=== PATIENT | female | born 1935 | race Caucasian/White ===

== ENCOUNTER 2021-12-19 18:27 | Inpatient (IN) ==
[2021-12-19 19:32] LABS: Hematocrit (blood only) 43.3 % (34.1-44.9); Hemoglobin 14.1 g/dl (12.0-16.0); Mean Corpuscular Hemoglobin 32.5 pg (25.0-34.0); Mean Corpuscular Hgb Conc 32.6 g/dL (32.0-36.0); Mean Corpuscular Volume 99.8 fL (80.0-100.0); Mean Platelet Volume 9.9 fL (9.4-12.3); Platelet Count 205 K/uL (130-400); RDW Standard Deviation 51.7 fL (36.4-46.3); Red Blood Count 4.34 M/uL (3.93-5.22); White Blood Count 16.08 K/ul (4.8-10.8)
[2021-12-19 19:44] LABS: Albumin Globulin Ratio 1.4 (0.9-2); Albumin Level 3.4 gm/dl (3.4-5.0); BUN Creatinine Ratio 47.1 (10-20); Bilirubin,Total 1.5 mg/dl (0.2-1.0); Calcium 9.9 mg/dl (8.5-10.1); Creatinine Clr Calc Pharmacy 64.1 ml/min; Est GFR (African American) 91.6 ml/min; Globulin 2.5 gm/dl (2.5-4.0); Potassium 4.2 mmol/L (3.5-5.1); Total Protein 5.9 gm/dl (6.0-8.3)
[2021-12-19 19:50] LABS: Troponin I High Sensitivity 8.7 pg/ml (0-14)
[2021-12-19 19:59] LABS: Basophils # (auto) 0.03 K/uL (0-0.2); Basophils % (auto) 0.2 %; Immature Granulocytes # (auto) 0.09 K/uL (0.00-0.02); Immature Granulocytes % (auto) 0.6 %; Monocytes # (auto) 0.35 K/uL (0.24-0.82); Monocytes % (auto) 2.2 %; Neutrophils # (auto) 14.81 K/uL (1.4-6.5); Polychromasia 1+
--- NOTE | 2021-12-19 20:05 | XRay Report ---
XR chest 1V portable CLINICAL HISTORY: SOB TECHNIQUE: Single frontal radiograph of the chest was obtained. Comparison: Comparison is made to chest radiograph 10/15/2021 FINDINGS: Bilateral reverse shoulder arthroplasties are seen. Calcified aortic knob is seen. The lungs are kendall r. No evidence of pleural effusion or pneumothorax. IMPRESSION: No acute abnormalities and in particular no evidence of pneumonia. ACT 112: Negative or not required by law. Electronically signed by: Sammy Davis M.D. 12/19/2021 8:03 PM
[2021-12-19] MEDS ORDERED: OPTIRAY 320 100ml IV ONE (20:20)
--- NOTE | 2021-12-19 20:36 | Emergency Department Note ---
Impression & Plan Diverticulitis, Leukocytosis, Atrial fibrillation, permanent ED Provider Note CHIEF COMPLAINT: Abdominal pain HISTORY OF PRESENT ILLNESS: This 86-year-old female patient presents to the emergency department with complaints of diffuse abdominal pain. The patient states it began in the right lower abdomen at approximately 4 AM. If she lies perfectly still the pain is somewhat tolerable. Any movement seems to cause worsening of the pain. She is not able to localize the pain at this time. She denies pain through to the back or into the chest. The patient denies any diarrhea, difficulty urinating or fevers. She denies any nausea or vomiting. Patient denies any significant abdominal history or surgeries. Patient states she lives in independent care at [facility]. REVIEW OF SYSTEMS: A review of systems was performed with positives and pertinent negatives listed in the history of present illness. 10 systems were reviewed and are otherwise negative. ALLERGIES: see below MEDICATIONS: see below PMH: see below SOCIAL HISTORY: see below DDx:Appendicitis, ovarian cyst, ovarian torsion, ectopic , TOA, PID, infections, diverticulitis, UTI, obstruction, mesenteric ischemia, aortic pathology, inflammatory bowel disease, renal colic, PUD, pancreatitis, biliary p athology, hernia, volvulus, constipation, as well as other pathologies. PHYSICAL EXAM: Vital signs reviewed. General: Chronically ill-appearing 86-year-old female, in no significant distress. HEENT: No scleral icterus, PERRLA, neck supple. Atraumatic. Cardiovascular: Irregular and rate controlled, no extra sounds Pulmonary: Clear to auscultation bilaterally, normal work of breathing. Abdomen: Soft, obese, diffusely tender with positive rebound and minimal tympany to percussion. Nondistended although exam is limited by obesity positive bowel sounds. Musculoskeletal: Atraumatic, no peripheral edema. Neurologic: Patient awake alert and oriented x 3, speech is clear Skin: Warm, dry, no rash EMERGENCY DEPARTMENT COURSE/MDM: This patient was evaluated and appeared to be in no significant distress. IV access was obtained and laboratory work was drawn. The patient was placed on groundwater monitoring technician noted to be in a rate controlled atrial fibrillation. Patient was hydrated with normal saline solution and given 1 g of IV acetaminophen. CT imaging of the abdomen pelvis was performed and reveals evidence of diverticulitis without abscess or perforation. The patient was given 4.5 g of IV Zosyn. She is noted to have an elevated WBC of 16. She does not have a fever or elevated lactate. Case was discussed with the hospitalist service who will evaluate the patient for admission and further management. MONITORING: An order for cardiac monitoring was placed and the patient is noted to be in a rate controlled atrial fibrillation at 83 beats per minute. RADIOLOGY: see below DISPOSITION: Admit Past Med/Surg History Medical History Aortic regurgitation Asthma inhaler prn Atrial fibrillation, permanent on eliquis and follows with Dr. Colón Chronic diastolic CHF (congestive heart failure) Coronary artery disease Dyslipidemia Esophageal stricture H/O fall 08/2020 Hearing deficit History of COVID-19 diagnosed 05/18/22 @ [place]--asymptomatic, tested prior to procedure--no issues now Hypothyroid Macular degeneration On anticoagulant therapy eliquis daily Osteoarthritis Pulmonary hypertension Spinal stenosis Surgical History History of bilateral cataract extraction History of cardiac cath ?2015 @ [facility]--no stents History of colonoscopy with polypectomy History of dilatation and curettage History of esophagogastroduodenoscopy (EGD) History of left hip replacement History of left shoulder replacement History of parathyroidectomy ELEVATED CALCIUM LEVELS? (2 REMOVED) History of right hip replacement History of right shoulder replacement History of tonsillectomy and adenoidectomy History of tooth extraction History of total left knee replacement (TKR) x2 History of total right knee replacement (TKR) x2 History of wisdom tooth extraction S/P cholecystectomy S/P dilatation of esophageal stricture Family History Mother Cancer uterine Thyroid disease Father Cancer esophageal Family history of esophageal cancer Sister Family history of diabetes mellitus Sister Family history of diabetes mellitus Brother Family history of diabetes mellitus Family hx of colon cancer Other No family history of adverse response to anesthesia Social History Smoking Status: Former smoker Tobacco Type: Cigarettes Smoking End Date: ; Second Hand Exposure: No; Hx Alcohol Use: Yes Alcohol type: wine Hx Substance Use: No Preferred Language: Mongolian Communication Ability: Effective Visual Impairment: Limited Hearing Ability: Normal Computer Support Analyst Required: No Beliefs That Will Affect Care: None Current Living Situation: Personal Care Facility Current Living Situation Comment: [facility] How many Children do You have: 4 Other Information That Helps Us Care for You: No Feels Safe at Home: Yes Safety Concerns: Feels Safe At This Time caffeine: No during the past year weight has: remained stable Assistive Devices: Denture - Upper, Glasses and Walker Allergies Allergies Allergy/AdvReac Type Severity Reaction Status Date / Time latex Allergy Intermediate Rash, Verified 12/16/21 10:06 itching povidone-iodine Allergy Intermediate Itching Verified 12/16/21 10:06 [From Betadine] soap [From Betadine] Allergy Intermediate Itching Verified 12/16/21 10:06 aspirin AdvReac Mild Dizziness Verified 12/16/21 10:06 Home Meds Home Medications Medication Instructions Recorded Confirmed trazodone 100 mg tablet 100 mg PO HS tab 01/24/20 12/19/21 fexofenadine 180 mg tablet 180 mg PO QAM tab 02/19/20 12/19/21 vit C 250 mg-vit E 90 mg-zinc 40 2 tab PO QAM 05/01/20 12/19/21 mg-copper 1 [id number] capsule (PreserVision AREDS-2) cholecalciferol (vitamin D3) 50 50 mcg PO QAM 08/25/20 12/19/21 mcg (2,000 unit) capsule (Vitamin D3) nitroglycerin 0.4 mg sublingual 0.4 mg SUBLINGUAL DIRECTED PRN 08/25/20 12/19/21 tablet budesonide-formoterol HFA 160 2 puff INHALATION BID PRN 09/15/20 12/19/21 mcg-4.5 mcg/actuation aerosol inhaler (Symbicort) pantoprazole 40 mg tablet,delayed 40 mg PO QAM 05/14/21 12/19/21 release (Protonix) montelukast 10 mg tablet 10 mg PO QPM 08/20/21 12/19/21 metoprolol succinate 50 mg 50 mg PO QAM 10/15/21 12/19/21 tablet,extended release 24 hr Previous Rx's Medication Instructions Recorded apixaban 5 mg tablet (Eliquis) 5 mg PO BID #180 tab 01/28/21 metoprolol succinate 100 mg 150 mg PO QAM #45 tab 09/16/21 tablet,extended release 24 hr tramadol 50 mg tablet (Ultram) 50 mg PO Q6H PRN #30 tab 10/15/21 levothyroxine 112 mcg tablet 112 mcg PO QPM #30 tab 11/04/21 bumetanide 1 mg tablet 1 mg PO QAM #100 tab 11/24/21 ezetimibe 10 mg tablet (Zetia) 10 mg PO QAM #90 tab 11/24/21 doxycycline hyclate 100 mg tablet 100 mg PO BID 14 Days #28 tab 12/06/21 Results & Data (ED) Vital Signs Vital Signs - 24 hr 12/19/21 18:39 12/19/21 19:33 12/19/21 20:00 Temperature 37.0 C Temperature Source Oral Pulse Rate 93 H Pulse Rate [Apical] 83 Respiratory Rate 20 20 Respiratory Effort / Characteristics Non-Labored Spontaneous Respiratory Depth Normal Blood Pressure 109/63 Blood Pressure [Left Arm] 114/74 Blood Pressure Mean 78 Blood Pressure Mean [Left Arm] 87 Blood Pressure Position Lying Pulse Oximetry 97 95 93 Oxygen Delivery Method Room Air Room Air Room Air Sepsis Recent Fever Within 48 Hours No Sepsis New/Unexplained Change in Mental Status No Sepsis Action Taken by Nursing No Action Required 12/19/21 21:00 Temperature Temperature Source Pulse Rate Pulse Rate [Apical] 90 Respiratory Rate 20 Respiratory Effort / Characteristics Respiratory Depth Blood Pressure Blood Pressure [Left Arm] 113/75 Blood Pressure Mean Blood Pressure Mean [Left Arm] 87 Blood Pressure Position Pulse Oximetry 93 Oxygen Delivery Method Room Air Sepsis Recent Fever Within 48 Hours Sepsis New/Unexplained Change in Mental Status Sepsis Action Taken by Alf Medications Current Medication List: was personally reviewed by me Laboratory Data Attestation: I reviewed the patient's lab results. Result diagrams: 12/19/21 18:45 12/19/21 18:45 Lab Results 12/19/21 12/19/21 12/19/21 Range/Units 18:45 18:45 18:45 WBC 16.08 H (4.8-10.8) K/ul RBC 4.34 (3.93-5.22) M/uL Hgb 14.1 (12.0-16.0) g/dl Hct 43.3 (34.1-44.9) % MCV 99.8 (80.0-100.0) fL MCH 32.5 (25.0-34.0) pg MCHC 32.6 (32.0-36.0) g/dL RDW Std Deviation 51.7 H (36.4-46.3) fL RDW Coeff of Marielle 14.0 (11.5-14.5) % Plt Count 205 (130-400) K/uL MPV 9.9 (9.4-12.3) fL Immature Gran % (Auto) 0.6 % Neut % (Auto) 92.0 % Lymph % (Auto) 5.0 % Ray % (Auto) 2.2 % Eos % (Auto) 0.0 % Baso % (Auto) 0.2 % Neut # (Auto) 14.81 H (1.4-6.5) K/uL Lymph # (Auto) 0.80 L (1.2-3.4) K/uL Ray # (Auto) 0.35 (0.24-0.82) K/uL Eos # (Auto) 0.00 (0-0.50) K/uL Baso # (Auto) 0.03 (0-0.2) K/uL Immature Gran # (Auto) 0.09 H (0.00-0.02) K/uL Polychromasia 1+ Sodium 137 (136-145) mmol/L Potassium 4.2 (3.5-5.1) mmol/L Chloride 101 (98-107) mmol/L Carbon Dioxide 29 (21-32) mmol/L Anion Gap 7 (3-11) BUN 33 H (6-23) mg/dl Creatinine 0.70 (0.6-1.2) mg/dl Est Cr Clr Drug Dosing 64.1 ml/min Est GFR ( Amer) 91.6 ml/min Est GFR (Non-Af Amer) 79.0 ml/min BUN/Creatinine Ratio 47.1 H (10-20) Glucose 140 H (70-99(Fasting)) mg/dl Calcium 9.9 (8.5-10.1) mg/dl Magnesium 1.9 (1.7-2.4) mg/dl Total Bilirubin 1.5 H (0.2-1.0) mg/dl AST 18 (13-39) U/L ALT 40 (7-52) U/L Alkaline Phosphatase 97 (34-104) U/L Troponin I High Sens 8.7 (0-14) pg/ml Total Protein 5.9 L (6.0-8.3) gm/dl Albumin 3.4 (3.4-5.0) gm/dl Globulin 2.5 (2.5-4.0) gm/dl Albumin/Globulin Ratio 1.4 (0.9-2) Lipase 13 (11-82) U/L Urine Color Urine Appearance (Clear) Urine pH (4.5-7.5) Ur Specific [place] (1.000-1.030) Urine Protein (Negative) Urine Glucose (UA) (Negative) Urine Ketones (Negative) Urine Blood (Negative) Urine Nitrite (Negative) Urine Bilirubin (Negative) Urine Urobilinogen (Negative) Ur Leukocyte Esterase (Negative) Urine WBC (Auto) (0-5) /hpf Urine RBC (Auto) (0-4) /hpf U Hyaline Cast (Auto) (0-5) /lpf U Epithel Cells (Auto) (0-5) /lpf Urine Bacteria (Auto) (Negative) SARS-CoV-2, RNA, NAAT (NEGATIVE) 12/19/21 12/19/21 Range/Units 19:30 21:10 WBC (4.8-10.8) K/ul RBC (3.93-5.22) M/uL Hgb (12.0-16.0) g/dl Hct (34.1-44.9) % MCV (80.0-100.0) fL MCH (25.0-34.0) pg MCHC (32.0-36.0) g/dL RDW Std Deviation (36.4-46.3) fL RDW Coeff of Marielle (11.5-14.5) % Plt Count (130-400) K/uL MPV (9.4-12.3) fL Immature Gran % (Auto) % Neut % (Auto) % Lymph % (Auto) % Ray % (Auto) % Eos % (Auto) % Baso % (Auto) % Neut # (Auto) (1.4-6.5) K/uL Lymph # (Auto) (1.2-3.4) K/uL Ray # (Auto) (0.24-0.82) K/uL Eos # (Auto) (0-0.50) K/uL Baso # (Auto) (0-0.2) K/uL Immature Gran # (Auto) (0.00-0.02) K/uL Polychromasia Sodium (136-145) mmol/L Potassium (3.5-5.1) mmol/L Chloride (98-107) mmol/L Carbon Dioxide (21-32) mmol/L Anion Gap (3-11) BUN (6-23) mg/dl Creatinine (0.6-1.2) mg/dl Est Cr Clr Drug Dosing ml/min Est GFR ( Amer) ml/min Est GFR (Non-Af Amer) ml/min BUN/Creatinine Ratio (10-20) Glucose (70-99(Fasting)) mg/dl Calcium (8.5-10.1) mg/dl Magnesium (1.7-2.4) mg/dl Total Bilirubin (0.2-1.0) mg/dl AST (13-39) U/L ALT (7-52) U/L Alkaline Phosphatase (34-104) U/L Troponin I High Sens (0-14) pg/ml Total Protein (6.0-8.3) gm/dl Albumin (3.4-5.0) gm/dl Globulin (2.5-4.0) gm/dl Albumin/Globulin Ratio (0.9-2) Lipase (11-82) U/L Urine Color Yellow Urine Appearance Clear (Clear) Urine pH 7.0 (4.5-7.5) Ur Specific [place] > 1.045 H (1.000-1.030) Urine Protein Negative (Negative) Urine Glucose (UA) Negative (Negative) Urine Ketones Negative (Negative) Urine Blood Negative (Negative) Urine Nitrite Negative (Negative) Urine Bilirubin Negative (Negative) Urine Urobilinogen Negative (Negative) Ur Leukocyte Esterase Trace H (Negative) Urine WBC (Auto) 1-5 (0-5) /hpf Urine RBC (Auto) 0-4 (0-4) /hpf U Hyaline Cast (Auto) 0 (0-5) /lpf U Epithel Cells (Auto) 20-30 H (0-5) /lpf Urine Bacteria (Auto) Negative (Negative) SARS-CoV-2, RNA, NAAT NEGATIVE (NEGATIVE) Administered Medications Sodium Chloride (Nss 1000ml) 1,000 mls @ 200 mls/hr IV .Q5H ONE Stop: 12/20/21 03:35 Last Admin: 12/19/21 23:07 Dose: 200 mls/hr Documented by: [id number] Discontinued Medications Acetaminophen (Ofirmev) 1,000 mg in 100 mls @ 400 mls/hr IV NOW STA Stop: 12/19/21 21:10 Last Infusion: 12/19/21 21:23 Dose: 0 mls/hr Documented by: [id number] Admin: 12/19/21 21:02 Dose: 400 mls/hr Documented by: [id number] Piperacillin Sod/Tazobactam Sod (Zosyn) 4.5 gm in 120 mls @ 240 mls/hr IV NOW ONE Stop: 12/19/21 21:25 Last Infusion: 12/19/21 21:32 Dose: 0 mls/hr Documented by: [id number] Admin: 12/19/21 21:02 Dose: 240 mls/hr Documented by: [id number] Ioversol (Optiray 320 100ml) 94 ml IV ONCE ONE Stop: 12/19/21 20:21 Last Admin: 12/19/21 20:21 Dose: 94 ml Documented by: [id number] Imaging Data Radiologist's Impression: Chest X-Ray 12/19/21 19:19 XR chest 1V portable CLINICAL HISTORY: SOB TECHNIQUE: Single frontal radiograph of the chest was obtained. Comparison: Comparison is made to chest radiograph 10/15/2021 FINDINGS: Bilateral reverse shoulder arthroplasties are seen. Calcified aortic knob is seen. The lungs are clear. No evidence of pleural effusion or pneumothorax. IMPRESSION: No acute abnormalities and in particular no evidence of pneumonia. ACT 112: Negative or not required by law. Electronically signed by: Sammy Davis M.D. 12/19/2021 8:03 PM Abdomen/Pelvis CT 12/19/21 19:20 CT abd pelvis IV con only CLINICAL HISTORY: abd pain, diffuse TECHNIQUE: Helical axial images of the abdomen and pelvis were obtained and displayed. Automated dose lowering techniques and/or adjustment according to patient size were utilized for this exam. This exam was performed with intravenous contrast. CT DOSE: 582.18 mGy.cm COMPARISON: None available at the time of this dictation. FINDINGS: Lower chest: Cardiomegaly is partially visualized. Liver: Unremarkable. No focal lesions are seen. Gallbladder and biliary tree: Patient is status post cholecystectomy. No intra- or extrahepatic biliary ductal dilation. Pancreas: Fatty replacement of the pancreas is seen. Spleen: Unremarkable. Adrenals: Calcifications in the right adrenal gland are noted. Kidneys and ureters: Mild cortical thinning of the bilateral kidneys noted with cyst formation. Bladder: Unremarkable. Reproductive organs: Unremarkable. Bowel: Numerous diverticuli are seen. There is fat stranding about the sigmoid colon with mild associated wall thickening. Lymph nodes Retroperitoneal: Unremarkable. Mesenteric: Unremarkable. Pelvic: Unremarkable. Peritoneum: Fat stranding is noted in the vicinity of the sigmoid colon. No evid ence of pneumoperitoneum is seen. Vessels: Atherosclerotic calcifications are seen. Abdominal wall: A fat-containing umbilical hernia is seen. Bones: Bilateral total hip arthroplasties are seen. Degenerative changes are se en in the spine. IMPRESSION: 1. Findings are compatible with acute diverticulitis without evidence of perforation or abscess. 2. Additional findings as above. ACT 112: Negative or not required by law. Electronically signed by: Sammy Davis M.D. 12/19/2021 8:39 PM Blood Pressure Blood Pressure Findings: Normal blood pressure Blood Pressure Disposition: did not require urgent referral Discharge Plan Visit Data Chief Complaint: Abdominal Pain Stated Complaint: abdominal pain ED Provider: Cristin Palafox Discharge Problem: Diverticulitis, Leukocytosis, Atrial fibrillation, permanent Patient Disposition: Admitted As Inpatient Discharge Instructions Interventions: ED Discharge Assessment Last Done: 12/19/21 23:35 Discharge Problem: Leukocytosis Qualifiers: Leukocytosis type: unspecified Qualified Code(s): D72.829 - Elevated white blood cell count, unspecified
--- NOTE | 2021-12-19 20:41 | CT Scan Report ---
CT abd pelvis IV con only CLINICAL HISTORY: abd pain, diffuse TECHNIQUE: Helical axial images of the abdomen and pelvis were obtained and displayed. Automated dose lowering techniques and/or adjustment according to patient size were utilized for this exam. This e xam was performed with intravenous contrast. CT DOSE: 582.18 mGy.cm COMPARISON: None available at the time of this dictation. FINDINGS: Lower chest: Cardiomegaly is partially visualized. Liver: Unremarkable. No focal lesions are seen. Gallbladder and biliary tree: Patient is status post cholecystectomy. No intra- or extrahepatic bilia ry ductal dilation. Pancreas: Fatty replacement of the pancreas is seen. Spleen: Unremarkable. Adrenals: Calcifications in the right adrenal gland are noted. Kidneys and ureters: Mild cortical thinning of the bilateral kidneys noted with cyst formation. Bladder: Unremarkable. Reproductive organs: Unremarkable. Bowel: Numerous diverticuli are seen. There is fat stranding about the sigmoid colon with mild associ ated wall thickening. Lymph nodes Retroperitoneal: Unremarkable. Mesenteric: Unremarkable. Pelvic: Unremarkable. Peritoneum: Fat stranding is noted in the vicinity of the sigmoid colon. No evidence of pneumoperiton eum is seen. Vessels: Atherosclerotic calcifications are seen. Abdominal wall: A fat-containing umbilical hernia is seen. Bones: Bilateral total hip arthroplasties are seen. Degenerative changes are seen in the spine. IMPRESSION: 1. Findings are compatible with acute diverticulitis without evidence of perforation or abscess. 2. Additional findings as above. ACT 112: Negative or not required by law. Electronically signed by: Sammy Davis M.D. 12/19/2021 8:39 PM
[2021-12-19] MEDS ORDERED: ACETAMINOPHEN 1,000 MG/100 ML VIAL IV STA (20:56)
[2021-12-19] MEDS ORDERED: PIPERACILLIN/TAZOBACTAM 4.5 GM/120 ML BAG IV ONE (20:56)
[2021-12-19 21:32] LABS: Appearance Urine Clear (Clear); Bacteria Urine Automated Negative (Negative); Bilirubin Urine Negative (Negative); Blood Urine Negative (Negative); Cast Urine Automated 0 /lpf (0-5); Color Urine Yellow; Epithelial Cell Urine Auto 20-30 /lpf (0-5); Glucose Urine UA Negative (Negative); Ketones Urine Negative (Negative); Leukocyte Esterase Urine Trace (Negative); Nitrite Urine Negative (Negative); Protein Urine Negative (Negative); RBC Urine Automated 0-4 /hpf (0-4); Specific Gravity Urine > 1.045 (1.000-1.030); Urobilinogen Urine Negative (Negative)
[2021-12-19] MEDS ORDERED: SODIUM CHLORIDE 0.9% 1000ML 1,000 ML IV ONE (22:36)
--- NOTE | 2021-12-19 22:37 | History & Physical Report ---
Date of Service December 19, 2021 Assessment & Plan (1) Hypotension: Plan: Possibly from hypovolemia secondary to decreased p.o. intake secondary to recurrent diverticulitis No overt sepsis for now chronic diastolic heart failure (EF 55 to 60%, TTE 2019), patient on the dry side Afib on Eliquis valvular heart disease/ nonobstructive CAD Chronic LE wounds, history of PVD hyperlipidemia on statin Rx asthma, symptoms at baseline, suspect underlying COPD given home inhalers and chronic SOB symptoms hypothyroidism, euthyroid as of recent outpatient TSH Hyperglycemia rule out DM Ambulatory dysfunction past tobacco abuse. Medical telemetry given low blood pressure IVF, hold home diuretics for now until patient euvolemic Clear liquid diet for diverticulitis, Zosyn GI consult Re: Recurrent diverticulitis (Patient known to [facility].) Check hemoglobin A1c PT OT eval DVT prophylaxis. Eliquis DNR Text document was generated using [employer] voice recognition software. It may contain grammatical or spelling errors. Kindly contact undersigned for clarification of any documentation item in question. History of Present Illness Chief Complaint: Abdominal pain Primary Care Provider: Dr. Shakir Terry (Patient has not met him.) History obtained from patient and records. Medical history significant for chronic diastolic heart failure (EF 55 to 60%, TTE 2019), A. fib on Eliquis, valvular heart disease (AR, TR as per records), nonobstructive CAD, PVD, hyperlipidemia, asthma, chronic leg wounds, primary hyperparathyroidism status post surgery, hypothyroidism, history diverticulitis, sacroiliitis, past tobacco abuse. 2 days ago, patient evaluated at the ER for a mechanical fall. Subsequently sent home. Yesterday, patient appetite not good. Patient woke up with achy lower abdominal pain nausea. No emesis. Unusual constipation as per patient. Fever, no chills, no chest pain, usual shortness of breath. Episode somewhat reminiscent of diverticulitis attack from about 15 years ago after she consumed chicken noodle soup. Zosyn administered at the ER. 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 Allergies Allergy/AdvReac Type Severity Reaction Status Date / Time latex Allergy Intermediate Rash, Verified 12/16/21 10:06 itching povidone-iodine Allergy Intermediate Itching Verified 12/16/21 10:06 [From Betadine] soap [From Betadine] Allergy Intermediate Itching Verified 12/16/21 10:06 aspirin AdvReac Mild Dizziness Verified 12/16/21 10:06 Home Medications Medication Instructions Recorded Confirmed Type trazodone 100 mg tablet 100 mg PO HS tab 01/24/20 12/19/21 History fexofenadine 180 mg tablet 180 mg PO QAM tab 02/19/20 12/19/21 History vit C 250 mg-vit E 90 mg-zinc 40 2 tab PO QAM 05/01/20 12/19/21 History mg-copper 1 [id number] capsule (PreserVision AREDS-2) cholecalciferol (vitamin D3) 50 50 mcg PO QAM 08/25/20 12/19/21 History mcg (2,000 unit) capsule (Vitamin D3) nitroglycerin 0.4 mg sublingual 0.4 mg SUBLINGUAL DIRECTED PRN 08/25/20 12/19/21 History tablet budesonide-formoterol HFA 160 2 puff INHALATION BID PRN 09/15/20 12/19/21 History mcg-4.5 mcg/actuation aerosol inhaler (Symbicort) apixaban 5 mg tablet (Eliquis) 5 mg PO BID #180 tab 01/28/21 12/19/21 Rx pantoprazole 40 mg tablet,delayed 40 mg PO QAM 05/14/21 12/19/21 History release (Protonix) montelukast 10 mg tablet 10 mg PO QPM 08/20/21 12/19/21 History metoprolol succinate 100 mg 150 mg PO QAM #45 tab 09/16/21 12/19/21 Rx tablet,extended release 24 hr metoprolol succinate 50 mg 50 mg PO QAM 10/15/21 12/19/21 History tablet,extended release 24 hr tramadol 50 mg tablet (Ultram) 50 mg PO Q6H PRN #30 tab 10/15/21 12/19/21 Rx levothyroxine 112 mcg tablet 112 mcg PO QPM #30 tab 11/04/21 12/19/21 Rx bumetanide 1 mg tablet 1 mg PO QAM #100 tab 11/24/21 12/19/21 Rx ezetimibe 10 mg tablet (Zetia) 10 mg PO QAM #90 tab 11/24/21 12/19/21 Rx doxycycline hyclate 100 mg tablet 100 mg PO BID 14 Days #28 tab 12/06/21 12/19/21 Rx Past Med/Surg History Medical History Aortic regurgitation Asthma inhaler prn Atrial fibrillation, permanent on eliquis and follows with Dr. Colón Chronic diastolic CHF (congestive heart failure) Coronary artery disease Dyslipidemia Esophageal stricture H/O fall 08/2020 Hearing deficit History of COVID-19 diagnosed 05/18/22 @ [place]--asymptomatic, tested prior to procedure--no issues now Hypothyroid Macular degeneration On anticoagulant therapy eliquis daily Osteoarthritis Pulmonary hypertension Spinal stenosis Surgical History History of bilateral cataract extraction History of cardiac cath ?2015 @ [facility]--no stents History of colonoscopy with polypectomy History of dilatation and curettage History of esophagogastroduodenoscopy (EGD) History of left hip replacement History of left shoulder replacement History of parathyroidectomy ELEVATED CALCIUM LEVELS? (2 REMOVED) History of right hip replacement History of right shoulder replacement History of tonsillectomy and adenoidectomy History of tooth extraction History of total left knee replacement (TKR) x2 History of total right knee replacement (TKR) x2 History of wisdom tooth extraction S/P cholecystectomy S/P dilatation of esophageal stricture Family History Mother Cancer uterine Thyroid disease Father Cancer esophageal Family history of esophageal cancer Sister Family history of diabetes mellitus Sister Family history of diabetes mellitus Brother Family history of diabetes mellitus Family hx of colon cancer Other No family history of adverse response to anesthesia Social History Smoking Status: Former smoker Tobacco Type: Cigarettes Smoking End Date: ; Second Hand Exposure: No; Hx Alcohol Use: Yes Alcohol type: wine Hx Substance Use: No Preferred Language: Beninese Communication Ability: Effective Visual Impairment: Limited Hearing Ability: Normal Business Unit Controller Required: No Beliefs That Will Affect Care: None Current Living Situation: Personal Care Facility Current Living Situation Comment: [facility] How many Children do You have: 4 Other Information That Helps Us Care for You: No Feels Safe at Home: Yes Safety Concerns: Feels Safe At This Time caffeine: No during the past year weight has: remained stable Assistive Devices: Denture - Upper, Glasses and Walker Review of Systems Review of Systems: As per HPI, all other systems reviewed and negative Physical Exam Physical Exam: GENERAL: Comfortable, pleasant, has to catch her breath during speech at times SKIN: Normal color, warm HEENT: [place] palpebral conjunctivae, no ptosis, lip asymmetry, dry buccal mucosa NECK : Supple, no tenderness CHEST : Decreased breath sounds, no tenderness HEART : irregular, no obvious murmurs ABDOMEN: Some distention, hypogastric tenderness EXTREMITIES : Dressings over LE, minimal LE tenderness NEUROLOGIC : Coherent, chronic lip asymmetry, mild hearing impairment, gait and stance not assessed Results & Data Results & Data ([facility]) Vital Signs (Past 12 Hours) Vital Signs Temp Pulse Pulse Resp BP BP Pulse Ox 12/19/21 21:00 90 20 113/75 93 12/19/21 20:00 83 20 114/74 93 12/19/21 19:33 95 12/19/21 18:39 37.0 C 93 H 20 109/63 97 Laboratory Results Laboratory Results WBC 16.08 K/ul (4.8-10.8) H 12/19/21 18:45 RBC 4.34 M/uL (3.93-5.22) 12/19/21 18:45 Hgb 14.1 g/dl (12.0-16.0) 12/19/21 18:45 Hct 43.3 % (34.1-44.9) 12/19/21 18:45 MCV 99.8 fL (80.0-100.0) 12/19/21 18:45 MCH 32.5 pg (25.0-34.0) 12/19/21 18:45 MCHC 32.6 g/dL (32.0-36.0) 12/19/21 18:45 RDW Std Deviation 51.7 fL (36.4-46.3) H 12/19/21 18:45 RDW Coeff of Marielle 14.0 % (11.5-14.5) 12/19/21 18:45 Plt Count 205 K/uL (130-400) 12/19/21 18:45 MPV 9.9 fL (9.4-12.3) 12/19/21 18:45 Immature Gran % (Auto) 0.6 % 12/19/21 18:45 Neut % (Auto) 92.0 % 12/19/21 18:45 Lymph % (Auto) 5.0 % 12/19/21 18:45 [place] % (Auto) 2.2 % 12/19/21 18:45 Eos % (Auto) 0.0 % 12/19/21 18:45 Baso % (Auto) 0.2 % 12/19/21 18:45 Neut # (Auto) 14.81 K/uL (1.4-6.5) H 12/19/21 18:45 Lymph # (Auto) 0.80 K/uL (1.2-3.4) L 12/19/21 18:45 [place] # (Auto) 0.35 K/uL (0.24-0.82) 12/19/21 18:45 Eos # (Auto) 0.00 K/uL (0-0.50) 12/19/21 18:45 Baso # (Auto) 0.03 K/uL (0-0.2) 12/19/21 18:45 Immature Gran # (Auto) 0.09 K/uL (0.00-0.02) H 12/19/21 18:45 Polychromasia 1+ 12/19/21 18:45 Sodium 137 mmol/L (136-145) 12/19/21 18:45 Potassium 4.2 mmol/L (3.5-5.1) 12/19/21 18:45 Chloride 101 mmol/L (98-107) 12/19/21 18:45 Carbon Dioxide 29 mmol/L (21-32) 12/19/21 18:45 Anion Gap 7 (3-11) 12/19/21 18:45 BUN 33 mg/dl (6-23) H 12/19/21 18:45 Creatinine 0.70 mg/dl (0.6-1.2) 12/19/21 18:45 Est Cr Clr Drug Dosing 64.1 ml/min 12/19/21 18:45 Est GFR ( Amer) 91.6 ml/min 12/19/21 18:45 Est GFR (Non-Af Amer) 79.0 ml/min 12/19/21 18:45 BUN/Creatinine Ratio 47.1 (10-20) H 12/19/21 18:45 Glucose 140 mg/dl (70-99(Fasting)) H 12/19/21 18:45 Calcium 9.9 mg/dl (8.5-10.1) 12/19/21 18:45 Magnesium 1.9 mg/dl (1.7-2.4) 12/19/21 18:45 Total Bilirubin 1.5 mg/dl (0.2-1.0) H 12/19/21 18:45 AST 18 U/L (13-39) 12/19/21 18:45 ALT 40 U/L (7-52) 12/19/21 18:45 Alkaline Phosphatase 97 U/L (34-104) 12/19/21 18:45 Troponin I High Sens 8.7 pg/ml (0-14) 12/19/21 18:45 Total Protein 5.9 gm/dl (6.0-8.3) L 12/19/21 18:45 Albumin 3.4 gm/dl (3.4-5.0) 12/19/21 18:45 Globulin 2.5 gm/dl (2.5-4.0) 12/19/21 18:45 Albumin/Globulin Ratio 1.4 (0.9-2) 12/19/21 18:45 Lipase 13 U/L (11-82) 12/19/21 18:45 Urine Color Yellow 12/19/21 21:10 Urine Appearance Clear (Clear) 12/19/21 21:10 Urine pH 7.0 (4.5-7.5) 12/19/21 21:10 Ur Specific [place] > 1.045 (1.000-1.030) H 12/19/21 21:10 Urine Protein Negative (Negative) 12/19/21 21:10 Urine Glucose (UA) Negative (Negative) 12/19/21 21:10 Urine Ketones Negative (Negative) 12/19/21 21:10 Urine Blood Negative (Negative) 12/19/21 21:10 Urine Nitrite Negative (Negative) 12/19/21 21:10 Urine Bilirubin Negative (Negative) 12/19/21 21:10 Urine Urobilinogen Negative (Negative) 12/19/21 21:10 Ur Leukocyte Esterase Trace (Negative) H 12/19/21 21:10 Urine WBC (Auto) 1-5 /hpf (0-5) 12/19/21 21:10 Urine RBC (Auto) 0-4 /hpf (0-4) 12/19/21 21:10 U Hyaline Cast (Auto) 0 /lpf (0-5) 12/19/21 21:10 U Epithel Cells (Auto) 20-30 /lpf (0-5) H 12/19/21 21:10 Urine Bacteria (Auto) Negative (Negative) 12/19/21 21:10 SARS-CoV-2, RNA, NAAT NEGATIVE (NEGATIVE) 12/19/21 19:30 Impressions Chest X-Ray 12/19/21 19:19 XR chest 1V portable CLINICAL HISTORY: SOB TECHNIQUE: Single frontal radiograph of the chest was obtained. Comparison: Comparison is made to chest radiograph 10/15/2021 FINDINGS: Bilateral reverse shoulder arthroplasties are seen. Calcified aortic knob is seen. The lungs are clear. No evidence of pleural effusion or pneumothorax. IMPRESSION: No acute abnormalities and in particular no evidence of pneumonia. ACT 112: Negative or not required by law. Electronically signed by: Sammy Davis M.D. 12/19/2021 8:03 PM Abdomen/Pelvis CT 12/19/21 19:20 CT abd pelvis IV con only CLINICAL HISTORY: abd pain, diffuse TECHNIQUE: Helical axial images of the abdomen and pelvis were obtained and displayed. Automated dose lowering techniques and/or adjustment according to patient size were utilized for this exam. This exam was performed with intravenous contrast. CT DOSE: 582.18 mGy.cm COMPARISON: None available at the time of this dictation. FINDINGS: Lower chest: Cardiomegaly is partially visualized. Liver: Unremarkable. No focal lesions are seen. Gallbladder and biliary tree: Patient is status post cholecystectomy. No intra- or extrahepatic biliary ductal dilation. Pancreas: Fatty replacement of the pancreas is seen. Spleen: Unremarkable. Adrenals: Calcifications in the right adrenal gland are noted. Kidneys and ureters: Mild cortical thinning of the bilateral kidneys noted with cyst formation. Bladder: Unremarkable. Reproductive organs: Unremarkable. Bowel: Numerous diverticuli are seen. There is fat stranding about the sigmoid colon with mild associated wall thickening. Lymph nodes Retroperitoneal: Unremarkable. Mesenteric: Unremarkable. Pelvic: Unremarkable. Peritoneum: Fat stranding is noted in the vicinity of the sigmoid colon. No evidence of pneumoperitoneum is seen. Vessels: Atherosclerotic calcifications are seen. Abdominal wall: A fat-containing umbilical hernia is seen. Bones: Bilateral total hip arthroplasties are seen. Degenerative changes are seen in the spine. IMPRESSION: 1. Findings are compatible with acute diverticulitis without evidence of perforation or abscess. 2. Additional findings as above. ACT 112: Negative or not required by law. Electronically signed by: Sammy Davis M.D. 12/19/2021 8:39 PM
[2021-12-20] MEDS ORDERED: XOPENEX/ATROVENT 1.25mg/0.5MG NEB COMBO NEB PRN (00:42)
[2021-12-20] MEDS ORDERED: PROMETHAZINE HCL 12.5 MG in SODIUM CHLORIDE 0.9% 50 ML IV PRN (00:42)
[2021-12-20] MEDS ORDERED: POLYETHYLENE (MIRALAX) 17 GM PACK PO PRN (00:42)
[2021-12-20] MEDS ORDERED: traMADol HCL 50 MG TABLET PO PRN (00:42)
[2021-12-20] MEDS ORDERED: MoRPHine SULFATE 2 MG/ML CARP IV PRN (00:42)
[2021-12-20] MEDS ORDERED: LEVALBUTEROL 1.25MG/0.5ML NEB INH PRN (00:42)
[2021-12-20] MEDS: DOCUSATE SODIUM/SENNA 50/8.6MG TAB PO SCH ×2 (02:03→09:02)
[2021-12-20] MEDS: PIPERACILLIN/TAZOBACTAM 3.375 GM in DEXTROSE 5% 100 ML IV SCH ×3 (02:04→17:21)
[2021-12-20] MEDS: APIXABAN 5 MG TABLET PO SCH ×3 (02:04→21:57)
[2021-12-20] MEDS ORDERED: KETOROLAC TROMETHAMINE 15 MG/ML VIAL IV ONE (05:05)
[2021-12-20] MEDS ORDERED: SODIUM CHLORIDE 0.9% 1000ML 1,000 ML IV ONE (05:06)
[2021-12-20] MEDS: oxyCODONE HCL IR 5 MG TAB (IMMEDIATE RELEASE) PO PRN ×2 (06:06→16:31)
[2021-12-20 08:22] LABS: Hematocrit (blood only) 36.8 % (34.1-44.9); Hemoglobin 12.1 g/dl (12.0-16.0); Mean Corpuscular Hgb Conc 32.9 g/dL (32.0-36.0); Mean Corpuscular Volume 100.3 fL (80.0-100.0); Mean Platelet Volume 9.7 fL (9.4-12.3); Platelet Count 177 K/uL (130-400); RDW Coefficient of Variation 14.2 % (11.5-14.5); RDW Standard Deviation 52.3 fL (36.4-46.3); Red Blood Count 3.67 M/uL (3.93-5.22); White Blood Count 15.46 K/ul (4.8-10.8)
[2021-12-20 08:32] LABS: Estimated Average Glucose 137 mg/dl; Hemoglobin A1C 6.4 % (4.5-5.6)
[2021-12-20 08:47] LABS: BUN Creatinine Ratio 33.8 (10-20); Calcium 9.1 mg/dl (8.5-10.1); Creatinine Clr Calc Pharmacy 55.1 ml/min; Est GFR (African American) 77.9 ml/min; Est GFR (Non-African American) 67.2 ml/min; Potassium 4.3 mmol/L (3.5-5.1)
[2021-12-20] MEDS: CHOLECALCIFEROL 1,000 UNITS 25 MCG TAB PO SCH (09:02)
[2021-12-20] MEDS: EZETIMIBE 10 MG TABLET PO SCH (09:02)
[2021-12-20] MEDS: PANTOprazole 40 MG TAB PO SCH (09:02)
[2021-12-20] MEDS: FEXOFENADINE HCL 180 MG TAB PO SCH (09:02)
[2021-12-20] MEDS: CEROVITE ADV FORMULA TAB PO SCH (09:03)
--- NOTE | 2021-12-20 09:41 | Gastrointestinal Consultation ---
Date of Consultation December 20, 2021 Assessment & Plan (1) Diverticulitis: -Continue IV Zosyn, eventually will transition to po antibiotics for a total of 10 days of therapy -Liquid diet for now; when advancing, plan for low residue -Can consider outpatient colonoscopy in 6-8 weeks if patient feels compelled -Supportive care Supervising Physician Co-Signing Physician Notes I personally evaluated the patient and agree with the findings as documented by Naomi Christensen, PAC Exam: Constitutional: WD/WN, vitals as above General: EOM intact bilaterally Neck: normal visual inspection Respiratory: normal respiratory effort, lungs clear to auscultation Cardiovascular: RRR, no murmur, no edema Gastrointestinal: abdomennormal to inspection, nondistended, soft, nontender, no hepatosplenomegaly Musculoskeletal: no cyanosis, head normal to inspection Skin: no rashes, warm and dry Neurologic: moves all extremities Psychiatric: A and O x3, euthymic affect History of Present Illness Reason for Consultation: Diverticulitis Attending Physician: Ben Rodas MD History of Present Illness Patient is an 86 yo female with PMH of bullous dermatitis, stage 3 pressure ulcer, hypothyroidism, GERD, hyperparathyroidism, Atrial fibrillation, HLD, pulmonary hyapertension, CAD, Diastolic CHF. GI has been consulted for diverticulitis. Patient acknowledges that she had diverticulitis once many years ago. She is unsure of the date of the last colonoscopy she had. She had a CT on admission that indicated mild, sigmoid diverticulitis. She reports improvement of her abdominal pain. She is currently on IV Zosyn. She had a liquid diet for breakfast & tolerated it well. WCB count 15,460. Afebrile. She reports passing gas but denies moving her bowels since admission. No pertinent family history. Allergies Allergy/AdvReac Type Severity Reaction Status Date / Time latex Allergy Intermediate Rash, Verified 12/16/21 10:06 itching povidone-iodine Allergy Intermediate Itching Verified 12/16/21 10:06 [From Betadine] soap [From Betadine] Allergy Intermediate Itching Verified 12/16/21 10:06 aspirin AdvReac Mild Dizziness Verified 12/16/21 10:06 Home Medications Medication Instructions Recorded Confirmed Type trazodone 100 mg tablet 100 mg PO HS tab 01/24/20 12/19/21 History fexofenadine 180 mg tablet 180 mg PO QAM tab 02/19/20 12/19/21 History vit C 250 mg-vit E 90 mg-zinc 40 2 tab PO QAM 05/01/20 12/19/21 History mg-copper 1 [id number]-gbmqcy-glligg capsule (PreserVision AREDS-2) cholecalciferol (vitamin D3) 50 50 mcg PO QAM 08/25/20 12/19/21 History mcg (2,000 unit) capsule (Vitamin D3) nitroglycerin 0.4 mg sublingual 0.4 mg SUBLINGUAL DIRECTED PRN 08/25/20 12/19/21 History tablet budesonide-formoterol HFA 160 2 puff INHALATION BID PRN 09/15/20 12/19/21 History mcg-4.5 mcg/actuation aerosol inhaler (Symbicort) apixaban 5 mg tablet (Eliquis) 5 mg PO BID #180 tab 01/28/21 12/19/21 Rx pantoprazole 40 mg tablet,delayed 40 mg PO QAM 05/14/21 12/19/21 History release (Protonix) montelukast 10 mg tablet 10 mg PO QPM 08/20/21 12/19/21 History metoprolol succinate 100 mg 150 mg PO QAM #45 tab 09/16/21 12/19/21 Rx tablet,extended release 24 hr metoprolol succinate 50 mg 50 mg PO QAM 10/15/21 12/19/21 History tablet,extended release 24 hr tramadol 50 mg tablet (Ultram) 50 mg PO Q6H PRN #30 tab 10/15/21 12/19/21 Rx levothyroxine 112 mcg tablet 112 mcg PO QPM #30 tab 11/04/21 12/19/21 Rx bumetanide 1 mg tablet 1 mg PO QAM #100 tab 11/24/21 12/19/21 Rx ezetimibe 10 mg tablet (Zetia) 10 mg PO QAM #90 tab 11/24/21 12/19/21 Rx doxycycline hyclate 100 mg tablet 100 mg PO BID 14 Days #28 tab 12/06/21 12/19/21 Rx Patient History Medical History Aortic regurgitation Asthma inhaler prn Atrial fibrillation, permanent on eliquis and follows with Dr. Colón Chronic diastolic CHF (congestive heart failure) Coronary artery disease Dyslipidemia Esophageal stricture H/O fall 08/2020 Hearing deficit History of COVID-19 diagnosed 05/18/22 @ [place]--asymptomatic, tested prior to procedure--no issues now Hypothyroid Macular degeneration On anticoagulant therapy eliquis daily Osteoarthritis Pulmonary hypertension Spinal stenosis Surgical History History of bilateral cataract extraction History of cardiac cath ?2015 @ [facility]--no stents History of colonoscopy with polypectomy History of dilatation and curettage History of esophagogastroduodenoscopy (EGD) History of left hip replacement History of left shoulder replacement History of parathyroidectomy ELEVATED CALCIUM LEVELS? (2 REMOVED) History of right hip replacement History of right shoulder replacement History of tonsillectomy and adenoidectomy History of tooth extraction History of total left knee replacement (TKR) x2 History of total right knee replacement (TKR) x2 History of wisdom tooth extraction S/P cholecystectomy S/P dilatation of esophageal stricture Family History Mother Cancer uterine Thyroid disease Father Cancer esophageal Family history of esophageal cancer Sister Family history of diabetes mellitus Sister Family history of diabetes mellitus Brother Family history of diabetes mellitus Family hx of colon cancer Other No family history of adverse response to anesthesia Social History Smoking Status: Former smoker Tobacco Type: Cigarettes Smoking End Date: ; Second Hand Exposure: No; Hx Alcohol Use: Yes Alcohol type: wine Hx Substance Use: No Preferred Language: Yi Communication Ability: Effective Visual Impairment: Limited Hearing Ability: Normal Playground Aide Required: No Beliefs That Will Affect Care: None Current Living Situation: Personal Care Facility Current Living Situation Comment: [facility] How many Children do You have: 4 Other Information That Helps Us Care for You: No Feels Safe at Home: Yes Safety Concerns: Feels Safe At This Time caffeine: No during the past year weight has: remained stable Assistive Devices: Denture - Upper, Glasses and Walker Review of Systems Constitutional: no fever and no chills Respiratory: no cough and no dyspnea Cardiovascular: no chest pain Gastrointestinal: + change in bowel habits; no abdominal pain and no blood in stools Musculoskeletal: no problem reported Integumentary: no problem reported Psychiatric: no problem reported Hematologic / Lymphatic: no unexplained weight loss Physical Exam Constitutional: WD/WN, vitals as above Respiratory: normal respiratory effort Cardiovascular: Rate/Rhythm: regular rate and regular rhythm Gastrointestinal (Abdomen): normal bowel sounds, soft, nontender, no hepatosplenomegaly Musculoskeletal: Head/Neck/Chest: normocephalic Psychiatric: Orientation: alert and oriented x 3 Results & Data ([facility]) Vital Signs (Past 12 Hours) Vital Signs Temp Pulse Pulse Pulse Resp BP BP 12/20/21 08:24 36.3 C L 88 20 87/54 L 93/62 L 12/20/21 06:15 88 12/20/21 05:02 90/62 L 12/20/21 02:57 36.6 C 92 H 20 106/73 12/20/21 00:05 90 12/20/21 00:04 36.7 C 91 H 18 115/71 12/19/21 23:18 86 18 102/55 L 12/19/21 23:00 88 18 92/47 L Pulse Ox 12/20/21 08:24 93 12/20/21 06:15 12/20/21 05:02 12/20/21 02:57 94 12/20/21 00:05 12/20/21 00:04 94 12/19/21 23:18 93 12/19/21 23:00 94 PG Care Time/CCT Total # of Minutes Spent Total Time Spent with Patient: Total time spent is greater than 50% in coordination of care (as documented) at patient's floor/unit and/or counseling patient: Coding Level of Care Code 98060 Initial Inpt Care Lvl 3 Diagnoses Diverticulitis K57.92
[2021-12-20 09:46] LABS: ALC (manual) 0.62 K/uL (1.2-3.4); ANC (manual) 14.07 K/uL (1.4-6.5); Basophils # (manual) 0.15 K/uL (0-0.2); Basophils % (manual) 1 %; Lymphocytes # (manual) 0.62 K/uL (1.2-3.4); Lymphocytes % (manual) 4 %; Metamyelocytes # (manual) 0.31 K/uL (0-0); Metamyelocytes % (manual) 2 %; Monocytes # (manual) 0.31 K/uL (0.24-0.82); Monocytes % (manual) 2 %; Neutrophils # (manual) 14.07 K/uL (1.4-6.5); Neutrophils % (manual) 91 %
--- NOTE | 2021-12-20 15:14 | Hospitalist Progress Note ---
Date of Service December 20, 2021 Assessment & Plan (1) Acute diverticulitis: Plan: Presented with lower abdominal pain with nausea No overt sepsis for now CT scan of the abdomen pelvis did show acute diverticulitis Started on intravenous Zosyn Appreciate GI input and recommendation White count slightly improved at 15 K and the patient is getting lipid better PT OT eval (2) Hypotension: Plan: Possibly from hypovolemia secondary to decreased p.o. intake secondary to recurrent diverticulitis We will get intravenous fluid Blood pressure is improving (3) Atrial fibrillation, permanent: Plan: Afib on Eliquis valvular heart disease/ nonobstructive CAD (4) Chronic diastolic CHF (congestive heart failure): Plan: ECHO (EF 55 to 60%, TTE 2019), patient on the dry side Cautious amount of IV fluid will be given We will monitor volume status (5) Asthma: Plan: Asthma, symptoms at baseline, suspect underlying COPD given home inhalers and chronic SOB symptoms No acute symptoms (6) Primary hypothyroidism: Plan: hypothyroidism, euthyroid as of recent outpatient TSH Hyperglycemia rule out DM Ambulatory dysfunction past tobacco abuse. Plan: Chronic LE wounds, history of PVD Hyperlipidemia on statin Rx DVT prophylaxis. Eliquis DNR Admission and Anticipated Discharge Date Admission Date: December 19, 2021 Subjective 12/20/2021 The patient was seen and examined in medical telemetry unit She has been feeling a little better but he still has lower quadrants pain No nausea and or vomiting No fever and no chills Review of Systems Review of Systems: All systems reviewed and are unremarkable except as noted below Gastrointestinal: Lower abdominal pain without any nausea and or vomiting Physical Exam Physical Exam: Lying in bed comfortably with minimal distress Constitutional: well developed, well nourished, + ill appearing and + obese Eyes: PERRL, conjunctivae normal, anicteric sclerae ENMT: external ear and nose normal, oropharynx normal Neck: trachea midline, no thyromegaly Respiratory: no respiratory distress Auscultation: lungs clear to auscultation bilaterally Cardiovascular: Rate/Rhythm: regular rate and regular rhythm; not tachycardic Heart Sounds: normal S1 and normal S2; no murmur Extremities: + edema (Trace edema bilaterally) Gastrointestinal (Abdomen): Inspection/Auscultation: normal bowel sounds; abdomen not distended Percussion/Palpation: + abdomen tender (Lower quadrants mostly on the right than the left) and abdomen soft Musculoskeletal: No acute arthritis in any joint Neurologic: normal touch/pain/proprioception and moves all extremities Psychiatric: A+Ox3, euthymic affect Lymphatic: no cervical or axillary lymphadenopathy Results & Data Results & Data ([facility]) Vital Signs (Past 12 Hours) Vital Signs Temp Pulse Pulse Resp BP BP Pulse Ox 12/20/21 11:46 36.7 C 66 18 105/72 94 12/20/21 08:24 36.3 C L 88 20 87/54 L 93/62 L 93 12/20/21 06:15 88 12/20/21 05:02 90/62 L Laboratory Results Short CBC 12/19/21 12/20/21 Range/Units 18:45 07:51 WBC 16.08 H 15.46 H (4.8-10.8) K/ul Hgb 14.1 12.1 (12.0-16.0) g/dl Hct 43.3 36.8 (34.1-44.9) % Plt Count 205 177 (130-400) K/uL BMP 12/19/21 12/20/21 18:45 07:51 Sodium 137 136 Potassium 4.2 4.3 Chloride 101 105 Carbon Dioxide 29 26 BUN 33 H 27 H Creatinine 0.70 0.80 Glucose 140 H 145 H Calcium 9.9 9.1 Liver Function 12/19/21 Range/Units 18:45 Total Bilirubin 1.5 H (0.2-1.0) mg/dl AST 18 (13-39) U/L ALT 40 (7-52) U/L Alkaline Phosphatase 97 (34-104) U/L Albumin 3.4 (3.4-5.0) gm/dl Urine 12/19/21 Range/Units 21:10 Urine Color Yellow Urine Appearance Clear (Clear) Urine pH 7.0 (4.5-7.5) Ur Specific [place] > 1.045 H (1.000-1.030) Urine Protein Negative (Negative) Urine Glucose (UA) Negative (Negative) Medications Administered Current Inpatient Medications Acetaminophen (Acetaminophen 325 Mg Tab) 650 mg PO Q4H PRN PRN Reason: Pain or Fever Stop: 01/19/22 00:41 Apixaban (Apixaban 5 Mg Tablet) 5 mg PO BID [facility] Stop: 01/19/22 00:41 Last Admin: 12/20/21 09:02 Dose: 5 mg Documented by: Ezetimibe (Ezetimibe 10 Mg Tablet) 10 mg PO QAM [facility] Stop: 01/19/22 08:59 Last Admin: 12/20/21 09:02 Dose: 10 mg Documented by: Fexofenadine HCl (Fexofenadine Hcl 180 Mg Tab) 180 mg PO QAM [facility] Stop: 01/19/22 08:59 Last Admin: 12/20/21 09:02 Dose: 180 mg Documented by: Promethazine HCl 12.5 mg/ (Sodium Chloride) 50.5 mls @ 202 mls/hr IV Q6H PRN PRN Reason: Nausea And Vomiting Stop: 01/19/22 00:41 Piperacillin Sod/Tazobactam (Sod 3.375 gm/ Dextrose) 115 mls @ 28.75 mls/hr IV Q8H [facility]; Protocol Stop: 12/30/21 01:59 Last Infusion: 12/20/21 14:13 Dose: Infused Documented by: Sodium Chloride (Nss 1000ml) 1,000 mls @ 60 mls/hr IV .[id number] ONE Stop: 12/20/21 21:45 Last Infusion: 12/20/21 05:58 Dose: 60 mls/hr Documented by: Ipratropium [place] (Ipratropium [place] Neb Soln 0.02% 2.5 Ml Vial) 0.5 mg INH Q4H PRN PRN Reason: Shortness Of Breath Or Wheezing Stop: 01/19/22 00:41 Levalbuterol HCl (Levalbuterol 1.25mg/0.5ml Neb) 1.25 mg INH Q4H PRN PRN Reason: Shortness Of Breath Or Wheezing Stop: 01/19/22 00:41 Levothyroxine Sodium (Levothyroxine Sodium 112 Mcg Tablet) 112 mcg PO QPM [facility] Stop: 01/19/22 20:59 Montelukast Sodium (Montelukast Sodium 10 Mg Tablet) 10 mg PO QPM [facility] Stop: 01/19/22 20:59 Morphine Sulfate (Morphine Sulfate 2 Mg/Ml Carp) 2 mg IV Q3H PRN PRN Reason: Pain Stop: 01/03/22 00:41 Multivitamins/Minerals (Cerovite Adv Formula Tab) [facility] [place] Stop: 01/19/22 08:59 Last Admin: 12/20/21 09:03 Dose: 1 tab Documented by: Oxycodone HCl (Oxycodone Hcl Ir 5 Mg Tab (Immediate Release)) 5 - 10 mg PO QID PRN PRN Reason: Pain Stop: 01/03/22 05:03 Last Admin: 12/20/21 06:06 Dose: 10 mg Documented by: Pantoprazole Sodium (Pantoprazole 40 Mg Tab) [facility] [place] Stop: 01/19/22 08:59 Last Admin: 12/20/21 09:02 Dose: 40 mg Documented by: Polyethylene Glycol (Polyethylene (Miralax) 17 Gm Pack) 17 gm PO DAILY PRN PRN Reason: Constipation Stop: 01/19/22 00:41 Senna/Docusate Sodium (Docusate Sodium/Senna 50/8.6mg Tab) [facility] [place] Stop: 01/19/22 00:41 Last Admin: 12/20/21 09:02 Dose: 1 tab Documented by: Trazodone HCl (Trazodone Hcl 100 Mg Tab) 100 mg PO [facility] Stop: 01/19/22 20:59 Vitamin D (Cholecalciferol 1,000 Units 25 Mcg Tab) 2,000 [facility] [place] Stop: 01/19/22 08:59 Last Admin: 12/20/21 09:02 Dose: 2,000 units Documented by:
[2021-12-20] MEDS: traZODone HCL 100 MG TAB PO SCH (21:57)
[2021-12-20] MEDS: MONTELUKAST SODIUM 10 MG TABLET PO SCH (21:57)
[2021-12-20] MEDS: LEVOTHYROXINE SODIUM 112 MCG TABLET PO SCH (21:57)
[2021-12-21] MEDS: oxyCODONE HCL IR 5 MG TAB (IMMEDIATE RELEASE) PO PRN ×2 (02:47→17:29)
[2021-12-21] MEDS: PIPERACILLIN/TAZOBACTAM 3.375 GM in DEXTROSE 5% 100 ML IV SCH ×3 (03:40→17:30)
[2021-12-21] MEDS: IPRATROPIUM BROMIDE NEB SOLN 0.02% 2.5 ML VIAL INH PRN ×2 (03:57→11:11)
[2021-12-21 06:42] LABS: Hematocrit (blood only) 39.6 % (34.1-44.9); Hemoglobin 12.8 g/dl (12.0-16.0); Mean Corpuscular Hemoglobin 33.2 pg (25.0-34.0); Mean Corpuscular Hgb Conc 32.3 g/dL (32.0-36.0); Mean Corpuscular Volume 102.9 fL (80.0-100.0); Platelet Count 170 K/uL (130-400); RDW Coefficient of Variation 14.3 % (11.5-14.5); RDW Standard Deviation 54.4 fL (36.4-46.3); Red Blood Count 3.85 M/uL (3.93-5.22); White Blood Count 12.26 K/ul (4.8-10.8)
[2021-12-21 07:13] LABS: BUN Creatinine Ratio 23.5 (10-20); Basophils # (auto) 0.01 K/uL (0-0.2); Basophils % (auto) 0.1 %; Calcium 9.5 mg/dl (8.5-10.1); Creatinine Clr Calc Pharmacy 51.9 ml/min; Echinocytes 1+; Eosinophils # (auto) 0.02 K/uL (0-0.50); Eosinophils % (auto) 0.2 %; Est GFR (African American) 72.4 ml/min; Est GFR (Non-African American) 62.5 ml/min; Immature Granulocytes # (auto) 0.12 K/uL (0.00-0.02); Lymphocytes # (auto) 0.45 K/uL (1.2-3.4); Lymphocytes % (auto) 3.7 %; Monocytes # (auto) 0.26 K/uL (0.24-0.82); Monocytes % (auto) 2.1 %; Neutrophils % (auto) 92.9 %; Polychromasia 1+; Potassium 4.6 mmol/L (3.5-5.1)
--- NOTE | 2021-12-21 09:06 | Gastroenterology Progress Note ---
Date of Service December 21, 2021 Assessment & Plan (1) Acute diverticulitis: Plan: -Continue IV Zosyn. Can transition to po antibiotic therapy for discharge to complete total of 10 days of therapy. -Okay to advance diet as tolerated to low residue. -Would avoid constipation. Add Miralax 17 gm daily. -Follow CBC. -Can consider outpatient colonoscopy in 6-8 weeks if patient feels compelled, however given age and comorbidities this is something she will need to think about. Admission and Anticipated Discharge Date Admission Date: December 19, 2021 Subjective Patient is an 86 yo female with sigmoid diverticulitis. She reports improvement of her lower abdominal pain today. She continues on IV Zosyn therapy. Her WBC count is improving, now at 12,260. She is afebrile. She is tolerating a liquid diet without issue. No new GI complaints. She is passing gas, but not yet moving her bowels. Review of Systems Gastrointestinal: no abdominal pain Physical Exam Constitutional: well developed Respiratory: normal respiratory effort Gastrointestinal (Abdomen): normal bowel sounds, soft, nontender, no hepatosplenomegaly Results & Data Results & Data ([facility]) Vital Signs (Past 12 Hours) Vital Signs Temp Pulse Pulse Resp BP BP Pulse Ox 12/21/21 08:30 36.6 C 111 H 20 105/66 91 12/21/21 03:57 62 16 96 12/21/21 03:30 36.9 C 124 H 20 118/82 92 12/21/21 00:36 115 H 12/20/21 23:08 36.3 C L 64 18 106/62 94 PG Care Time/CCT Total # of Minutes Spent Total Time Spent with Patient: Total time spent is greater than 50% in coordination of care (as documented) at patient's floor/unit and/or counseling patient: Coding Level of Care Code 27929 Subseq Hosp Care Lvl 3 Diagnoses Acute diverticulitis K57.92
[2021-12-21] MEDS: PANTOprazole 40 MG TAB PO SCH (09:11)
[2021-12-21] MEDS: APIXABAN 5 MG TABLET PO SCH ×2 (09:11→21:38)
[2021-12-21] MEDS: CHOLECALCIFEROL 1,000 UNITS 25 MCG TAB PO SCH (09:11)
[2021-12-21] MEDS: CEROVITE ADV FORMULA TAB PO SCH (09:12)
[2021-12-21] MEDS: DOCUSATE SODIUM/SENNA 50/8.6MG TAB PO SCH (09:12)
[2021-12-21] MEDS: EZETIMIBE 10 MG TABLET PO SCH (09:12)
[2021-12-21] MEDS: FEXOFENADINE HCL 180 MG TAB PO SCH (09:12)
[2021-12-21] MEDS ORDERED: LEVALBUTEROL HCL 1.25 MG/3 ML NEB ONE (11:07)
--- NOTE | 2021-12-21 13:52 | Hospitalist Progress Note ---
Date of Service December 21, 2021 Assessment & Plan (1) Acute diverticulitis: Plan: Presented with lower abdominal pain with nausea No overt sepsis for now CT scan of the abdomen pelvis did show acute diverticulitis Started on intravenous Zosyn Appreciate GI input and recommendation White count slightly improved at 15 K and the patient is getting lipid better Clinically better and denies any diarrhea White count has improved to 12.26 Appreciate PT and OT evaluation with recommendation to rehab placement (2) Hypotension: Plan: Possibly from hypovolemia secondary to decreased p.o. intake secondary to recurrent diverticulitis We will get intravenous fluid Blood pressure is improving Blood pressure remains on the lower side Will advised to drink more fluid (3) Atrial fibrillation, permanent: Plan: Afib on Eliquis valvular heart disease/ nonobstructive CAD Heart rate remains minimally elevated at 105 (4) Chronic diastolic CHF (congestive heart failure): Plan: ECHO (EF 55 to 60%, TTE 2019), patient on the dry side Cautious amount of IV fluid will be given We will monitor volume status Negative fluid balance of 1145 (5) Asthma: Plan: Asthma, symptoms at baseline, suspect underlying COPD given home inhalers and chronic SOB symptoms No acute symptoms Has been getting nebulized treatment as needed (6) Primary hypothyroidism: Plan: hypothyroidism, euthyroid as of recent outpatient TSH Hyperglycemia rule out DM Ambulatory dysfunction past tobacco abuse. Plan: Chronic LE wounds, history of PVD Hyperlipidemia on statin Rx DVT prophylaxis. Beto DNR Awaiting placement Admission and Anticipated Discharge Date Admission Date: December 19, 2021 Subjective 12/20/2021 The patient was seen and examined in medical telemetry unit She has been feeling a little better but he still has lower quadrants pain No nausea and or vomiting No fever and no chills Review of Systems Review of Systems: All systems reviewed and are unremarkable except as noted below Gastrointestinal: Lower abdominal pain without any nausea and or vomiting Physical Exam Physical Exam: Sitting on a chair without any acute distress Constitutional: well developed, well nourished, + ill appearing and + obese Eyes: PERRL, conjunctivae normal, anicteric sclerae ENMT: external ear and nose normal, oropharynx normal Neck: trachea midline, no thyromegaly Respiratory: no respiratory distress Auscultation: lungs clear to auscultation bilaterally Cardiovascular: Rate/Rhythm: regular rate and regular rhythm; not tachycardic Heart Sounds: normal S1 and normal S2; no murmur Extremities: + edema (Trace edema bilaterally) Gastrointestinal (Abdomen): Inspection/Auscultation: normal bowel sounds; abdomen not distended Percussion/Palpation: + abdomen tender (Lower quadrants mostly on the right than the left) and abdomen soft Musculoskeletal: No acute arthritis in any joint Neurologic: normal touch/pain/proprioception and moves all extremities Psychiatric: A+Ox3, euthymic affect Lymphatic: no cervical or axillary lymphadenopathy Results & Data Results & Data ([facility]) Vital Signs (Past 12 Hours) Vital Signs Temp Pulse Pulse Resp BP BP Pulse Ox 12/21/21 11:40 36.8 C 105 H 16 94/63 L 97 12/21/21 11:17 73 14 96 12/21/21 08:30 36.6 C 111 H 20 105/66 91 12/21/21 06:14 114 H 12/21/21 03:57 62 16 96 12/21/21 03:30 36.9 C 124 H 20 118/82 92 Laboratory Results Short CBC 12/21/21 Range/Units 06:12 WBC 12.26 H (4.8-10.8) K/ul Hgb 12.8 (12.0-16.0) g/dl Hct 39.6 (34.1-44.9) % Plt Count 170 (130-400) K/uL BMP 12/21/21 06:12 Sodium 134 L Potassium 4.6 Chloride 101 Carbon Dioxide 27 BUN 20 Creatinine 0.85 Glucose 160 H Calcium 9.5 Medications Administered Current Inpatient Medications Acetaminophen (Acetaminophen 325 Mg Tab) 650 mg PO Q4H PRN PRN Reason: Pain or Fever Stop: 01/19/22 00:41 Apixaban (Apixaban 5 Mg Tablet) 5 mg PO BID [facility] Stop: 01/19/22 00:41 Last Admin: 12/21/21 09:11 Dose: 5 mg Documented by: Ezetimibe (Ezetimibe 10 Mg Tablet) 10 mg PO QAM [facility] Stop: 01/19/22 08:59 Last Admin: 12/21/21 09:12 Dose: 10 mg Documented by: Fexofenadine HCl (Fexofenadine Hcl 180 Mg Tab) 180 mg PO QAM [facility] Stop: 01/19/22 08:59 Last Admin: 12/21/21 09:12 Dose: 180 mg Documented by: Promethazine HCl 12.5 mg/ (Sodium Chloride) 50.5 mls @ 202 mls/hr IV Q6H PRN PRN Reason: Nausea And Vomiting Stop: 01/19/22 00:41 Piperacillin Sod/Tazobactam (Sod 3.375 gm/ Dextrose) 115 mls @ 28.75 mls/hr IV Q8H [facility]; Protocol Stop: 12/30/21 01:59 Last Admin: 12/21/21 09:28 Dose: 28.8 mls/hr Documented by: Ipratropium [place] (Ipratropium [place] Neb Soln 0.02% 2.5 Ml Vial) 0.5 mg INH Q4H PRN PRN Reason: Shortness Of Breath Or Wheezing Stop: 01/19/22 00:41 Last Admin: 12/21/21 11:11 Dose: 0.5 mg Documented by: Levalbuterol HCl (Levalbuterol 1.25mg/0.5ml Neb) 1.25 mg INH Q4H PRN PRN Reason: Shortness Of Breath Or Wheezing Stop: 01/19/22 00:41 Last Admin: 12/21/21 03:57 Dose: 1.25 mg Documented by: Levothyroxine Sodium (Levothyroxine Sodium 112 Mcg Tablet) 112 mcg PO QPM [facility] Stop: 01/19/22 20:59 Last Admin: 12/20/21 21:57 Dose: 112 mcg Documented by: Montelukast Sodium (Montelukast Sodium 10 Mg Tablet) 10 mg PO QPM [facility] Stop: 01/19/22 20:59 Last Admin: 12/20/21 21:57 Dose: 10 mg Documented by: Morphine Sulfate (Morphine Sulfate 2 Mg/Ml Carp) 2 mg IV Q3H PRN PRN Reason: Pain Stop: 01/03/22 00:41 Multivitamins/Minerals (Cerovite Adv Formula Tab) 1 tab PO QAM [facility] Stop: 01/19/22 08:59 Last Admin: 12/21/21 09:12 Dose: 1 tab Documented by: Oxycodone HCl (Oxycodone Hcl Ir 5 Mg Tab (Immediate Release)) 5 - 10 mg PO QID PRN PRN Reason: Pain Stop: 01/03/22 05:03 Last Admin: 12/21/21 02:47 Dose: 10 mg Documented by: Pantoprazole Sodium (Pantoprazole 40 Mg Tab) 40 mg PO [facility] Stop: 01/19/22 08:59 Last Admin: 12/21/21 09:11 Dose: 40 mg Documented by: Polyethylene Glycol (Polyethylene (Miralax) 17 Gm Pack) 17 gm PO DAILY PRN PRN Reason: Constipation Stop: 01/19/22 00:41 Senna/Docusate Sodium (Docusate Sodium/Senna 50/8.6mg Tab) 1 tab PO [facility] Stop: 01/19/22 00:41 Last Admin: 12/21/21 09:12 Dose: 1 tab Documented by: Trazodone HCl (Trazodone Hcl 100 Mg Tab) 100 mg PO [facility] Stop: 01/19/22 20:59 Last Admin: 12/20/21 21:57 Dose: 100 mg Documented by: Vitamin D (Cholecalciferol 1,000 Units 25 Mcg Tab) 2,000 units PO [facility] Stop: 01/19/22 08:59 Last Admin: 12/21/21 09:11 Dose: 2,000 units Documented by:
[2021-12-21] MEDS: LEVOTHYROXINE SODIUM 112 MCG TABLET PO SCH (21:39)
[2021-12-21] MEDS: traZODone HCL 100 MG TAB PO SCH (21:39)
[2021-12-21] MEDS: MONTELUKAST SODIUM 10 MG TABLET PO SCH (21:39)
[2021-12-21] MEDS: ACETAMINOPHEN 325 MG TAB PO PRN (21:43)
[2021-12-22] MEDS: PIPERACILLIN/TAZOBACTAM 3.375 GM in DEXTROSE 5% 100 ML IV SCH ×2 (01:26→09:49)
[2021-12-22 06:36] LABS: Hematocrit (blood only) 34.4 % (34.1-44.9); Hemoglobin 11.4 g/dl (12.0-16.0); Mean Corpuscular Hemoglobin 32.9 pg (25.0-34.0); Mean Corpuscular Hgb Conc 33.1 g/dL (32.0-36.0); Mean Corpuscular Volume 99.4 fL (80.0-100.0); Mean Platelet Volume 9.9 fL (9.4-12.3); Platelet Count 172 K/uL (130-400); RDW Standard Deviation 51.3 fL (36.4-46.3); Red Blood Count 3.46 M/uL (3.93-5.22); White Blood Count 11.93 K/ul (4.8-10.8)
[2021-12-22 07:05] LABS: BUN Creatinine Ratio 27.4 (10-20); Calcium 9.6 mg/dl (8.5-10.1); Creatinine Clr Calc Pharmacy 60.8 ml/min; Est GFR (Non-African American) 75.1 ml/min; Potassium 4.1 mmol/L (3.5-5.1)
[2021-12-22 07:31] LABS: Basophils # (auto) 0.01 K/uL (0-0.2); Basophils % (auto) 0.1 %; Eosinophils # (auto) 0.04 K/uL (0-0.50); Eosinophils % (auto) 0.3 %; Immature Granulocytes # (auto) 0.16 K/uL (0.00-0.02); Immature Granulocytes % (auto) 1.3 %; Lymphocytes # (auto) 0.31 K/uL (1.2-3.4); Lymphocytes % (auto) 2.6 %; Monocytes # (auto) 0.31 K/uL (0.24-0.82); Monocytes % (auto) 2.6 %; Neutrophils % (auto) 93.1 %
[2021-12-22] MEDS: APIXABAN 5 MG TABLET PO SCH ×2 (09:41→21:49)
[2021-12-22] MEDS: CHOLECALCIFEROL 1,000 UNITS 25 MCG TAB PO SCH (09:41)
[2021-12-22] MEDS: DOCUSATE SODIUM/SENNA 50/8.6MG TAB PO SCH (09:41)
[2021-12-22] MEDS: FEXOFENADINE HCL 180 MG TAB PO SCH (09:42)
[2021-12-22] MEDS: CEROVITE ADV FORMULA TAB PO SCH (09:42)
[2021-12-22] MEDS: EZETIMIBE 10 MG TABLET PO SCH (09:42)
[2021-12-22] MEDS: PANTOprazole 40 MG TAB PO SCH (09:42)
[2021-12-22] MEDS: ACETAMINOPHEN 325 MG TAB PO PRN ×2 (09:43→21:49)
[2021-12-22 16:44] LABS: Polychromasia 1+
[2021-12-22] MEDS: AMOXICILLIN/CLAVULANATE 875 MG TAB PO SCH (17:43)
--- NOTE | 2021-12-22 18:50 | Hospitalist Progress Note ---
Date of Service December 22, 2021 Assessment & Plan (1) Acute diverticulitis: Plan: CT scan of the abdomen pelvis did show acute diverticulitis On Zosyn--> will switch to Augmentin Appreciate GI input and recommendation Tolerated clear liquid diet--> diet advanced to full liquid and will continue to advance as tolerated to low fiber (2) Hypotension: Plan: BP has remained stable (3) Atrial fibrillation, permanent: Plan: Afib on Eliquis valvular heart disease/ nonobstructive CAD Heart rate remains minimally elevated at 105 (4) Chronic diastolic CHF (congestive heart failure): Plan: ECHO (EF 55 to 60%, TTE 2019) Euvolemic currently (5) Asthma: Plan: stable continue nebulizers PRN (6) Primary hypothyroidism: Plan: hypothyroidism, euthyroid as of recent outpatient TSH Plan Chronic LE wounds, history of PVD Hyperlipidemia on statin Rx DVT prophylaxis. Eliquis DNR Disposition--Plan to discharge to [facility] tomorrow if she tolerates her diet Admission and Anticipated Discharge Date Admission Date: December 19, 2021 Subjective Feels well. Denies pain, tolerating clear liquid diet Physical Exam Physical Exam: No acute distress, pleasant and comfortable Respiratory: Breathing comfortably on room air, no wheezing/rhonchi/rales Cardiovascular: Regular rate and rhythm, no murmurs/rubs/gallops Gastrointestinal (Abdomen): soft, non tender Musculoskeletal: no edema Neurologic: awake, alert, spontaneously moving extremities Results & Data Results & Data ([facility]) Vital Signs (Past 12 Hours) Vital Signs Temp Pulse Pulse Resp BP BP Pulse Ox 12/22/21 15:41 36.6 C 95 H 17 129/84 94 12/22/21 14:16 92 H 12/22/21 11:18 36.8 C 84 16 122/78 98 12/22/21 09:00 12/22/21 07:52 36.5 C 107 H 18 122/82 94 O2 Del Method 12/22/21 15:41 Room Air 12/22/21 14:16 12/22/21 11:18 Room Air 12/22/21 09:00 Room Air 12/22/21 07:52 Room Air Laboratory Results Short CBC 12/22/21 Range/Units 05:25 WBC 11.93 H (4.8-10.8) K/ul Hgb 11.4 L (12.0-16.0) g/dl Hct 34.4 (34.1-44.9) % Plt Count 172 (130-400) K/uL BMP 12/22/21 05:25 Sodium 132 L Potassium 4.1 Chloride 101 Carbon Dioxide 26 BUN 20 Creatinine 0.73 Glucose 181 H Calcium 9.6 Medications Administered Current Inpatient Medications Acetaminophen (Acetaminophen 325 Mg Tab) 650 mg PO Q4H PRN PRN Reason: Pain or Fever Stop: 01/19/22 00:41 Last Admin: 12/22/21 09:43 Dose: 650 mg Amoxicillin/Clavulanate Potassium (Amoxicillin/Clavulanate 875 Mg Tab) 1 tab PO BID[facility]; Protocol Stop: 12/29/21 23:59 Last Admin: 12/22/21 17:43 Dose: 1 tab Apixaban (Apixaban 5 Mg Tablet) 5 mg PO BID [facility] Stop: 01/19/22 00:41 Last Admin: 12/22/21 09:41 Dose: 5 mg Ezetimibe (Ezetimibe 10 Mg Tablet) 10 mg PO [facility] Stop: 01/19/22 08:59 Last Admin: 12/22/21 09:42 Dose: 10 mg Fexofenadine HCl (Fexofenadine Hcl 180 Mg Tab) 180 mg PO [facility] Stop: 01/19/22 08:59 Last Admin: 12/22/21 09:42 Dose: 180 mg Promethazine HCl 12.5 mg/ (Sodium Chloride) 50.5 mls @ 202 mls/hr IV Q6H PRN PRN Reason: Nausea And Vomiting Stop: 01/19/22 00:41 Ipratropium [place] (Ipratropium [place] Neb Soln 0.02% 2.5 Ml Vial) 0.5 mg INH Q4H PRN PRN Reason: Shortness Of Breath Or Wheezing Stop: 01/19/22 00:41 Last Admin: 12/21/21 11:11 Dose: 0.5 mg Levalbuterol HCl (Levalbuterol 1.25mg/0.5ml Neb) 1.25 mg INH Q4H PRN PRN Reason: Shortness Of Breath Or Wheezing Stop: 01/19/22 00:41 Last Admin: 12/21/21 03:57 Dose: 1.25 mg Levothyroxine Sodium (Levothyroxine Sodium 112 Mcg Tablet) 112 mcg PO QPM [facility] Stop: 01/19/22 20:59 Last Admin: 12/21/21 21:39 Dose: 112 mcg Montelukast Sodium (Montelukast Sodium 10 Mg Tablet) 10 mg PO QPM [facility] Stop: 01/19/22 20:59 Last Admin: 12/21/21 21:39 Dose: 10 mg Morphine Sulfate (Morphine Sulfate 2 Mg/Ml Carp) 2 mg IV Q3H PRN PRN Reason: Pain Stop: 01/03/22 00:41 Multivitamins/Minerals (Cerovite Adv Formula Tab) 1 tab PO QAM [facility] Stop: 01/19/22 08:59 Last Admin: 12/22/21 09:42 Dose: 1 tab Oxycodone HCl (Oxycodone Hcl Ir 5 Mg Tab (Immediate Release)) 5 - 10 mg PO QID PRN PRN Reason: Pain Stop: 01/03/22 05:03 Last Admin: 12/21/21 17:29 Dose: 5 mg Pantoprazole Sodium (Pantoprazole 40 Mg Tab) 40 mg PO QAM [facility] Stop: 01/19/22 08:59 Last Admin: 12/22/21 09:42 Dose: 40 mg Polyethylene Glycol (Polyethylene (Miralax) 17 Gm Pack) 17 gm PO DAILY [facility] Stop: 01/22/22 08:59 Senna/Docusate Sodium (Docusate Sodium/Senna 50/8.6mg Tab) 1 tab PO QAM [facility] Stop: 01/19/22 00:41 Last Admin: 12/22/21 09:41 Dose: 1 tab Trazodone HCl (Trazodone Hcl 100 Mg Tab) 100 mg PO HS [facility] Stop: 01/19/22 20:59 Last Admin: 12/21/21 21:39 Dose: 100 mg Vitamin D (Cholecalciferol 1,000 Units 25 Mcg Tab) 2,000 units PO QAM [facility] Stop: 01/19/22 08:59 Last Admin: 12/22/21 09:41 Dose: 2,000 units
[2021-12-22] MEDS: MONTELUKAST SODIUM 10 MG TABLET PO SCH (21:49)
[2021-12-22] MEDS: LEVOTHYROXINE SODIUM 112 MCG TABLET PO SCH (21:50)
[2021-12-22] MEDS: traZODone HCL 100 MG TAB PO SCH (21:50)
[2021-12-23] MEDS ORDERED: METOPROLOL TARTRATE 1 MG/ML VIAL IV STA (08:00)
[2021-12-23 08:19] LABS: Hematocrit (blood only) 37.1 % (34.1-44.9); Hemoglobin 12.3 g/dl (12.0-16.0); Mean Corpuscular Hemoglobin 33.2 pg (25.0-34.0); Mean Corpuscular Hgb Conc 33.2 g/dL (32.0-36.0); Mean Platelet Volume 9.6 fL (9.4-12.3); Nucleated RBC # (auto) 0.03 K/uL (0-0); Nucleated RBC % (auto) 0.3 %; Platelet Count 201 K/uL (130-400); RDW Standard Deviation 51.6 fL (36.4-46.3); Red Blood Count 3.71 M/uL (3.93-5.22); White Blood Count 9.93 K/ul (4.8-10.8)
[2021-12-23] MEDS: CEROVITE ADV FORMULA TAB PO SCH (08:20)
[2021-12-23] MEDS: CHOLECALCIFEROL 1,000 UNITS 25 MCG TAB PO SCH (08:21)
[2021-12-23] MEDS: FEXOFENADINE HCL 180 MG TAB PO SCH (08:21)
[2021-12-23] MEDS: EZETIMIBE 10 MG TABLET PO SCH (08:21)
[2021-12-23] MEDS: PANTOprazole 40 MG TAB PO SCH (08:21)
[2021-12-23] MEDS: DOCUSATE SODIUM/SENNA 50/8.6MG TAB PO SCH (08:21)
[2021-12-23] MEDS: AMOXICILLIN/CLAVULANATE 875 MG TAB PO SCH (08:22)
[2021-12-23] MEDS: APIXABAN 5 MG TABLET PO SCH (08:23)
[2021-12-23 08:41] LABS: BUN Creatinine Ratio 30.2 (10-20); Creatinine Clr Calc Pharmacy 84.6 ml/min; Est GFR (African American) 100.3 ml/min; Est GFR (Non-African American) 86.6 ml/min; Potassium 4.5 mmol/L (3.5-5.1)
[2021-12-23] MEDS ORDERED: BUMETANIDE 1 MG TAB PO SCH (09:00)
[2021-12-23] MEDS ORDERED: POLYETHYLENE (MIRALAX) 17 GM PACK PO SCH (09:00)
[2021-12-23] MEDS ORDERED: METOPROLOL SUCC 50MG EXT REL TAB PO SCH (09:00)
[2021-12-23] MEDS: ACETAMINOPHEN 325 MG TAB PO PRN (09:24)
--- NOTE | 2021-12-25 09:07 | Discharge Summary ---
Date of Service December 25, 2021 Admission HPI Per Admitting Provider History obtained from patient and records. Medical history significant for chronic diastolic heart failure (EF 55 to 60%, TTE 2019), A. fib on Eliquis, valvular heart disease (AR, TR as per records), nonobstructive CAD, PVD, hyperlipidemia, asthma, chronic leg wounds, primary hyperparathyroidism status post surgery, hypothyroidism, history diverticulitis, sacroiliitis, past tobacco abuse. 2 days ago, patient evaluated at the ER for a mechanical fall. Subsequently sent home. Yesterday, patient appetite not good. Patient woke up with achy lower abdominal pain nausea. No emesis. Unusual constipation as per patient. Fever, no chills, no chest pain, usual shortness of breath. Episode somewhat reminiscent of diverticulitis attack from about 15 years ago after she consumed chicken noodle soup. Zosyn administered at the ER. 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 Denies abdominal pain. Feels well On exam, appears pleasant, no acute distress, answering questions appropriately. CV- irregular and tachycardic initially (improved after her morning Toprol). Pulm- breathing comfortably on room air, no wheezing/rhonchi. Lower extremity with no edema. Abdomen is soft and non tender Discharge Data Allergies Allergy/AdvReac Type Severity Reaction Status Date / Time latex Allergy Intermediate Rash, Verified 12/16/21 10:06 itching povidone-iodine Allergy Intermediate Itching Verified 12/16/21 10:06 [From Betadine] soap [From Betadine] Allergy Intermediate Itching Verified 12/16/21 10:06 aspirin AdvReac Mild Dizziness Verified 12/16/21 10:06 Consultations 12/19/21 22:25 ED Decision to Admit Stat 12/20/21 00:42 Consult Gastroenterology Routine Ordered Studies 12/19/21 19:20 CT abd pelvis IV con only Stat Hospital Course (1) Acute diverticulitis: (2) Hypotension: (3) Atrial fibrillation, permanent: (4) Chronic diastolic CHF (congestive heart failure): (5) Asthma: (6) Primary hypothyroidism: Plan Ms Catherine Blanchard is a 86 year old female with history of permanent A fib on Toprol and Eliquis, chronic diastolic CHF on bumex, and remaining PMHx as above in HPI was admitted 12/19 with lower abdominal pain found to have acute uncomplicated diverticulitis. She was treated with bowel rest and parenteral antibiotics with improvement of her symptoms. She was on zosyn then transitioned to Augmentin prior to discharge. Her diet was advanced slowly to low fiber diet which she tolerated well. Of note, her home Toprol was held (for unclear reasons) and her HR steadily increased up to 120s but with no symptoms. Her heart rate improved with resumption of her Toprol. She was discharged to [facility] in stable condition. She can follow up with GI outpatient to pursue an outpatient colonoscopy in 6-8 weeks. Total Time Total Time Spent Total Time Spent (In Minutes): 40 Discharge Plan Discharge Items Patient Disposition: Transfer [facility] Fac Reason For Visit: HYPOTENSION, DIVERTICULITIS Discharge Diagnosis: Acute diverticulitis Activity: Resume your previous activity Non-emergency contact: Primary Care Provider and Hardboard Press Operator Call non-emergency contact if: you have any medication questions and your symptoms worsen Follow-up/Referrals: Fernanda Guevara PA-C [Primary Care Provider] - Diet: Low Fiber Fluids: 1800ml (7 cups) Addtl Attending Provider Instructions: You should remain on a low fiber diet for the next 6-8 weeks then you should be on a heart healthy, high fiber diet Please follow up with GI for colonoscopy in 6-8 weeks Pending Studies at Discharge: No Stand-Alone Forms: My [facility] Skilled Items Patient informed of condition?: Yes DNR: Yes Discharge Level of Care: Skilled Communicable Disease: No Discharge Prognosis: Stable Lines: None Urinary Catheter: No Medications and DC Order Prescriptions: New polyethylene glycol 3350 [Miralax] 17 gram Powder In Packet 17 g PO DAILY 14 Days Qty: 14 0RF sennosides-docusate sodium [Senokot-S] 8.6-50 mg Tablet 1 tab PO QAM 14 Days Qty: 14 0RF amoxicillin-pot clavulanate 875-125 mg Tablet 1 tab PO BIDM 5 Days Qty: 10 0RF Continued Eliquis 5 mg tablet 5 mg PO BID Qty: 180 3RF levothyroxine 112 mcg tablet 112 mcg PO QPM Qty: 30 0RF bumetanide 1 mg tablet 1 mg PO QAM Qty: 100 3RF Rx Instructions: May take an additional 1 mg daily PRN swelling, SOB, weight gain. ezetimibe [Zetia] 10 mg tablet 10 mg PO QAM Qty: 90 3RF trazodone 100 mg tablet 100 mg PO HS fexofenadine 180 mg tablet 180 mg PO QAM PreserVision AREDS-2 [id number] he-bssy-[id number]-mg Capsule 2 tab PO QAM cholecalciferol (vitamin D3) [Vitamin D3] 50 mcg (2,000 unit) Capsule 50 mcg PO QAM nitroglycerin 0.4 mg tablet, sublingual 0.4 mg sublingual DIRECTED PRN (Reason: Chest Pain) Rx Instructions: Place one tablet under the tongue every 5 minutes for up tp 3 doses over 15 minutes if needed for chest pain. Do not exceed 3 doses per episode. pantoprazole [Protonix] 40 mg tablet,delayed release (DR/EC) 40 mg PO QAM metoprolol succinate 50 mg tablet extended release 24 hr 50 mg PO QAM Rx Instructions: TOTAL DOSE 150 MG--TAKES WITH 100 MG TAB. tramadol [Ultram] 50 mg tablet 50 mg PO Q6H PRN (Reason: pain) Qty: 30 0RF budesonide-formoterol [Symbicort] 160-4.5 mcg/actuation HFA aerosol inhaler 2 puff INHALATION BID PRN (Reason: Shortness Of Breath Or Wheezing) montelukast 10 mg tablet 10 mg PO QPM Changed metoprolol succinate 100 mg tablet extended release 24 hr 100 mg PO QAM Qty: 45 3RF Rx Instructions: TOTAL DOSE 150 MG--TAKES WITH 50 MG TAB. Discontinued doxycycline hyclate 100 mg tablet 100 mg PO BID 14 Days Qty: 28 0RF Rx Instructions: Take 2hrs apart from PreserVision supplementation. Discharge Orders: Discharge Order (Routine); Ordered 12/23/21 Ordered By: Marilee Crowder/Other Patient Handouts: A1C, Diverticulitis Dc Admission Data Admit Date/Time: 07/10/22 22:40 Attending Provider: Marilee Bonilla Admit Provider: Daniele Gonzales Primary Care Provider: Fernanda Guevara Other Providers: Daniele Gonzales ; Velasquez Pathak ; Jodie Tinsley ; Naomi Christensen ; Garrick Boudreaux ; Jan Kearns ; Candida Gonzales at [place] ; Ben Rodas Other Interventions: Discharge Summary Assessment (RN) Last Done: 12/23/21 13:09
== END 2021-12-23 14:10 | DRG 392 ==
LOC: ED 18:27 → SUATTDRO 22:40 → 2N 22:40

== ENCOUNTER 2021-12-29 13:11 | Inpatient (IN) ==
[2021-12-29] MEDS ORDERED: fentaNYL citrate 100 MCG/2 ML VIAL IV STA (14:09)
[2021-12-29] MEDS ORDERED: SODIUM CHLORIDE 0.9% 1000ML 500 ML IV ONE ×2 (14:09→15:52)
--- NOTE | 2021-12-29 14:19 | Emergency Department Note ---
Impression & Plan Critical limb ischemia of right lower extremity, Atrial fibrillation with rapid ventricular response ED Provider Note Name: ALYCIA BUSBY Age: 86 Sex: F Arrives Via: Ambulance Informant: Patient, Daughter in law ED Provider: Reinaldo Erazo MD Chief Complaint: Right leg discoloration Impression: As per impressions above Medical Decision Making: Frail/elderly 86-year-old female with a history of CAD, pulmonary hypertension, hypothyroid, dyslipidemia, A. fib, hyperparathyroidism, GERD who was recently hospitalized for infections of her left leg wounds as well as acute diverticulitis. Patient has a chronic history of some venous perfusion issues in her feet. Today she was complaining of increasing right leg pain which evaluation by staff and [id number] noted significant discoloration of the right lower leg. She was brought to the ER for evaluation. On my arrival to the ER nursing requested I come evaluate the patient and I was immediately at bedside. On my evaluation patient has a blue cold pulseless right foot she is not moving the toes and she has no sensation in the foot. Right leg was immediately wrapped with warm blankets and slightly elevated. A large bore IV was obtained by IV team given difficulty with access. Labs were collected, and vascular surgery was consulted. A CTA of the right leg was ordered. Vascular surgery is at bedside shortly thereafter. After extensive evaluation and discussion is felt there is enough blood flow getting to the foot that emergent surgical intervention would not be indicated. We did go ahead with a CTA which did reveal occlusions of the anterior right tibial artery and no flow through the dorsalis pedis per radiology read. Vascular surgery is on board with the findings of the CT but feel intervention is not at this point indicated. Patient is already anticoagulated. She had some mildly low blood pressures and was given some fluids. She does not have evidence of sepsis by examination. She does have some evidence of renal insufficiency likely due to fluid restriction due to her fluid overload issues. She was given 2 small fluid challenges which did seem to help her heart rate come down slightly and her blood pressure come up a bit however I am concerned about her fluid overload risk given her chest x-ray findings. She was recently treated for acute diverticulitis that is not have any peritonitis on examination. Patient is uncomfortable from her left leg and received several doses of IV narcotics as well. I had not many long conversations with the patient and primarily the patient's [id number]. We did discuss the severe risk of losing toes or even part of the extremity. Patient would not want to go through surgery to have an amputation per the daughter at this time. In fact it is pretty clear that the patient's primary goal is pain control that at this point is not to the point of purely comfort care. She is DNR and would not want mechanical ventilation or CPR. She is agreeable to fluids, and antibiotics as needed, pain medications. Hospitalist was consulted for further management and monitoring and see what direction the patient turns. I will note that her foot does look significantly improved with some fluid boluses and the warming of the extremity. Furthermore she is actually able to move the toes slightly and does not seem nearly as much distress. I will note that at this time I do not feel there is clearly an infectious etiology going on. Prior Medical Record and Triage/Nursing Notes reviewed by Me Additional history obtained from chart and [id number] Differentials:Arterial occlusion, Large DVT, PVD, PAD, Infection, Compartment syndrome, injury amongst other etiologies Vital Signs: reviewed and remarkable for tach a mild low blood pressures Interventions: Fentanyl IV, Dilaudid IV, normal saline bolus 500 mL IV x2 Labs:Reviewed and remarkable for mildly elevated WBC similar to previous Imaging:CT angiography of the right leg reveals acute occlusion of the right anterior tibial artery and no flow through the dorsalis pedis at time of bolus as per radiologist. Chest x-ray mild congestive findings as per radiology and reviewed by me Cardiac/Tele Monitoring: Per My Interpretation: Indication cardiac monitoring with IV narcotics: Atrial fibrillation with rapid ventricular rate at 109 bp. Consults:Dr. Linn vascular surgery consulted and rapidly at bedside. hospitalist consulted Plan: Disposition:Hospitalization Condition: Poor History of Present Illness:6-year-old female arrives for evaluation of right leg pain. Patient with a history of A. fib and for referral artery disease. She notes that periodically her feet will turn slightly purple but did not seem to bother. This morning complaining of right leg pain. snf noticed that foot was purple and is the morning when on purple started going up towards the knee. Patient with increasing pain. She is unable to feel her feet. Daughter in law notes left foot is now cold. He states that is never happened like this before. Patient does have a history of A. fib. She is reportedly on Eliquis which she has been apparently taking for the last few days in addition to the years that she has been on it. She has not missed any doses per [id number]. Patient states that she is very uncomfortable. She denies any other symptoms at this time. She has had no recent fevers, chills, vomiting, syncope, chest pain, shortness of breath, abdominal pain, back pain or other ac [place] concerning findings. She was recently hospitalized for a left leg wound infection and has been at [facility] for care after that. Patient is no longer currently on any antibiotics. She did have a fall several weeks ago resulting in the wounds which got infected. She has had no falls since. She denies any headache. ROS: See above HPI for pertinent positives & negatives. A total of 10 systems reviewed and were otherwise negative. Past Medical History:See Below Past Surgical History:See Below Family History:See Below Social History:See Below Home Medications:See Below Allergies:See Below Vitals:Blood Pressure: 106/75, Pulse 109, RR 23, T 36.4C, O2 94% on RA Physical Exam: GENERAL: Patient is uncomfortable/elderly/frail appearing and in moderate distress. EYES: No scleral icterus, unremarkable pupils. ENT: Mucous membranes moist, no nasal congestion. NECK: No masses appreciated, nomeningismus, trachea is midline. RESPIRATORY: No dyspnea. Clear to auscultation and equal bilaterally. No wheeze, no rhonchi. CARDIOVASCULAR: Tachy irregular.No murmurs, rubs, gallops appreciated. GASTROINTESTINAL: Abdomen soft, non-tender, no peritonitis.Bowel sounds positive.No masses appreciated. BACK: No midline tenderness, no CVA tenderness EXTREMITIES: Left lower extremity wrapped and moderate edema but good cap refill in toes which are somewhat erythematous. Right leg is cool, blue, pulseless from just above calf to toes. She has no sensation in toes nor able to move them. She does have tenderness palpation of the posterior popliteal area. She has significant pain with any movement of the leg. There is mild edema. There are some wounds that are dressed on the right valdez as well. NEUROLOGIC: Alert and oriented, no acute motor or sensory deficits, no focal weakness, cranial nerves grossly intact. SKIN: No rash, no jaundice, no diaphoresis. PSYCH: Appropriate GCS: 15 ED Course: Times/Reassessments: Multiple repeat evaluations with extensive conversations with patient and daughter in law. Patient is a bit somnolent this primary conversations were with [id number]. Pain medications used as needed to keep patient comfortable. Patient does have A. fib with mild RVR however given soft blood pressures and heart rate not severely elevated we will hold off on any Lopressor at this time. Critical Care: I have personally spent 45 minutes of critical care time in the direct management of this patient. Acute limb ischemia secondary to arterial occlusion. This was a life/limb threatening event. This 45 minutes is in excess of all separately billable procedures. Reinaldo Erazo MD Past Med/Surg History Medical History Aortic regurgitation Asthma inhaler prn Atrial fibrillation, permanent on eliquis and follows with Dr. Colón Chronic diastolic CHF (congestive heart failure) Coronary artery disease Dyslipidemia Esophageal stricture H/O fall 08/2020 Hearing deficit History of COVID-19 diagnosed 05/18/22 @ [place]--asymptomatic, tested prior to procedure--no issues now Hypothyroid Macular degeneration On anticoagulant therapy eliquis daily Osteoarthritis Pulmonary hypertension Spinal stenosis Surgical History History of bilateral cataract extraction History of cardiac cath ?2015 @ [facility]--no stents History of colonoscopy with polypectomy History of dilatation and curettage History of esophagogastroduodenoscopy (EGD) History of left hip replacement History of left shoulder replacement History of parathyroidectomy ELEVATED CALCIUM LEVELS? (2 REMOVED) History of right hip replacement History of right shoulder replacement History of tonsillectomy and adenoidectomy History of tooth extraction History of total left knee replacement (TKR) x2 History of total right knee replacement (TKR) x2 History of wisdom tooth extraction S/P cholecystectomy S/P dilatation of esophageal stricture Family History Mother Cancer uterine Thyroid disease Father Cancer esophageal Family history of esophageal cancer Sister Family history of diabetes mellitus Sister Family history of diabetes mellitus Brother Family history of diabetes mellitus Family hx of colon cancer Other No family history of adverse response to anesthesia Social History Smoking Status: Never smoker Tobacco Type: Cigarettes Second Hand Exposure: No; Hx Alcohol Use: No Hx Substance Use: No Preferred Language: Moroccan Communication Ability: Effective Visual Impairment: Limited Hearing Ability: Normal [place] Required: No Beliefs That Will Affect Care: None Current Living Situation: Personal Care Facility Current Living Situation Comment: [facility] How many Children do You have: 4 Feels Safe at Home: Yes Safety Concerns: Feels Safe At This Time caffeine: No during the past year weight has: remained stable Assistive Devices: Walker and Wheelchair Allergies Allergies Allergy/AdvReac Type Severity Reaction Status Date / Time latex Allergy Intermediate Rash, Verified 12/29/21 17:29 itching povidone-iodine Allergy Intermediate Itching Verified 12/29/21 17:29 [From Betadine] soap [From Betadine] Allergy Intermediate Itching Verified 12/29/21 17:29 aspirin AdvReac Mild Dizziness Verified 12/29/21 17:29 Home Meds Home Medications Medication Instructions Recorded Confirmed vit C 250 mg-vit E 90 mg-zinc 40 2 tab PO QAM 05/01/20 12/29/21 mg-copper 1 [id number] capsule (PreserVision AREDS-2) cholecalciferol (vitamin D3) 50 50 mcg PO QAM 08/25/20 12/29/21 mcg (2,000 unit) capsule (Vitamin D3) nitroglycerin 0.4 mg sublingual 0.4 mg sublingual DIRECTED PRN 08/25/20 12/29/21 tablet Chest Pain budesonide-formoterol HFA 160 2 puff inhalation BID PRN 09/15/20 12/29/21 mcg-4.5 mcg/actuation aerosol Shortness Of Breath Or Wheezing inhaler (Symbicort) pantoprazole 40 mg tablet,delayed 40 mg PO QAM GERD 05/14/21 12/29/21 release (Protonix) montelukast 10 mg tablet 10 mg PO QPM 08/20/21 12/29/21 metoprolol succinate 50 mg 50 mg PO QAM 10/15/21 12/29/21 tablet,extended release 24 hr acetaminophen 325 mg tablet 650 mg PO Q4H PRN PAIN/FEVER 12/29/21 12/29/21 (Tylenol) acetaminophen 500 mg tablet 500 mg PO TID 12/29/21 12/29/21 (Tylenol Extra Strength) amino ac-protein hydro-whey 1 ea PO BID 12/29/21 12/29/21 protein 10 gram-100 kcal/30 mL oral liquid (ProSource) bumetanide 1 mg tablet 2 mg PO QAM 12/29/21 12/29/21 dimethicone 1 % topical cream 1 applic topical TID 12/29/21 12/29/21 nystatin 100,000 unit/gram topical 1 applic topical BID 12/29/21 12/29/21 powder olanzapine 2.5 mg tablet 2.5 mg PO HS 12/29/21 12/29/21 ondansetron HCl 4 mg tablet 4 mg PO Q6H PRN NAUSEA/VOMITING 12/29/21 12/29/21 Previous Rx's Medication Instructions Recorded apixaban 5 mg tablet (Eliquis) 5 mg PO BID #180 tabs 01/28/21 levothyroxine 112 mcg tablet 112 mcg PO QPM #30 tabs 11/04/21 ezetimibe 10 mg tablet (Zetia) 10 mg PO QAM #90 tabs 11/24/21 metoprolol succinate 100 mg 100 mg PO QAM #45 tabs 12/23/21 tablet,extended release 24 hr polyethylene glycol 3350 17 gram 17 g PO DAILY 14 days #14 ea 12/23/21 oral powder packet (Miralax) sennosides 8.6 mg-docusate sodium 1 tab PO QAM 14 days #14 tabs 12/23/21 50 mg tablet (Senokot-S) Results & Data (ED) Vital Signs Vital Signs - 24 hr 12/29/21 13:20 12/29/21 15:00 12/29/21 13:30 Pulse Rate 109 H 113 H Pulse Rate [Right Apical] 118 H Pulse Rate from SpO2 Sensor 111 H 131 H Respiratory Rate 23 18 19 Respiratory Depth Normal Blood Pressure Blood Pressure [Right Arm] 107/75 Blood Pressure Mean Blood Pressure Mean [Right Arm] 85 Blood Pressure Position [Right Arm] Lying Pulse Oximetry 94 98 Oxygen Delivery Method Room Air 12/29/21 13:40 12/29/21 13:50 12/29/21 14:00 Pulse Rate 108 H 112 H 107 H Pulse Rate [Right Apical] Pulse Rate from SpO2 Sensor Respiratory Rate 27 H 19 23 Respiratory Depth Blood Pressure Blood Pressure [Right Arm] Blood Pressure Mean Blood Pressure Mean [Right Arm] Blood Pressure Position [Right Arm] Pulse Oximetry Oxygen Delivery Method 12/29/21 14:10 12/29/21 14:20 12/29/21 14:22 Pulse Rate 105 H 112 H 114 H Pulse Rate [Right Apical] Pulse Rate from SpO2 Sensor Respiratory Rate 22 26 H 25 H Respiratory Depth Blood Pressure Blood Pressure [Right Arm] Blood Pressure Mean Blood Pressure Mean [Right Arm] Blood Pressure Position [Right Arm] Pulse Oximetry Oxygen Delivery Method 12/29/21 14:22 12/29/21 14:30 12/29/21 14:40 Pulse Rate 114 H 125 H Pulse Rate [Right Apical] Pulse Rate from SpO2 Sensor Respiratory Rate 25 H 23 Respiratory Depth Blood Pressure 107/69 Blood Pressure [Right Arm] Blood Pressure Mean 81 Blood Pressure Mean [Right Arm] Blood Pressure Position [Right Arm] Pulse Oximetry Oxygen Delivery Method 12/29/21 14:50 12/29/21 14:59 12/29/21 14:59 Pulse Rate 121 H 151 H Pulse Rate [Right Apical] Pulse Rate from SpO2 Sensor Respiratory Rate 17 20 Respiratory Depth Blood Pressure 107/75 Blood Pressure [Right Arm] Blood Pressure Mean 85 Blood Pressure Mean [Right Arm] Blood Pressure Position [Right Arm] Pulse Oximetry Oxygen Delivery Method 12/29/21 15:00 12/29/21 15:10 12/29/21 15:40 Pulse Rate 118 H 102 H 108 H Pulse Rate [Right Apical] Pulse Rate from SpO2 Sensor 118 H 119 H 111 H Respiratory Rate 20 17 22 Respiratory Depth Blood Pressure Blood Pressure [Right Arm] Blood Pressure Mean Blood Pressure Mean [Right Arm] Blood Pressure Position [Right Arm] Pulse Oximetry 96 98 93 Oxygen Delivery Method 12/29/21 15:50 12/29/21 16:00 12/29/21 16:10 Pulse Rate 109 H 111 H 108 H Pulse Rate [Right Apical] Pulse Rate from SpO2 Sensor 127 H 111 H 111 H Respiratory Rate 21 24 22 Respiratory Depth Blood Pressure Blood Pressure [Right Arm] Blood Pressure Mean Blood Pressure Mean [Right Arm] Blood Pressure Position [Right Arm] Pulse Oximetry 95 97 98 Oxygen Delivery Method 12/29/21 16:20 12/29/21 16:30 12/29/21 16:40 Pulse Rate 108 H 119 H 107 H Pulse Rate [Right Apical] Pulse Rate from SpO2 Sensor 110 H 109 H 111 H Respiratory Rate 24 21 22 Respiratory Depth Blood Pressure Blood Pressure [Right Arm] Blood Pressure Mean Blood Pressure Mean [Right Arm] Blood Pressure Position [Right Arm] Pulse Oximetry 97 96 95 Oxygen Delivery Method 12/29/21 16:50 Pulse Rate 106 H Pulse Rate [Right Apical] Pulse Rate from SpO2 Sensor 107 H Respiratory Rate 20 Respiratory Depth Blood Pressure Blood Pressure [Right Arm] Blood Pressure Mean Blood Pressure Mean [Right Arm] Blood Pressure Position [Right Arm] Pulse Oximetry 99 Oxygen Delivery Method Laboratory Data Result diagrams: 12/30/21 06:27 12/30/21 06:27 Lab Results 12/29/21 12/29/21 12/29/21 Range/Units 13:41 13:41 13:41 WBC 14.71 H (4.8-10.8) K/ul RBC 4.10 (3.93-5.22) M/uL Hgb 13.1 (12.0-16.0) g/dl Hct 40.5 (34.1-44.9) % MCV 98.8 (80.0-100.0) fL MCH 32.0 (25.0-34.0) pg MCHC 32.3 (32.0-36.0) g/dL RDW Std Deviation 52.9 H (36.4-46.3) fL RDW Coeff of Marielle 14.6 H (11.5-14.5) % Plt Count 450 H (130-400) K/uL MPV 9.8 (9.4-12.3) fL Immature Gran % (Auto) 1.2 % Neut % (Auto) 92.2 % Lymph % (Auto) 4.0 % [place] % (Auto) 2.2 % Eos % (Auto) 0.1 % Baso % (Auto) 0.3 % Neut # (Auto) 13.56 H (1.4-6.5) K/uL Lymph # (Auto) 0.59 L (1.2-3.4) K/uL [place] # (Auto) 0.33 (0.24-0.82) K/uL Eos # (Auto) 0.02 (0-0.50) K/uL Baso # (Auto) 0.04 (0-0.2) K/uL Immature Gran # (Auto) 0.17 H (0.00-0.02) K/uL Polychromasia 1+ PT 14.7 H (9.0-12.0) Seconds INR 1.4 H (0.9-1.1) APTT 42.8 H (21.0-31.0) Seconds PTT Ratio 1.6 Sodium 133 L (136-145) mmol/L Potassium 4.4 (3.5-5.1) mmol/L Chloride 97 L (98-107) mmol/L Carbon Dioxide 28 (21-32) mmol/L Anion Gap 8 (3-11) BUN 47 H (6-23) mg/dl Creatinine 1.16 (0.6-1.2) mg/dl Est Cr Clr Drug Dosing Not Reportable Est GFR ( Amer) 49.7 ml/min Est GFR (Non-Af Amer) 42.9 ml/min BUN/Creatinine Ratio 40.5 H (10-20) Glucose 148 H (70-99(Fasting)) mg/dl Lactate (0.4-2.0) mmol/L Calcium 9.4 (8.5-10.1) mg/dl Magnesium 1.9 (1.7-2.4) mg/dl Total Bilirubin 0.8 (0.2-1.0) mg/dl Direct Bilirubin TNP AST 38 (13-39) U/L ALT 41 (7-52) U/L Alkaline Phosphatase 114 H (34-104) U/L Total Creatine Kinase 17 L (26-192) U/L Troponin I High Sens 25.6 H D (0-14) pg/ml Total Protein 6.2 (6.0-8.3) gm/dl Albumin 2.8 L (3.4-5.0) gm/dl SARS-CoV-2, RNA, NAAT (NEGATIVE) 12/29/21 12/29/21 Range/Units 14:41 14:49 WBC (4.8-10.8) K/ul RBC (3.93-5.22) M/uL Hgb (12.0-16.0) g/dl Hct (34.1-44.9) % MCV (80.0-100.0) fL MCH (25.0-34.0) pg MCHC (32.0-36.0) g/dL RDW Std Deviation (36.4-46.3) fL RDW Coeff of Marielle (11.5-14.5) % Plt Count (130-400) K/uL MPV (9.4-12.3) fL Immature Gran % (Auto) % Neut % (Auto) % Lymph % (Auto) % [place] % (Auto) % Eos % (Auto) % Baso % (Auto) % Neut # (Auto) (1.4-6.5) K/uL Lymph # (Auto) (1.2-3.4) K/uL [place] # (Auto) (0.24-0.82) K/uL Eos # (Auto) (0-0.50) K/uL Baso # (Auto) (0-0.2) K/uL Immature Gran # (Auto) (0.00-0.02) K/uL Polychromasia PT (9.0-12.0) Seconds INR (0.9-1.1) APTT (21.0-31.0) Seconds PTT Ratio Sodium (136-145) mmol/L Potassium (3.5-5.1) mmol/L Chloride (98-107) mmol/L Carbon Dioxide (21-32) mmol/L Anion Gap (3-11) BUN (6-23) mg/dl Creatinine (0.6-1.2) mg/dl Est Cr Clr Drug Dosing Est GFR ( Amer) ml/min Est GFR (Non-Af Amer) ml/min BUN/Creatinine Ratio (10-20) Glucose (70-99(Fasting)) mg/dl Lactate 1.9 (0.4-2.0) mmol/L Calcium (8.5-10.1) mg/dl Magnesium (1.7-2.4) mg/dl Total Bilirubin (0.2-1.0) mg/dl Direct Bilirubin AST (13-39) U/L ALT (7-52) U/L Alkaline Phosphatase (34-104) U/L Total Creatine Kinase (26-192) U/L Troponin I High Sens (0-14) pg/ml Total Protein (6.0-8.3) gm/dl Albumin (3.4-5.0) gm/dl SARS-CoV-2, RNA, NAAT NEGATIVE (NEGATIVE) Administered Medications Acetaminophen (Acetaminophen 325 Mg Tab) 650 mg PO Q4H PRN PRN Reason: Pain or Fever Stop: 01/28/22 21:15 Last Admin: 12/30/21 08:07 Dose: 650 mg Documented By: BAKARI Apixaban (Apixaban 5 Mg Tablet) 5 mg PO BID [facility] Stop: 01/28/22 21:15 Last Admin: 12/30/21 08:10 Dose: 5 mg Documented By: Admin: 12/29/21 22:14 Dose: 5 mg Documented By: JIM Bumetanide (Bumetanide 1 Mg Tab) 2 mg PO [facility] Stop: 01/29/22 08:59 Last Admin: 12/30/21 08:22 Dose: 2 mg Documented By: BAKARI Ezetimibe (Ezetimibe 10 Mg Tablet) 10 mg PO [facility] Stop: 01/29/22 08:59 Last Admin: 12/30/21 08:09 Dose: 10 mg Documented By: BAKARI Lactated Ringer's (Lr) 1,000 mls @ 125 mls/hr IV .Q8H [facility] Stop: 12/30/21 16:14 Last Admin: 12/30/21 08:36 Dose: 125 mls/hr Documented By: BAKARI Levothyroxine Sodium (Levothyroxine Sodium 112 Mcg Tablet) 112 mcg PO QPM [facility] Stop: 01/28/22 21:15 Last Admin: 12/29/21 22:15 Dose: 112 mcg Documented By: JIM Metoprolol Succinate (Metoprolol Succ 50mg Ext Rel Tab) 50 mg PO [facility] Stop: 01/29/22 08:59 Last Admin: 12/30/21 08:22 Dose: Not Given Documented By: BAKARI Metoprolol Succinate (Metoprolol Succ 50mg Ext Rel Tab) 100 mg PO [facility] Stop: 01/29/22 08:59 Last Admin: 12/30/21 08:22 Dose: Not Given Documented By: BAKARI Montelukast Sodium (Montelukast Sodium 10 Mg Tablet) 10 mg PO QPM [facility] Stop: 01/28/22 21:15 Last Admin: 12/29/21 22:15 Dose: 10 mg Documented By: JIM Multi-Ingredient Cream (Eucerin Cr 120 Gm Jar) 1 appln TOP TID [facility] Stop: 01/28/22 21:15 Last Admin: 12/30/21 13:03 Dose: Not Given Documented By: Admin: 12/30/21 08:22 Dose: 1 appln Documented By: Admin: 12/29/21 22:13 Dose: 1 appln Documented By: JIM Multivitamins/Minerals (Cerovite Adv Formula Tab) 2 tab PO QAM [facility] Stop: 01/29/22 08:59 Last Admin: 12/30/21 08:08 Dose: 2 tab Documented By: BAKARI Nutritional Formula (Prosource No Carb 30 Ml/Pkt) 30 ml PO BID [facility] Stop: 01/28/22 21:15 Last Admin: 12/30/21 08:10 Dose: 30 ml Documented By: Admin: 12/29/21 22:14 Dose: 30 ml Documented By: JIM Olanzapine (Olanzapine 2.5 Mg Tab) 2.5 mg PO HS [facility] Stop: 01/28/22 21:15 Last Admin: 12/29/21 22:15 Dose: 2.5 mg Documented By: JIM Pantoprazole Sodium (Pantoprazole 40 Mg Tab) [facility] Stop: 01/29/22 08:59 Last Admin: 12/30/21 08:08 Dose: 40 mg Documented By: ABKARI Polyethylene Glycol (Polyethylene (Miralax) 17 Gm Pack) 17 gm PO DAILY [facility] Stop: 01/29/22 08:59 Last Admin: 12/30/21 08:09 Dose: Not Given Documented By: BAKARI Senna/Docusate Sodium (Docusate Sodium/Senna 50/8.6mg Tab) 1 tab PO QAM [facility] Stop: 01/29/22 08:59 Last Admin: 12/30/21 08:10 Dose: Not Given Documented By: BAKARI Vitamin D (Cholecalciferol 1,000 Units 25 Mcg Tab) 2,000 units PO QAM [facility] Stop: 01/29/22 08:59 Last Admin: 12/30/21 08:09 Dose: 2,000 units Documented By: BAKARI Discontinued Medications Fentanyl Citrate (Fentanyl Citrate 100 Mcg/2 Ml Vial) 25 mcg IV NOW STA Stop: 12/29/21 14:10 Last Admin: 12/29/21 14:51 Dose: 25 mcg Documented By: SLB Hydromorphone HCl (Hydromorphone Inj 0.5 Mg/0.5 Ml Syr) 0.25 mg IV NOW STA Stop: 12/29/21 17:44 Last Admin: 12/29/21 17:58 Dose: 0.25 mg Documented By: AB Sodium Chloride (Nss 1000ml) 500 mls @ 999 mls/hr IV .Q31M ONE Stop: 12/29/21 14:39 Last Infusion: 12/29/21 21:22 Dose: 999 mls/hr Documented By: Admin: 12/29/21 14:59 Dose: 999 mls/hr Documented By: SLB Sodium Chloride (Nss 1000ml) 500 mls @ 999 mls/hr IV .Q31M ONE Stop: 12/29/21 16:22 Last Infusion: 12/29/21 21:20 Dose: 999 mls/hr Documented By: Admin: 12/29/21 19:16 Dose: 999 mls/hr Documented By: HS Vancomycin HCl 2,000 mg/ (Sodium Chloride) 540 mls @ 200 mls/hr IV TODAY@1845 ONE Stop: 12/29/21 21:26 Last Infusion: 12/29/21 22:50 Dose: 0 mls/hr Documented By: Admin: 12/29/21 19:09 Dose: 200 mls/hr Documented By: KERVIN Vancomycin HCl 1,250 mg/ (Sodium Chloride) 275 mls @ 200 mls/hr IV Q24H [facility] Stop: 12/30/21 12:00 Last Infusion: 12/30/21 09:59 Dose: 0 mls/hr Documented By: Admin: 12/30/21 08:36 Dose: 200 mls/hr Documented By: BAKARI Ioversol (Optiray 320 125ml) 120 ml IV ONCE ONE Stop: 12/29/21 15:40 Last Admin: 12/29/21 15:39 Dose: 120 ml Documented By: JAR Discharge Plan Visit Data Chief Complaint: Foot Injury/Pain Stated Complaint: R FOOT & ANKLE INJURY ED Provider: Reinaldo Erazo Discharge Problem: Critical limb ischemia of right lower extremity, Atrial fibrillation with rapid ventricular response Patient Disposition: Admitted As Inpatient Discharge Instructions Interventions: ED Discharge Assessment Last Done: 12/29/21 19:39
[2021-12-29 14:30] LABS: Hematocrit (blood only) 40.5 % (34.1-44.9); Hemoglobin 13.1 g/dl (12.0-16.0); Mean Corpuscular Hgb Conc 32.3 g/dL (32.0-36.0); Mean Corpuscular Volume 98.8 fL (80.0-100.0); Mean Platelet Volume 9.8 fL (9.4-12.3); Platelet Count 450 K/uL (130-400); RDW Coefficient of Variation 14.6 % (11.5-14.5); RDW Standard Deviation 52.9 fL (36.4-46.3); White Blood Count 14.71 K/ul (4.8-10.8)
[2021-12-29 14:43] LABS: INR 1.4 (0.9-1.1); Partial Thromboplastin Ratio 1.6; Partial Thromboplastin Time 42.8 Seconds (21.0-31.0); Prothrombin Time 14.7 Seconds (9.0-12.0)
[2021-12-29 14:52] LABS: Alanine Aminotransferase 41 U/L (7-52); Albumin Level 2.8 gm/dl (3.4-5.0); Alkaline Phosphatase 114 U/L (34-104); Anion Gap 8 (3-11); Aspartate Aminotransferase 38 U/L (13-39); BUN Creatinine Ratio 40.5 (10-20); Bilirubin,Total 0.8 mg/dl (0.2-1.0); Blood Urea Nitrogen 47 mg/dl (6-23); Calcium 9.4 mg/dl (8.5-10.1); Carbon Dioxide 28 mmol/L (21-32); Chloride 97 mmol/L (98-107); Creatine Kinase 17 U/L (26-192); Est GFR (African American) 49.7 ml/min; Est GFR (Non-African American) 42.9 ml/min; Glucose 148 mg/dl (70-99(Fasting)); Magnesium 1.9 mg/dl (1.7-2.4); Potassium 4.4 mmol/L (3.5-5.1); Sodium 133 mmol/L (136-145); Total Protein 6.2 gm/dl (6.0-8.3); Troponin I High Sensitivity 25.6 pg/ml (0-14)
[2021-12-29 15:02] LABS: Basophils # (auto) 0.04 K/uL (0-0.2); Basophils % (auto) 0.3 %; Eosinophils # (auto) 0.02 K/uL (0-0.50); Eosinophils % (auto) 0.1 %; Immature Granulocytes # (auto) 0.17 K/uL (0.00-0.02); Immature Granulocytes % (auto) 1.2 %; Lymphocytes # (auto) 0.59 K/uL (1.2-3.4); Monocytes # (auto) 0.33 K/uL (0.24-0.82); Monocytes % (auto) 2.2 %; Neutrophils # (auto) 13.56 K/uL (1.4-6.5); Neutrophils % (auto) 92.2 %; Polychromasia 1+
--- NOTE | 2021-12-29 15:06 | Consultation ---
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 This is worse on the right than the left. Her right foot is cooler than the left. She also has decreased capillary refill whitish appearing toes of the right foot from the second to the fifth toe. However she does have decent Doppler signals heard in the dorsalis pedis and posterior tibial arteries of the right foot. There is capillary refill present in the great toe on the right side. At this point the flow to the foot is adequate. It appears being that she does have a decreased toe index done earlier this year that her problem is mostly small vessel disease involving digital arteries to the toes of the foot. No intervention at this time is planned even if the CTA does show occlusion of the right lower extremity. I believe she has adequate enough flow to the right foot from her Doppler signals that were obtained at the bedside. I will treat her foot conservatively at this time. If the toes continue to worsen I would let them demarcate and then make a final decision on whether an amputation will be needed or for you we will go on to auto amputate. Be happy to see her in the office or follow-up with the family desires. Thank you very much for letting us participate in the care of this patient. History of Present Illness Reason for Consultation: Discoloration and pain right foot History of Present Illness This is an 86-year-old female who has been followed for wounds of her lower extremities. She has had purplish discoloration of her right foot at times but this has progressed today to involving the lower leg. She also complains of pain in her toes. She has had ankle indices in the recent past which showed triphasic waveforms at the ankle normal indices. Toe indexes 0.34 suggesting significant small vessel disease. Also has a history of rheumatoid arthritis of the ankles. Allergies Allergy/AdvReac Type Severity Reaction Status Date / Time latex Allergy Intermediate Rash, Verified 12/16/21 10:06 itching povidone-iodine Allergy Intermediate Itching Verified 12/16/21 10:06 [From Betadine] soap [From Betadine] Allergy Intermediate Itching Verified 12/16/21 10:06 aspirin AdvReac Mild Dizziness Verified 12/16/21 10:06 Home Medications Medication Instructions Recorded Confirmed Type trazodone 100 mg tablet 100 mg PO HS 01/24/20 12/19/21 History fexofenadine 180 mg tablet 180 mg PO QAM 02/19/20 12/19/21 History vit C 250 mg-vit E 90 mg-zinc 40 2 tab PO QAM 05/01/20 12/19/21 History mg-copper 1 dx-hpwsdg-mhaivh capsule (PreserVision AREDS-2) cholecalciferol (vitamin D3) 50 50 mcg PO QAM 08/25/20 12/19/21 History mcg (2,000 unit) capsule (Vitamin D3) nitroglycerin 0.4 mg sublingual 0.4 mg sublingual DIRECTED PRN 08/25/20 12/19/21 History tablet Chest Pain budesonide-formoterol HFA 160 2 puff inhalation BID PRN 09/15/20 12/19/21 History mcg-4.5 mcg/actuation aerosol Shortness Of Breath Or Wheezing inhaler (Symbicort) apixaban 5 mg tablet (Eliquis) 5 mg PO BID #180 tabs 01/28/21 12/19/21 Rx pantoprazole 40 mg tablet,delayed 40 mg PO QAM GERD 05/14/21 12/19/21 History release (Protonix) montelukast 10 mg tablet 10 mg PO QPM 08/20/21 12/19/21 History metoprolol succinate 50 mg 50 mg PO QAM 10/15/21 12/19/21 History tablet,extended release 24 hr tramadol 50 mg tablet (Ultram) 50 mg PO Q6H PRN pain #30 tabs 10/15/21 12/19/21 Rx levothyroxine 112 mcg tablet 112 mcg PO QPM #30 tabs 11/04/21 12/19/21 Rx bumetanide 1 mg tablet 1 mg PO QAM #100 tabs 11/24/21 12/19/21 Rx ezetimibe 10 mg tablet (Zetia) 10 mg PO QAM #90 tabs 11/24/21 12/19/21 Rx metoprolol succinate 100 mg 100 mg PO QAM #45 tabs 12/23/21 12/19/21 Rx tablet,extended release 24 hr polyethylene glycol 3350 17 gram 17 g PO DAILY 14 days #14 ea 12/23/21 Rx oral powder packet (Miralax) sennosides 8.6 mg-docusate sodium 1 tab PO QAM 14 days #14 tabs 12/23/21 Rx 50 mg tablet (Senokot-S) Patient History Medical History Aortic regurgitation Asthma inhaler prn Atrial fibrillation, permanent on eliquis and follows with Dr. Colón Chronic diastolic CHF (congestive heart failure) Coronary artery disease Dyslipidemia Esophageal stricture H/O fall 08/2020 Hearing deficit History of COVID-19 diagnosed 05/18/22 @ [place]--asymptomatic, tested prior to procedure--no issues now Hypothyroid Macular degeneration On anticoagulant therapy eliquis daily Osteoarthritis Pulmonary hypertension Spinal stenosis Surgical History History of bilateral cataract extraction History of cardiac cath ?2015 @ [facility]--no stents History of colonoscopy with polypectomy History of dilatation and curettage History of esophagogastroduodenoscopy (EGD) History of left hip replacement History of left shoulder replacement History of parathyroidectomy ELEVATED CALCIUM LEVELS? (2 REMOVED) History of right hip replacement History of right shoulder replacement History of tonsillectomy and adenoidectomy History of tooth extraction History of total left knee replacement (TKR) x2 History of total right knee replacement (TKR) x2 History of wisdom tooth extraction S/P cholecystectomy S/P dilatation of esophageal stricture Family History Mother Cancer uterine Thyroid disease Father Cancer esophageal Family history of esophageal cancer Sister Family history of diabetes mellitus Sister Family history of diabetes mellitus Brother Family history of diabetes mellitus Family hx of colon cancer Other No family history of adverse response to anesthesia Social History Smoking Status: Never smoker Tobacco Type: Cigarettes Second Hand Exposure: No; Hx Alcohol Use: Yes Alcohol type: wine Hx Substance Use: No Preferred Language: Uzbek Communication Ability: Impaired Visual Impairment: Limited Hearing Ability: Normal Pantry Attendant Required: No Beliefs That Will Affect Care: None Current Living Situation: Personal Care Facility Current Living Situation Comment: [facility] How many Children do You have: 4 Feels Safe at Home: Yes caffeine: No during the past year weight has: remained stable Assistive Devices: Glasses, Walker and Wheelchair Review of Systems Review of Systems: Unobtainable due to cognitive status Physical Exam Constitutional: + ill appearing Respiratory: normal respiratory effort; no respiratory distress Cardiovascular: Rate/Rhythm: regular rate and regular rhythm Vessels: femoral pulses present Capillary refill is acceptable in the left foot. The right great toe does have capillary refill present however decreased. The right second third fourth and fifth toes are pale white in appearance with no capillary refill. There are ulcerations present on the top of the joints of all the second through fifth toes. There are from decent Doppler signals in the dorsalis pedis and posterior tibial arteries of both feet. Skin: The feet on both sides are purplish in appearance worse on the right than the left. There is also some ecchymotic areas present of the dorsum of the right foot as well as the ankle. Neurologic: CN's II-XI intact bilaterally and moves all extremities; no focal motor deficits She is able to wiggle her toes on both feet. She also was able to feel both feet to touch. Psychiatric: Orientation: alert Results & Data ([facility]) Vital Signs (Past 12 Hours) Vital Signs Temp Pulse Resp BP Pulse Ox O2 Del Method 12/29/21 14:50 121 H 17 12/29/21 14:40 125 H 23 12/29/21 14:30 114 H 25 H 12/29/21 14:22 107/69 12/29/21 14:22 114 H 25 H 12/29/21 14:20 112 H 26 H 12/29/21 14:10 105 H 22 12/29/21 14:00 107 H 23 12/29/21 13:50 112 H 19 12/29/21 13:40 108 H 27 H 12/29/21 13:30 113 H 19 12/29/21 13:20 109 H 23 94 12/29/21 13:00 36.4 C L 107 H 20 106/75 98 Room Air
[2021-12-29] MEDS ORDERED: OPTIRAY 320 125ml IV ONE (15:39)
--- NOTE | 2021-12-29 15:54 | CT Scan Report ---
CT angio right lower extremity with intravenous contrast HISTORY: Right leg pain. Right leg arterial occlusion TECHNIQUE: Multiaxial CT images of the right lower extremity were performed following the intravenous administration of 120 cc of Optiray 320 to evaluate the major arterial structures. Maximal intensity projection images were also obtained. COMPARISON STUDY: None. FINDINGS: The right external iliac artery, common femoral, and superficial femoral arteries are widel y patent. There is moderate calcified plaque within the right superficial femoral artery. The majorit y the right mid popliteal artery is obscured by the metallic artifact from the right total knee arthr oplasty. The proximal and distal popliteal artery appears patent. Extensive calcified plaque within t he calf arteries. No definite occlusion of the peroneal or posterior tibial arteries. There is focal occlusion at the mid right anterior tibial artery without distal reconstitution. Therefore, the dorsa lis pedis artery is also likely occluded. There is a right total arthroplasty and a long stemmed righ t total knee arthroplasty. No acute fractures identified within the right lower extremity. Subcutaneo us edema within the right lower extremity and right foot. Partially visualized colonic diverticulosis . Trace pelvic free fluid is noted. No loculated fluid collections to suggest an abscess. IMPRESSION: 1. There is focal occlusion at the mid right anterior tibial artery without distal reconstitution. Th erefore, the dorsalis pedis artery is also likely occluded. 2. Diffuse subcutaneous edema within the right lower extremity. No loculated fluid collections to sug gest an abscess. ACT 112: Negative or not required by law. Electronically signed by: Esdras Salazar M.D. 12/29/2021 3:53 PM
--- NOTE | 2021-12-29 17:41 | XRay Report ---
SINGLE VIEW CHEST CLINICAL HISTORY: Cough. Tachycardia FINDINGS: An AP, portable, upright chest radiograph is compared to study dated 12/19/2021. The heart i s enlarged noting atherosclerotic calcification of the thoracic aorta. The pulmonary vasculature is n oncongested. Chronic interstitial thickening is similar to previous. Scarring/atelectasis is noted at both lung bases. No airspace consolidation or large pleural effusion is identified. No pneumothorax is seen. The skeletal structures are osteopenic. The bony thorax is grossly intact. Bilateral shoulde r arthroplasties are in place. IMPRESSION: Cardiomegaly with no acute cardiopulmonary abnormality identified. ACT 112: Negative or not required by law. Electronically signed by: Cesar Santos M.D. 12/29/2021 5:39 PM
[2021-12-29] MEDS ORDERED: HYDROmorphone INJ 0.5 MG/0.5 ML SYR IV STA (17:43)
[2021-12-29] MEDS ORDERED: POLYETHYLENE (MIRALAX) 17 GM PACK PO SCH (18:15)
[2021-12-29] MEDS ORDERED: VANCOMYCIN CONSULT ACTIVE SCH (18:15)
[2021-12-29] MEDS ORDERED: VANCOMYCIN HCL 2,000 MG in SODIUM CHLORIDE 0.9% 500 ML IV ONE (18:45)
--- NOTE | 2021-12-29 18:53 | History & Physical Report ---
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 No current evidence for cardioembolic. Vascular recommending to continue Eliquis. And follow-up with them as an outpatient. We will monitor the patient for now any worsening symptoms in the right lower extremity. (2) Cellulitis of left lower extremity: Plan: Recent completed a course of doxycycline. Initiate vancomycin pharmacy protocol. Discussed with pharmacy. Obtain blood cultures. Proximally the leg is looking better as per patient's [id number] however dorsal aspect of left foot is markedly swollen erythematous and tender. Which is new (3) Skin tear of left lower leg without complication: Plan: Wounds appear better as per patient's [id number]. We will have her have a wound care consult. (4) Coronary artery disease: Plan: No chest pains or active complaints. Not on antiplatelet current currently. 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 Does have an allergy to aspirin. (5) Hypothyroid: Plan: Stable otherwise euthyroid. (6) Dyslipidemia: Plan: Patient can follow-up as an outpatient. She is on ezetimibe (7) Atrial fibrillation, permanent: Plan: Currently appears to be rate controlled. Continue medication. Continue with Eliquis 5 mg twice a day (8) Chronic diastolic CHF (congestive heart failure): Plan: No overt exacerbation. Monitor for now is not on any diuretic therapy Admission and Anticipated Discharge Date Admission Date: 12/30/2019 History of Present Illness Chief Complaint: Right lower extremity pain Primary Care Provider: Fernanda Guevara PA-C Patient is a 86-year-old female here in the company of her daughter in law with a past medical history of peripheral arterial disease, atrial fibrillation on Eliquis, diverticulitis, left lower extremity skin tears and wounds traumatic, decubitus ulcers right and left buttocks. Left eye blindness, CAD, history of hypothyroidism, GERD, esophageal stricture, dyslipidemia, aortic regurgitation, chronic diastolic CHF, asthma presenting with purple right foot noticed by the senior living extending up to her knee on the right side with worsening pain in the lower extremity on the right. Patient also on Eliquis has not missed a dose as per patient's [id number] and patient also in a senior living. Advised patient also complaining of left foot pain and swelling. As per the daughter at bedside it appears to be new in the swelling and the erythema is most pronounced than previous. Advised patient denies any fever chills nausea vomiting complains of constipation. As per the daughter patient was recently placed on doxycycline which has been completed for left lower extremity wounds however the left foot is more erythematous than usual. This is on the dorsal aspect. Patient suffered the left lower extremity wounds due to falls and patient has been bedbound in recent weeks. Otherwise patient seen by vascular surgery for possible occlusion of the right lower extremity however patient was noted to have adequate pulses and no signif icant intervention is planned. Also discussed with vascular surgery Dr. Ortega Linn about any additional medication apart from Eliquis and they suggest to continue with Eliquis. Allergies Allergy/AdvReac Type Severity Reaction Status Date / Time latex Allergy Intermediate Rash, Verified 12/29/21 17:29 itching povidone-iodine Allergy Intermediate Itching Verified 12/29/21 17:29 [From Betadine] soap [From Betadine] Allergy Intermediate Itching Verified 12/29/21 17:29 aspirin AdvReac Mild Dizziness Verified 12/29/21 17:29 Home Medications Medication Instructions Recorded Confirmed Type vit C 250 mg-vit E 90 mg-zinc 40 2 tab PO QAM 05/01/20 12/29/21 History mg-copper 1 [id number] capsule (PreserVision AREDS-2) cholecalciferol (vitamin D3) 50 50 mcg PO QAM 08/25/20 12/29/21 History mcg (2,000 unit) capsule (Vitamin D3) nitroglycerin 0.4 mg sublingual 0.4 mg sublingual DIRECTED PRN 08/25/20 12/29/21 History tablet Chest Pain budesonide-formoterol HFA 160 2 puff inhalation BID PRN 09/15/20 12/29/21 History mcg-4.5 mcg/actuation aerosol Shortness Of Breath Or Wheezing inhaler (Symbicort) apixaban 5 mg tablet (Eliquis) 5 mg PO BID #180 tabs 01/28/21 12/29/21 Rx pantoprazole 40 mg tablet,delayed 40 mg PO QAM GERD 05/14/21 12/29/21 History release (Protonix) montelukast 10 mg tablet 10 mg PO QPM 08/20/21 12/29/21 History metoprolol succinate 50 mg 50 mg PO QAM 10/15/21 12/29/21 History tablet,extended release 24 hr levothyroxine 112 mcg tablet 112 mcg PO QPM #30 tabs 11/04/21 12/29/21 Rx ezetimibe 10 mg tablet (Zetia) 10 mg PO QAM #90 tabs 11/24/21 12/29/21 Rx metoprolol succinate 100 mg 100 mg PO QAM #45 tabs 12/23/21 12/29/21 Rx tablet,extended release 24 hr polyethylene glycol 3350 17 gram 17 g PO DAILY 14 days #14 ea 12/23/21 12/29/21 Rx oral powder packet (Miralax) sennosides 8.6 mg-docusate sodium 1 tab PO QAM 14 days #14 tabs 12/23/21 12/29/21 Rx 50 mg tablet (Senokot-S) acetaminophen 325 mg tablet 650 mg PO Q4H PRN PAIN/FEVER 12/29/21 12/29/21 History (Tylenol) acetaminophen 500 mg tablet 500 mg PO TID 12/29/21 12/29/21 History (Tylenol Extra Strength) amino ac-protein hydro-whey 1 ea PO BID 12/29/21 12/29/21 History protein 10 gram-100 kcal/30 mL oral liquid (ProSource) bumetanide 1 mg tablet 2 mg PO QAM 12/29/21 12/29/21 History dimethicone 1 % topical cream 1 applic topical TID 12/29/21 12/29/21 History nystatin 100,000 unit/gram topical 1 applic topical BID 12/29/21 12/29/21 History powder olanzapine 2.5 mg tablet 2.5 mg PO HS 12/29/21 12/29/21 History ondansetron HCl 4 mg tablet 4 mg PO Q6H PRN NAUSEA/VOMITING 12/29/21 12/29/21 History Past Med/Surg History Medical History Aortic regurgitation Asthma inhaler prn Atrial fibrillation, permanent on eliquis and follows with Dr. Colón Chronic diastolic CHF (congestive heart failure) Coronary artery disease Dyslipidemia Esophageal stricture H/O fall 08/2020 Hearing deficit History of COVID-19 diagnosed 05/18/22 @ [place]--asymptomatic, tested prior to procedure--no issues now Hypothyroid Macular degeneration On anticoagulant therapy eliquis daily Osteoarthritis Pulmonary hypertension Spinal stenosis Surgical History History of bilateral cataract extraction History of cardiac cath ?2015 @ [facility] [place]--no stents History of colonoscopy with polypectomy History of dilatation and curettage History of esophagogastroduodenoscopy (EGD) History of left hip replacement History of left shoulder replacement History of parathyroidectomy ELEVATED CALCIUM LEVELS? (2 REMOVED) History of right hip replacement History of right shoulder replacement History of tonsillectomy and adenoidectomy History of tooth extraction History of total left knee replacement (TKR) x2 History of total right knee replacement (TKR) x2 History of wisdom tooth extraction S/P cholecystectomy S/P dilatation of esophageal stricture Family History Mother Cancer uterine Thyroid disease Father Cancer esophageal Family history of esophageal cancer Sister Family history of diabetes mellitus Sister Family history of diabetes mellitus Brother Family history of diabetes mellitus Family hx of colon cancer Other No family history of adverse response to anesthesia Social History Smoking Status: Never smoker Tobacco Type: Cigarettes Second Hand Exposure: No; Hx Alcohol Use: Yes Alcohol type: wine Hx Substance Use: No Preferred Language: Kyrgyz Communication Ability: Impaired Visual Impairment: Limited Hearing Ability: Normal Lead Application Architect Required: No Beliefs That Will Affect Care: None Current Living Situation: Personal Care Facility Current Living Situation Comment: [facility] How many Children do You have: 4 Feels Safe at Home: Yes caffeine: No during the past year weight has: remained stable Assistive Devices: Glasses, Walker and Wheelchair Review of Systems Review of Systems: 13 point review of systems was conducted on the patient with the pertinent positives and negatives as above otherwise negative Physical Exam Constitutional: WD/WN, vitals as above Eyes: PERRL, conjunctivae normal, anicteric sclerae ENMT: external ear and nose normal, oropharynx normal Neck: trachea midline, no thyromegaly Respiratory: normal respiratory effort, lungs clear to auscultation Auscultation: no rhonchi and no wheezes Cardiovascular: Irregularly irregular. No significant murmur appreciated currently. Gastrointestinal (Abdomen): normal bowel sounds, soft, nontender, no hepatosplenomegaly Musculoskeletal: no cyanosis or clubbing, extremities motor strength 5/5 Skin: no rashes, warm and dry (Right lower extremity with a purplish hue. Stage II wound appreciated post) Left lower extremity erythema swelling and tenderness palpation dorsal aspect of the left foot. No discharge noted. Proximally patient leg was bandaged opened up the bandage from the ankle to the knee and thigh above Steri-Strips noted proximally approximating the knee and lower anterior lateral thigh. No segment discharge. As per daughter this is much improved. Discoloration of the lower extremity otherwise however as per daughter is much reducing the redness. Neurologic: patellar DTR's 2+ bilat, sensation intact and PERRL, EOMI, accommodation nl, no face palsy, no dysarthria Psychiatric: A+Ox3, euthymic affect (Alert oriented x3 however says she is confused.) Genitourinary: Not assessed Lymphatic: no cervical or axillary lymphadenopathy Results & Data Results & Data ([facility]) Vital Signs (Past 12 Hours) Vital Signs Temp Pulse Pulse Resp BP BP Pulse Ox 12/29/21 16:50 106 H 20 99 12/29/21 16:40 107 H 22 95 12/29/21 16:30 119 H 21 96 12/29/21 16:20 108 H 24 97 12/29/21 16:10 108 H 22 98 12/29/21 16:00 111 H 24 97 12/29/21 15:50 109 H 21 95 12/29/21 15:40 108 H 22 93 12/29/21 15:10 102 H 17 98 12/29/21 15:00 118 H 20 96 12/29/21 14:59 107/75 12/29/21 14:59 151 H 20 12/29/21 14:50 121 H 17 12/29/21 14:40 125 H 23 12/29/21 14:30 114 H 25 H 12/29/21 14:22 107/69 12/29/21 14:22 114 H 25 H 12/29/21 14:20 112 H 26 H 12/29/21 14:10 105 H 22 12/29/21 14:00 107 H 23 12/29/21 13:50 112 H 19 12/29/21 13:40 108 H 27 H 12/29/21 13:30 113 H 19 12/29/21 15:00 118 H 18 107/75 98 12/29/21 13:20 109 H 23 94 12/29/21 13:00 36.4 C L 107 H 20 106/75 98 O2 Del Method 12/29/21 16:50 12/29/21 16:40 12/29/21 16:30 12/29/21 16:20 12/29/21 16:10 12/29/21 16:00 12/29/21 15:50 12/29/21 15:40 12/29/21 15:10 12/29/21 15:00 12/29/21 14:59 12/29/21 14:59 12/29/21 14:50 12/29/21 14:40 12/29/21 14:30 12/29/21 14:22 12/29/21 14:22 12/29/21 14:20 12/29/21 14:10 12/29/21 14:00 12/29/21 13:50 12/29/21 13:40 12/29/21 13:30 12/29/21 15:00 Room Air 12/29/21 13:20 12/29/21 13:00 Room Air Laboratory Results Short CBC 12/29/21 Range/Units 13:41 WBC 14.71 H (4.8-10.8) K/ul Hgb 13.1 (12.0-16.0) g/dl Hct 40.5 (34.1-44.9) % Plt Count 450 H (130-400) K/uL BMP 12/29/21 13:41 Sodium 133 L Potassium 4.4 Chloride 97 L Carbon Dioxide 28 BUN 47 H Creatinine 1.16 Glucose 148 H Calcium 9.4 Cardiac Enzymes 12/29/21 Range/Units 13:41 Total Creatine Kinase 17 L (26-192) U/L Liver Function 12/29/21 Range/Units 13:41 Total Bilirubin 0.8 (0.2-1.0) mg/dl Direct Bilirubin TNP AST 38 (13-39) U/L ALT 41 (7-52) U/L Alkaline Phosphatase 114 H (34-104) U/L Albumin 2.8 L (3.4-5.0) gm/dl Diagnostic Findings Laboratory Results WBC 14.71 K/ul (4.8-10.8) H 12/29/21 13:41 RBC 4.10 M/uL (3.93-5.22) 12/29/21 13:41 Hgb 13.1 g/dl (12.0-16.0) 12/29/21 13:41 Hct 40.5 % (34.1-44.9) 12/29/21 13:41 MCV 98.8 fL (80.0-100.0) 12/29/21 13:41 MCH 32.0 pg (25.0-34.0) 12/29/21 13:41 MCHC 32.3 g/dL (32.0-36.0) 12/29/21 13:41 RDW Std Deviation 52.9 fL (36.4-46.3) H 12/29/21 13:41 RDW Coeff of Marielle 14.6 % (11.5-14.5) H 12/29/21 13:41 Plt Count 450 K/uL (130-400) H 12/29/21 13:41 MPV 9.8 fL (9.4-12.3) 12/29/21 13:41 Immature Gran % (Auto) 1.2 % 12/29/21 13:41 Neut % (Auto) 92.2 % 12/29/21 13:41 Lymph % (Auto) 4.0 % 12/29/21 13:41 [place] % (Auto) 2.2 % 12/29/21 13:41 Eos % (Auto) 0.1 % 12/29/21 13:41 Baso % (Auto) 0.3 % 12/29/21 13:41 Neut # (Auto) 13.56 K/uL (1.4-6.5) H 12/29/21 13:41 Lymph # (Auto) 0.59 K/uL (1.2-3.4) L 12/29/21 13:41 [place] # (Auto) 0.33 K/uL (0.24-0.82) 12/29/21 13:41 Eos # (Auto) 0.02 K/uL (0-0.50) 12/29/21 13:41 Baso # (Auto) 0.04 K/uL (0-0.2) 12/29/21 13:41 Immature Gran # (Auto) 0.17 K/uL (0.00-0.02) H 12/29/21 13:41 Polychromasia 1+ 12/29/21 13:41 PT 14.7 Seconds (9.0-12.0) H 12/29/21 13:41 INR 1.4 (0.9-1.1) H 12/29/21 13:41 APTT 42.8 Seconds (21.0-31.0) H 12/29/21 13:41 PTT Ratio 1.6 12/29/21 13:41 Sodium 133 mmol/L (136-145) L 12/29/21 13:41 Potassium 4.4 mmol/L (3.5-5.1) 12/29/21 13:41 Chloride 97 mmol/L (98-107) L 12/29/21 13:41 Carbon Dioxide 28 mmol/L (21-32) 12/29/21 13:41 Anion Gap 8 (3-11) 12/29/21 13:41 BUN 47 mg/dl (6-23) H 12/29/21 13:41 Creatinine 1.16 mg/dl (0.6-1.2) 12/29/21 13:41 Est Cr Clr Drug Dosing Not Reportable 12/29/21 13:41 Est GFR ( Amer) 49.7 ml/min 12/29/21 13:41 Est GFR (Non-Af Amer) 42.9 ml/min 12/29/21 13:41 BUN/Creatinine Ratio 40.5 (10-20) H 12/29/21 13:41 Glucose 148 mg/dl (70-99(Fasting)) H 12/29/21 13:41 Lactate 1.9 mmol/L (0.4-2.0) 12/29/21 14:41 Calcium 9.4 mg/dl (8.5-10.1) 12/29/21 13:41 Magnesium 1.9 mg/dl (1.7-2.4) 12/29/21 13:41 Total Bilirubin 0.8 mg/dl (0.2-1.0) 12/29/21 13:41 Direct Bilirubin TNP 12/29/21 13:41 AST 38 U/L (13-39) 12/29/21 13:41 ALT 41 U/L (7-52) 12/29/21 13:41 Alkaline Phosphatase 114 U/L (34-104) H 12/29/21 13:41 Total Creatine Kinase 17 U/L (26-192) L 12/29/21 13:41 Troponin I High Sens 25.6 pg/ml (0-14) H D 12/29/21 13:41 Total Protein 6.2 gm/dl (6.0-8.3) 12/29/21 13:41 Albumin 2.8 gm/dl (3.4-5.0) L 12/29/21 13:41 SARS-CoV-2, RNA, NAAT NEGATIVE (NEGATIVE) 12/29/21 14:49 Impressions Lower Extremity CTA 12/29/21 14:09 CT angio right lower extremity with intravenous contrast HISTORY: Right leg pain. Right leg arterial occlusion TECHNIQUE: Multiaxial CT images of the right lower extremity were performed following the intravenous administration of 120 cc of Optiray 320 to evaluate the major arterial structures. Maximal intensity projection images were also o btained. COMPARISON STUDY: None. FINDINGS: The right external iliac artery, common femoral, and superficial femoral arteries are widely patent. There is moderate calcified plaque within the right superficial femoral artery. The majority the right mid popliteal artery is obscured by the metallic artifact from the right total knee arthroplasty. The proximal and distal popliteal artery appears patent. Extensive calcified plaque within the calf arteries. No definite occlusion of the peroneal or posterior tibial arteries. There is focal occlusion at the mid right anterior tibial artery without distal reconstitution. Therefore, the dorsalis pedis artery is also likely occluded. There is a right total arthroplasty and a long stemmed right total knee arthroplasty. No acute fractures identified within the right lower extremity. Subcutaneous edema within the right lower extremity and right foot. Partially visualized colonic diverticulosis. Trace pelvic free fluid is noted. No loculated fluid collections to suggest an abscess. IMPRESSION: 1. There is focal occlusion at the mid right anterior tibial artery without distal reconstitution. Therefore, the dorsalis pedis artery is also likely occluded. 2. Diffuse subcutaneous edema within the right lower extremity. No loculated fluid collections to suggest an abscess. ACT 112: Negative or not required by law. Electronically signed by: Esdras Salazar M.D. 12/29/2021 3:53 PM Chest X-Ray 12/29/21 15:52 SINGLE VIEW CHEST CLINICAL HISTORY: Cough. Tachycardia FINDINGS: An AP, portable, upright chest radiograph is compared to study dated 12/19/2021. The heart is enlarged noting atherosclerotic calcification of the thoracic aorta. The pulmonary vasculature is noncongested. Chronic interstitial thickening is similar to previous. Scarring/atelectasis is noted at both lung bases. No airspace consolidation or large pleural effusion is identified. No pneumothorax is seen. The skeletal structures are osteopenic. The bony thorax is grossly intact. Bilateral shoulder arthroplasties are in place. IMPRESSION: Cardiomegaly with no acute cardiopulmonary abnormality identified. ACT 112: Negative or not required by law. Electronically signed by: Cesar Santos M.D. 12/29/2021 5:39 PM Code Status & VTE Plan Code Status DNR DNI VTE Prophylaxis Plan VTE Prophylaxis will be ordered: Yes
[2021-12-29 19:44] LABS: Hematocrit (blood only) 39.7 % (34.1-44.9); Hemoglobin 12.9 g/dl (12.0-16.0); Mean Corpuscular Hemoglobin 32.3 pg (25.0-34.0); Mean Corpuscular Hgb Conc 32.5 g/dL (32.0-36.0); Mean Corpuscular Volume 99.5 fL (80.0-100.0); Mean Platelet Volume 9.9 fL (9.4-12.3); Nucleated RBC # (auto) 0.02 K/uL (0-0); Nucleated RBC % (auto) 0.1 %; Platelet Count 448 K/uL (130-400); RDW Coefficient of Variation 14.7 % (11.5-14.5); RDW Standard Deviation 54.4 fL (36.4-46.3); Red Blood Count 3.99 M/uL (3.93-5.22); White Blood Count 16.03 K/ul (4.8-10.8)
[2021-12-29 20:09] LABS: Basophils # (auto) 0.04 K/uL (0-0.2); Basophils % (auto) 0.2 %; Eosinophils # (auto) 0.05 K/uL (0-0.50); Eosinophils % (auto) 0.3 %; Immature Granulocytes # (auto) 0.21 K/uL (0.00-0.02); Immature Granulocytes % (auto) 1.3 %; Lymphocytes % (auto) 3.1 %; Monocytes # (auto) 0.39 K/uL (0.24-0.82); Monocytes % (auto) 2.4 %; Neutrophils # (auto) 14.84 K/uL (1.4-6.5); Neutrophils % (auto) 92.7 %
[2021-12-29 20:19] LABS: Anion Gap 12 (3-11); BUN Creatinine Ratio 44.4 (10-20); Blood Urea Nitrogen 44 mg/dl (6-23); Calcium 9.1 mg/dl (8.5-10.1); Carbon Dioxide 25 mmol/L (21-32); Chloride 97 mmol/L (98-107); Est GFR (African American) 60.2 ml/min; Glucose 140 mg/dl (70-99(Fasting)); Potassium 3.8 mmol/L (3.5-5.1); Sodium 134 mmol/L (136-145)
--- NOTE | 2021-12-29 20:28 | Pharmacy Report ---
Pharmacy PK ABX Note - Date of Service December 29, 2021 - Assessment and Plan Assessment 86 year old F receiving IV Vancomycin for treatment of LE Cellulitis. Recently completed a course of doxycycline. BC pending, WBC elevated Plan Vancomycin * Loading dose: 2000 mg IV x 1 * Maintenance dose: 1250 mg IV every 24 hours * Regimen is predicted to achieve target AUC/RAFAL of 400-600 mg/L.hr Pharmacy will continue to follow and will adjust dose/frequency as necessary. Thank you. Pharmacy has transitioned to AUC monitoring for vancomycin. AUC/RAFAL is the preferred PK/PD target and is associated with decreased risk of nephrotoxicity compared to traditional trough targets.
[2021-12-29] MEDS ORDERED: ONDANSETRON 4 MG OD TAB PO PRN (21:16)
[2021-12-29] MEDS ORDERED: NITROGLYCERIN SL 0.4 MG/TAB TAB SL PRN (21:16)
[2021-12-29] MEDS ORDERED: FLUTICASONE/VILANTEROL 200/25MCG 14 PUFFS/INHALER INH PRN (21:19)
[2021-12-29] MEDS: EUCERIN CR 120 GM JAR TOP SCH (22:13)
[2021-12-29] MEDS: PROSOURCE NO CARB 30 ML/PKT PO SCH (22:14)
[2021-12-29] MEDS: APIXABAN 5 MG TABLET PO SCH (22:14)
[2021-12-29] MEDS: LEVOTHYROXINE SODIUM 112 MCG TABLET PO SCH (22:15)
[2021-12-29] MEDS: MONTELUKAST SODIUM 10 MG TABLET PO SCH (22:15)
[2021-12-29] MEDS: OLANZAPINE 2.5 MG TAB PO SCH (22:15)
[2021-12-30 06:46] LABS: Hematocrit (blood only) 36.9 % (34.1-44.9); Hemoglobin 11.8 g/dl (12.0-16.0); Mean Corpuscular Hemoglobin 32.1 pg (25.0-34.0); Mean Corpuscular Volume 100.3 fL (80.0-100.0); Mean Platelet Volume 9.7 fL (9.4-12.3); Nucleated RBC # (auto) 0.02 K/uL (0-0); Nucleated RBC % (auto) 0.1 %; Platelet Count 406 K/uL (130-400); RDW Coefficient of Variation 14.6 % (11.5-14.5); RDW Standard Deviation 54.5 fL (36.4-46.3); Red Blood Count 3.68 M/uL (3.93-5.22); White Blood Count 15.83 K/ul (4.8-10.8)
[2021-12-30 07:12] LABS: BUN Creatinine Ratio 43.6 (10-20); Calcium 8.9 mg/dl (8.5-10.1); Creatinine Clr Calc Pharmacy 72.5 ml/min; Est GFR (African American) 64.1 ml/min; Est GFR (Non-African American) 55.3 ml/min; Potassium 3.8 mmol/L (3.5-5.1)
[2021-12-30 07:14] LABS: Basophils # (auto) 0.07 K/uL (0-0.2); Basophils % (auto) 0.4 %; Eosinophils # (auto) 0.01 K/uL (0-0.50); Eosinophils % (auto) 0.1 %; Immature Granulocytes # (auto) 0.17 K/uL (0.00-0.02); Immature Granulocytes % (auto) 1.1 %; Lymphocytes # (auto) 0.59 K/uL (1.2-3.4); Lymphocytes % (auto) 3.7 %; Macrocytosis Present; Monocytes # (auto) 0.54 K/uL (0.24-0.82); Monocytes % (auto) 3.4 %; Neutrophils # (auto) 14.45 K/uL (1.4-6.5); Neutrophils % (auto) 91.3 %; Polychromasia 1+
[2021-12-30] MEDS: ACETAMINOPHEN 325 MG TAB PO PRN (08:07)
[2021-12-30] MEDS: PANTOprazole 40 MG TAB PO SCH (08:08)
[2021-12-30] MEDS: CEROVITE ADV FORMULA TAB PO SCH (08:08)
[2021-12-30] MEDS: EZETIMIBE 10 MG TABLET PO SCH (08:09)
[2021-12-30] MEDS: POLYETHYLENE (MIRALAX) 17 GM PACK PO SCH (08:09)
[2021-12-30] MEDS: CHOLECALCIFEROL 1,000 UNITS 25 MCG TAB PO SCH (08:09)
[2021-12-30] MEDS: PROSOURCE NO CARB 30 ML/PKT PO SCH ×2 (08:10→21:22)
[2021-12-30] MEDS: APIXABAN 5 MG TABLET PO SCH ×2 (08:10→21:21)
[2021-12-30] MEDS: DOCUSATE SODIUM/SENNA 50/8.6MG TAB PO SCH (08:10)
[2021-12-30] MEDS ORDERED: LACTATED RINGER'S 1,000 ML IV SCH (08:15)
[2021-12-30] MEDS: EUCERIN CR 120 GM JAR TOP SCH ×3 (08:22→21:26)
[2021-12-30] MEDS: BUMETANIDE 1 MG TAB PO SCH (08:22)
[2021-12-30] MEDS: METOPROLOL SUCC 50MG EXT REL TAB PO SCH ×2 (08:22)
[2021-12-30] MEDS ORDERED: VANCOMYCIN HCL 1,250 MG in SODIUM CHLORIDE 0.9% 250 ML IV SCH (09:00)
--- NOTE | 2021-12-30 13:49 | Hospitalist Progress Note ---
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 No current evidence for cardioembolic. Vascular recommending to continue Eliquis. And follow-up with them as an outpatient. We will monitor the patient for now any worsening symptoms in the right lower extremity. (2) Cellulitis of left lower extremity: Plan: Recent completed a course of doxycycline. Initiate vancomycin pharmacy protocol. Discussed with pharmacy. Obtain blood cultures. Proximally the leg is looking better as per patient's [id number] however dorsal aspect of left foot is markedly swollen erythematous and tender. Which is new - will continue vancomycin for now and add cefepime - monitor for improvement and trasition to po when appropriate (3) Skin tear of left lower leg without complication: Plan: Wounds appear better as per patient's [id number]. We will have her have a wound care consult. (4) Coronary artery disease: Plan: No chest pains or active complaints. Not on antiplatelet current currently. Patient will follow up with primary bus operator. Does have an allergy to aspirin. (5) Hypothyroid: Plan: Stable otherwise euthyroid. (6) Dyslipidemia: Plan: Patient can follow-up as an outpatient. She is on ezetimibe (7) Atrial fibrillation, permanent: Plan: Currently appears to be rate controlled. Continue medication. Continue with Eliquis 5 mg twice a day (8) Chronic diastolic CHF (congestive heart failure): Plan: No overt exacerbation. Monitor for now is not on any diuretic therapy Plan Juan Churchill MD Hospital Medicine Admission and Anticipated Discharge Date Admission Date: December 29, 2021 Subjective Patient is a 86-year-old female here in the company of her daughter in law with a past medical history of peripheral arterial disease, atrial fibrillation on Eliquis, diverticulitis, left lower extremity skin tears and wounds traumatic, decubitus ulcers right and left buttocks, left eye blindness, CAD, history of hypothyroidism, GERD, esophageal stricture, dyslipidemia, aortic regurgitation, chronic diastolic CHF, asthma presenting with purple right foot noticed by the [facility] extending up to her knee on the right side with worsening pain in the lower extremity on the right. She was found to have an acute occlusion of RLE artery on CTA. Seen by vascular who found doppler flow to DP pulse and PT pulses were adequate and recommended no surgical intervention at that time. Started on eliquis and continued on statin. She was started on antibiotics for LLE cellulitis. She reports pain in her RLE but denies cheset pain, shortness of breath, abdominal pain, n/v/d, cough, dysuria. Review of Systems Review of Systems: All systems reviewed & are unremarkable except as noted in Subjective 13 point review of systems was conducted on the patient with the pertinent positives and negatives as above otherwise negative Physical Exam Constitutional: WD/WN, vitals as above Eyes: PERRL, conjunctivae normal, anicteric sclerae ENMT: external ear and nose normal, oropharynx normal Neck: trachea midline, no thyromegaly Respiratory: normal respiratory effort, lungs clear to auscultation Auscultation: no rhonchi and no wheezes Cardiovascular: Irregularly irregular. No significant murmur appreciated currently. Gastrointestinal (Abdomen): normal bowel sounds, soft, nontender, no hepatosplenomegaly Musculoskeletal: no cyanosis or clubbing, extremities motor strength 5/5 Skin: no rashes, warm and dry (Right lower extremity with a purplish hue. Stage II wound appreciated post) Left lower extremity erythema swelling and tenderness palpation dorsal aspect of the left foot. No discharge noted. Proximally patient leg was bandaged opened up the bandage from the ankle to the knee and thigh above Steri-Strips noted proximally approximating the knee and lower anterior lateral thigh. No segment discharge. As per daughter this is much improved. Discoloration of the lower extremity otherwise however as per daughter is much reducing the redness. Neurologic: patellar DTR's 2+ bilat, sensation intact and PERRL, EOMI, accommodation nl, no face palsy, no dysarthria Psychiatric: A+Ox3, euthymic affect (Alert oriented x3 however says she is confused.) Genitourinary: Not assessed Lymphatic: no cervical or axillary lymphadenopathy Results & Data Results & [facility] ([facility]) Vital Signs (Past 12 Hours) Vital Signs Temp Pulse Resp BP Pulse Ox O2 Del Method 12/30/21 08:20 36.7 C 72 18 93/68 L 97 Room Air 12/30/21 07:47 Room Air Laboratory Results Short CBC 12/29/21 12/29/21 12/30/21 Range/Units 13:41 19:10 06:27 WBC 14.71 H 16.03 H 15.83 H (4.8-10.8) K/ul Hgb 13.1 12.9 11.8 L (12.0-16.0) g/dl Hct 40.5 39.7 36.9 (34.1-44.9) % Plt Count 450 H 448 H 406 H (130-400) K/uL BMP 12/29/21 12/29/21 12/30/21 13:41 19:10 06:27 Sodium 133 L 134 L 136 Potassium 4.4 3.8 3.8 Chloride 97 L 97 L 100 Carbon Dioxide 28 25 24 BUN 47 H 44 H 41 H Creatinine 1.16 0.99 0.94 Glucose 148 H 140 H 90 Calcium 9.4 9.1 8.9 Cardiac Enzymes 12/29/21 Range/Units 13:41 Total Creatine Kinase 17 L (26-192) U/L Liver Function 12/29/21 Range/Units 13:41 Total Bilirubin 0.8 (0.2-1.0) mg/dl Direct Bilirubin TNP AST 38 (13-39) U/L ALT 41 (7-52) U/L Alkaline Phosphatase 114 H (34-104) U/L Albumin 2.8 L (3.4-5.0) gm/dl Diagnostic Findings Impressions Lower Extremity CTA 12/29/21 14:09 CT angio right lower extremity with intravenous contrast HISTORY: Right leg pain. Right leg arterial occlusion TECHNIQUE: Multiaxial CT images of the right lower extremity were performed following the intravenous administration of 120 cc of Optiray 320 to evaluate the major arterial structures. Maximal intensity projection images were also obtained. COMPARISON STUDY: None. FINDINGS: The right external iliac artery, common femoral, and superficial femoral arteries are widely patent. There is moderate calcified plaque within the right superficial femoral artery. The majority the right mid popliteal artery is obscured by the metallic artifact from the right total knee arthroplasty. The proximal and distal popliteal artery appears patent. Extensive calcified plaque within the calf arteries. No definite occlusion of the peroneal or posterior tibial arteries. There is focal occlusion at the mid right anterior tibial artery without distal reconstitution. Therefore, the dorsalis pedis artery is also likely occluded. There is a right total arthroplasty and a long stemmed right total knee arthroplasty. No acute fractures identified within the right lower extremity. Subcutaneous edema within the right lower extremity and right foot. Partially visualized colonic diverticulosis. Trace pelvic free fluid is noted. No loculated fluid collections to suggest an abscess. IMPRESSION: 1. There is focal occlusion at the mid right anterior tibial artery without distal reconstitution. Therefore, the dorsalis pedis artery is also likely occluded. 2. Diffuse subcutaneous edema within the right lower extremity. No loculated fluid collections to suggest an abscess. ACT 112: Negative or not required by law. Electronically signed by: Esdras Salazar M.D. 12/29/2021 3:53 PM Chest X-Ray 12/29/21 15:52 SINGLE VIEW CHEST CLINICAL HISTORY: Cough. Tachycardia FINDINGS: An AP, portable, upright chest radiograph is compared to study dated 12/19/2021. The heart is enlarged noting atherosclerotic calcification of the thoracic aorta. The pulmonary vasculature is noncongested. Chronic interstitial thickening is similar to previous. Scarring/atelectasis is noted at both lung bases. No airspace consolidation or large pleural effusion is identified. No pneumothorax is seen. The skeletal structures are osteopenic. The bony thorax is grossly intact. Bilateral shoulder arthroplasties are in place. IMPRESSION: Cardiomegaly with no acute cardiopulmonary abnormality identified. ACT 112: Negative or not required by law. Electronically signed by: Cesar Santos M.D. 12/29/2021 5:39 PM Medications Administered Current Inpatient Medications Acetaminophen (Acetaminophen 325 Mg Tab) 650 mg PO Q4H PRN PRN Reason: Pain or Fever Stop: 01/28/22 21:15 Last Admin: 12/30/21 08:07 Dose: 650 mg Apixaban (Apixaban 5 Mg Tablet) 5 mg PO BID [facility] Stop: 01/28/22 21:15 Last Admin: 12/30/21 08:10 Dose: 5 mg Bumetanide (Bumetanide 1 Mg Tab) 2 mg PO QAM [facility] Stop: 01/29/22 08:59 Last Admin: 12/30/21 08:22 Dose: 2 mg Ezetimibe (Ezetimibe 10 Mg Tablet) 10 mg PO QAM [facility] Stop: 01/29/22 08:59 Last Admin: 12/30/21 08:09 Dose: 10 mg Fluticasone/Vilanterol (Fluticasone/Vilanterol 200/25mcg 14 Puffs/Inhaler) 1 puffs INH DAILY PRN PRN Reason: Shortness Of Breath Or Wheezin Stop: 01/28/22 21:18 Lactated Ringer's (Lr) 1,000 mls @ 125 mls/hr IV .Q8H [facility] Stop: 12/30/21 16:14 Last Admin: 12/30/21 08:36 Dose: 125 mls/hr Vancomycin HCl 1,500 mg/ (Sodium Chloride) 530 mls @ 200 mls/hr IV Q24H [facility] Stop: 01/06/22 07:59 Ketorolac Tromethamine (Ketorolac Tromethamine 15 Mg/Ml Vial) 15 mg IV Q6H PRN PRN Reason: Pain Stop: 01/04/22 11:49 Levothyroxine Sodium (Levothyroxine Sodium 112 Mcg Tablet) 112 mcg PO QPM [facility] Stop: 01/28/22 21:15 Last Admin: 12/29/21 22:15 Dose: 112 mcg Metoprolol Succinate (Metoprolol Succ 50mg Ext Rel Tab) 50 mg PO QAM [facility] Stop: 01/29/22 08:59 Last Admin: 12/30/21 08:22 Dose: Not Given Metoprolol Succinate (Metoprolol Succ 50mg Ext Rel Tab) 100 mg PO QAM [facility] Stop: 01/29/22 08:59 Last Admin: 12/30/21 08:22 Dose: Not Given Miscellaneous Information (Vancomycin Consult Active) 1 each N/A UD [facility] Stop: 01/28/22 18:14 Montelukast Sodium (Montelukast Sodium 10 Mg Tablet) 10 mg PO QPM [facility] Stop: 01/28/22 21:15 Last Admin: 12/29/21 22:15 Dose: 10 mg Multi-Ingredient Cream (Eucerin Cr 120 Gm Jar) 1 appln TOP TID [facility] Stop: 01/28/22 21:15 Last Admin: 12/30/21 13:03 Dose: Not Given Multivitamins/Minerals (Cerovite Adv Formula Tab) 2 tab PO QAM [facility] Stop: 01/29/22 08:59 Last Admin: 12/30/21 08:08 Dose: 2 tab Nitroglycerin (Nitroglycerin Sl 0.4 Mg/Tab Tab) 0.4 mg SL PRN PRN PRN Reason: Chest Pain Stop: 01/28/22 21:15 Nutritional Formula (Prosource No Carb 30 Ml/Pkt) 30 ml PO BID [facility] Stop: 01/28/22 21:15 Last Admin: 12/30/21 08:10 Dose: 30 ml Olanzapine (Olanzapine 2.5 Mg Tab) 2.5 mg PO HS [facility] Stop: 01/28/22 21:15 Last Admin: 12/29/21 22:15 Dose: 2.5 mg Ondansetron HCl (Ondansetron 4 Mg Od Tab) 4 mg PO Q6H PRN PRN Reason: NAUSEA/VOMITING Stop: 01/28/22 21:15 Pantoprazole Sodium (Pantoprazole 40 Mg Tab) 40 mg PO QAM [facility] Stop: 01/29/22 08:59 Last Admin: 12/30/21 08:08 Dose: 40 mg Polyethylene Glycol (Polyethylene (Miralax) 17 Gm Pack) 17 gm PO DAILY [facility] Stop: 01/29/22 08:59 Last Admin: 12/30/21 08:09 Dose: Not Given Senna/Docusate Sodium (Docusate Sodium/Senna 50/8.6mg Tab) 1 tab PO QAM [facility] Stop: 01/29/22 08:59 Last Admin: 12/30/21 08:10 Dose: Not Given Vitamin D (Cholecalciferol 1,000 Units 25 Mcg Tab) 2,000 units PO QAM [facility] Stop: 01/29/22 08:59 Last Admin: 12/30/21 08:09 Dose: 2,000 units
[2021-12-30] MEDS: CEFEPIME 2,000 MG in SYRINGE 0 ML IV SCH ×2 (14:55→21:45)
[2021-12-30] MEDS: KETOROLAC TROMETHAMINE 15 MG/ML VIAL IV PRN (19:53)
[2021-12-30] MEDS: OLANZAPINE 2.5 MG TAB PO SCH (21:21)
[2021-12-30] MEDS: MONTELUKAST SODIUM 10 MG TABLET PO SCH (21:21)
[2021-12-30] MEDS: LEVOTHYROXINE SODIUM 112 MCG TABLET PO SCH (21:21)
[2021-12-31] MEDS: CEFEPIME 2,000 MG in SYRINGE 0 ML IV SCH ×2 (06:20→17:28)
[2021-12-31] MEDS ORDERED: VANCOMYCIN HCL 1,500 MG in SODIUM CHLORIDE 0.9% 500 ML IV SCH (08:00)
[2021-12-31 09:04] LABS: Basophils # (auto) 0.04 K/uL (0-0.2); Basophils % (auto) 0.3 %; Eosinophils # (auto) 0.01 K/uL (0-0.50); Eosinophils % (auto) 0.1 %; Hematocrit (blood only) 34.1 % (34.1-44.9); Hemoglobin 11.1 g/dl (12.0-16.0); Immature Granulocytes # (auto) 0.22 K/uL (0.00-0.02); Immature Granulocytes % (auto) 1.7 %; Lymphocytes # (auto) 0.59 K/uL (1.2-3.4); Lymphocytes % (auto) 4.7 %; Mean Corpuscular Hemoglobin 32.6 pg (25.0-34.0); Mean Corpuscular Hgb Conc 32.6 g/dL (32.0-36.0); Mean Platelet Volume 10.1 fL (9.4-12.3); Monocytes # (auto) 0.51 K/uL (0.24-0.82); Neutrophils # (auto) 11.26 K/uL (1.4-6.5); Neutrophils % (auto) 89.2 %; Platelet Count 428 K/uL (130-400); RDW Coefficient of Variation 14.7 % (11.5-14.5); RDW Standard Deviation 54.2 fL (36.4-46.3); Red Blood Count 3.41 M/uL (3.93-5.22); White Blood Count 12.63 K/ul (4.8-10.8)
[2021-12-31] MEDS: EZETIMIBE 10 MG TABLET PO SCH (09:28)
[2021-12-31] MEDS: PANTOprazole 40 MG TAB PO SCH (09:28)
[2021-12-31] MEDS: CHOLECALCIFEROL 1,000 UNITS 25 MCG TAB PO SCH (09:28)
[2021-12-31] MEDS: ASCORBIC ACID 500 MG TAB PO SCH (09:28)
[2021-12-31] MEDS: APIXABAN 5 MG TABLET PO SCH ×2 (09:28→20:20)
[2021-12-31] MEDS: CEROVITE ADV FORMULA TAB PO SCH (09:28)
[2021-12-31] MEDS: POLYETHYLENE (MIRALAX) 17 GM PACK PO SCH (09:29)
[2021-12-31] MEDS: DOCUSATE SODIUM/SENNA 50/8.6MG TAB PO SCH (09:29)
[2021-12-31] MEDS: EUCERIN CR 120 GM JAR TOP SCH ×3 (09:29→20:21)
[2021-12-31] MEDS: PROSOURCE NO CARB 30 ML/PKT PO SCH ×2 (09:31→20:21)
[2021-12-31] MEDS: VANCOMYCIN HCL 750 MG in SODIUM CHLORIDE 0.9% 250 ML IV SCH ×2 (09:46→22:02)
[2021-12-31] MEDS: BUMETANIDE 1 MG TAB PO SCH (09:48)
[2021-12-31] MEDS: METOPROLOL SUCC 50MG EXT REL TAB PO SCH ×2 (09:52→09:56)
[2021-12-31 09:54] LABS: Anion Gap 7 (3-11); BUN Creatinine Ratio 43.9 (10-20); Blood Urea Nitrogen 43 mg/dl (6-23); Calcium 9.6 mg/dl (8.5-10.1); Carbon Dioxide 26 mmol/L (21-32); Chloride 102 mmol/L (98-107); Creatinine Clr Calc Pharmacy 43.9 ml/min; Est GFR (Non-African American) 52.6 ml/min; Glucose 154 mg/dl (70-99(Fasting)); Phosphorus 3.3 mg/dl (2.5-4.9); Sodium 135 mmol/L (136-145)
--- NOTE | 2021-12-31 13:06 | Hospitalist Progress Note ---
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 - Vascular recommending to continue Eliquis and follow-up with them as an outpatient. - We will monitor the patient for now any worsening symptoms in the right lower extremity. (2) Cellulitis of left lower extremity: Plan: - Recent completed a course of doxycycline. Initiate vancomycin pharmacy protocol. Discussed with pharmacy. Obtain blood cultures. Proximally the leg is looking better as per patient's [id number] however dorsal aspect of left foot is markedly swollen erythematous and tender, Which is new - will continue vancomycin for now and add cefepime - monitor for improvement and trasition to po when appropriate (3) Skin tear of left lower leg without complication: Plan: Wounds appear better as per patient's [id number]. W - wound care nurse following (4) Coronary artery disease: Plan: No chest pains or active complaints. Not on antiplatelet current currently. Patient will follow up with primary hazardous material technician. Does have an allergy to aspirin. - continue BB (5) Hypothyroid: Plan: Stable otherwise euthyroid. (6) Dyslipidemia: Plan: Patient can follow-up as an outpatient. She is on ezetimibe (7) Atrial fibrillation, permanent: Plan: Currently appears to be rate controlled. Continue BB. Continue with Eliquis 5 mg twice a day (8) Chronic diastolic CHF (congestive heart failure): Plan: No overt exacerbation. Monitor for now is not on any diuretic therapy Plan Juan Churchill MD Hospital Medicine Admission and Anticipated Discharge Date Admission Date: December 29, 2021 Subjective Patient is a 86-year-old female here in the company of her daughter in law with a past medical history of peripheral arterial disease, atrial fibrillation on Eliquis, diverticulitis, left lower extremity skin tears and wounds traumatic, decubitus ulcers right and left buttocks, left eye blindness, CAD, history of hypothyroidism, GERD, esophageal stricture, dyslipidemia, aortic regurgitation, chronic diastolic CHF, asthma presenting with purple right foot noticed by the [facility] extending up to her knee on the right side with worsening pain in the lower extremity on the right. She was found to have an acute occlusion of R[place] artery on CTA. Seen by vascular who found doppler flow to DP pulse and PT pulses were adequate and recommended no surgical intervention at that time. Started on eliquis and continued on statin. She was started on antibiotics for LLE cellulitis. She reports pain in her RLE but with improvement but denies cheset pain, shortness of breath, abdominal pain, n/v/d, cough, dysuria. Review of Systems Review of Systems: All systems reviewed & are unremarkable except as noted in Subjective 13 point review of systems was conducted on the patient with the pertinent positives and negatives as above otherwise negative Physical Exam Constitutional: WD/WN, vitals as above Eyes: PERRL, conjunctivae normal, anicteric sclerae ENMT: external ear and nose normal, oropharynx normal Neck: trachea midline, no thyromegaly Respiratory: normal respiratory effort, lungs clear to auscultation Auscultation: no rhonchi and no wheezes Gastrointestinal (Abdomen): normal bowel sounds, soft, nontender, no hepatosplenomegaly Musculoskeletal: no cyanosis or clubbing, extremities motor strength 5/5 Skin: + turgor decreased, + lesion (multiple wounds on LEs and LUE that do no appear infected), + skin atrophy, + erythema (dorsum of Left foot - improving somewhat) and + mottling (RLE toes) Neurologic: patellar DTR's 2+ bilat, sensation intact and PERRL, EOMI, accommodation nl, no face palsy, no dysarthria Psychiatric: A+Ox3, euthymic affect (Alert oriented x3 however says she is confused.) Lymphatic: no cervical or axillary lymphadenopathy Results & Data Results & Data ([facility]) Vital Signs (Past 12 Hours) Vital Signs Temp Pulse Resp BP Pulse Ox O2 Del Method 12/31/21 09:00 Room Air 12/31/21 09:34 118 H 114/76 12/31/21 07:27 36.9 C 112 H 18 96/69 L 92 Room Air 12/31/21 01:09 37.5 C 126 H 102/70 90 Room Air Laboratory Results Short CBC 12/31/21 Range/Units 08:48 WBC 12.63 H (4.8-10.8) K/ul Hgb 11.1 L (12.0-16.0) g/dl Hct 34.1 (34.1-44.9) % Plt Count 428 H (130-400) K/uL BMP 12/31/21 12/31/21 08:48 10:16 Sodium 135 L Potassium TNP 4.0 Chloride 102 Carbon Dioxide 26 BUN 43 H Creatinine 0.98 Glucose 154 H Calcium 9.6 Medications Administered Current Inpatient Medications Acetaminophen (Acetaminophen 325 Mg Tab) 650 mg PO Q4H PRN PRN Reason: Pain or Fever Stop: 01/28/22 21:15 Last Admin: 12/30/21 08:07 Dose: 650 mg Apixaban (Apixaban 5 Mg Tablet) 5 mg PO BID [facility] Stop: 01/28/22 21:15 Last Admin: 12/31/21 09:28 Dose: 5 mg Ascorbic Acid (Ascorbic Acid 500 Mg Tab) 500 mg PO QAM [facility] Stop: 01/30/22 08:59 Last Admin: 12/31/21 09:28 Dose: 500 mg Bumetanide (Bumetanide 1 Mg Tab) 2 mg PO QAM [facility] Stop: 01/29/22 08:59 Last Admin: 12/31/21 09:48 Dose: 2 mg Ezetimibe (Ezetimibe 10 Mg Tablet) 10 mg PO QAM [facility] Stop: 01/29/22 08:59 Last Admin: 12/31/21 09:28 Dose: 10 mg Fluticasone/Vilanterol (Fluticasone/Vilanterol 200/25mcg 14 Puffs/Inhaler) 1 puffs INH DAILY PRN PRN Reason: Shortness Of Breath Or Wheezin Stop: 01/28/22 21:18 Vancomycin HCl 750 mg/ Sodium (Chloride) 265 mls @ 200 mls/hr IV Q12 [facility] Stop: 01/07/22 08:59 Last Infusion: 12/31/21 11:25 Dose: Infused Cefepime HCl 2,000 mg/ Syringe 20 mls @ 5 mls/min IV Q12H [facility]; Protocol Stop: 01/01/22 13:59 Ketorolac Tromethamine (Ketorolac Tromethamine 15 Mg/Ml Vial) 15 mg IV Q6H PRN PRN Reason: Pain Stop: 01/04/22 11:49 Last Admin: 12/30/21 19:53 Dose: 15 mg Levothyroxine Sodium (Levothyroxine Sodium 112 Mcg Tablet) 112 mcg PO QPM [facility] Stop: 01/28/22 21:15 Last Admin: 12/30/21 21:21 Dose: 112 mcg Metoprolol Succinate (Metoprolol Succ 50mg Ext Rel Tab) 50 mg PO QAM [facility] Stop: 01/29/22 08:59 Last Admin: 12/31/21 09:56 Dose: Not Given Metoprolol Succinate (Metoprolol Succ 50mg Ext Rel Tab) 100 mg PO QAM [facility] Stop: 01/29/22 08:59 Last Admin: 12/31/21 09:52 Dose: 100 mg Miscellaneous Information (Vancomycin Consult Active) 1 each N/A UD [facility] Stop: 01/28/22 18:14 Montelukast Sodium (Montelukast Sodium 10 Mg Tablet) 10 mg PO QPM [facility] Stop: 01/28/22 21:15 Last Admin: 12/30/21 21:21 Dose: 10 mg Multi-Ingredient Cream (Eucerin Cr 120 Gm Jar) 1 appln TOP TID [facility] Stop: 01/28/22 21:15 Last Admin: 12/31/21 09:29 Dose: 1 appln Multivitamins/Minerals (Cerovite Adv Formula Tab) 2 tab PO QAM [facility] Stop: 01/29/22 08:59 Last Admin: 12/31/21 09:28 Dose: 2 tab Nitroglycerin (Nitroglycerin Sl 0.4 Mg/Tab Tab) 0.4 mg SL PRN PRN PRN Reason: Chest Pain Stop: 01/28/22 21:15 Nutritional Formula (Prosource No Carb 30 Ml/Pkt) 30 ml PO BID [facility] Stop: 01/28/22 21:15 Last Admin: 12/31/21 09:31 Dose: 30 ml Olanzapine (Olanzapine 2.5 Mg Tab) 2.5 mg PO HS [facility] Stop: 01/28/22 21:15 Last Admin: 12/30/21 21:21 Dose: 2.5 mg Ondansetron HCl (Ondansetron 4 Mg Od Tab) 4 mg PO Q6H PRN PRN Reason: NAUSEA/VOMITING Stop: 01/28/22 21:15 Last Admin: 12/30/21 22:08 Dose: 4 mg Pantoprazole Sodium (Pantoprazole 40 Mg Tab) 40 mg PO QAM [facility] Stop: 01/29/22 08:59 Last Admin: 12/31/21 09:28 Dose: 40 mg Polyethylene Glycol (Polyethylene (Miralax) 17 Gm Pack) 17 gm PO DAILY [facility] Stop: 01/29/22 08:59 Last Admin: 12/31/21 09:29 Dose: Not Given Senna/Docusate Sodium (Docusate Sodium/Senna 50/8.6mg Tab) 1 tab PO QAM [facility] Stop: 01/29/22 08:59 Last Admin: 12/31/21 09:29 Dose: Not Given Vitamin D (Cholecalciferol 1,000 Units 25 Mcg Tab) 2,000 units PO QAM [facility] Stop: 01/29/22 08:59 Last Admin: 12/31/21 09:28 Dose: 2,000 units
--- NOTE | 2021-12-31 13:46 | Electrocardiogram Report ---
Test Reason : Blood Pressure : / mmHG Vent. Rate : 120 BPM Atrial Rate : 125 BPM P-R Int : 000 ms QRS Dur : 084 ms QT Int : 284 ms P-R-T Axes : 000 -11 143 degrees QTc Int : 401 ms Atrial fibrillation with rapid ventricular response T wave abnormality, consider lateral ischemia Abnormal ECG When compared with ECG of 15-OCT-2021 15:50, T wave inversion now evident in Lateral leads Confirmed by Du Cordon [id number]) on 12/31/2021 1:45:57 PM Referred By: REFERRED SELF Confirmed By:Du Cordon
[2021-12-31] MEDS: LACTATED RINGER'S 1,000 ML IV SCH (17:27)
[2021-12-31] MEDS: LEVOTHYROXINE SODIUM 112 MCG TABLET PO SCH (20:20)
[2021-12-31] MEDS: MONTELUKAST SODIUM 10 MG TABLET PO SCH (20:20)
[2021-12-31] MEDS: OLANZAPINE 2.5 MG TAB PO SCH (22:02)
[2021-12-31] MEDS: KETOROLAC TROMETHAMINE 15 MG/ML VIAL IV PRN (22:40)
[2022-01-01] MEDS: ACETAMINOPHEN 325 MG TAB PO PRN ×3 (00:14→20:09)
[2022-01-01] MEDS ORDERED: SODIUM CHLORIDE 0.9% 500 ML IV SCH (01:45)
[2022-01-01] MEDS: CEFEPIME 2,000 MG in SYRINGE 0 ML IV SCH (06:24)
[2022-01-01 06:27] LABS: Basophils # (auto) 0.03 K/uL (0-0.2); Basophils % (auto) 0.3 %; Eosinophils # (auto) 0.11 K/uL (0-0.50); Eosinophils % (auto) 1.2 %; Hematocrit (blood only) 30.5 % (34.1-44.9); Hemoglobin 9.8 g/dl (12.0-16.0); Immature Granulocytes % (auto) 4.3 %; Lymphocytes # (auto) 0.57 K/uL (1.2-3.4); Lymphocytes % (auto) 6.1 %; Mean Corpuscular Hemoglobin 32.5 pg (25.0-34.0); Mean Corpuscular Hgb Conc 32.1 g/dL (32.0-36.0); Monocytes # (auto) 0.46 K/uL (0.24-0.82); Monocytes % (auto) 4.9 %; Neutrophils # (auto) 7.73 K/uL (1.4-6.5); Neutrophils % (auto) 83.2 %; Nucleated RBC # (auto) 0.02 K/uL (0-0); Nucleated RBC % (auto) 0.2 %; Platelet Count 379 K/uL (130-400); RDW Coefficient of Variation 14.6 % (11.5-14.5); Red Blood Count 3.02 M/uL (3.93-5.22)
[2022-01-01 06:52] LABS: BUN Creatinine Ratio 48.8 (10-20); Calcium 8.7 mg/dl (8.5-10.1); Creatinine Clr Calc Pharmacy 51.3 ml/min; Est GFR (African American) 73.5 ml/min; Est GFR (Non-African American) 63.4 ml/min; Magnesium 1.7 mg/dl (1.7-2.4); Phosphorus 2.4 mg/dl (2.5-4.9); Potassium 3.8 mmol/L (3.5-5.1)
[2022-01-01] MEDS ORDERED: VANCOMYCIN LEVEL ONE (07:00)
[2022-01-01] MEDS ORDERED: POTASSIUM PHOS 3 MMOL/1 ML INFUSION IV STA (07:01)
[2022-01-01] MEDS ORDERED: POTASSIUM PHOSPHATE 15 MMOL in SODIUM CHLORIDE 0.9% 250 ML IV ONE (07:30)
--- NOTE | 2022-01-01 08:22 | Hospitalist Progress Note ---
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 - Vascular recommending to continue Eliquis and follow-up with them as an outpatient. - We will monitor the patient for now any worsening symptoms in the right lower extremity - showing improvement in perfusion with increased warmth in right foot (2) Cellulitis of left lower extremity: Plan: - Recent completed a course of doxycycline. Initiate vancomycin pharmacy protocol. Discussed with pharmacy. Obtain blood cultures. Proximally the leg is looking better as per patient's isryqytg-af-onp however dorsal aspect of left foot is markedly swollen erythematous and tender, Which is new - will continue vancomycin for now - cefepime discontinued - monitor for change in progression off cefepime for now - monitor for improvement and transition to po when appropriate (3) Skin tear of left lower leg without complication: Plan: Wounds appear better as per patient's [id number]. W - wound care nurse following (4) Coronary artery disease: Plan: No chest pains or active complaints. Not on antiplatelet current currently. Patient will follow up with primary dry food products mixer. Does have an allergy to aspirin. - continue BB (5) Hypothyroid: Plan: Stable otherwise euthyroid. (6) Dyslipidemia: Plan: Patient can follow-up as an outpatient. She is on ezetimibe (7) Atrial fibrillation, permanent: Plan: Currently appears to be rate controlled. Continue BB. Continue with Eliquis 5 mg twice a day (8) Chronic diastolic CHF (congestive heart failure): Plan: No overt exacerbation. Monitor for now is not on any diuretic therapy Plan DVT ppx: apixaban DNR/DNI Juan Churchill MD [facility] Medicine Admission and Anticipated Discharge Date Admission Date: December 29, 2021 Subjective Patient is a 86-year-old female here in the company of her daughter in law with a past medical history of peripheral arterial disease, atrial fibrillation on Eliquis, diverticulitis, left lower extremity skin tears and wounds traumatic, decubitus ulcers right and left buttocks, left eye blindness, CAD, history of hypothyroidism, GERD, esophageal stricture, dyslipidemia, aortic regurgitation, chronic diastolic CHF, asthma presenting with purple right foot noticed by the shelter extending up to her knee on the right side with worsening pain in the lower extremity on the right. She was found to have an acute occlusion of RLE artery on CTA. Seen by vascular who found doppler flow to DP pulse and PT pulses were adequate and recommended no surgical intervention at that time. Started on eliquis and continued on statin. She was started on antibiotics for LLE cellulitis. She denies pain in her RLE, chest pain, shortness of breath, abdominal pain, n/v/d, cough, dysuria. Review of Systems Review of Systems: All systems reviewed & are unremarkable except as noted in Subjective 13 point review of systems was conducted on the patient with the pertinent positives and negatives as above otherwise negative Physical Exam Constitutional: WD/WN, vitals as above Eyes: PERRL, conjunctivae normal, anicteric sclerae ENMT: external ear and nose normal, oropharynx normal Neck: trachea midline, no thyromegaly Respiratory: normal respiratory effort, lungs clear to auscultation Auscultation: no rhonchi and no wheezes Gastrointestinal (Abdomen): normal bowel sounds, soft, nontender, no hepatosplenomegaly Musculoskeletal: no cyanosis or clubbing, extremities motor strength 5/5 Skin: no rashes, warm and dry (Right lower extremity with a purplish hue. Stage II wound appreciated post) + turgor decreased, + lesion (multiple wounds on LEs and LUE that do no appear infected), + skin atrophy, + erythema (dorsum of Left foot - improving somewhat) and + mottling (RLE toes, no longer cool to touch) Neurologic: PERRL, EOMI, accommodation nl, no face palsy, no dysarthria Psychiatric: A+Ox3, euthymic affect (Alert oriented x3 however says she is confused.) Lymphatic: no cervical or axillary lymphadenopathy Results & Data Results & Data ([facility]) Vital Signs (Past 12 Hours) Vital Signs Temp Pulse Resp BP Pulse Ox O2 Del Method 01/01/22 07:07 36.3 C L 89 18 92/63 L 92 Room Air 01/01/22 03:55 85/55 L 01/01/22 01:23 84/57 L 12/31/21 22:49 36.6 C 94 H 17 89/63 L 94 Room Air Laboratory Results Short CBC 12/31/21 01/01/22 Range/Units 08:48 06:05 WBC 12.63 H 9.30 (4.8-10.8) K/ul Hgb 11.1 L 9.8 L (12.0-16.0) g/dl Hct 34.1 30.5 L (34.1-44.9) % Plt Count 428 H 379 (130-400) K/uL BMP 12/31/21 12/31/21 01/01/22 08:48 10:16 06:05 Sodium 135 L 136 Potassium TNP 4.0 3.8 Chloride 102 105 Carbon Dioxide 26 26 BUN 43 H 41 H Creatinine 0.98 0.84 Glucose 154 H 111 H Calcium 9.6 8.7 Medications Administered Current Inpatient Medications Acetaminophen (Acetaminophen 325 Mg Tab) 650 mg PO Q4H PRN PRN Reason: Pain or Fever Stop: 01/28/22 21:15 Last Admin: 01/01/22 00:14 Dose: 650 mg Apixaban (Apixaban 5 Mg Tablet) 5 mg PO BID [facility] Stop: 01/28/22 21:15 Last Admin: 12/31/21 20:20 Dose: 5 mg Ascorbic Acid (Ascorbic Acid 500 Mg Tab) 500 mg PO [facility] Stop: 01/30/22 08:59 Last Admin: 12/31/21 09:28 Dose: 500 mg Bumetanide ([facility] 1 Mg Tab) [facility] Stop: 01/29/22 08:59 Last Admin: 12/31/21 09:48 Dose: 2 mg Ezetimibe (Ezetimibe 10 Mg Tablet) 10 mg PO [facility] Stop: 01/29/22 08:59 Last Admin: 12/31/21 09:28 Dose: 10 mg Fluticasone/Vilanterol (Fluticasone/Vilanterol 200/25mcg 14 Puffs/Inhaler) 1 puffs INH DAILY PRN PRN Reason: Shortness Of Breath Or Wheezin Stop: 01/28/22 21:18 Cefepime HCl 2,000 mg/ Syringe 20 mls @ 5 mls/min IV Q12H [facility]; Protocol Stop: 01/01/22 13:59 Last Admin: 01/01/22 06:24 Dose: 5 mls/min Lactated Ringer's (Lr) 1,000 mls @ 80 mls/hr IV .[id number] [facility] Stop: 01/01/22 08:29 Last Infusion: 01/01/22 02:09 Dose: 80 mls/hr Magnesium Sulfate/Dextrose (Magnesium Sulfate / D5w) 1 gm in 100 mls @ 50 mls/hr IV Q2H [facility] Stop: 01/01/22 11:29 Potassium Phosphate 15 mmol/ (Sodium Chloride) 255 mls @ 100 mls/hr IV 0730 ONE Stop: 01/01/22 10:02 Ketorolac Tromethamine (Ketorolac Tromethamine 15 Mg/Ml Vial) 15 mg IV Q6H PRN PRN Reason: Pain Stop: 01/04/22 11:49 Last Admin: 12/31/21 22:40 Dose: 15 mg Levothyroxine Sodium (Levothyroxine Sodium 112 Mcg Tablet) 112 mcg PO QPM [facility] Stop: 01/28/22 21:15 Last Admin: 12/31/21 20:20 Dose: 112 mcg Metoprolol Succinate (Metoprolol Succ 50mg Ext Rel Tab) 50 mg PO QAM [facility] Stop: 01/29/22 08:59 Last Admin: 12/31/21 09:56 Dose: Not Given Metoprolol Succinate (Metoprolol Succ 50mg Ext Rel Tab) 100 mg PO QAM [facility] Stop: 01/29/22 08:59 Last Admin: 12/31/21 09:52 Dose: 100 mg Miscellaneous Information (Vancomycin Consult Active) 1 each N/A UD [facility] Stop: 01/28/22 18:14 Montelukast Sodium (Montelukast Sodium 10 Mg Tablet) 10 mg PO QPM [facility] Stop: 01/28/22 21:15 Last Admin: 12/31/21 20:20 Dose: 10 mg Multi-Ingredient Cream (Eucerin Cr 120 Gm Jar) 1 appln TOP TID [facility] Stop: 01/28/22 21:15 Last Admin: 12/31/21 20:21 Dose: 1 appln Multivitamins/Minerals (Cerovite Adv Formula Tab) 2 tab PO QAM [facility] Stop: 01/29/22 08:59 Last Admin: 12/31/21 09:28 Dose: 2 tab Nitroglycerin (Nitroglycerin Sl 0.4 Mg/Tab Tab) 0.4 mg SL PRN PRN PRN Reason: Chest Pain Stop: 01/28/22 21:15 Nutritional Formula (Prosource No Carb 30 Ml/Pkt) 30 ml PO BID [facility] Stop: 01/28/22 21:15 Last Admin: 12/31/21 20:21 Dose: 30 ml Olanzapine (Olanzapine 2.5 Mg Tab) 2.5 mg PO HS [facility] Stop: 01/28/22 21:15 Last Admin: 12/31/21 22:02 Dose: 2.5 mg Ondansetron HCl (Ondansetron 4 Mg Od Tab) 4 mg PO Q6H PRN PRN Reason: NAUSEA/VOMITING Stop: 01/28/22 21:15 Last Admin: 12/30/21 22:08 Dose: 4 mg Pantoprazole Sodium (Pantoprazole 40 Mg Tab) 40 mg PO QAM [facility] Stop: 01/29/22 08:59 Last Admin: 12/31/21 09:28 Dose: 40 mg Polyethylene Glycol (Polyethylene (Miralax) 17 Gm Pack) 17 gm PO DAILY [facility] Stop: 01/29/22 08:59 Last Admin: 12/31/21 09:29 Dose: Not Given Senna/Docusate Sodium (Docusate Sodium/Senna 50/8.6mg Tab) 1 tab PO QAM [facility] Stop: 01/29/22 08:59 Last Admin: 12/31/21 09:29 Dose: Not Given Vitamin D (Cholecalciferol 1,000 Units 25 Mcg Tab) 2,000 units PO QAM [facility] Stop: 01/29/22 08:59 Last Admin: 12/31/21 09:28 Dose: 2,000 units
[2022-01-01] MEDS: METOPROLOL SUCC 50MG EXT REL TAB PO SCH ×2 (08:35)
[2022-01-01] MEDS: CEROVITE ADV FORMULA TAB PO SCH (08:37)
[2022-01-01] MEDS: CHOLECALCIFEROL 1,000 UNITS 25 MCG TAB PO SCH (08:37)
[2022-01-01] MEDS: PANTOprazole 40 MG TAB PO SCH (08:37)
[2022-01-01] MEDS: BUMETANIDE 1 MG TAB PO SCH (08:37)
[2022-01-01] MEDS: DOCUSATE SODIUM/SENNA 50/8.6MG TAB PO SCH (08:37)
[2022-01-01] MEDS: PROSOURCE NO CARB 30 ML/PKT PO SCH ×2 (08:37→20:11)
[2022-01-01] MEDS: ASCORBIC ACID 500 MG TAB PO SCH (08:37)
[2022-01-01] MEDS: APIXABAN 5 MG TABLET PO SCH ×2 (08:37→20:10)
[2022-01-01] MEDS: POLYETHYLENE (MIRALAX) 17 GM PACK PO SCH (08:37)
[2022-01-01] MEDS: EZETIMIBE 10 MG TABLET PO SCH (08:37)
[2022-01-01] MEDS: EUCERIN CR 120 GM JAR TOP SCH ×3 (08:38→20:11)
[2022-01-01] MEDS: MAGNESIUM SULFATE / D5W 1 GM/100 ML BAG IV SCH ×2 (09:22→11:30)
--- NOTE | 2022-01-01 09:36 | Pharmacy Report ---
Pharmacy PK ABX Note - Date of Service January 01, 2022 - Assessment and Plan Assessment * 86 year old F receiving IV cefepime and vancomycin for treatment of LE Cellulitis. * Recently completed a course of doxycycline. * WBC trended down, afebrile. Vancomycin * Random level of 23 mcg/mL this AM associated with an AUC of 607 mg/L.hr, which is above the goal of 400-600 mg/L.hr * Will decrease dose * Repeat random level in 48 hours * New regimen is predicted to achieve target AUC/RAFAL of 400-600 mg/L.hr Plan * Vancomycin 1000 mg IV daily@16 * Random level with AM labs 01/03 Pharmacy will continue to follow and will adjust dose/frequency as necessary. Thank you. Pharmacy has transitioned to AUC monitoring for vancomycin. AUC/RAFAL is the preferred PK/PD target and is associated with decreased risk of nephrotoxicity compared to traditional trough targets.
[2022-01-01] MEDS ORDERED: VANCOMYCIN HCL 1,000 MG in SODIUM CHLORIDE 0.9% 250 ML IV SCH (16:00)
[2022-01-01] MEDS: LACTATED RINGER'S 1,000 ML IV SCH (19:13)
[2022-01-01] MEDS: MONTELUKAST SODIUM 10 MG TABLET PO SCH (20:09)
[2022-01-01] MEDS: OLANZAPINE 2.5 MG TAB PO SCH (20:10)
[2022-01-01] MEDS: LEVOTHYROXINE SODIUM 112 MCG TABLET PO SCH (20:10)
[2022-01-01] MEDS: KETOROLAC TROMETHAMINE 15 MG/ML VIAL IV PRN (23:19)
[2022-01-02] MEDS: ACETAMINOPHEN 325 MG TAB PO PRN (01:32)
[2022-01-02] MEDS: METOPROLOL SUCC 50MG EXT REL TAB PO SCH ×2 (07:49)
[2022-01-02] MEDS: EZETIMIBE 10 MG TABLET PO SCH (08:28)
[2022-01-02] MEDS: BUMETANIDE 1 MG TAB PO SCH (08:28)
[2022-01-02] MEDS: CHOLECALCIFEROL 1,000 UNITS 25 MCG TAB PO SCH (08:28)
[2022-01-02] MEDS: PANTOprazole 40 MG TAB PO SCH (08:28)
[2022-01-02] MEDS: CEROVITE ADV FORMULA TAB PO SCH (08:28)
[2022-01-02] MEDS: APIXABAN 5 MG TABLET PO SCH (08:28)
[2022-01-02] MEDS: DOCUSATE SODIUM/SENNA 50/8.6MG TAB PO SCH (08:28)
[2022-01-02] MEDS: POLYETHYLENE (MIRALAX) 17 GM PACK PO SCH (08:28)
[2022-01-02] MEDS: ASCORBIC ACID 500 MG TAB PO SCH (08:28)
[2022-01-02] MEDS: EUCERIN CR 120 GM JAR TOP SCH (08:29)
[2022-01-02] MEDS: PROSOURCE NO CARB 30 ML/PKT PO SCH (08:29)
[2022-01-02] MEDS ORDERED: MAGNESIUM SULFATE / D5W 1 GM/100 ML BAG IV ONE (08:40)
[2022-01-02] MEDS ORDERED: SULFAMETHOXAZOLE/TRIMETHOPRIM DS 800/160MG TAB PO SCH (09:00)
[2022-01-02] MEDS ORDERED: CLOTRIMAZOLE 10 MG TROCHE BUCCAL SCH (11:00)
--- NOTE | 2022-01-02 13:33 | Discharge Summary ---
Date of Service January 02, 2022 Admission HPI Per Admitting Provider Patient is a 86-year-old female here in the company of her daughter in law with a past medical history of peripheral arterial disease, atrial fibrillation on Eliquis, diverticulitis, left lower extremity skin tears and wounds traumatic, decubitus ulcers right and left buttocks. Left eye blindness, CAD, history of hypothyroidism, GERD, esophageal stricture, dyslipidemia, aortic regurgitation, chronic diastolic CHF, asthma presenting with purple right foot noticed by the shelter extending up to her knee on the right side with worsening pain in the lower extremity on the right. Patient also on Eliquis has not missed a dose as per patient's celbiqcd-po-opa and patient also in a shelter. Advised patient also complaining of left foot pain and swelling. As per the daughter at bedside it appears to be new in the swelling and the erythema is most pronounced than previous. Advised patient denies any fever chills nausea vomiting complains of constipation. As per the daughter patient was recently placed on doxycycline which has been completed for left lower extremity wounds however the left foot is more erythematous than usual. This is on the dorsal aspect. Patient suffered the left lower extremity wounds due to falls and patient has been bedbound in recent weeks. Otherwise patient seen by vascular surgery for possible occlusion of the right lower extremity however patient was noted to have adequate pulses and no significant intervention is planned. Also discussed with vascular surgery Dr. Ortega Linn about any additional medication apart from Eliquis and they suggest to continue with Eliquis. Admission Exam Per Admitting Provider Constitutional: WD/WN, vitals as above Eyes: PERRL, conjunctivae normal, anicteric sclerae ENMT: external ear and nose normal, oropharynx normal Neck: trachea midline, no thyromegaly Respiratory: normal respiratory effort, lungs clear to auscultation Auscultation: no rhonchi and no wheezes Cardiovascular: Irregularly irregular. No significant murmur appreciated currently. Gastrointestinal (Abdomen): normal bowel sounds, soft, nontender, no hepatosplenomegaly Musculoskeletal: no cyanosis or clubbing, extremities motor strength 5/5 Skin: no rashes, warm and dry (Right lower extremity with a purplish hue. Stage II wound appreciated post) Left lower extremity erythema swelling and tenderness palpation dorsal aspect of the left foot. No discharge noted. Proximally patient leg was bandaged opened up the bandage from the ankle to the knee and thigh above Steri-Strips noted proximally approximating the knee and lower anterior lateral thigh. No segment discharge. As per daughter this is much improved. Discoloration of the lower extremity otherwise however as per daughter is much reducing the redness. Neurologic: patellar DTR's 2+ bilat, sensation intact and PERRL, EOMI, accommodation nl, no face palsy, no dysarthria Psychiatric: A+Ox3, euthymic affect (Alert oriented x3 however says she is co nfused.) Genitourinary: Not assessed Lymphatic: no cervical or axillary lymphadenopathy Principal Diagnosis RLE arterial occlusion, left foot cellulitis Discharge Exam Constitutional WD/WN, vitals as above Eyes PERRL, conjunctivae normal, anicteric sclerae ENMT external ear and nose normal, oropharynx normal Neck trachea midline, no thyromegaly Respiratory normal respiratory effort, lungs clear to auscultation Auscultation: no rhonchi and no wheezes Gastrointestinal (Abdomen) normal bowel sounds, soft, nontender, no hepatosplenomegaly Musculoskeletal no cyanosis or clubbing, extremities motor strength 5/5 Skin no rashes, warm and dry (Right lower extremity with a purplish hue. Stage II wound appreciated post) + turgor decreased, + lesion (multiple wounds on LEs and LUE that do no appear infected), + skin atrophy, + erythema (dorsum of Left foot - improving somewhat) and + mottling (RLE toes, no longer cool to touch) Neurologic patellar DTR's 2+ bilat, sensation intact and PERRL, EOMI, accommodation nl, no face palsy, no dysarthria Psychiatric A+Ox3, euthymic affect (Alert oriented x3 however says she is confused.) Lymphatic no cervical or axillary lymphadenopathy Discharge Data Allergies Allergy/AdvReac Type Severity Reaction Status Date / Time latex Allergy Intermediate Rash, Verified 12/29/21 17:29 itching povidone-iodine Allergy Intermediate Itching Verified 12/29/21 17:29 [From Betadine] soap [From Betadine] Allergy Intermediate Itching Verified 12/29/21 17:29 aspirin AdvReac Mild Dizziness Verified 12/29/21 17:29 Consultations 12/29/21 16:55 ED Decision to Admit Stat Ordered Studies 12/29/21 14:09 CT angio LE RT w inc wo if don Stat Hospital Course (1) 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 - Vascular recommending to continue Eliquis and follow-up with them as an outpatient. - We will monitor the patient for now any worsening symptoms in the right lower extremity - showing improvement in perfusion with increased warmth in right foot (2) Cellulitis of left lower extremity: - Recent completed a course of doxycycline. Initiate vancomycin pharmacy protocol. Discussed with pharmacy. Obtain blood cultures. Proximally the leg is looking better as per patient's iientqiv-sw-tlv however dorsal aspect of left foot is markedly swollen erythematous and tender, Which is new - transitioned to BACTRIM PO for 7 additional days of 10 days tolal abx - cefepime discontinued - monitor for change in progression off cefepime for now - monitor for improvement and transition to po when appropriate (3) Skin tear of left lower leg without complication: Wounds appear better as per patient's [id number]. W - wound care nurse following (4) Coronary artery disease: No chest pains or active complaints. Not on antiplatelet current currently. Patient will follow up with primary fighting vehicle infantryman. Does have an allergy to aspir in. - continue BB (5) Hypothyroid: Stable otherwise euthyroid. (6) Dyslipidemia: Patient can follow-up as an outpatient. She is on ezetimibe (7) Atrial fibrillation, permanent: Currently appears to be rate controlled. Continue BB. Continue with Eliquis 5 mg twice a day (8) Chronic diastolic CHF (congestive heart failure): No overt exacerbation. Monitor for now is not on any diuretic therapy Plan Patient is a 86-year-old female here in the company of her daughter in law with a past medical history of peripheral arterial disease, atrial fibrillation on Eliquis, diverticulitis, left lower extremity skin tears and wounds traumatic, decubitus ulcers right and left buttocks, left eye blindness, CAD, history of hypothyroidism, GERD, esophageal stricture, dyslipidemia, aortic regurgitation, chronic diastolic CHF, asthma presenting with purple right foot noticed by the shelter extending up to her knee on the right side with worsening pain in the lower extremity on the right. She was found to have an acute occlusion of RLE artery on CTA. Seen by vascular who found doppler flow to DP pulse and PT pulses were adequate and recommended no surgical intervention at that time. Started on eliquis and continued on statin. She was started on antibiotics for LLE cellulitis with improvement in symptoms of both RLE and LLE. DVT ppx: apixaban DNR/DNI Juan Churchill MD [facility] Medicine Total Time Total Time Spent Total Time Spent (In Minutes): 30 minutes Total Time Includes: Examination of the Patient, Discharge Planning and Medication Reconciliation Discharge Plan Discharge Items Patient Disposition: Transfer Shelter Fac Reason For Visit: PAD, CELLULITIS Discharge Diagnosis: cellulitis, arterial occlusion Condition on Discharge: Fair Activity: As commented below Activity Comment: needs help with all ADLs and is on a blood thinner, precautions as needed Non-emergency contact: Primary Care Provider, Specialist and [employer] Call non-emergency contact if: you have any medication questions Follow-up/Referrals: Fernanda Guevara PA-C [Primary Care Provider] - Diet: Heart Healthy Addtl Attending Provider Instructions: You were admitted for right foot pain and found to have a blockage of one of you arteries. You were seen by vascular surgery who recommended you take a blood thinner called Eliquis and follow up with them in the office. You also had a cellulitis of your left foot that required IV antibiotics. These all improved with treatment. You also had oral infection with uli called "Thrush" which is being treated with an oral medcation that you hold in your mouth 5x/day. You should follow up with vascular surgery and your primary care doctor within 1-2 weeks of discharge. You will also be finishing an course of antibiotics with "Bactrim" 2x/day for 7 more days. Pending Studies at Discharge: No Stand-Alone Forms: My [facility] Skilled Items Patient informed of condition?: Yes DNR: Yes Discharge Level of Care: Skilled Communicable Disease: No Discharge Prognosis: Stable Lines: None Urinary Catheter: No Medications and DC Order Prescriptions: New clotrimazole 10 mg [place] 10 mg buccal [id number] Qty: 50 0RF sulfamethoxazole-trimethoprim [Bactrim DS] 800-160 mg Tablet 1 tab PO Q12H Qty: 14 0RF ascorbic acid (vitamin C) [Vitamin C] 500 mg Tablet 500 mg PO QAM Qty: 20 0RF Continued Eliquis 5 mg tablet 5 mg PO BID Qty: 180 3RF levothyroxine 112 mcg tablet 112 mcg PO QPM Qty: 30 0RF ezetimibe [Zetia] 10 mg tablet 10 mg PO QAM Qty: 90 3RF PreserVision AREDS-2 [id number] Capsule 2 tab PO QAM cholecalciferol (vitamin D3) [Vitamin D3] 50 mcg (2,000 unit) Capsule 50 mcg PO QAM nitroglycerin 0.4 mg tablet, sublingual 0.4 mg sublingual DIRECTED PRN (Reason: Chest Pain) Rx Instructions: Place one tablet under the tongue every 5 minutes for up tp 3 doses over 15 minutes if needed for chest pain. Do not exceed 3 doses per episode. pantoprazole [Protonix] 40 mg tablet,delayed release (DR/EC) 40 mg PO QAM metoprolol succinate 50 mg tablet extended release 24 hr 50 mg PO QAM Rx Instructions: TOTAL DOSE 150 MG--TAKES WITH 100 MG TAB. polyethylene glycol 3350 [Miralax] 17 gram Powder In Packet 17 g PO DAILY 14 Days Qty: 14 0RF sennosides-docusate sodium [Senokot-S] 8.6-50 mg Tablet 1 tab PO QAM 14 Days Qty: 14 0RF metoprolol succinate 100 mg tablet extended release 24 hr 100 mg PO QAM Qty: 45 3RF Rx Instructions: TOTAL DOSE 150 MG--TAKES WITH 50 MG TAB. budesonide-formoterol [Symbicort] 160-4.5 mcg/actuation HFA aerosol inhaler 2 puff INHALATION BID PRN (Reason: Shortness Of Breath Or Wheezing) montelukast 10 mg tablet 10 mg PO QPM acetaminophen [Tylenol] 325 mg Tablet 650 mg PO Q4H PRN (Reason: PAIN/FEVER) dimethicone 1 % Cream 1 applic TOPICAL TID Rx Instructions: APPLY TO BUTTOCKS/SACRUM AREA TID, PRN INCONTINENCE. ondansetron HCl 4 mg Tablet 4 mg PO Q6H PRN (Reason: NAUSEA/VOMITING) olanzapine 2.5 mg Tablet 2.5 mg PO HS acetaminophen [Tylenol Extra Strength] 500 mg Tablet 500 mg PO TID nystatin 100,000 unit/gram Powder 1 applic TOPICAL BID Rx Instructions: STARTED 12/24 FOR 10 DAYS, ENDS 01/03/22. ProSource 10-100 gram-kcal/30 mL Liquid 1 ea PO BID Rx Instructions: TAKES 30 ML BIDM bumetanide 1 mg tablet 2 mg PO QAM Discharge Orders: Discharge Order (Routine); Ordered 01/02/22 Ordered By: Juan Churchill Admission Data Admit Date/Time: 12/29/21 18:06 Attending Provider: Juan Churchill Admit Provider: Bg Shah Primary Care Provider: Fernanda Guevara Other Providers: Bg Shah Other Interventions: Discharge Summary Assessment (RN) Last Done: 01/02/22 10:21
== END 2022-01-02 10:50 | DRG 300 ==
LOC: ED 13:11 → SUATTDRO 18:06 → 3N 18:06

== ENCOUNTER 2022-03-18 09:54 | Inpatient (IN) ==
--- NOTE | 2022-03-18 10:38 | Emergency Department Note ---
Impression & Plan Cellulitis of right lower extremity, Peripheral arterial occlusive disease, Chronic diastolic CHF (congestive heart failure), Lower extremity edema, Traumatic open wound of right lower leg with delayed healing ED Provider Note Provider: Mg Kumar MD DATE OF SERVICE: 03/18/2022 CHIEF COMPLAINT: Worsening leg wounds HISTORY OF PRESENT ILLNESS: Patient is a 86-year-old female past medical history including atrial fibrillation on Eliquis, multiple sores and pressure ulcers of the sacrum and lower extremities, peripheral artery disease, and CHF presenting here from [facility] where she lives with his son. Patient states that she has not followed with the wound clinic. Has had issues with her legs for some times and wounds here that are being bandaged. A lot of clear drainage has been coming from these. Concerned as overnight into today developed good area of redness and warmth to the right upper lower leg to the right medial distal thigh. Some pain to palpation and felt warm. Denies fever or chills. Some chronic cough. Patient states that she also noted a new large blistering reddish area on the left thigh. Denies new trauma or falls. Patient states she was recently on antibiotics. Has known history of bad blood flow to the legs. Given the significant change of the worsening redness with concern for infection came here for evaluation. REVIEW OF SYSTEMS: A total of 10 review of systems was obtained and negative except as stated above in the HPI. PAST MEDICAL HISTORY: As noted above MEDICATIONS: Reviewed home medications SOCIAL HISTORY: resides at [facility] PHYSICAL EXAM: GENERAL: alert and oriented in no acute distress on stretcher Head: normocephalic and atraumatic EYES: No injection, discharge or icterus. NECK: Trachea midline. ENT: Mucous membranes pink and moist. LUNGS: Airway patent. No retractions. Breath sounds with diminished lung bases. HEART: Irregular rate and rhythm. No chest wall tenderness ABDOMEN: Soft and non-tender, without guarding or rebound. SKIN: Acyanotic, warm, dry, without rashes EXTREMITIES: Significant swelling to 3+ of the lower extremities. There are several wounds 1 on the right dorsal foot, 1 on the posterior right calf appear to be granulating. Some serous drainage noted. Significant erythema extending from the right proximal tibia medially to the proximal thigh at least 16 x 20 cm in size without crepitus. There is a large approximately 12 x 6 cm bullae with some bloody serous fluid noted on the anterior lateral left thigh. The feet bilaterally are pale ashen color without palpable pulse. NEUROLOGICAL: No focal deficits. No aphasia. No facial droop or slurred speech. Has gross sensation to touch in the bilateral feet. EK bpm atrial fibrillation. No acute ST segment elevation with a QTC of 427. Compared to previous December of this year no longer lateral T wave inver sions. CONTINUOUS CARDIAC MONITORING: was ordered and showed a heart rate of 80s-90s bpm in atrial fibrillation Patient's laboratory studies and imaging reviewed. Differential includes Cellulitis, abscess, MRSA infection, DVT, necrotizing fasciitis, dermatitis, drug eruption, allergic reaction, heart failure, pneumonia as well as other pathologies. IMPRESSION/MEDICAL DECISION MAKING: Reviewed patient's medical record and recent notes including recent evaluation here last week with very bad peripheral artery disease. On Eliquis at this point. History of CHF with chronic swelling of the lower extremities. Has been following the wound clinic. Appears to have significant erythema and redness of the right leg now with some blistering of the left side appears like a bulla with some reddish contents. Does not appear germaine blood but some serous bloody that appears to be closed at this point. Basic labs will be obtained. Will obtain a chest x-ray. Some chronic swelling here with a PAD I believe this is likely worsening infection. I have been discussions previously with the patient that with worsening infection or gangrenous ischemia or other concerns may need to have amputation of the lower extremities at some point. Blood cultures were obtained. Given this discussed with the patient Blood work here without anemia white blood cell count 10.6 increasing but not abnormal at this point. Chest x-ray reports some cardiomegaly but no other acute findings such as pneumonia or pneumothorax. They do not report any significant pleural effusions. Son reports she has a bit of a chronic cough. Discussed with pharmacy microbiology/culture hx and given dose of Zosyn for anti microbial coverage. Again with concerns with her poor healing capacity and worsening cellulitis and wounds of the legs will bring in for IV antibiotic therapy. Updated [id number] at bedside and patient. DIAGNOSIS: Lower extremity cellulitis, cough, leg swelling DISPOSITION: Hospitalist will evaluate Patient was agreeable with this plan. Past Med/Surg History Medical History (Updated 03/18/22 @ 15:52 by Mg Kumar M.D.) Acute diverticulitis Anxiety and depression Aortic regurgitation Asthma inhaler prn Atrial fibrillation with rapid ventricular response Atrial fibrillation, permanent on eliquis and follows with Dr. Colón Chronic diastolic CHF (congestive heart failure) Coronary artery disease Diverticulitis Dyslipidemia Esophageal stricture H/O fall 08/2020 Hearing deficit History of COVID-19 diagnosed 05/18/22 @ [place]--asymptomatic, tested prior to procedure--no issues now Hypotension Hypothyroid Leukocytosis Macular degeneration On anticoagulant therapy eliquis daily Osteoarthritis Pulmonary hypertension Spinal stenosis Surgical History History of bilateral cataract extraction History of cardiac cath ?2015 @ [facility]--no stents History of colonoscopy with polypectomy History of dilatation and curettage History of esophagogastroduodenoscopy (EGD) History of left hip replacement History of left shoulder replacement History of parathyroidectomy ELEVATED CALCIUM LEVELS? (2 REMOVED) History of right hip replacement History of right shoulder replacement History of tonsillectomy and adenoidectomy History of tooth extraction History of total left knee replacement (TKR) x2 History of total right knee replacement (TKR) x2 History of wisdom tooth extraction S/P cholecystectomy S/P dilatation of esophageal stricture Family History Mother Cancer uterine Thyroid disease Father Cancer esophageal Family history of esophageal cancer Sister Family history of diabetes mellitus Sister Family history of diabetes mellitus Brother Family history of diabetes mellitus Family hx of colon cancer Other No family history of adverse response to anesthesia Social History Smoking Status: Former smoker Tobacco Type: Cigarettes Second Hand Exposure: No; Hx Alcohol Use: No Hx Substance Use: No Preferred Language: Kazakh Communication Ability: Effective Visual Impairment: Limited Hearing Ability: Normal [employer] Strategy Intern Required: No Beliefs That Will Affect Care: None Current Living Situation: Personal Care Facility Current Living Situation Comment: [facility] How many Children do You have: 4 Feels Safe at Home: Yes caffeine: No during the past year weight has: remained stable Assistive Devices: Walker and Wheelchair Allergies Allergies Allergy/AdvReac Type Severity Reaction Status Date / Time latex Allergy Intermediate Rash, Verified 03/03/22 13:13 itching povidone-iodine Allergy Intermediate Itching Verified 03/03/22 13:13 [From Betadine] soap [From Betadine] Allergy Intermediate Itching Verified 03/03/22 13:13 aspirin AdvReac Mild Dizziness Verified 03/03/22 13:13 Home Meds Home Medications Medication Instructions Recorded Confirmed vit C 250 mg-vit E 90 mg-zinc 40 2 tab PO QAM 05/01/20 03/18/22 mg-copper 1 [id number] capsule (PreserVision AREDS-2) budesonide-formoterol HFA 160 2 puff inhalation BID PRN 09/15/20 03/18/22 mcg-4.5 mcg/actuation aerosol Shortness Of Breath Or Wheezing inhaler (Symbicort) pantoprazole 40 mg tablet,delayed 40 mg PO QAM GERD 05/14/21 03/18/22 release (Protonix) montelukast 10 mg tablet 10 mg PO QPM 08/20/21 03/18/22 metoprolol succinate 50 mg 50 mg PO QAM 10/15/21 03/18/22 tablet,extended release 24 hr acetaminophen 325 mg tablet 650 mg PO Q4H PRN PAIN/FEVER 12/29/21 03/18/22 (Tylenol) amino ac-protein hydro-whey 1 ea PO BID 12/29/21 03/18/22 protein 10 gram-100 kcal/30 mL oral liquid (ProSource) bumetanide 1 mg tablet 2 mg PO QAM 12/29/21 03/18/22 buspirone 7.5 mg tablet 7.5 mg PO TID 01/24/22 03/18/22 Previous Rx's Medication Instructions Recorded apixaban 5 mg tablet (Eliquis) 5 mg PO BID #180 tabs 01/28/21 levothyroxine 112 mcg tablet 112 mcg PO QPM #30 tabs 11/04/21 ezetimibe 10 mg tablet (Zetia) 10 mg PO QAM #90 tabs 11/24/21 metoprolol succinate 100 mg 100 mg PO QAM #45 tabs 12/23/21 tablet,extended release 24 hr ascorbic acid (vitamin C) 500 mg 500 mg PO QAM #20 tabs 01/02/22 tablet (Vitamin C) Results & Data (ED) Vital Signs Vital Signs - 24 hr 10/07/22 10:00 03/18/22 10:15 Temperature 36.8 C Temperature Source Oral Pulse Rate 85 Pulse Rate [Apical] 95 H Respiratory Rate 18 20 Respiratory Effort / Characteristics Non-Labored Spontaneous Respiratory Depth Normal Respiratory Pattern Regular Blood Pressure [Right Arm] 92/68 L Blood Pressure Mean [Right Arm] 76 Pulse Oximetry 97 95 Oxygen Delivery Method Room Air Sepsis Recent Fever Within 48 Hours No Sepsis New/Unexplained Change in Mental Status N/A Sepsis Action Taken by Nursing No Action Required Laboratory Data Result diagrams: 03/18/22 10:44 03/18/22 10:44 Lab Results 03/18/22 03/18/22 03/18/22 Range/Units 10:44 10:44 10:44 WBC 10.66 (4.8-10.8) K/ul RBC 3.96 (3.93-5.22) M/uL Hgb 12.8 (12.0-16.0) g/dl Hct 40.7 (34.1-44.9) % MCV 102.8 H (80.0-100.0) fL MCH 32.3 (25.0-34.0) pg MCHC 31.4 L (32.0-36.0) g/dL RDW Std Deviation 54.5 H (36.4-46.3) fL RDW Coeff of Marielle 14.5 (11.5-14.5) % Plt Count 340 (130-400) K/uL MPV 9.0 L (9.4-12.3) fL Immature Gran % (Auto) 0.5 % Neut % (Auto) 89.0 % Lymph % (Auto) 5.5 % [place] % (Auto) 3.8 % Eos % (Auto) 0.8 % Baso % (Auto) 0.4 % Neut # (Auto) 9.49 H (1.4-6.5) K/uL Lymph # (Auto) 0.59 L (1.2-3.4) K/uL [place] # (Auto) 0.41 (0.24-0.82) K/uL Eos # (Auto) 0.08 (0-0.50) K/uL Baso # (Auto) 0.04 (0-0.2) K/uL Immature Gran # (Auto) 0.05 H (0.00-0.02) K/uL ESR (0-30) mm/hr Sodium 139 (136-145) mmol/L Potassium 3.8 (3.5-5.1) mmol/L Chloride 101 (98-107) mmol/L Carbon Dioxide 32 (21-32) mmol/L Anion Gap 6 (3-11) BUN 19 (6-23) mg/dl Creatinine 0.83 (0.6-1.2) mg/dl Est Cr Clr Drug Dosing 53.6 ml/min Est GFR ( Amer) 74.5 ml/min Est GFR (Non-Af Amer) 64.3 ml/min BUN/Creatinine Ratio 22.9 H (10-20) Glucose 146 H (70-99(Fasting)) mg/dl Calcium 9.7 (8.5-10.1) mg/dl Magnesium 2.0 (1.7-2.4) mg/dl Troponin I High Sens 6.7 (0-14) pg/ml C-Reactive Protein 10.25 H (0-0.5) mg/dl B-Natriuretic Peptide 402 H (0-100) pg/ml SARS-CoV-2, RNA, NAAT (NEGATIVE) 03/18/22 03/18/22 Range/Units 10:44 10:53 WBC (4.8-10.8) K/ul RBC (3.93-5.22) M/uL Hgb (12.0-16.0) g/dl Hct (34.1-44.9) % MCV (80.0-100.0) fL MCH (25.0-34.0) pg MCHC (32.0-36.0) g/dL RDW Std Deviation (36.4-46.3) fL RDW Coeff of Marielle (11.5-14.5) % Plt Count (130-400) K/uL MPV (9.4-12.3) fL Immature Gran % (Auto) % Neut % (Auto) % Lymph % (Auto) % [place] % (Auto) % Eos % (Auto) % Baso % (Auto) % Neut # (Auto) (1.4-6.5) K/uL Lymph # (Auto) (1.2-3.4) K/uL [place] # (Auto) (0.24-0.82) K/uL Eos # (Auto) (0-0.50) K/uL Baso # (Auto) (0-0.2) K/uL Immature Gran # (Auto) (0.00-0.02) K/uL ESR 68 H (0-30) mm/hr Sodium (136-145) mmol/L Potassium (3.5-5.1) mmol/L Chloride (98-107) mmol/L Carbon Dioxide (21-32) mmol/L Anion Gap (3-11) BUN (6-23) mg/dl Creatinine (0.6-1.2) mg/dl Est Cr Clr Drug Dosing ml/min Est GFR ( Amer) ml/min Est GFR (Non-Af Amer) ml/min BUN/Creatinine Ratio (10-20) Glucose (70-99(Fasting)) mg/dl Calcium (8.5-10.1) mg/dl Magnesium (1.7-2.4) mg/dl Troponin I High Sens (0-14) pg/ml C-Reactive Protein (0-0.5) mg/dl B-Natriuretic Peptide (0-100) pg/ml SARS-CoV-2, RNA, NAAT NEGATIVE (NEGATIVE) Administered Medications Discontinued Medications Piperacillin Sod/Tazobactam Sod (Zosyn) 4.5 gm in 120 mls @ 240 mls/hr IV NOW ONE Stop: 03/18/22 12:33 Last Infusion: 03/18/22 14:45 Dose: 0 mls/hr Documented By: Admin: 03/18/22 12:38 Dose: 240 mls/hr Documented By: JOSE Imaging Data Radiologist's Impression: Chest X-Ray 03/18/22 10:28 XR chest 1V portable CLINICAL HISTORY: cough, leg swelling COMPARISON STUDY: Chest radiograph December 29, 2021. FINDINGS: Bilateral shoulder arthroplasties are incidentally noted. Cardiomegaly is unchanged. There is no evidence for pulmonary edema. No consolidation to suggest pneumonia. No change in appearance of the chest. No pneumothorax or pleural effusion. IMPRESSION: No acute cardiopulmonary findings. Cardiomegaly. ACT 112: Negative or not required by law. Electronically signed by: Jj Walden M.D. 03/18/2022 11:18 AM Discharge Plan Visit Data Chief Complaint: Wound Stated Complaint: multiple wounds ED Provider: Mg Kumar Discharge Problem: Cellulitis of right lower extremity, Peripheral arterial occlusive disease, Chronic diastolic CHF (congestive heart failure), Lower extremity edema, Traumatic open wound of right lower leg with delayed healing Patient Disposition: Admitted As Inpatient Discharge Instructions Interventions: ED Discharge Assessment Last Done: 03/18/22 14:47
[2022-03-18 11:19] LABS: Basophils # (auto) 0.04 K/uL (0-0.2); Basophils % (auto) 0.4 %; Eosinophils # (auto) 0.08 K/uL (0-0.50); Eosinophils % (auto) 0.8 %; Hematocrit (blood only) 40.7 % (34.1-44.9); Hemoglobin 12.8 g/dl (12.0-16.0); Immature Granulocytes # (auto) 0.05 K/uL (0.00-0.02); Immature Granulocytes % (auto) 0.5 %; Lymphocytes # (auto) 0.59 K/uL (1.2-3.4); Lymphocytes % (auto) 5.5 %; Mean Corpuscular Hemoglobin 32.3 pg (25.0-34.0); Mean Corpuscular Hgb Conc 31.4 g/dL (32.0-36.0); Mean Corpuscular Volume 102.8 fL (80.0-100.0); Monocytes # (auto) 0.41 K/uL (0.24-0.82); Monocytes % (auto) 3.8 %; Neutrophils # (auto) 9.49 K/uL (1.4-6.5); Platelet Count 340 K/uL (130-400); RDW Coefficient of Variation 14.5 % (11.5-14.5); RDW Standard Deviation 54.5 fL (36.4-46.3); Red Blood Count 3.96 M/uL (3.93-5.22); White Blood Count 10.66 K/ul (4.8-10.8)
--- NOTE | 2022-03-18 11:19 | XRay Report ---
XR chest 1V portable CLINICAL HISTORY: cough, leg swelling COMPARISON STUDY: Chest radiograph December 29, 2021. FINDINGS: Bilateral shoulder arthroplasties are incidentally noted. Cardiomegaly is unchanged. There is no evidence for pulmonary edema. No consolidation to suggest pneumonia. No change in appearance of the chest. No pneumothorax or pleural effusion. IMPRESSION: No acute cardiopulmonary findings. Cardiomegaly. ACT 112: Negative or not required by law. Electronically signed by: Jj Walden M.D. 03/18/2022 11:18 AM
[2022-03-18 11:50] LABS: BUN Creatinine Ratio 22.9 (10-20); C Reactive Protein 10.25 mg/dl (0-0.5); Calcium 9.7 mg/dl (8.5-10.1); Creatinine Clr Calc Pharmacy 53.6 ml/min; Est GFR (African American) 74.5 ml/min; Est GFR (Non-African American) 64.3 ml/min; Potassium 3.8 mmol/L (3.5-5.1)
[2022-03-18 11:51] LABS: Troponin I High Sensitivity 6.7 pg/ml (0-14)
[2022-03-18] MEDS ORDERED: PIPERACILLIN/TAZOBACTAM 4.5 GM/120 ML BAG IV ONE (12:04)
--- NOTE | 2022-03-18 12:51 | History & Physical Report ---
Date of Service March 18, 2022 Assessment & Plan (1) Peripheral arterial occlusive disease: (2) Cellulitis of left lower extremity: (3) Stage III pressure ulcer of left buttock: (4) GERD (gastroesophageal reflux disease): (5) Dyslipidemia: (6) Pulmonary hypertension: (7) Coronary artery disease: (8) Chronic diastolic CHF (congestive heart failure): (9) Aortic regurgitation: (10) Atrial fibrillation, permanent: (11) Anxiety and depression: Plan 86 y/o with chronic wounds related to her PAD. Last CTA revealed numerous occlusions with affected blood flow. Vascular has seen in December. demarcation and conservative tx was recc outside of amputation. On Eloquis for Afib. Hold bumex d/t hypotension for now. Cards, ID, and vascular consults. Peripheral arterial occlusive disease Cellulitis of left lower extremity Stage III pressure ulcer of left butock Was admitted 12/29-01/02 --> discharged to [facility] for SNF; now back independent living Has completed numerous antibiotic and antifungal courses Vascular surgery consult in December and OPT follow up. Was deemed not to be a surgical candidate outside of amputation. Was recommended to treat and allow demarcation. left thigh large fluid filled blister Last CTA of the right leg as outlined below. 1. There is complete thrombosis of the anterior tibial artery. The dorsalis pedis artery is also likely occluded. 2. The proximal peroneal artery is occluded with distal reconstitution. This represents a change from 12/29/2021. 3. Posterior tibial artery is diminutive but patent with thready flow. Vascular consult placed - patient was to have an OPT appt on Wednesday 03/21; attending discussed with vascular surgery on the phone WOCN consult placed Zosyn started in ED; will add Vanco and get Pharmacy involved Infectious Disease consult placed CAD pHTN: Aortic regurgitation: Follows with Dr. Gamboa from [place] [facility] 89/66; takes Bumex; hold due to hypotension Consult [facility] dCHF: Atrial Fibrillation: Follows with Dr. Mandujano with ladi and Darlin Bullock in the CHF clinic last visit daily weights On Eloquis; continue Continue Metoprol XL Hold Bumex due to hypotension Cards Consultation with [facility]NP pending HLD: Stable; continue Zetia. obtain lipid panel in AM COPD: Severity to be determined; OPT f/u recommended Continue Singulair and Symbicort Prediabetes: 01/31: A1C 5.9 diet control; not on any oral medications Anxiety and depression: Continue buspirone Osteoarthritis: Chronic; takes Tylenol PO BID PRN Takes Oxy IR chronic PRN; continue GERD: continue Protonix Hypothyroidism: Stable; continue Synthroid 01/31: TSH 3.50 Dispo: PCP: Dr. Sanders Code: DNR/DNI VTE Prophylaxis: On Eloquis and too many wounds for teds/scds I personally was able to review all current laboratory work and diagnostic images obtained in the ED. Additionally, I was able to review the patients past medication reconciliation and history with direct visualization in the patients chart. Patient seen in collaboration with Dr. Sanders. History of Present Illness Chief Complaint: wound Primary Care Provider: Willi Sanders DO Ms. Blanchard is an 86 year old female who presented to the [facility] from [facility] [place] with multiple worsening sores and pressure ulcers of her sacrum and lower extremities related to her peripheral artery disease. She had a recent admission from December 29-January 02 for similar reasons. She has been following with the wound clinic intermittently. She reports that the erythema around her leg wounds has worsened. She has been following up with the wound clinic. She was evaluated by vascular surgery on December 29 Pt does have a chronic cough; CXR negative. She was recently discharged from [facility] back to independent living after her last admission. At baseline, she is able to ambulate only 25-40 feet and her level of participation and endurance varies. She is not able to ambulate independently with a walker and utilizes a wheelchair for most of her independent mobility and ADLs needs. She has a complex PMH that includes; CAD, AF ( On Eloquis), diastolic CHF (follows with CHF clinic), OA (On chronic pain meds), pHTN, Aortic Regurgitation, hypothyroidism, depression and anxiety, HLD, and hypothyroidism. A recent CTA adequate blood flow to right foot is noted. Vascular surgery consult in December and OPT follow up. Was deemed not to be a surgical candidate outside of amputation. Was recommended to treat and allow demarcation. Last CTA of the right leg as outlined below: There is complete thrombosis of the anterior tibial artery, the dorsalis pedis artery is also likely occluded, The proximal peroneal artery is occluded with distal reconstitution. This represents a change from 12/29/2021, Posterior tibial artery is diminutive but patent with thready flow. She was evaluated by vascular surgery during her last admission and was to have a follow up this coming Monday. Vascular surgery consult placed. Patient denies FONSECA, dizziness, SOB, CP, palpitations, N/V/D, recent trauma or falls. Patient will be admitted under the Hospitalist service for further evaluation and management. Please see A/P for further details. Allergies Allergy/AdvReac Type Severity Reaction Status Date / Time latex Allergy Intermediate Rash, Verified 03/03/22 13:13 itching povidone-iodine Allergy Intermediate Itching Verified 03/03/22 13:13 [From Betadine] soap [From Betadine] Allergy Intermediate Itching Verified 03/03/22 13:13 aspirin AdvReac Mild Dizziness Verified 03/03/22 13:13 Home Medications Medication Instructions Recorded Confirmed Type vit C 250 mg-vit E 90 mg-zinc 40 2 tab PO QAM 05/01/20 03/18/22 History mg-copper 1 [id number] capsule (PreserVision AREDS-2) budesonide-formoterol HFA 160 2 puff inhalation BID PRN 09/15/20 03/18/22 History mcg-4.5 mcg/actuation aerosol Shortness Of Breath Or Wheezing inhaler (Symbicort) apixaban 5 mg tablet (Eliquis) 5 mg PO BID #180 tabs 01/28/21 03/18/22 Rx pantoprazole 40 mg tablet,delayed 40 mg PO QAM GERD 05/14/21 03/18/22 History release (Protonix) montelukast 10 mg tablet 10 mg PO QPM 08/20/21 03/18/22 History metoprolol succinate 50 mg 50 mg PO QAM 10/15/21 03/18/22 History tablet,extended release 24 hr levothyroxine 112 mcg tablet 112 mcg PO QPM #30 tabs 11/04/21 03/18/22 Rx ezetimibe 10 mg tablet (Zetia) 10 mg PO QAM #90 tabs 11/24/21 03/18/22 Rx metoprolol succinate 100 mg 100 mg PO QAM #45 tabs 12/23/21 03/18/22 Rx tablet,extended release 24 hr acetaminophen 325 mg tablet 650 mg PO Q4H PRN PAIN/FEVER 12/29/21 03/18/22 History (Tylenol) amino ac-protein hydro-whey 1 ea PO BID 12/29/21 03/18/22 History protein 10 gram-100 kcal/30 mL oral liquid (ProSource) bumetanide 1 mg tablet 2 mg PO QAM 12/29/21 03/18/22 History ascorbic acid (vitamin C) 500 mg 500 mg PO QAM #20 tabs 01/02/22 03/18/22 Rx tablet (Vitamin C) buspirone 7.5 mg tablet 7.5 mg PO TID 01/24/22 03/18/22 History Past Med/Surg History Medical History (Updated 03/18/22 @ 17:48 by To Mcgrath MD) Acute diverticulitis Anxiety and depression Aortic regurgitation Asthma inhaler prn Atrial fibrillation with rapid ventricular response Atrial fibrillation, permanent on eliquis and follows with Dr. Colón Chronic diastolic CHF (congestive heart failure) Coronary artery disease Diverticulitis Dyslipidemia Esophageal stricture H/O fall 08/2020 Hearing deficit History of COVID-19 diagnosed 05/18/22 @ [place]--asymptomatic, tested prior to procedure--no issues now Hypotension Hypothyroid Leukocytosis Macular degeneration On anticoagulant therapy eliquis daily Osteoarthritis Pulmonary hypertension Spinal stenosis Surgical History History of bilateral cataract extraction History of cardiac cath ?2015 @ [facility]--no stents History of colonoscopy with polypectomy History of dilatation and curettage History of esophagogastroduodenoscopy (EGD) History of left hip replacement History of left shoulder replacement History of parathyroidectomy ELEVATED CALCIUM LEVELS? (2 REMOVED) History of right hip replacement History of right shoulder replacement History of tonsillectomy and adenoidectomy History of tooth extraction History of total left knee replacement (TKR) x2 History of total right knee replacement (TKR) x2 History of wisdom tooth extraction S/P cholecystectomy S/P dilatation of esophageal stricture Family History Mother Cancer uterine Thyroid disease Father Cancer esophageal Family history of esophageal cancer Sister Family history of diabetes mellitus Sister Family history of diabetes mellitus Brother Family history of diabetes mellitus Family hx of colon cancer Other No family history of adverse response to anesthesia Social History Smoking Status: Former smoker Tobacco Type: Cigarettes Cigarettes Per Day: 1 ppd; Smoking End Date: 1985; Second Hand Exposure: No; Do You Dip or Chew Tobacco: No; Tobacco Cessation Education Requested by Patient: No Hx Alcohol Use: No Hx Substance Use: No Preferred Language: Pashto Communication Ability: Effective Visual Impairment: Limited Hearing Ability: Normal T Rail Turner Required: No Beliefs That Will Affect Care: None Current Living Situation: Personal Care Facility Current Living Situation Comment: [facility] How many Children do You have: 4 Other Information That Helps Us Care for You: No Feels Safe at Home: Yes Safety Concerns: Feels Safe At This Time caffeine: No during the past year weight has: remained stable Assistive Devices: Denture - Upper, Glasses and Wheelchair Review of Systems Review of Systems: Neuro: (-) Falls, trauma, slurred speech HEENT: (-) FONSECA, dizziness, dysphagia, visual or auditory changes CV: (-) CP, palpitations, swelling Resp: (-) SOB GI: (-) appetite changes, N/V/D, bowel changes : (-) urinary changes Skin: (-) rashes Psych: (-) anxiety, depression Physical Exam Physical Exam: Neuro: AAOx4, PERRLA, no aphagia, memory changes, CNII-XII grossly intact HEENT: head normocephalic, moist mucus membranes CV: S1/S2, (-) M/G/R, (-) edema, cap refill < 3 seconds Resp: Lungs CTA in all jett. On RA GI: Abdomen S/NT/ND, Ax4 bowel sounds, (-) CVA tenderness Musculoskeletal: 5/5 B/L UE strength, 5/5 B/L LE strength. No gait disturbance Skin: (+) erythema and numerous chronic stage I and II lower extremity wounds. Chronic Stage II sacral pressure ulcer. Large fluid filled blister on anterior thigh Psych: euthymic mood Results & Data Results & Data ([facility]) Vital Signs (Past 12 Hours) Vital Signs Temp Pulse Pulse Resp BP Pulse Ox O2 Del Method 03/18/22 10:15 95 H 20 92/68 L 95 03/18/22 10:00 36.8 C 85 18 97 Room Air Laboratory Results Short CBC 03/18/22 Range/Units 10:44 WBC 10.66 (4.8-10.8) K/ul Hgb 12.8 (12.0-16.0) g/dl Hct 40.7 (34.1-44.9) % Plt Count 340 (130-400) K/uL BMP 03/18/22 10:44 Sodium 139 Potassium 3.8 Chloride 101 Carbon Dioxide 32 BUN 19 Creatinine 0.83 Glucose 146 H Calcium 9.7 Diagnostic Findings Chest X-Ray 03/18/22 10:28 XR chest 1V portable CLINICAL HISTORY: cough, leg swelling COMPARISON STUDY: Chest radiograph December 29, 2021. FINDINGS: Bilateral shoulder arthroplasties are incidentally noted. Cardiomegaly is unchanged. There is no evidence for pulmonary edema. No consolidation to suggest pneumonia. No change in appearance of the chest. No pneumothorax or pleural effusion. IMPRESSION: No acute cardiopulmonary findings. Cardiomegaly. ACT 112: Negative or not required by law. Electronically signed by: Jj Walden M.D. 03/18/2022 11:18 AM Code Status & VTE Plan Code Status DNR/DNI in the event of cardiac or respiratory arrest VTE Prophylaxis Plan VTE Prophylaxis will be ordered: Yes Supervising Physician Co-Signing Physician Notes Patient is an 86-year-old female with history of atrial fibrillation anticoagulation, hypertension, dyslipidemia, coronary artery disease, CHF, peripheral arterial disease who presented to the hospital with worsening of bilateral lower extremity wounds. She was admitted in December for cellulitis and pressure ulcer of left buttocks and was discharged to rehab. She was followed by wound care for bilateral lower extremity at home where she lives independently but her son. Few days ago due to decreased pulses and cold extremity, she was sent to the hospital for further evaluation. She had a CT angiogram of the right leg which showed complete thrombosis of anterior tibial artery, occlusion of the dorsalis pedis and decreased flow in right lower extremity. She was seen by vascular surgery in December and did not seem to be a good surgical candidate at site of amputation. She presented to the hospital today for worsening of lower extremity wound and the new area of erythema of right thigh. Lab results are consistent with leukocytosis. Patient is a started on Zosyn for cellulitis of extremity. Admit to general medical floor with telemetry Continue Zosyn and add vancomycin. Consult infectious disease service for further evaluation and antibiotic management For CHF, patient is on metoprolol XL and Bumex. We will hold these medications as blood pressure is on the lower side. Consult cardiology Consult vascular surgery, Dr. Linn for evaluation of right lower extremity peripheral vascular disease and chronic ischemia. I talked to him who will see the patient on Monday. Meanwhile continue anticoagulation with Eliquis Will consult wound care service for evaluation and treatment. Chronic medical conditions, continue current medications.
--- NOTE | 2022-03-18 13:55 | Electrocardiogram Report ---
Test Reason : Blood Pressure : / mmHG Vent. Rate : 095 BPM Atrial Rate : 312 BPM P-R Int : 000 ms QRS Dur : 082 ms QT Int : 340 ms P-R-T Axes : 000 -08 040 degrees QTc Int : 427 ms Atrial fibrillation Abnormal ECG When compared with ECG of 31-DEC-2021 09:17, T wave inversion no longer evident in Lateral leads Confirmed by To Mcgrath ([id number]) on 03/18/2022 1:55:05 PM Referred By: REFERRED SELF Confirmed By:Angelito Mcgrath
--- NOTE | 2022-03-18 15:19 | XCELERA ---
[id number]
[2022-03-18] MEDS ORDERED: ACETAMINOPHEN 325 MG TAB PO PRN (16:15)
[2022-03-18] MEDS ORDERED: POLYETHYLENE (MIRALAX) 17 GM PACK PO PRN (16:15)
[2022-03-18] MEDS ORDERED: ALUMINUM/MAGNESIUM SUSP 30 ML UDC PO PRN (16:15)
[2022-03-18] MEDS ORDERED: MAGNESIUM HYDROXIDE SUSP 30 ML UDC PO PRN (16:15)
[2022-03-18] MEDS ORDERED: VANCOMYCIN HCL 1,000 MG in SODIUM CHLORIDE 0.9% 250 ML IV STA (16:15)
[2022-03-18] MEDS ORDERED: VANCOMYCIN CONSULT ACTIVE PRN (16:15)
[2022-03-18] MEDS ORDERED: ONDANSETRON INJ 2 MG/ML 2 ML VIAL IV PRN (16:15)
[2022-03-18] MEDS ORDERED: VANCOMYCIN HCL 1,750 MG in SODIUM CHLORIDE 0.9% 500 ML IV ONE (17:00)
--- NOTE | 2022-03-18 17:23 | Pharmacy Report ---
Pharmacy PK ABX Note - Date of Service March 18, 2022 - Assessment and Plan Assessment 86 year old F receiving Vancomycin and Zosyn for treatment of recurrent lower left extremity cellulitis. Blood cultures pending. During 12/29/21 admission, patient's LLE cellulitis was treated with vancomycin. With similar renal function, 1500mg Q24H dosing resulted in a random AUC level of 607 mg/L.hr at steady state. Plan Vancomycin * Loading dose: 1750 mg IV x 1 * Maintenance dose: 1250 mg IV every 24 hours * Regimen is predicted to achieve target AUC/RAFAL of 400-600 mg/L.hr * Random level ordered for: 03/18/22 @1100 Pharmacy will continue to follow and will adjust dose/frequency as necessary. Thank you. Pharmacy has transitioned to AUC monitoring for vancomycin. AUC/RAFAL is the preferred PK/PD target and is associated with decreased risk of nephrotoxicity compared to traditional trough targets.
--- NOTE | 2022-03-18 17:53 | Cardiology Consultation ---
Date of Consultation March 18, 2022 Assessment & Plan (1) Atrial fibrillation, permanent: (2) Coronary artery disease: (3) Chronic diastolic CHF (congestive heart failure): (4) Valvular heart disease: Plan 1. Atrial fibrillation: Permanent. On systemic anticoagulation. No overt symptoms. Rate control appears to be adequate on her current dose of metoprolol which can be continued. 2. Diastolic heart failure: She seems well compensated. She does not have symptoms of heart failure or an exam consistent with pulmonary vascular congestion despite an elevated BNP. I think her diuretic can certainly be held for lower blood pressures P she develops an element of pulmonary congestion or significant weight gain this can be resumed. At the time of discharge I would resume her usual dose of bumetanide as she has actually done quite well over time. 3. Valvular heart disease: She has an element of mitral and tricuspid regurgitation. This is not severe. Overall LV systolic function is normal. 4. Coronary disease: She had a catheterization performed in 2017. This was noted to demonstrate nonobstructive disease. She is not currently having symptoms of coronary insufficiency or angina. LV systolic function wall motion appears normal. Can continue her apixaban, Zetia and metoprolol. 5. Pulmonary hypertension: She has an element of elevated pulmonary pressures based on her regurgitant tricuspid velocities. The right ventricle did not appear to function entirely normally. This could account for some lower extremity edema. Likely related to history of diastolic heart failure. For the time being conservative measures such as compression stockings, elevation low- sodium diet would be recommended. Resuming her Bumex once her infection and blood pressure improved would also be helpful. 6. Hypertension: Likely related to her infection. I would agree with holding diuretics currently. Hopefully with antibiotic therapy and time her blood pressure will improved. History of Present Illness Reason for Consultation: History of diastolic heart failure Requesting Physician: Tommy Attending Physician: Matilde Sanders MD History of Present Illness The patient is an 86-year-old woman with a cardiac history significant for nonobstructive coronary disease, permanent atrial fibrillation and diastolic heart failure. Also suffers from valvular heart disease. She is known to have severe lower extremity peripheral vascular disease and nonhealing ulcers. She has been followed by a occupancy specialist and today was noted to have worsening lower extremity erythema consistent with cellulitis. She was subsequently sent to the emergency room for evaluation. The patient is been nonambulatory for several weeks due to her lower extremity ulcers and peripheral vascular disease. This morning she felt poorly with an element of dizziness, nausea and brief emesis. However, this resolved after using the bathroom. She has not had symptoms since that time. She states she has been feeling cold but denied objective fevers or chills. She has a cough that she believes has worsened over the past week. She denies any breathing difficulty. She does not have orthopnea but does get somewhat dizzy when lying flat in bed. She denied breathing trouble at other times. Outside of this morning she generally does not have dizziness or lightheadedness. She is not aware of palpitations. Allergies Allergy/AdvReac Type Severity Reaction Status Date / Time latex Allergy Intermediate Rash, Verified 03/03/22 13:13 itching povidone-iodine Allergy Intermediate Itching Verified 03/03/22 13:13 [From Betadine] soap [From Betadine] Allergy Intermediate Itching Verified 03/03/22 13:13 aspirin AdvReac Mild Dizziness Verified 03/03/22 13:13 Home Medications Medication Instructions Recorded Confirmed Type vit C 250 mg-vit E 90 mg-zinc 40 2 tab PO QAM 05/01/20 03/18/22 History mg-copper 1 [id number] capsule (PreserVision AREDS-2) budesonide-formoterol HFA 160 2 puff inhalation BID PRN 09/15/20 03/18/22 History mcg-4.5 mcg/actuation aerosol Shortness Of Breath Or Wheezing inhaler (Symbicort) apixaban 5 mg tablet (Eliquis) 5 mg PO BID #180 tabs 01/28/21 03/18/22 Rx pantoprazole 40 mg tablet,delayed 40 mg PO QAM GERD 05/14/21 03/18/22 History release (Protonix) montelukast 10 mg tablet 10 mg PO QPM 08/20/21 03/18/22 History metoprolol succinate 50 mg 50 mg PO QAM 10/15/21 03/18/22 History tablet,extended release 24 hr levothyroxine 112 mcg tablet 112 mcg PO QPM #30 tabs 11/04/21 03/18/22 Rx ezetimibe 10 mg tablet (Zetia) 10 mg PO QAM #90 tabs 11/24/21 03/18/22 Rx metoprolol succinate 100 mg 100 mg PO QAM #45 tabs 12/23/21 03/18/22 Rx tablet,extended release 24 hr acetaminophen 325 mg tablet 650 mg PO Q4H PRN PAIN/FEVER 12/29/21 03/18/22 History (Tylenol) amino ac-protein hydro-whey 1 ea PO BID 12/29/21 03/18/22 History protein 10 gram-100 kcal/30 mL oral liquid (ProSource) bumetanide 1 mg tablet 2 mg PO QAM 12/29/21 03/18/22 History ascorbic acid (vitamin C) 500 mg 500 mg PO QAM #20 tabs 01/02/22 03/18/22 Rx tablet (Vitamin C) buspirone 7.5 mg tablet 7.5 mg PO TID 01/24/22 03/18/22 History Patient History Medical History (Updated 03/18/22 @ 17:48 by To Mcgrath MD) Acute diverticulitis Anxiety and depression Aortic regurgitation Asthma inhaler prn Atrial fibrillation with rapid ventricular response Atrial fibrillation, permanent on eliquis and follows with Dr. Colón Chronic diastolic CHF (congestive heart failure) Coronary artery disease Diverticulitis Dyslipidemia Esophageal stricture H/O fall 08/2020 Hearing deficit History of COVID-19 diagnosed 05/18/22 @ [place]--asymptomatic, tested prior to procedure--no issues now Hypotension Hypothyroid Leukocytosis Macular degeneration On anticoagulant therapy eliquis daily Osteoarthritis Pulmonary hypertension Spinal stenosis Surgical History History of bilateral cataract extraction History of cardiac cath ?2015 @ [facility]--no stents History of colonoscopy with polypectomy History of dilatation and curettage History of esophagogastroduodenoscopy (EGD) History of left hip replacement History of left shoulder replacement History of parathyroidectomy ELEVATED CALCIUM LEVELS? (2 REMOVED) History of right hip replacement History of right shoulder replacement History of tonsillectomy and adenoidectomy History of tooth extraction History of total left knee replacement (TKR) x2 History of total right knee replacement (TKR) x2 History of wisdom tooth extraction S/P cholecystectomy S/P dilatation of esophageal stricture Family History Mother Cancer uterine Thyroid disease Father Cancer esophageal Family history of esophageal cancer Sister Family history of diabetes mellitus Sister Family history of diabetes mellitus Brother Family history of diabetes mellitus Family hx of colon cancer Other No family history of adverse response to anesthesia Social History Smoking Status: Former smoker Tobacco Type: Cigarettes Cigarettes Per Day: 1 ppd; Smoking End Date: 1985; Second Hand Exposure: No; Do You Dip or Chew Tobacco: No; Tobacco Cessation Education Requested by Patient: No Hx Alcohol Use: No Hx Substance Use: No Preferred Language: Georgian Communication Ability: Effective Visual Impairment: Limited Hearing Ability: Normal Supervisor Roving Required: No Beliefs That Will Affect Care: None Current Living Situation: Personal Care Facility Current Living Situation Comment: [facility] How many Children do You have: 4 Other Information That Helps Us Care for You: No Feels Safe at Home: Yes Safety Concerns: Feels Safe At This Time caffeine: No during the past year weight has: remained stable Assistive Devices: Denture - Upper, Glasses and Wheelchair Review of Systems Review of Systems: Per HPI Physical Exam Physical Exam: She is alert and oriented x3. Mood affect appear normal. She answered all questions appropriately. HEENT: Sclerae are anicteric. Pupils are equal and reactive to light and accommodation. Extraocular movements were intact. Neuro: Cranial nerves intact Lungs: Lungs are clear to auscultation bilaterally. There are no rales wheezes or rhonchi. She has normal respiratory effort without use of accessory muscles. There is normal pulmonary excursion. Bronchial upper respiratory sounds with coughing. Cardiac: The rhythm was irregular. S1 and S2 were normal. Holosystolic murmur of variable intensity. The PMI was not markedly displaced on palpation. Abdomen: The abdomen was soft and nontender. Extremities: Poorly palpable radial pulses bilaterally. Lower extremities are bandaged but demonstrate edema, skin ulcers, severe posterior erythema involving the left leg and a large blood filled blister on the lateral aspect of the left thigh Results & Data ([facility]) Vital Signs (Past 12 Hours) Vital Signs Temp Pulse Pulse Resp BP BP Pulse Ox 03/18/22 16:35 36.6 C 91 H 20 82/56 L 88/63 L 03/18/22 16:27 91 H 88/52 L 03/18/22 14:15 99 H 86/59 L 94 03/18/22 10:15 95 H 20 92/68 L 95 03/18/22 10:00 36.8 C 85 18 97 O2 Del Method 03/18/22 16:35 03/18/22 16:27 03/18/22 14:15 Room Air 03/18/22 10:15 03/18/22 10:00 Room Air Laboratory Results Abnormal Lab Results 03/18/22 03/18/22 03/18/22 10:44 10:44 10:44 WBC 10.66 RBC 3.96 Hgb 12.8 Hct 40.7 MCV 102.8 H MCH 32.3 MCHC 31.4 L RDW Std Deviation 54.5 H RDW Coeff of Marielle 14.5 Plt Count 340 MPV 9.0 L Immature Gran % (Auto) 0.5 Neut % (Auto) 89.0 Lymph % (Auto) 5.5 Rutherford % (Auto) 3.8 Eos % (Auto) 0.8 Baso % (Auto) 0.4 Neut # (Auto) 9.49 H Lymph # (Auto) 0.59 L Rutherford # (Auto) 0.41 Eos # (Auto) 0.08 Baso # (Auto) 0.04 Immature Gran # (Auto) 0.05 H ESR Sodium 139 Potassium 3.8 Chloride 101 Carbon Dioxide 32 Anion Gap 6 BUN 19 Creatinine 0.83 Est Cr Clr Drug Dosing 53.6 Est GFR ( Amer) 74.5 Est GFR (Non-Af Amer) 64.3 BUN/Creatinine Ratio 22.9 H Glucose 146 H Calcium 9.7 Magnesium 2.0 Troponin I High Sens 6.7 C-Reactive Protein 10.25 H B-Natriuretic Peptide 402 H SARS-CoV-2, RNA, NAAT 03/18/22 03/18/22 10:44 10:53 WBC RBC Hgb Hct MCV MCH MCHC RDW Std Deviation RDW Coeff of Marielle Plt Count MPV Immature Gran % (Auto) Neut % (Auto) Lymph % (Auto) Rutherford % (Auto) Eos % (Auto) Baso % (Auto) Neut # (Auto) Lymph # (Auto) Rutherford # (Auto) Eos # (Auto) Baso # (Auto) Immature Gran # (Auto) ESR 68 H Sodium Potassium Chloride Carbon Dioxide Anion Gap BUN Creatinine Est Cr Clr Drug Dosing Est GFR ( Amer) Est GFR (Non-Af Amer) BUN/Creatinine Ratio Glucose Calcium Magnesium Troponin I High Sens C-Reactive Protein B-Natriuretic Peptide SARS-CoV-2, RNA, NAAT NEGATIVE Diagnostic Findings Echocardiogram performed today revealed normal LV systolic function with an ejection fraction of 65-70%. Moderate LVH. Biatrial dilation. Mild to moderate mitral and tricuspid regurgitation. Elevated pulmonary systolic pressures with borderline reduced RV systolic function. Mild dilation of the inferior vena cava. 1. Nuclear stress 04/11/2011 [place]: Poor exercise tolerance 2 minutes 24 seconds Salvatore protocol. Shortness of breath with exercise. Negative nuclear stress for ischemia. EF 65%. 2. Echo 04/09/2014 [place]: Normal LV size and systolic function. EF 70%. Paradoxical septal motion. Mild RV dilation with normal systolic function. Mild left atrial dilation. Mild AI. RVSP 43. Moderate TR. 3. Cardiac catheterization 05/11/2017 [place]: Proximal LAD 15%. Mid LAD 50% (FFR 0.89). Proximal OM1 40% (FFR 0.98). Proximal RCA 30%. EF 67%. Normal LVEDP. No aortic stenosis. PCWP V-wave 20 with mean 15. PA pressure 45/20 with a mean of 30. RV44/5/9 RA pressure 12/10/8. Ramon cardiac output 4.47 with cardiac index 2.2 to. PVR 3.5 wood units. 4. Echo 02/13/2020 [facility]: Normal LV size, wall motion, systolic function. EF 55-60%. Mild LVH. Moderate biatrial dilation. Mild AI. Mild MR. Moderate TR. Normal RVSP . PG Care Time/CCT Total # of Minutes Spent Total Time Spent with Patient: Total time spent is greater than 50% in coordination of care (as documented) at patient's floor/unit and/or counseling patient: Coding Level of Care Code 05934 Initial Inpt Care Lvl 3 Diagnoses Atrial fibrillation, permanent I48.21 Coronary artery disease I25.10 Chronic diastolic CHF (congestive heart failure) I50.32 Valvular heart disease I38
[2022-03-18] MEDS: ACETAMINOPHEN 325 MG TAB PO PRN (20:05)
[2022-03-18] MEDS: APIXABAN 5 MG TABLET PO SCH (20:06)
[2022-03-18] MEDS: busPIRone 7.5 MG TAB PO SCH (20:07)
[2022-03-18] MEDS: MONTELUKAST SODIUM 10 MG TABLET PO SCH (20:07)
[2022-03-18] MEDS ORDERED: [UNRECOGNIZED DRUG - OTHER] PO SCH (21:00)
[2022-03-18] MEDS: oxyCODONE HCL IR 5 MG TAB (IMMEDIATE RELEASE) PO PRN (22:30)
[2022-03-18] MEDS ORDERED: KETOROLAC TROMETHAMINE 15 MG/ML VIAL IV ONE (23:46)
[2022-03-19] MEDS: MELATONIN 3 MG TAB PO PRN ×2 (00:18→23:25)
[2022-03-19] MEDS ORDERED: VANCOMYCIN HCL 1,250 MG in SODIUM CHLORIDE 0.9% 250 ML IV SCH (03:00)
[2022-03-19 06:35] LABS: Basophils # (auto) 0.02 K/uL (0-0.2); Basophils % (auto) 0.3 %; Eosinophils # (auto) 0.09 K/uL (0-0.50); Eosinophils % (auto) 1.2 %; Hematocrit (blood only) 35.1 % (34.1-44.9); Hemoglobin 10.9 g/dl (12.0-16.0); Immature Granulocytes # (auto) 0.05 K/uL (0.00-0.02); Immature Granulocytes % (auto) 0.7 %; Lymphocytes # (auto) 0.63 K/uL (1.2-3.4); Lymphocytes % (auto) 8.2 %; Mean Corpuscular Hemoglobin 32.2 pg (25.0-34.0); Mean Corpuscular Hgb Conc 31.1 g/dL (32.0-36.0); Mean Corpuscular Volume 103.8 fL (80.0-100.0); Mean Platelet Volume 9.3 fL (9.4-12.3); Monocytes # (auto) 0.49 K/uL (0.24-0.82); Monocytes % (auto) 6.4 %; Neutrophils # (auto) 6.41 K/uL (1.4-6.5); Neutrophils % (auto) 83.2 %; Platelet Count 297 K/uL (130-400); RDW Coefficient of Variation 14.5 % (11.5-14.5); RDW Standard Deviation 55.4 fL (36.4-46.3); Red Blood Count 3.38 M/uL (3.93-5.22); White Blood Count 7.69 K/ul (4.8-10.8)
[2022-03-19 07:29] LABS: Albumin Globulin Ratio 1.2 (0.9-2); Albumin Level 2.7 gm/dl (3.4-5.0); BUN Creatinine Ratio 18.2 (10-20); Bilirubin,Total 0.5 mg/dl (0.2-1.0); Calcium 9.1 mg/dl (8.5-10.1); Creatinine Clr Calc Pharmacy 32.4 ml/min; Est GFR (African American) 40.7 ml/min; Est GFR (Non-African American) 35.1 ml/min; Globulin 2.2 gm/dl (2.5-4.0); Potassium 4.1 mmol/L (3.5-5.1); Total Protein 4.9 gm/dl (6.0-8.3)
[2022-03-19] MEDS: oxyCODONE HCL IR 5 MG TAB (IMMEDIATE RELEASE) PO PRN ×2 (08:54→15:40)
[2022-03-19] MEDS: FLUTICASONE/VILANTEROL 200/25MCG 14 PUFFS/INHALER INH SCH (08:55)
[2022-03-19] MEDS: busPIRone 7.5 MG TAB PO SCH ×3 (08:55→20:16)
[2022-03-19] MEDS: CEROVITE ADV FORMULA TAB PO SCH (08:55)
[2022-03-19] MEDS: APIXABAN 5 MG TABLET PO SCH ×2 (08:55→20:15)
[2022-03-19] MEDS: PANTOprazole 40 MG TAB PO SCH (08:56)
[2022-03-19] MEDS: METOPROLOL SUCC 50MG EXT REL TAB PO SCH (08:56)
[2022-03-19] MEDS: ASCORBIC ACID 500 MG TAB PO SCH (08:56)
[2022-03-19] MEDS: CHOLECALCIFEROL 1,000 UNITS 25 MCG TAB PO SCH (08:56)
[2022-03-19] MEDS: DOCUSATE SODIUM/SENNA 50/8.6MG TAB PO SCH (08:56)
[2022-03-19] MEDS ORDERED: METOPROLOL SUCC 50MG EXT REL TAB PO SCH (09:00)
[2022-03-19] MEDS: EZETIMIBE 10 MG TABLET PO SCH (10:24)
[2022-03-19] MEDS ORDERED: SODIUM CHLORIDE 0.9% 1000ML 500 ML IV ONE (11:43)
[2022-03-19] MEDS ORDERED: SODIUM CHLORIDE 0.9% 500 ML IV ONE (16:58)
--- NOTE | 2022-03-19 16:59 | Hospitalist Progress Note ---
Date of Service March 19, 2022 Assessment & Plan (1) Peripheral arterial occlusive disease: (2) Cellulitis of left lower extremity: (3) Stage III pressure ulcer of left buttock: (4) GERD (gastroesophageal reflux disease): (5) Dyslipidemia: (6) Pulmonary hypertension: (7) Coronary artery disease: (8) Chronic diastolic CHF (congestive heart failure): (9) Aortic regurgitation: (10) Atrial fibrillation, permanent: (11) Anxiety and depression: Plan 86 y/o with chronic wounds related to her PAD. Last CTA revealed numerous occlusions with affected blood flow. Vascular has seen in December. Demarcation and conservative tx was recommended outside of amputation. On Eliquis for Afib. Peripheral arterial occlusive disease Cellulitis of left lower extremity Stage III pressure ulcer of left butock Was admitted 12/29-01/02 --> discharged to [facility]; now back independent living Has completed numerous antibiotic and antifungal courses Vascular surgery consult in December and OPT follow up. Was deemed not to be a surgical candidate outside of amputation. Was recommended to treat and allow demarcation. left thigh large fluid filled blister Last CTA of the right leg as outlined below. 1. There is complete thrombosis of the anterior tibial artery. The dorsalis pedis artery is also likely occluded. 2. The proximal peroneal artery is occluded with distal reconstitution. This represents a change from 12/29/2021. 3. Posterior tibial artery is diminutive but patent with thready flow. Vascular consult placed - patient was to have an OPT appt on Wednesday 03/21; attending discussed with vascular surgery on the phone WOCN consult placed Zosyn given in ER; switched to vancomycin which continues as monotherapy. Infectious Disease consult placed CAD pHTN: Aortic regurgitation: Follows with Dr. Gamboa from [facility] /; takes Bumex; hold due to hypotension Consult [facility] permanent Atrial Fibrillation: Follows with Dr. Mandujano with [facility] and Darlin Bullock in the CHF clinic euvolemic on exam. cont Apixaban Hold Toprol XL for hypotension. Rate improved to 70s. Hold Bumex due to hypotension COPD: Severity to be determined; OPT f/u recommended Currently has a cough that is non-productive and clear lungs. Continue Singulair and Symbicort Mucinex started 03/19 Prediabetes: 01/31: A1C 5.9 diet controlled; not on any oral medications Anxiety and depression: chronic, stable. Continue buspirone Osteoarthritis: Chronic; takes Tylenol PO BID PRN Takes Oxy IR chronic PRN; continue GERD: continue Protonix Hypothyroidism: Stable; continue Synthroid 01/31: TSH 3.50 Dispo: PCP: Dr. Sanders Code: DNR/DNI VTE Prophylaxis: Beto Samuel DO [facility] Hospitalist Admission and Anticipated Discharge Date Admission Date: March 18, 2022 Subjective 86-year-old female presented with multiple wounds and spreading erythema. She reports intermittent pain that is managed with medication. Patient reports her redness is improved. Large blood flow blister on her left lateral thigh is still intact. Patient denies any fevers or chills prior to arrival and none since admission. Tolerating p.o. 2 small boluses given for hypotension. Toprol-XL is on hold now. Review of Systems Review of Systems: All systems are reviewed and negative except as indicated above. Physical Exam Physical Exam: CONSTITUTIONAL: WNWD, vitals as above, generally well- appearing, NAD EYES: normal conjunctivae, no scleral icterus ENT: external ear and nose normal, MMM NECK: trachea midline RESPIRATORY: clear to auscultation bilaterally, no crackles, rales or wheezes, normal respiratory effort CARDIOVASCULAR: regular rate and rhythm, S1 and 2 heard without murmurs, gallops or rubs, no JVD, no peripheral edema CHEST: inspection of chest was normal GASTROINTESTINAL: soft, nontender, ND, no guarding MUSCULOSKELETAL: strength 5/5 throughout, head is normocephalic and atraumatic SKIN: warm and dry, lower extremities are wrapped extensively and did not remove these as they were just changed. There is an extension of erythema and warmth along the lateral knee. NEUROLOGIC: CN 2-12 grossly intact, \normal cognition, normal speech, no tremor PSYCHIATRIC: alert cooperative and oriented to person, place and time. Euthymic mood, makes good eye contact, language grossly intact, recent and remote memory grossly intact. \ Results & Data Results & Data ([facility]) Vital Signs (Past 12 Hours) Vital Signs Temp Pulse Pulse Resp BP BP Pulse Ox 03/19/22 15:46 36.3 C L 72 20 82/59 L 95 03/19/22 15:11 82 03/19/22 12:43 36.5 C 55 L 20 96/64 L 93 03/19/22 12:39 03/19/22 11:26 92/56 L 03/19/22 11:25 36.9 C 86 19 84/56 L 76/52 L 98 03/19/22 11:25 89 03/19/22 08:44 36.5 C 80 20 93/48 L 95 O2 Del Method 03/19/22 15:46 Room Air 03/19/22 15:11 03/19/22 12:43 Room Air 03/19/22 12:39 Room Air 03/19/22 11:26 03/19/22 11:25 Room Air 03/19/22 11:25 03/19/22 08:44 Room Air Laboratory Results Short CBC 03/19/22 Range/Units 05:56 WBC 7.69 (4.8-10.8) K/ul Hgb 10.9 L (12.0-16.0) g/dl Hct 35.1 (34.1-44.9) % Plt Count 297 (130-400) K/uL BMP 03/19/22 05:56 Sodium 137 Potassium 4.1 Chloride 102 Carbon Dioxide 31 BUN 25 H Creatinine 1.37 H D Glucose 132 H Calcium 9.1 Liver Function 03/19/22 Range/Units 05:56 Total Bilirubin 0.5 (0.2-1.0) mg/dl AST 8 L (13-39) U/L ALT 8 (7-52) U/L Alkaline Phosphatase 78 (34-104) U/L Albumin 2.7 L (3.4-5.0) gm/dl Medications Administered Current Inpatient Medications Acetaminophen (Acetaminophen 325 Mg Tab) 650 mg PO Q4H PRN PRN Reason: Pain 1-5 or Fever Stop: 04/17/22 16:14 Last Admin: 03/18/22 20:05 Dose: 650 mg Al Hydrox/Mg Hydrox/Simethicone (Aluminum/Magnesium Susp 30 Ml Udc) 15 ml PO Q4H PRN PRN Reason: Dyspepsia Stop: 04/17/22 16:14 Apixaban (Apixaban 5 Mg Tablet) 5 mg PO BID [facility] Stop: 04/17/22 20:59 Last Admin: 03/19/22 08:55 Dose: 5 mg Ascorbic Acid (Ascorbic Acid 500 Mg Tab) 500 mg PO QAM [facility] Stop: 04/18/22 08:59 Last Admin: 03/19/22 08:56 Dose: 500 mg Buspirone HCl (Buspirone 7.5 Mg Tab) 7.5 mg PO TID [facility] Stop: 04/17/22 20:59 Last Admin: 03/19/22 14:34 Dose: 7.5 mg Ezetimibe (Ezetimibe 10 Mg Tablet) 10 mg PO QAM [facility] Stop: 04/18/22 08:59 Last Admin: 03/19/22 10:24 Dose: 10 mg Fluticasone/Vilanterol (Fluticasone/Vilanterol 200/25mcg 14 Puffs/Inhaler) 1 puffs INH DAILY [facility] Stop: 04/18/22 08:59 Last Admin: 03/19/22 08:55 Dose: 1 puffs Vancomycin HCl 1,000 mg/ (Sodium Chloride) 270 mls @ 200 mls/hr IV Q24H [facility] Stop: 03/27/22 02:59 Sodium Chloride (Nss 1000ml) 500 mls @ 999 mls/hr IV .Q31M ONE Stop: 03/19/22 17:28 Levothyroxine Sodium (Levothyroxine Sodium 112 Mcg Tablet) 112 mcg PO QPM [facility] Stop: 04/18/22 20:59 Magnesium Hydroxide (Magnesium Hydroxide Susp 30 Ml Udc) 30 ml PO Q12H PRN PRN Reason: Constipation Stop: 04/17/22 16:14 Melatonin (Melatonin 3 Mg Tab) 3 mg PO HS PRN PRN Reason: Sleep Stop: 04/17/22 23:44 Last Admin: 03/19/22 00:18 Dose: 3 mg Metoprolol Succinate (Metoprolol Succ 50mg Ext Rel Tab) 100 mg PO QAM [facility] Stop: 04/18/22 08:59 Last Admin: 03/19/22 08:56 Dose: 100 mg Metoprolol Succinate (Metoprolol Succ 50mg Ext Rel Tab) 50 mg PO QAM [facility] Stop: 04/18/22 08:59 Last Admin: 03/19/22 10:24 Dose: 50 mg Miscellaneous Information (Vancomycin Consult Active) 1 each N/A UD PRN PRN Reason: Consult Stop: 04/17/22 16:14 Montelukast Sodium (Montelukast Sodium 10 Mg Tablet) 10 mg PO QPM [facility] Stop: 04/17/22 20:59 Last Admin: 03/18/22 20:07 Dose: 10 mg Multivitamins/Minerals (Cerovite Adv Formula Tab) [facility] [place] Stop: 04/18/22 08:59 Last Admin: 03/19/22 08:55 Dose: 1 tab Ondansetron HCl (Ondansetron Inj 2 Mg/Ml 2 Ml Vial) 4 mg IV Q6H PRN PRN Reason: Nausea Stop: 04/17/22 16:14 Pantoprazole Sodium (Pantoprazole 40 Mg Tab) 40 mg PO [facility] Stop: 04/18/22 08:59 Last Admin: 03/19/22 08:56 Dose: 40 mg Polyethylene Glycol (Polyethylene (Miralax) 17 Gm Pack) 17 gm PO DAILY PRN PRN Reason: Constipation Stop: 04/17/22 16:14 Senna/Docusate Sodium (Docusate Sodium/Senna 50/8.6mg Tab) 1 tab PO [facility] Stop: 04/18/22 08:59 Last Admin: 03/19/22 08:56 Dose: 1 tab Vitamin D (Cholecalciferol 1,000 Units 25 Mcg Tab) 2,000 units PO [facility] Stop: 04/18/22 08:59 Last Admin: 03/19/22 08:56 Dose: 2,000 units
[2022-03-19] MEDS: MONTELUKAST SODIUM 10 MG TABLET PO SCH (20:15)
[2022-03-19] MEDS: LEVOTHYROXINE SODIUM 112 MCG TABLET PO SCH (20:16)
[2022-03-19] MEDS: guaiFENesin 600 MG TABCR PO SCH (20:16)
[2022-03-20] MEDS: VANCOMYCIN HCL 1,000 MG in SODIUM CHLORIDE 0.9% 250 ML IV SCH (02:26)
[2022-03-20 06:21] LABS: Hematocrit (blood only) 33.7 % (34.1-44.9); Hemoglobin 10.8 g/dl (12.0-16.0); Mean Corpuscular Hemoglobin 32.4 pg (25.0-34.0); Mean Corpuscular Volume 101.2 fL (80.0-100.0); Mean Platelet Volume 9.5 fL (9.4-12.3); Platelet Count 294 K/uL (130-400); RDW Coefficient of Variation 14.3 % (11.5-14.5); RDW Standard Deviation 53.1 fL (36.4-46.3); Red Blood Count 3.33 M/uL (3.93-5.22); White Blood Count 8.03 K/ul (4.8-10.8)
[2022-03-20 06:50] LABS: BUN Creatinine Ratio 21.7 (10-20); Calcium 9.4 mg/dl (8.5-10.1); Creatinine Clr Calc Pharmacy 32.3 ml/min; Est GFR (African American) 40.3 ml/min; Est GFR (Non-African American) 34.8 ml/min; Potassium 4.2 mmol/L (3.5-5.1)
[2022-03-20] MEDS: CHOLECALCIFEROL 1,000 UNITS 25 MCG TAB PO SCH (07:55)
[2022-03-20] MEDS: APIXABAN 5 MG TABLET PO SCH ×2 (07:56→21:12)
[2022-03-20] MEDS: CEROVITE ADV FORMULA TAB PO SCH (07:56)
[2022-03-20] MEDS: guaiFENesin 600 MG TABCR PO SCH ×2 (07:56→21:11)
[2022-03-20] MEDS: EZETIMIBE 10 MG TABLET PO SCH (07:56)
[2022-03-20] MEDS: busPIRone 7.5 MG TAB PO SCH ×3 (07:56→21:13)
[2022-03-20] MEDS: PANTOprazole 40 MG TAB PO SCH (07:56)
[2022-03-20] MEDS: DOCUSATE SODIUM/SENNA 50/8.6MG TAB PO SCH (07:56)
[2022-03-20] MEDS: ASCORBIC ACID 500 MG TAB PO SCH (07:57)
[2022-03-20] MEDS: FLUTICASONE/VILANTEROL 200/25MCG 14 PUFFS/INHALER INH SCH (07:57)
[2022-03-20] MEDS: ACETAMINOPHEN 325 MG TAB PO PRN ×2 (08:07→21:47)
--- NOTE | 2022-03-20 09:38 | Pharmacy Report ---
Pharmacy PK ABX Note - Date of Service March 20, 2022 - Assessment and Plan Assessment 86 year old F receiving Vancomycin for treatment of recurrent lower left extremity cellulitis. Blood cultures NGTD. Renal function has declined (admission SCr 0.8 -->1.38mg/dL). Vancomycin dose adjusted to 1gm q24h empirically given change in renal function. Plan Vancomycin * Random level this AM, 25.6mcg/mL. This was a 3 hour level and was drawn after the 0300 dose was administered. It is therefore a peak level. * This regimen correlates with a steady state trough of 18.3mg/L, and steady state AUC/RAFAL of 548mg/L.hr which is therapeutic. * Discussed result with hospitalist this AM and vancomycin unheld. Requests another level tomorrow AM -- will attempt to obtain a true trough. * Regimen is predicted to achieve target AUC/RAFAL of 400-600 mg/L.hr * Trough ordered for: 03/21/22 @ 0230 Pharmacy will continue to follow and will adjust dose/frequency as necessary. Thank you. Pharmacy has transitioned to AUC monitoring for vancomycin. AUC/RAFAL is the preferred PK/PD target and is associated with decreased risk of nephrotoxicity compared to traditional trough targets.
--- NOTE | 2022-03-20 14:05 | Hospitalist Progress Note ---
Date of Service March 20, 2022 Assessment & Plan (1) Peripheral arterial occlusive disease: (2) Cellulitis of left lower extremity: (3) Stage III pressure ulcer of left buttock: (4) GERD (gastroesophageal reflux disease): (5) Dyslipidemia: (6) Pulmonary hypertension: (7) Coronary artery disease: (8) Chronic diastolic CHF (congestive heart failure): (9) Aortic regurgitation: (10) Atrial fibrillation, permanent: (11) Anxiety and depression: Plan 86 y/o with chronic wounds related to her PAD. Last CTA revealed numerous occlusions with affected blood flow. Vascular has seen in December. Demarcation and conservative tx was recommended outside of amputation. On Eliquis for Afib. Peripheral arterial occlusive disease Cellulitis of left lower extremity Stage III pressure ulcer of left butock Was admitted 12/29-01/02 --> discharged to [facility] for SNF; now back independent living Has completed numerous antibiotic and antifungal courses Vascular surgery consult in December and OPT follow up. Was deemed not to be a surgical candidate outside of amputation. Was recommended to treat and allow demarcation. left thigh large fluid filled blister Last CTA of the right leg as outlined below. 1. There is complete thrombosis of the anterior tibial artery. The dorsalis pedis artery is also likely occluded. 2. The proximal peroneal artery is occluded with distal reconstitution. This represents a change from 12/29/2021. 3. Posterior tibial artery is diminutive but patent with thready flow. Vascular consult placed - patient was to have an OPT appt on Wednesday 03/21; attending discussed with vascular surgery on the phone WOCN consult placed Zosyn given in ER; switched to vancomycin which continues as monotherapy. Blood cx negative Infectious Disease consult placed - pending Clinically improves as per daughter CAD pHTN: Aortic regurgitation: Follows with Dr. Gamboa from [place] [facility] Bumex on hold due to hypotension Cardiology on board permanent Atrial Fibrillation: Follows with Dr. Mandujano with ladi and Darlin Bullock in the CHF clinic euvolemic on exam. Continue Apixaban Hold Toprol XL for hypotension. Rate improved to 70s. continue to hold Bumex due to hypotension COPD: Severity to be determined; OPT f/u recommended Currently has a cough that is non-productive and clear lungs. Continue Singulair and Symbicort Mucinex started 03/19 Prediabetes: 01/31: A1C 5.9 diet controlled; not on any oral medications Dysphagia Pt said that she had intermittent dysphygia Nurse said pt coughed and spitted the salad Will consult speech Continue aspiration precaution Anxiety and depression: chronic, stable. Continue buspirone Osteoarthritis: Chronic; takes Tylenol PO BID PRN Takes Oxy IR chronic PRN; continue GERD: continue Protonix Hypothyroidism: Stable; continue Synthroid 01/31: TSH 3.50 Dispo: PCP: Dr. Sanders Code: DNR/DNI VTE Prophylaxis: Eliquis Admission and Anticipated Discharge Date Admission Date: March 18, 2022 Subjective Pt was seen and examined for follow up of right lower extremity cellulitis Lying in bed with no acute distress watching TV Pt said that erythema and pain improves Denies any chest pain, palpitation, dizziness and SOB Review of Systems Review of Systems: All systems reviewed & are unremarkable except as noted in Subjective Physical Exam Physical Exam: General- No acute distress Head- atraumatic Eyes- PERRL, EOMI, ENT- oropharynx clear Neck- supple, no JVD Lungs- clear to auscultation Heart- regular rhythm; no murmur Abdomen- normal bowel sounds, soft, nontender Extremities- RLE erythema and tenderness and warmth along the lateral knee, no gangrene or toes discoloration, ecchymoses in extremities Neuro- alert, oriented x 3; PERRL, EOMI; no facial palsy; no dysarthria Skin- warm & dry Results & Data Results & Data ([facility]) Vital Signs (Past 12 Hours) Vital Signs Temp Pulse Pulse Resp BP Pulse Ox O2 Del Method 03/20/22 11:15 36.7 C 78 20 97/64 L 95 Room Air 03/20/22 10:45 84 03/20/22 06:37 36.3 C L 79 20 92/64 L 92 Room Air 03/20/22 04:28 36.6 C 94 H 20 95/61 L 95 Room Air
[2022-03-20] MEDS: LEVOTHYROXINE SODIUM 112 MCG TABLET PO SCH (21:10)
[2022-03-20] MEDS: MONTELUKAST SODIUM 10 MG TABLET PO SCH (21:11)
[2022-03-21] MEDS: MELATONIN 3 MG TAB PO PRN ×2 (01:40→22:01)
[2022-03-21] MEDS ORDERED: VANCOMYCIN LEVEL ONE (02:00)
[2022-03-21 03:40] LABS: BUN Creatinine Ratio 22.4 (10-20); Calcium 9.2 mg/dl (8.5-10.1); Creatinine Clr Calc Pharmacy 28.6 ml/min; Est GFR (African American) 34.8 ml/min
[2022-03-21] MEDS: VANCOMYCIN HCL 1,000 MG in SODIUM CHLORIDE 0.9% 250 ML IV SCH (04:14)
--- NOTE | 2022-03-21 09:08 | Pharmacy Report ---
Pharmacy Vanc AUC Short Note - Date of Service March 21, 2022 - Assessment & Plan Assessment 86 year old F receiving Vancomycin for treatment of recurrent lower left extremity cellulitis. Blood cultures NGTD. Plan Vancomycin * AUC/RAFAL is the preferred PK/PD target for vancomycin * Patient's Scr continues to rise more today from 1.38 to 1.56 mg/dL - from 0.8 mg/dL on 03/18. Not a candidate for AUC/RAFAL dosing with rapidly changing renal function, therefore will dose based upon levels * Level this AM was therapeutic at 18.8 mcg/ml - received 1 gm iv of vancomycin which is appropriate to maintain peak of ~30 mcg/ml. Will hold further doses of vancomycin for now and order a random vancomycin level in the AM to reassess dosing. Estimated level in 24 hours still > 15 mcg/ml Pharmacy will continue to follow and will adjust dose/frequency as necessary. Thank you.
[2022-03-21] MEDS: DOCUSATE SODIUM/SENNA 50/8.6MG TAB PO SCH (09:27)
[2022-03-21] MEDS: APIXABAN 5 MG TABLET PO SCH ×2 (09:27→22:02)
[2022-03-21] MEDS: CHOLECALCIFEROL 1,000 UNITS 25 MCG TAB PO SCH (09:27)
[2022-03-21] MEDS: busPIRone 7.5 MG TAB PO SCH ×3 (09:27→22:03)
[2022-03-21] MEDS: ASCORBIC ACID 500 MG TAB PO SCH (09:28)
[2022-03-21] MEDS: EZETIMIBE 10 MG TABLET PO SCH (09:28)
[2022-03-21] MEDS: guaiFENesin 600 MG TABCR PO SCH ×2 (09:28→22:02)
[2022-03-21] MEDS: CEROVITE ADV FORMULA TAB PO SCH (09:28)
[2022-03-21] MEDS: PANTOprazole 40 MG TAB PO SCH (09:28)
[2022-03-21] MEDS: FLUTICASONE/VILANTEROL 200/25MCG 14 PUFFS/INHALER INH SCH (09:28)
--- NOTE | 2022-03-21 10:24 | Consultation ---
Date of Consultation March 21, 2022 Assessment & Plan (1) Peripheral arterial disease: Pt with significant PAD, but RLE DP pulse remains palpable. She has no sx of rest pain or distal tissue loss. Woundbeds appear healthy, but the medial side of her leg does appear cellulitic. no odor. Recommend continue local wound care and abx per medicine. Will be happy to see her as outpt if her wounds are not improving. History of Present Illness Reason for Consultation: PAD Attending Physician: Gurvinder Sims MD History of Present Illness 86 yo f with hx of CHF, pulmonary htn, hypothyroidism, dyslipidemia, CAD, asthma, spinal stenosis, a fib, osteoarthritis, GERD, and PAD, admitted with RLE cellulitis, seen today in consultation for PAD of RLE. Pt has previously been seen by Dr Linn in summer 2021, at which time he recommended local wound care and to allow demarcation of R toes/foot wounds. She has been following with the wound clinic since that time, and was scheduled for an office appt with Dr Linn as outpt later today. She is a resident at [facility] and states they noted erythema of her R leg and sent her to [facility] for eval. Pt states she has no pain unless her wounds are being manipulated. Transfers, but does not ambulate long distances. States her toes turn purple, but then turn back to normal color fairly frequently. No associated pain. States she was told that her wounds are improving/healing. Her personal assessment of her wounds is that they are improving as well. Admits some chronic edema. Denies FONSECA, fever, chest pain, SOB, abd pain, N/V, rest pain, claudication, other complaints. Arterial US demonstrates considerable PAD, similar to previous imaging. Allergies Allergy/AdvReac Type Severity Reaction Status Date / Time latex Allergy Intermediate Rash, Verified 03/03/22 13:13 itching povidone-iodine Allergy Intermediate Itching Verified 03/03/22 13:13 [From Betadine] soap [From Betadine] Allergy Intermediate Itching Verified 03/03/22 13:13 aspirin AdvReac Mild Dizziness Verified 03/03/22 13:13 Home Medications Medication Instructions Recorded Confirmed Type vit C 250 mg-vit E 90 mg-zinc 40 2 tab PO QAM 05/01/20 03/18/22 History mg-copper 1 [id number] capsule (PreserVision AREDS-2) budesonide-formoterol HFA 160 2 puff inhalation BID PRN 09/15/20 03/18/22 History mcg-4.5 mcg/actuation aerosol Shortness Of Breath Or Wheezing inhaler (Symbicort) apixaban 5 mg tablet (Eliquis) 5 mg PO BID #180 tabs 01/28/21 03/18/22 Rx pantoprazole 40 mg tablet,delayed 40 mg PO QAM GERD 05/14/21 03/18/22 History release (Protonix) montelukast 10 mg tablet 10 mg PO QPM 08/20/21 03/18/22 History metoprolol succinate 50 mg 50 mg PO QAM 10/15/21 03/18/22 History tablet,extended release 24 hr levothyroxine 112 mcg tablet 112 mcg PO QPM #30 tabs 11/04/21 03/18/22 Rx ezetimibe 10 mg tablet (Zetia) 10 mg PO QAM #90 tabs 11/24/21 03/18/22 Rx metoprolol succinate 100 mg 100 mg PO QAM #45 tabs 12/23/21 03/18/22 Rx tablet,extended release 24 hr acetaminophen 325 mg tablet 650 mg PO Q4H PRN PAIN/FEVER 12/29/21 03/18/22 History (Tylenol) amino ac-protein hydro-whey 1 ea PO BID 12/29/21 03/18/22 History protein 10 gram-100 kcal/30 mL oral liquid (ProSource) bumetanide 1 mg tablet 2 mg PO QAM 12/29/21 03/18/22 History ascorbic acid (vitamin C) 500 mg 500 mg PO QAM #20 tabs 01/02/22 03/18/22 Rx tablet (Vitamin C) buspirone 7.5 mg tablet 7.5 mg PO TID 01/24/22 03/18/22 History Patient History Medical History Acute diverticulitis Anxiety and depression Aortic regurgitation Asthma inhaler prn Atrial fibrillation with rapid ventricular response Atrial fibrillation, permanent on eliquis and follows with Dr. Colón Chronic diastolic CHF (congestive heart failure) Coronary artery disease Diverticulitis Dyslipidemia Esophageal stricture H/O fall 08/2020 Hearing deficit History of COVID-19 diagnosed 05/18/22 @ [place]--asymptomatic, tested prior to procedure--no issues now Hypotension Hypothyroid Leukocytosis Macular degeneration On anticoagulant therapy eliquis daily Osteoarthritis Pulmonary hypertension Spinal stenosis Surgical History History of bilateral cataract extraction History of cardiac cath ?2015 @ [facility]--no stents History of colonoscopy with polypectomy History of dilatation and curettage History of esophagogastroduodenoscopy (EGD) History of left hip replacement History of left shoulder replacement History of parathyroidectomy ELEVATED CALCIUM LEVELS? (2 REMOVED) History of right hip replacement History of right shoulder replacement History of tonsillectomy and adenoidectomy History of tooth extraction History of total left knee replacement (TKR) x2 History of total right knee replacement (TKR) x2 History of wisdom tooth extraction S/P cholecystectomy S/P dilatation of esophageal stricture Family History Mother Cancer uterine Thyroid disease Father Cancer esophageal Family history of esophageal cancer Sister Family history of diabetes mellitus Sister Family history of diabetes mellitus Brother Family history of diabetes mellitus Family hx of colon cancer Other No family history of adverse response to anesthesia Social History Smoking Status: Former smoker Tobacco Type: Cigarettes Cigarettes Per Day: 1 ppd; Smoking End Date: 1985; Second Hand Exposure: No; Do You Dip or Chew Tobacco: No; Tobacco Cessation Education Requested by Patient: No Hx Alcohol Use: No Hx Substance Use: No Preferred Language: Bruneian Communication Ability: Effective Visual Impairment: Limited Hearing Ability: Normal Seam Taper Machine Required: No Beliefs That Will Affect Care: None Current Living Situation: Personal Care Facility Current Living Situation Comment: [facility] How many Children do You have: 4 Other Information That Helps Us Care for You: No Feels Safe at Home: Yes Safety Concerns: Feels Safe At This Time caffeine: No during the past year weight has: remained stable Assistive Devices: Glasses, Walker and Wheelchair Review of Systems Review of Systems: All systems reviewed & are unremarkable except as noted in HPI & below Physical Exam Constitutional: WD/WN, vitals as above + obese, cooperative and comfortable; not in distress Neck: trachea midline Respiratory: normal respiratory effort; no respiratory distress Auscultation: lungs clear to auscultation bilaterally and + diminished lung sounds Cardiovascular: Rate/Rhythm: + irregularly irregular Vessels: femoral pulses present, posterior tibial pulses present (+1 LLE, nonpalpable RLE.), dorsalis pedis pulses present (+1 RLE, nonpalpable LLE) and radial pulses present; + abnormal peripheral pulses Extremities: normal capillary refill and + edema Gastrointestinal (Abdomen): Inspection/Auscultation: abdomen normal to inspection and normal bowel sounds Percussion/Palpation: abdomen soft; abdomen nontender Musculoskeletal: no cyanosis or clubbing, extremities motor strength 5/5 Skin: RLE with multiple open wounds, some with scabbing on surface, but with good granulation and healthy woundbeds. Wounds noted to dorsal foot, calf area, lateral leg. Mild serous drainage on dressings. medial side of leg with warmth and erythema, no tenderness. Neurologic: moves all extremities and awake; no focal motor deficits and not confused Psychiatric: A+Ox3, euthymic affect Results & Data ([facility]) Vital Signs (Past 12 Hours) Vital Signs Temp Pulse Pulse Resp BP Pulse Ox O2 Del Method 03/21/22 07:27 36.5 C 86 18 107/69 90 Room Air 03/21/22 02:54 36.7 C 72 18 117/71 97 Room Air 03/20/22 22:13 97 H 03/21/22 00:38 Room Air 03/20/22 23:38 36.2 C L 93 H 18 94/63 L 94 Room Air
[2022-03-21] MEDS: ACETAMINOPHEN 325 MG TAB PO PRN (11:25)
[2022-03-21] MEDS ORDERED: oxyCODONE HCL IR 5 MG TAB (IMMEDIATE RELEASE) PO ONE (11:44)
--- NOTE | 2022-03-21 20:29 | Hospitalist Progress Note ---
Date of Service March 21, 2022 Assessment & Plan (1) Peripheral arterial occlusive disease: (2) Cellulitis of left lower extremity: (3) Stage III pressure ulcer of left buttock: (4) GERD (gastroesophageal reflux disease): (5) Dyslipidemia: (6) Pulmonary hypertension: (7) Coronary artery disease: (8) Chronic diastolic CHF (congestive heart failure): (9) Aortic regurgitation: (10) Atrial fibrillation, permanent: (11) Anxiety and depression: Plan 86 y/o with chronic wounds related to her PAD. Last CTA revealed numerous occlusions with affected blood flow. Vascular has seen in December. Demarcation and conservative tx was recommended outside of amputation. On Eliquis for Afib. Peripheral arterial occlusive disease Cellulitis of left lower extremity Stage III pressure ulcer of left butock Was admitted 12/29-01/02 --> discharged to [facility] for SNF; now back independent living Has completed numerous antibiotic and antifungal courses Vascular surgery consult in December and OPT follow up. Was deemed not to be a surgical candidate outside of amputation. Was recommended to treat and allow demarcation. left thigh large fluid filled blister Last CTA of the right leg as outlined below. 1. There is complete thrombosis of the anterior tibial artery. The dorsalis pedis artery is also likely occluded. 2. The proximal peroneal artery is occluded with distal reconstitution. This represents a change from 12/29/2021. 3. Posterior tibial artery is diminutive but patent with thready flow. Vascular consult placed - patient was to have an OPT appt on Wednesday 03/21; admitting team discussed with vascular surgery on the phone spoke to vascular team today- on surgical intervention needed WOCN consult placed Zosyn given in ER; switched to vancomycin which continues as monotherapy. Blood cx negative Infectious Disease consult placed - pending Clinically improves as per daughter CAD pHTN: Aortic regurgitation: Follows with Dr. Gamboa from [place] [facility] Bumex on hold due to hypotension Cardiology on board permanent Atrial Fibrillation: Follows with Dr. Mandujano with ladi and Darlin Bullock in the CHF clinic euvolemic on exam. Continue Apixaban Hold Toprol XL for hypotension. Rate improved to 70s. continue to hold Bumex due to hypotension COPD: Severity to be determined; OPT f/u recommended Currently has a cough that is non-productive and clear lungs. Continue Singulair and Symbicort Mucinex started 03/19 Prediabetes: 01/31: A1C 5.9 diet controlled; not on any oral medications Dysphagia Pt said that she had intermittent dysphygia Nurse said pt coughed and spitted the salad Will consult speech Continue aspiration precaution Anxiety and depression: chronic, stable. Continue buspirone Osteoarthritis: Chronic; takes Tylenol PO BID PRN Takes Oxy IR chronic PRN; continue GERD: continue Protonix Hypothyroidism: Stable; continue Synthroid 01/31: TSH 3.50 Dispo: PCP: Dr. Sanders Code: DNR/DNI VTE Prophylaxis: Eliquis Admission and Anticipated Discharge Date Admission Date: March 18, 2022 Subjective Pt was seen and examined for follow up of right lower extremity cellulitis Lying in bed with no acute distress watching TV Denies any chest pain, palpitation, dizziness and SOB Review of Systems Review of Systems: All systems reviewed & are unremarkable except as noted in Subjective Physical Exam 2 Physical Exam: General- No acute distress Head- atraumatic Eyes- PERRL, EOMI, ENT- oropharynx clear Neck- supple, no JVD Lungs- clear to auscultation Heart- irregular rhythm; +murmur Abdomen- normal bowel sounds, soft, nontender Extremities- RLE erythema and tenderness and warmth along the lateral knee, no gangrene or toes discoloration, ecchymoses in extremities Neuro- alert, oriented x 3; PERRL, EOMI; no facial palsy; no dysarthria Skin- warm & dry Results & Data Results & Data ([facility]) Vital Signs (Past 12 Hours) Vital Signs Temp Pulse Pulse Resp BP Pulse Ox O2 Del Method 03/21/22 19:38 37.2 C 102 H 20 94/59 L 93 Room Air 03/21/22 15:22 36.3 C L 94 H 20 97/63 L 96 Room Air 03/21/22 14:16 88 03/21/22 09:00 Room Air 03/21/22 12:22 36.6 C 79 18 103/70 98 Room Air
[2022-03-21] MEDS: MONTELUKAST SODIUM 10 MG TABLET PO SCH (22:01)
[2022-03-21] MEDS: LEVOTHYROXINE SODIUM 112 MCG TABLET PO SCH (22:03)
[2022-03-22 06:16] LABS: Hematocrit (blood only) 33.8 % (34.1-44.9); Hemoglobin 10.5 g/dl (12.0-16.0); Mean Corpuscular Hemoglobin 31.7 pg (25.0-34.0); Mean Corpuscular Hgb Conc 31.1 g/dL (32.0-36.0); Mean Corpuscular Volume 102.1 fL (80.0-100.0); Mean Platelet Volume 9.1 fL (9.4-12.3); Platelet Count 313 K/uL (130-400); RDW Coefficient of Variation 14.4 % (11.5-14.5); RDW Standard Deviation 54.7 fL (36.4-46.3); Red Blood Count 3.31 M/uL (3.93-5.22); White Blood Count 6.31 K/ul (4.8-10.8)
[2022-03-22 06:41] LABS: BUN Creatinine Ratio 23.6 (10-20); Calcium 9.4 mg/dl (8.5-10.1); Creatinine Clr Calc Pharmacy 31.2 ml/min; Est GFR (African American) 38.3 ml/min; Potassium 4.1 mmol/L (3.5-5.1)
--- NOTE | 2022-03-22 07:35 | Pharmacy Report ---
Pharmacy [facility] Short Note - Date of Service March 22, 2022 - Assessment & Plan Assessment 86 year old F receiving Vancomycin for treatment of recurrent lower left extremity cellulitis. Blood cultures NGTD. Today is day 5 of therapy. Plan Vancomycin * Random vancomycin level this AM therapeutic at ~19 mcg/ml - plan to redose with vancomycin this morning * Scr slightly improving today from 1.56 to 1.44 mg/dL, will plan to continue to dose by levels until renal function is stable * Will dose with vancomycin 750 mg x 1 today to maintain an estimated peak of ~30 mcg/ml * Will order another random level tomorrow AM to assist with further dosing. Pharmacy will continue to follow and will adjust dose/frequency as necessary. Thank you.
[2022-03-22] MEDS: ACETAMINOPHEN 325 MG TAB PO PRN ×2 (08:26→20:47)
[2022-03-22] MEDS: APIXABAN 5 MG TABLET PO SCH ×2 (08:27→20:45)
[2022-03-22] MEDS: PANTOprazole 40 MG TAB PO SCH (08:27)
[2022-03-22] MEDS: DOCUSATE SODIUM/SENNA 50/8.6MG TAB PO SCH (08:28)
[2022-03-22] MEDS: CHOLECALCIFEROL 1,000 UNITS 25 MCG TAB PO SCH (08:28)
[2022-03-22] MEDS: CEROVITE ADV FORMULA TAB PO SCH (08:28)
[2022-03-22] MEDS: guaiFENesin 600 MG TABCR PO SCH (08:29)
[2022-03-22] MEDS: ASCORBIC ACID 500 MG TAB PO SCH (08:29)
[2022-03-22] MEDS: FLUTICASONE/VILANTEROL 200/25MCG 14 PUFFS/INHALER INH SCH (08:29)
[2022-03-22] MEDS: busPIRone 7.5 MG TAB PO SCH ×2 (08:29→13:03)
[2022-03-22] MEDS: EZETIMIBE 10 MG TABLET PO SCH (08:29)
[2022-03-22] MEDS ORDERED: VANCOMYCIN HCL 750 MG in SODIUM CHLORIDE 0.9% 250 ML IV ONE (10:00)
[2022-03-22] MEDS: guaiFENesin SUGAR FREE 200 MG/10 ML UDC PO PRN ×2 (10:06→20:45)
[2022-03-22] MEDS: METOPROLOL SUCC 50MG EXT REL TAB PO SCH (10:38)
--- NOTE | 2022-03-22 20:32 | Hospitalist Progress Note ---
Date of Service March 22, 2022 Assessment & Plan (1) Peripheral arterial occlusive disease: (2) Cellulitis of left lower extremity: (3) Stage III pressure ulcer of left buttock: (4) GERD (gastroesophageal reflux disease): (5) Dyslipidemia: (6) Pulmonary hypertension: (7) Coronary artery disease: (8) Chronic diastolic CHF (congestive heart failure): (9) Aortic regurgitation: (10) Atrial fibrillation, permanent: (11) Anxiety and depression: Plan 86 y/o with chronic wounds related to her PAD. Last CTA revealed numerous occlusions with affected blood flow. Vascular has seen in December. Demarcation and conservative tx was recommended outside of amputation. On Eliquis for Afib. Peripheral arterial occlusive disease Cellulitis of left lower extremity Stage III pressure ulcer of left butock Was admitted 12/29-01/02 --> discharged to [facility] for SNF; now back independent living Has completed numerous antibiotic and antifungal courses Vascular surgery consult in December and OPT follow up. Was deemed not to be a surgical candidate outside of amputation. Was recommended to treat and allow demarcation. left thigh large fluid filled blister Last CTA of the right leg as outlined below. 1. There is complete thrombosis of the anterior tibial artery. The dorsalis pedis artery is also likely occluded. 2. The proximal peroneal artery is occluded with distal reconstitution. This represents a change from 12/29/2021. 3. Posterior tibial artery is diminutive but patent with thready flow. Vascular consult placed - patient was to have an OPT appt on Wednesday 03/21; admitting team discussed with vascular surgery on the phone No surgical intervention needed as per vascular surgery WOCN consult placed Zosyn given in ER; switched to vancomycin which continues as monotherapy. Blood cx negative Infectious Disease on board recommended to transition to Linezolid PO 600mg BID after 24-48 hrs once stopping the buspar Will continue the Vanco IV for now CAD pHTN: Aortic regurgitation: Follows with Dr. Gamboa from [place] [facility] Bum[facility] on hold due to hypotension Cardiology on board permanent Atrial Fibrillation: Follows with Dr. Mandujano with ladi and Darlin Bullock in the CHF clinic euvolemic on exam. Continue Apixaban Toprol XL resumed since HR start to elevate continue to hold Bumex due to hypotension COPD: Severity to be determined; OPT f/u recommended Currently has a cough that is non-productive and clear lungs. Continue Singulair and Symbicort Mucinex started 03/19 Prediabetes: 01/31: A1C 5.9 diet controlled; not on any oral medications Dysphagia Pt said that she had intermittent dysphygia Nurse said pt coughed and spitted the salad Speech on board- Family does not want to proceed to any video swallow since family aware of that Continue aspiration precaution Anxiety and depression: chronic, stable. Daughter said pt buspirone was discontinued by the outpatient provider Will d/c buspar Osteoarthritis: Chronic; takes Tylenol PO BID PRN Takes Oxy IR chronic PRN; continue GERD: continue Protonix Hypothyroidism: Stable; continue Synthroid 01/31: TSH 3.50 Dispo: PCP: Dr. Sanders Code: DNR/DNI VTE Prophylaxis: Eliquis Admission and Anticipated Discharge Date Admission Date: March 18, 2022 Subjective Pt was seen and examined for follow up of right lower extremity cellulitis Lying in bed with no acute distress watching TV Pt said that she feels fine She is very anxious and asking to be discharge Denies any chest pain, palpitation, dizziness and SOB Review of Systems Review of Systems: All systems reviewed & are unremarkable except as noted in Subjective Physical Exam Physical Exam: General- No acute distress Head- atraumatic Eyes- PERRL, EOMI, ENT- oropharynx clear Neck- supple, no JVD Lungs- clear to auscultation Heart- irregular rhythm; +murmur Abdomen- normal bowel sounds, soft, nontender Extremities- RLE erythema and tenderness and warmth along the lateral knee, no gangrene or toes discoloration, ecchymoses in extremities Neuro- alert, oriented x 3; PERRL, EOMI; no facial palsy; no dysarthria Skin- warm & dry Results & Data Results & Data ([facility]) Vital Signs (Past 12 Hours) Vital Signs Temp Pulse Pulse Resp BP Pulse Ox O2 Del Method 03/22/22 19:29 36.6 C 92 H 20 102/69 93 Room Air 03/22/22 14:30 96 H 03/22/22 15:32 36.5 C 96 H 16 95/67 L 94 03/22/22 11:27 36.5 C 114 H 18 98/64 L 94
[2022-03-22] MEDS: MONTELUKAST SODIUM 10 MG TABLET PO SCH (20:45)
[2022-03-22] MEDS: LEVOTHYROXINE SODIUM 112 MCG TABLET PO SCH (20:45)
[2022-03-22] MEDS: MELATONIN 3 MG TAB PO PRN (20:47)
[2022-03-23 06:32] LABS: Hematocrit (blood only) 33.7 % (34.1-44.9); Hemoglobin 10.5 g/dl (12.0-16.0); Mean Corpuscular Hgb Conc 31.2 g/dL (32.0-36.0); Mean Corpuscular Volume 102.7 fL (80.0-100.0); Mean Platelet Volume 9.1 fL (9.4-12.3); Platelet Count 323 K/uL (130-400); RDW Coefficient of Variation 14.3 % (11.5-14.5); RDW Standard Deviation 54.5 fL (36.4-46.3); Red Blood Count 3.28 M/uL (3.93-5.22); White Blood Count 5.77 K/ul (4.8-10.8)
[2022-03-23 06:54] LABS: BUN Creatinine Ratio 22.9 (10-20); Calcium 9.2 mg/dl (8.5-10.1); Creatinine Clr Calc Pharmacy 27.1 ml/min; Est GFR (African American) 32.2 ml/min; Est GFR (Non-African American) 27.8 ml/min; Potassium 4.3 mmol/L (3.5-5.1)
[2022-03-23] MEDS: guaiFENesin SUGAR FREE 200 MG/10 ML UDC PO PRN ×3 (06:56→19:53)
--- NOTE | 2022-03-23 07:46 | Pharmacy Report ---
Pharmacy [facility] Short Note - Date of Service March 23, 2022 - Assessment & Plan Assessment 86 year old F receiving Vancomycin for treatment of recurrent lower left extremity cellulitis. Blood cultures NGTD. Today is day 6 of therapy. Plan Vancomycin * Random vancomycin level this morning therapeutic at ~19.7 mcg/ml * Scr trending up again today from 1.44 to 1.66 mg/dL - will dose again with vancomycin 750 mg x 1 to maintain peak of ~30 mcg/ml * Per provider notes, ID recommending changing to zyvox for 14 days total of therapy. Due to interaction with zyvox/buspar they recommended d/c of buspar and a washout period prior to starting zyvox. * Patient will remain therapeutic with vancomycin for another 24 hours with dose this morning. Will hold future levels for now as likely will be transitioning to zyvox Pharmacy will continue to follow and will adjust dose/frequency as necessary. Thank you.
[2022-03-23] MEDS: FLUTICASONE/VILANTEROL 200/25MCG 14 PUFFS/INHALER INH SCH (09:08)
[2022-03-23] MEDS: SODIUM CHLORIDE 0.9% 1000ML 1,000 ML IV SCH ×2 (09:09→23:25)
[2022-03-23] MEDS: DOCUSATE SODIUM/SENNA 50/8.6MG TAB PO SCH (09:19)
[2022-03-23] MEDS: METOPROLOL SUCC 50MG EXT REL TAB PO SCH (09:19)
[2022-03-23] MEDS: PANTOprazole 40 MG TAB PO SCH (09:19)
[2022-03-23] MEDS: APIXABAN 5 MG TABLET PO SCH ×2 (09:19→19:51)
[2022-03-23] MEDS: EZETIMIBE 10 MG TABLET PO SCH (09:19)
[2022-03-23] MEDS: CEROVITE ADV FORMULA TAB PO SCH (09:20)
[2022-03-23] MEDS: CHOLECALCIFEROL 1,000 UNITS 25 MCG TAB PO SCH (09:20)
[2022-03-23] MEDS: ASCORBIC ACID 500 MG TAB PO SCH (09:20)
[2022-03-23] MEDS ORDERED: VANCOMYCIN HCL 750 MG in SODIUM CHLORIDE 0.9% 250 ML IV ONE (10:00)
--- NOTE | 2022-03-23 15:32 | Hospitalist Progress Note ---
Date of Service March 23, 2022 Assessment & Plan (1) Peripheral arterial occlusive disease: (2) Cellulitis of left lower extremity: (3) Stage III pressure ulcer of left buttock: (4) GERD (gastroesophageal reflux disease): (5) Dyslipidemia: (6) Pulmonary hypertension: (7) Coronary artery disease: (8) Chronic diastolic CHF (congestive heart failure): (9) Aortic regurgitation: (10) Atrial fibrillation, permanent: (11) Anxiety and depression: Plan 86 y/o with chronic wounds related to her PAD. Last CTA revealed numerous occlusions with affected blood flow. Vascular has seen in December. Demarcation and conservative tx was recommended outside of amputation. On Eliquis for Afib. Peripheral arterial occlusive disease Cellulitis of left lower extremity Stage III pressure ulcer of left butock Was admitted 12/29-01/02 --> discharged to [facility] for SNF; now back independent living Has completed numerous antibiotic and antifungal courses Vascular surgery consult in December and OPT follow up. Was deemed not to be a surgical candidate outside of amputation. Was recommended to treat and allow demarcation. left thigh large fluid filled blister Last CTA of the right leg as outlined below. 1. There is complete thrombosis of the anterior tibial artery. The dorsalis pedis artery is also likely occluded. 2. The proximal peroneal artery is occluded with distal reconstitution. This represents a change from 12/29/2021. 3. Posterior tibial artery is diminutive but patent with thready flow. Vascular consult placed - patient was to have an OPT appt on Wednesday 03/21, but admitting team discussed with vascular surgery on the phone He was seen by vascular - No surgical intervention needed as per vascular surgery WOCN consult placed Zosyn given in ER; switched to vancomycin which continues as monotherapy. Blood cx negative so far Infectious Disease on board recommended to transition to Linezolid PO 600mg BID after 24-48 hrs once stopping the buspar Will continue the Vanco IV for today Will transition to Linezolid in AM MORENA Creatinine 1.66 today, baseline 0.8 Possible related to hypotension/Bumex Continue gentle IVF Continue to hold Bumex for now Monitor closely Check BMP in am CAD pHTN: Aortic regurgitation: Follows with Dr. Gamboa from [place] [facility] Bumex was on admission due to hypotension Now continue to hold due to increase in creatinine Cardiology on board P Atrial Fibrillation: Follows with Dr. Mandujano with cards and Darlin Bullock in the CHF clinic euvolemic on exam. currently on Apixaban, if no improvement in renal fx, consider to decrease eliquis to 2.5 BID Toprol XL resumed since HR start to elevate Rate controlled COPD: Severity to be determined; OPT f/u recommended Currently has a cough that is non-productive and clear lungs. Continue Singulair and Symbicort Mucinex started 03/19 stable Prediabetes: 01/31: A1C 5.9 diet controlled; not on any oral medications Dysphagia Pt said that she had intermittent dysphygia Nurse said pt coughed and spitted the salad Speech on board- Family/pt doo not want to proceed with any video swallow. Daughter and pt are aware of esophageal dysfunction and pt has been followed with Dr. Boudreaux outpatient. Continue aspiration precaution Anxiety and depression: chronic, stable. Daughter said pt buspirone was discontinued by the outpatient provider Will d/c buspar Osteoarthritis: Chronic; takes Tylenol PO BID PRN Takes Oxy IR chronic PRN; continue GERD: continue Protonix Hypothyroidism: Stable; continue Synthroid 01/31: TSH 3.50 Dispo: PCP: Dr. Sanders Code: DNR/DNI VTE Prophylaxis: Eliquis Plan to discharge tomorrow if renal function improves. Admission and Anticipated Discharge Date Admission Date: March 18, 2022 Subjective Pt was seen and examined for follow up of right lower extremity cellulitis Lying in bed with no acute distress watching TV Pt said that she feels fine She is very anxious and she is asking to be discharged today I spoke to daughter over the phone and provided with update and answred all her questions Daughter agreed with the plan to keep her in the hospital tonight and repeat BMP in am Denies any chest pain, palpitation, dizziness and SOB Review of Systems Review of Systems: All systems reviewed & are unremarkable except as noted in Subjective Physical Exam Physical Exam: General- No acute distress Head- atraumatic Eyes- PERRL, EOMI, ENT- oropharynx clear Neck- supple, no JVD Lungs- clear to auscultation Heart- irregular rhythm; +murmur Abdomen- normal bowel sounds, soft, nontender Extremities- RLE erythema and tenderness and warmth along the lateral knee, no gangrene or toes discoloration, ecchymoses in extremities , +large blister in left tight Neuro- alert, oriented x 3; PERRL, EOMI; no facial palsy; no dysarthria Skin- warm & dry Results & Data Results & Data ([facility]) Vital Signs (Past 12 Hours) Vital Signs Temp Pulse Pulse Resp BP Pulse Ox O2 Del Method 03/23/22 15:19 36.9 C 86 18 104/67 95 Room Air 03/23/22 08:00 Room Air 03/23/22 10:56 36.2 C L 75 18 104/72 96 Room Air 03/23/22 07:30 85 03/23/22 06:44 36.6 C 87 20 105/64 95 Room Air
[2022-03-23] MEDS: MELATONIN 3 MG TAB PO PRN (19:50)
[2022-03-23] MEDS: LEVOTHYROXINE SODIUM 112 MCG TABLET PO SCH (19:51)
[2022-03-23] MEDS: MONTELUKAST SODIUM 10 MG TABLET PO SCH (19:51)
[2022-03-24] MEDS ORDERED: guaiFENesin 600 MG TABCR PO STA (00:31)
[2022-03-24 07:00] LABS: Hematocrit (blood only) 33.7 % (34.1-44.9); Hemoglobin 10.5 g/dl (12.0-16.0); Mean Corpuscular Hgb Conc 31.2 g/dL (32.0-36.0); Mean Corpuscular Volume 102.7 fL (80.0-100.0); Mean Platelet Volume 9.3 fL (9.4-12.3); Platelet Count 335 K/uL (130-400); RDW Coefficient of Variation 14.4 % (11.5-14.5); RDW Standard Deviation 54.5 fL (36.4-46.3); Red Blood Count 3.28 M/uL (3.93-5.22); White Blood Count 5.36 K/ul (4.8-10.8)
[2022-03-24 07:19] LABS: BUN Creatinine Ratio 24.3 (10-20); Calcium 8.9 mg/dl (8.5-10.1); Creatinine Clr Calc Pharmacy 29.7 ml/min; Est GFR (African American) 35.9 ml/min; Est GFR (Non-African American) 30.9 ml/min; Potassium 4.2 mmol/L (3.5-5.1)
[2022-03-24] MEDS: FLUTICASONE/VILANTEROL 200/25MCG 14 PUFFS/INHALER INH SCH (09:08)
[2022-03-24] MEDS: ACETAMINOPHEN 325 MG TAB PO PRN ×2 (09:08→13:43)
[2022-03-24] MEDS: APIXABAN 5 MG TABLET PO SCH (09:09)
[2022-03-24] MEDS: DOCUSATE SODIUM/SENNA 50/8.6MG TAB PO SCH (09:09)
[2022-03-24] MEDS: METOPROLOL SUCC 50MG EXT REL TAB PO SCH (09:10)
[2022-03-24] MEDS: PANTOprazole 40 MG TAB PO SCH (09:10)
[2022-03-24] MEDS: EZETIMIBE 10 MG TABLET PO SCH (09:10)
[2022-03-24] MEDS: CEROVITE ADV FORMULA TAB PO SCH (09:10)
[2022-03-24] MEDS: CHOLECALCIFEROL 1,000 UNITS 25 MCG TAB PO SCH (09:10)
[2022-03-24] MEDS: ASCORBIC ACID 500 MG TAB PO SCH (09:10)
[2022-03-24] MEDS: guaiFENesin SUGAR FREE 200 MG/10 ML UDC PO PRN (10:31)
[2022-03-24] MEDS ORDERED: VANCOMYCIN HCL 750 MG in SODIUM CHLORIDE 0.9% 250 ML IV ONE (11:00)
--- NOTE | 2022-03-24 13:44 | Hospitalist Progress Note ---
Date of Service March 24, 2022 Assessment & Plan (1) Peripheral arterial occlusive disease: (2) Cellulitis of left lower extremity: (3) Stage III pressure ulcer of left buttock: (4) GERD (gastroesophageal reflux disease): (5) Dyslipidemia: (6) Pulmonary hypertension: (7) Coronary artery disease: (8) Chronic diastolic CHF (congestive heart failure): (9) Aortic regurgitation: (10) Atrial fibrillation, permanent: (11) Anxiety and depression: Plan 86 y/o with chronic wounds related to her PAD. Last CTA revealed numerous occlusions with affected blood flow. Vascular has seen in December. Demarcation and conservative tx was recommended outside of amputation. On Eliquis for Afib. Peripheral arterial occlusive disease Cellulitis of left lower extremity Stage III pressure ulcer of left butock Was admitted 12/29-01/02 --> discharged to [facility] for SNF; now back independent living Has completed numerous antibiotic and antifungal courses Vascular surgery consult in December and OPT follow up. Was deemed not to be a surgical candidate outside of amputation. Was recommended to treat and allow demarcation. left thigh large fluid filled blister Last CTA of the right leg as outlined below. 1. There is complete thrombosis of the anterior tibial artery. The dorsalis pedis artery is also likely occluded. 2. The proximal peroneal artery is occluded with distal reconstitution. This represents a change from 12/29/2021. 3. Posterior tibial artery is diminutive but patent with thready flow. Vascular consult placed - patient was to have an OPT appt on Wednesday 03/21, but admitting team discussed with vascular surgery on the phone He was seen by vascular - No surgical intervention needed as per vascular surgery WOCN consult placed Zosyn given in ER; switched to vancomycin which continues as monotherapy. Blood cx negative so far Infectious Disease on board recommended to transition to Linezolid PO 600mg BID after 24-48 hrs once stopping the buspar Will continue the Vanco IV for today Will transition to Linezolid in AM MORENA Creatinine 1.66 today, baseline 0.8 Possible related to hypotension/Bumex Continue gentle IVF Continue to hold Bumex for now Monitor closely Check BMP in am CAD pHTN: Aortic regurgitation: Follows with Dr. Gamboa from [place] [facility] Bumex was on admission due to hypotension Now continue to hold due to increase in creatinine Cardiology on board P Atrial Fibrillation: Follows with Dr. Mandujano with cards and Darlin Bullock in the CHF clinic euvolemic on exam. currently on Apixaban, if no improvement in renal fx, consider to decrease eliquis to 2.5 BID Toprol XL resumed since HR start to elevate Rate controlled COPD: Severity to be determined; OPT f/u recommended Currently has a cough that is non-productive and clear lungs. Continue Singulair and Symbicort Mucinex started 03/19 stable Prediabetes: 01/31: A1C 5.9 diet controlled; not on any oral medications Dysphagia Pt said that she had intermittent dysphygia Nurse said pt coughed and spitted the salad Speech on board- Family/pt doo not want to proceed with any video swallow. Daughter and pt are aware of esophageal dysfunction and pt has been followed with Dr. Boudreaux outpatient. Continue aspiration precaution Anxiety and depression: chronic, stable. Daughter said pt buspirone was discontinued by the outpatient provider Will d/c buspar Osteoarthritis: Chronic; takes Tylenol PO BID PRN Takes Oxy IR chronic PRN; continue GERD: continue Protonix Hypothyroidism: Stable; continue Synthroid 01/31: TSH 3.50 Dispo: PCP: Dr. Sanders Code: DNR/DNI VTE Prophylaxis: Eliquis Plan to discharge tomorrow if renal function improves. Admission and Anticipated Discharge Date Admission Date: March 18, 2022 Subjective Pt was seen and examined for follow up of right lower extremity cellulitis Lying in bed with no acute distress watching TV Pt said that she feels fine She is very anxious and she is asking to be discharged today I spoke to daughter over the phone and provided with update and answred all her questions Daughter agreed with the plan to keep her in the hospital tonight and repeat BMP in am Denies any chest pain, palpitation, dizziness and SOB Physical Exam Physical Exam: CONSTITUTIONAL: WNWD, vitals as above, generally well- appearing, NAD EYES: normal conjunctivae, no scleral icterus ENT: external ear and nose normal, MMM NECK: trachea midline RESPIRATORY: clear to auscultation bilaterally, no crackles, rales or wheezes, normal respiratory effort CARDIOVASCULAR: regular rate and rhythm, S1 and 2 heard without murmurs, gallops or rubs, no JVD, no peripheral edema CHEST: inspection of chest was normal GASTROINTESTINAL: soft, nontender, ND, no guarding MUSCULOSKELETAL: strength 5/5 throughout, head is normocephalic and atraumatic SKIN: warm and dry, lower extremities are wrapped extensively and did not remove these as they were just changed. There is an extension of erythema and warmth along the lateral knee. NEUROLOGIC: CN 2-12 grossly intact, \normal cognition, normal speech, no tremor PSYCHIATRIC: alert cooperative and oriented to person, place and time. Euthymic mood, makes good eye contact, language grossly intact, recent and remote memory grossly intact. \ Results & Data Results & Data ([facility]) Vital Signs (Past 12 Hours) Vital Signs Temp Pulse Pulse Resp BP Pulse Ox O2 Del Method 03/24/22 11:07 36.9 C 85 18 102/60 92 Room Air 03/24/22 07:29 Room Air 03/24/22 07:00 84 03/24/22 06:18 36.8 C 78 20 115/78 94 Nasal Cannula 03/24/22 03:21 36.8 C 88 20 108/72 95 Room Air O2 Flow Rate 03/24/22 11:07 03/24/22 07:29 03/24/22 07:00 03/24/22 06:18 4 03/24/22 03:21 Laboratory Results Short CBC 03/24/22 Range/Units 06:21 WBC 5.36 (4.8-10.8) K/ul Hgb 10.5 L (12.0-16.0) g/dl Hct 33.7 L (34.1-44.9) % Plt Count 335 (130-400) K/uL BMP 03/24/22 06:21 Sodium 139 Potassium 4.2 Chloride 112 H Carbon Dioxide 22 BUN 37 H Creatinine 1.52 H Glucose 121 H Calcium 8.9 Medications Administered Current Inpatient Medications Acetaminophen (Acetaminophen 325 Mg Tab) 650 mg PO Q4H PRN PRN Reason: Pain 1-5 or Fever Stop: 04/17/22 16:14 Last Admin: 03/24/22 13:43 Dose: 650 mg Al Hydrox/Mg Hydrox/Simethicone (Aluminum/Magnesium Susp 30 Ml Udc) 15 ml PO Q4H PRN PRN Reason: Dyspepsia Stop: 04/17/22 16:14 Apixaban (Apixaban 5 Mg Tablet) 5 mg PO BID TSIVEN Stop: 04/17/22 20:59 Last Admin: 03/24/22 09:09 Dose: 5 mg Ascorbic Acid (Ascorbic Acid 500 Mg Tab) 500 mg PO QAM [facility] Stop: 04/18/22 08:59 Last Admin: 03/24/22 09:10 Dose: 500 mg Ezetimibe (Ezetimibe 10 Mg Tablet) 10 mg PO QAM [facility] Stop: 04/18/22 08:59 Last Admin: 03/24/22 09:10 Dose: 10 mg Fluticasone/Vilanterol (Fluticasone/Vilanterol 200/25mcg 14 Puffs/Inhaler) 1 puffs INH DAILY STIVEN Stop: 04/18/22 08:59 Last Admin: 03/24/22 09:08 Dose: 1 puffs Guaifenesin (Guaifenesin Sugar Free 200 Mg/10 Ml Udc) 200 mg PO Q6H PRN PRN Reason: Cough Stop: 04/21/22 08:54 Last Admin: 03/24/22 10:31 Dose: 200 mg Levothyroxine Sodium (Levothyroxine Sodium 112 Mcg Tablet) 112 mcg PO QPM [facility] Stop: 04/18/22 20:59 Last Admin: 03/23/22 19:51 Dose: 112 mcg Magnesium Hydroxide (Magnesium Hydroxide Susp 30 Ml Udc) 30 ml PO Q12H PRN PRN Reason: Constipation Stop: 04/17/22 16:14 Melatonin (Melatonin 3 Mg Tab) 3 mg PO HS PRN PRN Reason: Sleep Stop: 04/17/22 23:44 Last Admin: 03/23/22 19:50 Dose: 3 mg Metoprolol Succinate (Metoprolol Succ 50mg Ext Rel Tab) [facility] Stop: 04/18/22 08:59 Last Admin: 03/24/22 09:10 Dose: 100 mg Metoprolol Succinate (Metoprolol Succ 50mg Ext Rel Tab) 50 mg PO QAM [facility] Stop: 04/18/22 08:59 Last Admin: 03/19/22 10:24 Dose: 50 mg Miscellaneous Information (Vancomycin Consult Active) 1 each N/A UD PRN PRN Reason: Consult Stop: 04/17/22 16:14 Montelukast Sodium (Montelukast Sodium 10 Mg Tablet) 10 mg PO QPM [facility] Stop: 04/17/22 20:59 Last Admin: 03/23/22 19:51 Dose: 10 mg Multivitamins/Minerals (Cerovite Adv Formula Tab) 1 tab PO [facility] Stop: 04/18/22 08:59 Last Admin: 03/24/22 09:10 Dose: 1 tab Ondansetron HCl (Ondansetron Inj 2 Mg/Ml 2 Ml Vial) 4 mg IV Q6H PRN PRN Reason: Nausea Stop: 04/17/22 16:14 Pantoprazole Sodium (Pantoprazole 40 Mg Tab) 40 mg PO [facility] Stop: 04/18/22 08:59 Last Admin: 03/24/22 09:10 Dose: 40 mg Polyethylene Glycol (Polyethylene (Miralax) 17 Gm Pack) 17 gm PO DAILY PRN PRN Reason: Constipation Stop: 04/17/22 16:14 Senna/Docusate Sodium (Docusate Sodium/Senna 50/8.6mg Tab) 1 tab PO [facility] Stop: 04/18/22 08:59 Last Admin: 03/24/22 09:09 Dose: 1 tab Vitamin D (Cholecalciferol 1,000 Units 25 Mcg Tab) 2,000 units PO [facility] Stop: 04/18/22 08:59 Last Admin: 03/24/22 09:10 Dose: 2,000 units
--- NOTE | 2022-03-24 14:46 | Discharge Summary ---
Discharge Summary Date of Service March 24, 2022 Admission HPI Per Admitting Provider Ms. Blanchard is an 86 year old female who presented to the [facility] from [facility] with multiple worsening sores and pressure ulcers of her sacrum and lower extremities related to her peripheral artery disease. She had a recent admission from December 29-January 02 for similar reasons. She has been following with the wound clinic intermittently. She reports that the erythema around her leg wounds has worsened. She has been following up with the wound clinic. She was evaluated by vascular surgery on December 29 Pt does have a chronic cough; CXR negative. She was recently discharged from [facility] back to independent living after her last admission. At baseline, she is able to ambulate only 25-40 feet and her level of participation and endurance varies. She is not able to ambulate independently with a walker and utilizes a wheelchair for most of her independent mobility and ADLs needs. She has a complex PMH that includes; CAD, AF ( On Eloquis), diastolic CHF (follows with CHF clinic), OA (On chronic pain meds), pHTN, Aortic Regurgitation, hypothyroidism, depression and anxiety, HLD, and hypothyroidism. A recent CTA adequate blood flow to right foot is noted. Vascular surgery consult in December and OPT follow up. Was deemed not to be a surgical candidate outside of amputation. Was recommended to treat and allow demarcation. Last CTA of the right leg as outlined below: There is complete thrombosis of the anterior tibial artery, the dorsalis pedis artery is also likely occluded, The proximal peroneal artery is occluded with distal reconstitution. This represents a change from 12/29/2021, Posterior tibial artery is diminutive but patent with thready flow. She was evaluated by vascular surgery during her last admission and was to have a follow up this coming Monday. Vascular surgery consult placed. Patient denies FONSECA, dizziness, SOB, CP, palpitations, N/V/D, recent trauma or falls. Patient will be admitted under the Hospitalist service for further evaluation and management. Please see A/P for further details. Principal Dx & Hospital Course #1 = Principal Diagnosis (1) Peripheral arterial occlusive disease: (2) Cellulitis of left lower extremity: (3) Stage III pressure ulcer of left buttock: (4) GERD (gastroesophageal reflux disease): (5) Dyslipidemia: (6) Pulmonary hypertension: (7) Coronary artery disease: (8) Chronic diastolic CHF (congestive heart failure): (9) Aortic regurgitation: (10) Atrial fibrillation, permanent: (11) Anxiety and depression: Updated Medication List Medication Instructions Recorded Confirmed Type vit C 250 mg-vit E 90 mg-zinc 40 2 tab PO QAM 05/01/20 03/18/22 History mg-copper 1 [id number] capsule (PreserVision AREDS-2) budesonide-formoterol HFA 160 2 puff inhalation BID PRN 09/15/20 03/18/22 History mcg-4.5 mcg/actuation aerosol Shortness Of Breath Or Wheezing inhaler (Symbicort) apixaban 5 mg tablet (Eliquis) 5 mg PO BID #180 tabs 01/28/21 03/18/22 Rx pantoprazole 40 mg tablet,delayed 40 mg PO QAM GERD 05/14/21 03/18/22 History release (Protonix) montelukast 10 mg tablet 10 mg PO QPM 08/20/21 03/18/22 History metoprolol succinate 50 mg 50 mg PO QAM 10/15/21 03/18/22 History tablet,extended release 24 hr levothyroxine 112 mcg tablet 112 mcg PO QPM #30 tabs 11/04/21 03/18/22 Rx ezetimibe 10 mg tablet (Zetia) 10 mg PO QAM #90 tabs 11/24/21 03/18/22 Rx metoprolol succinate 100 mg 100 mg PO QAM #45 tabs 12/23/21 03/18/22 Rx tablet,extended release 24 hr acetaminophen 325 mg tablet 650 mg PO Q4H PRN PAIN/FEVER 12/29/21 03/18/22 History (Tylenol) amino ac-protein hydro-whey 1 ea PO BID 12/29/21 03/18/22 History protein 10 gram-100 kcal/30 mL oral liquid (ProSource) bumetanide 1 mg tablet 2 mg PO QAM 12/29/21 03/18/22 History ascorbic acid (vitamin C) 500 mg 500 mg PO QAM #20 tabs 01/02/22 03/18/22 Rx tablet (Vitamin C) buspirone 7.5 mg tablet 7.5 mg PO TID 01/24/22 03/18/22 History linezolid 600 mg tablet 600 mg PO BID #14 tabs 03/24/22 Rx Hospital Stay Data Consultations 03/18/22 12:43 ED Decision to Admit Stat 03/18/22 13:49 Consult Cardiology Routine Consult Vascular Surgery Routine 03/18/22 16:15 Consult Cardiology Routine Consult Infectious Diseases Routine 03/24/22 09:03 Consult Nephrology Routine Pending Results Patient Have Any Pending Studies at Discharge: No Discharge Instructions Given to Patient (Per Discharging Provider) Please stop Buspar while taking linezolid antibiotic. Please work with your physician regarding when to safely restart your Buspar. Your kidney function is lower than your baseline. For now, please continue to hold off on taking Bumex (water pill) until you are able to follow-up with your primary care provider and have repeat bloodwork to recheck this. While hospitalized you were seen by Vascular Surgery (Dr. Linn) who did not feel it was necessary to perform any revascularization procedures at this time, however, would like to see you as a follow-up in the office if your wounds are reluctant to heal. It is recommended to see your primary care provider within 1 week of hospital discharge to ensure you are still doing well since returning home. It was a pleasure taking care of you! Please call if you have any questions or problems. You can reach a [facility] hospitalist on duty at [facility] 24 hours a day by calling [phone]. Take care of yourself. Rima Samuel, DO [facility]
--- NOTE | 2022-03-24 21:22 | Consultation Report ---
NEPHROLOGY CONSULTATION DATE OF SERVICE: 03/24/2022 REASON FOR CONSULTATION: Acute renal failure. HISTORY OF PRESENT ILLNESS: The patient is an 86-year-old female who was admitted 1 week ago when leslye cunningham presented to the hospital from [facility] with multiple worsening sores and pressure ulcers of h er sacrum and lower extremities related to her peripheral arterial disease. She was also admitted re cently in December for similar reasons. Her renal function was normal with a creatinine of 0.8 at the ti me of admission, but since then it has steadily gone up to 1.3, then 1.5 and yesterday was 1.66, but this morning is slightly better at 1.52. She has received lots of different types of antibiotics inc luding vancomycin. Since admission, she has also had issues with infection and has received vancomyci n, which has now been switched to linezolid. Cardiology has also seen the patient for diastolic hear t failure/atrial fibrillation and she has received some IV Bumex. She does take Eliquis as well as B umex at home. Currently, Bumex is on hold and she is getting some IV fluid. She is making urine with out Jensen catheter and her urine output yesterday was 1050 mL. She did have an echocardiogram, which did show evidence of congestive heart failure. The patient is very, very eager to go home today. ALLERGIES: ALLERGY LIST REVIEWED AND IS PER THE H AND P AND THE RECONCILIATION LIST. MEDICATIONS: Home medication list was reviewed in detail and is as per the reconciliation list. The patient does take Bumex 2 mg daily in the morning. REVIEW OF SYSTEMS: The patient has some pain in the areas of ulcers and wound. Denies nausea, vomit ing, chest pain, shortness of breath, or orthopnea. She does have chronic lower extremity edema. Ot herwise, 12 systems reviewed and negative. SOCIAL HISTORY: She is currently a resident of [facility]. No smoking. No alcohol. FAMILY HISTORY: Negative for renal disease or dialysis. PHYSICAL EXAMINATION: GENERAL: Elderly white female who is somewhat irritated and wants to go home today. She is awake, a lert, oriented x3. VITAL SIGNS: Blood pressure is 102/60, pulse rate 85, temperature 36.9, and 92% on room air. HEENT: Mucous membranes are moist. NECK: Supple. No jugular venous distention. CHEST: Bilateral decreased breath sounds, limited examination. CARDIOVASCULAR: S1 and S2 . Soft systolic murmur heard. ABDOMEN: Soft, nontender, obese. EXTREMITIES: Show 1+ edema with chronic skin changes as well as multiple wounds, which have been ban daged in both legs. LABORATORY TEST: Reviewed. At baseline 0.8 on admission. Since then, it has gone up to a peak of 1. 66 yesterday and today is little less at 1.52. Sodium is 139, potassium 4.2, chloride 112, bicarbonat e 22, BUN 37, creatinine 1.52, calcium 8.9. Chest x-ray done at the time of admission shows unremark able finding. ASSESSMENT AND PLAN: An 86-year-old female with extensive medical problem list including peripheral arterial disease, hypertension, atrial fibrillation, congestive heart failure, admitted with multiple skin lesions for which she has received antibiotics. I have been consulted for acute renal failure, which developed while in the hospital. Acute renal failure: Creatinine was 0.8 on admission, since then has gone to a peak of 1.66 in the s etting of infection, antibiotics, diastolic congestive heart failure. Given her advanced age and per ipheral arterial disease, she is always at risk of renal decline during acute setting. She is making good amount of urine. At this point, she is stable enough for discharge. Her creatinine may or may not come back to her previous level and even if it does, it will take a significant amount of time. She still has evidence of pulmonary congestion and I would restart the Bumex at her previous dose fro m tomorrow. I have communicated about the discharge planning with the hospitalist. Job ID: [id number]
== END 2022-03-24 15:46 | disposition home or self-care (01) | DRG 299 ==
LOC: ED 09:54 → 2N 12:50 → SUATTDRO 12:50 → 2N 14:47
DX: I70.238 Atherosclerosis of native arteries of right leg with ulceration of other part of lower leg; L89.323 Pressure ulcer of left buttock, stage 3; I74.3 Embolism and thrombosis of arteries of the lower extremities; L97.918 Non-pressure chronic ulcer of unspecified part of right lower leg with other specified severity; I11.0 Hypertensive heart disease with heart failure; K21.9 Gastro-esophageal reflux disease without esophagitis; I50.32 Chronic diastolic (congestive) heart failure; I48.21 Permanent atrial fibrillation; E03.9 Hypothyroidism, unspecified; Z96.643 Presence of artificial hip joint, bilateral; I35.1 Nonrheumatic aortic (valve) insufficiency; I27.20 Pulmonary hypertension, unspecified; Z87.891 Personal history of nicotine dependence; Z66 Do not resuscitate; L03.115 Cellulitis of right lower limb; N17.9 Acute kidney failure, unspecified; S81.801A Unspecified open wound, right lower leg, initial encounter; I70.248 Atherosclerosis of native arteries of left leg with ulceration of other part of lower leg; L89.159 Pressure ulcer of sacral region, unspecified stage; F41.8 Other specified anxiety disorders

== ENCOUNTER 2022-03-28 07:44 | Inpatient (IN) ==
[2022-03-28] MEDS ORDERED: VANCOMYCIN HCL 2,000 MG in SODIUM CHLORIDE 0.9% 500 ML IV ONE (08:28)
[2022-03-28] MEDS ORDERED: VANCOMYCIN CONSULT ACTIVE PRN (08:28)
[2022-03-28] MEDS ORDERED: oxyCODONE/ACETAMINOPHEN 5mg/325mg TAB PO STA (08:30)
[2022-03-28] MEDS ORDERED: SODIUM CHLORIDE 0.9% 1000ML 500 ML IV SCH (08:30)
--- NOTE | 2022-03-28 08:34 | Emergency Department Note ---
History of Present Illness General Chief complaint: Wound Time Seen by Provider: 03/28/22 08:13 History of Present Illness Maximum Pain Intensity: 6 86-year-old female presents to the ED with a chief complaint of pain in her left leg. The patient was admitted to the hospital for cellulitis recently and discharged on the , 5 days ago. She was discharged with a 7-day course of linezolid. The patient is currently taking this. She has developed increasing redness and discomfort in the left leg. The patient also reports feeling a little lightheaded and having some nausea and vomiting earlier. She also reports some pain in her tailbone which is mostly chronic from a sacral dec ubitus ulcer. She does have some chronic ulcerations in her legs. She states that the sore behind her left knee is specifically uncomfortable. Home Medications Medication Instructions Recorded Confirmed Type vit C 250 mg-vit E 90 mg-zinc 40 2 tab PO QAM 05/01/20 03/18/22 History mg-copper 1 [id number] capsule (PreserVision AREDS-2) budesonide-formoterol HFA 160 2 puff inhalation BID PRN 09/15/20 03/18/22 History mcg-4.5 mcg/actuation aerosol Shortness Of Breath Or Wheezing inhaler (Symbicort) apixaban 5 mg tablet (Eliquis) 5 mg PO BID #180 tabs 01/28/21 03/18/22 Rx pantoprazole 40 mg tablet,delayed 40 mg PO QAM GERD 05/14/21 03/18/22 History release (Protonix) montelukast 10 mg tablet 10 mg PO QPM 08/20/21 03/18/22 History levothyroxine 112 mcg tablet 112 mcg PO QPM #30 tabs 11/04/21 03/18/22 Rx ezetimibe 10 mg tablet (Zetia) 10 mg PO QAM #90 tabs 11/24/21 03/18/22 Rx acetaminophen 325 mg tablet 650 mg PO Q4H PRN PAIN/FEVER 12/29/21 03/18/22 History (Tylenol) amino ac-protein hydro-whey 1 ea PO BID 12/29/21 03/18/22 History protein 10 gram-100 kcal/30 mL oral liquid (ProSource) ascorbic acid (vitamin C) 500 mg 500 mg PO QAM #20 tabs 01/02/22 03/18/22 Rx tablet (Vitamin C) linezolid 600 mg tablet 600 mg PO BID #14 tabs 03/24/22 Rx metoprolol succinate 100 mg 100 mg PO QAM #45 tabs 03/24/22 03/18/22 Rx tablet,extended release 24 hr Allergies Allergy/AdvReac Type Severity Reaction Status Date / Time latex Allergy Intermediate Rash, Verified 03/03/22 13:13 itching povidone-iodine Allergy Intermediate Itching Verified 03/03/22 13:13 [From Betadine] soap [From Betadine] Allergy Intermediate Itching Verified 03/03/22 13:13 aspirin AdvReac Mild Dizziness Verified 03/03/22 13:13 Past Med/Surg History Medical History Acute diverticulitis Anxiety and depression Aortic regurgitation Asthma inhaler prn Atrial fibrillation with rapid ventricular response Atrial fibrillation, permanent on eliquis and follows with Dr. Colón Chronic diastolic CHF (congestive heart failure) Coronary artery disease Diverticulitis Dyslipidemia Esophageal stricture H/O fall 08/2020 Hearing deficit History of COVID-19 diagnosed 05/18/22 @ [place]--asymptomatic, tested prior to procedure--no issues now Hypotension Hypothyroid Leukocytosis Macular degeneration On anticoagulant therapy eliquis daily Osteoarthritis Pulmonary hypertension Spinal stenosis Surgical History History of bilateral cataract extraction History of cardiac cath ?2015 @ [facility]--no stents History of colonoscopy with polypectomy History of dilatation and curettage History of esophagogastroduodenoscopy (EGD) History of left hip replacement History of left shoulder replacement History of parathyroidectomy ELEVATED CALCIUM LEVELS? (2 REMOVED) History of right hip replacement History of right shoulder replacement History of tonsillectomy and adenoidectomy History of tooth extraction History of total left knee replacement (TKR) x2 History of total right knee replacement (TKR) x2 History of wisdom tooth extraction S/P cholecystectomy S/P dilatation of esophageal stricture Family History Mother Cancer uterine Thyroid disease Father Cancer esophageal Family history of esophageal cancer Sister Family history of diabetes mellitus Sister Family history of diabetes mellitus Brother Family history of diabetes mellitus Family hx of colon cancer Other No family history of adverse response to anesthesia Social History Smoking Status: Former smoker Tobacco Type: Cigarettes Cigarettes Per Day: 1 ppd; Second Hand Exposure: No; Hx Alcohol Use: No Hx Substance Use: No Preferred Language: Persian Communication Ability: Effective Visual Impairment: Limited Hearing Ability: Normal 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: No Beliefs That Will Affect Care: None Current Living Situation: Personal Care Facility Current Living Situation Comment: [facility] How many Children do You have: 4 Feels Safe at Home: Yes caffeine: No during the past year weight has: remained stable Assistive Devices: Glasses, Walker and Wheelchair Review of Systems A total of 10 systems reviewed and were otherwise negative Physical Exam Vital Signs Vital Signs - 24 hr 03/28/22 07:45 03/28/22 08:28 03/28/22 09:38 Temperature 36.7 C Temperature Source Oral Pulse Rate 108 H 110 H Pulse Rhythm Regular Pulse Strength Normal Respiratory Rate 20 18 Respiratory Effort / Characteristics Non-Labored Respiratory Depth Normal Respiratory Pattern Regular Blood Pressure 81/54 L Blood Pressure Mean 63 Blood Pressure Position Semi-fowlers Pulse Oximetry 96 94 Oxygen Delivery Method Room Air Room Air Sepsis Recent Fever Within 48 Hours No Sepsis New/Unexplained Change in Mental Status N/A Sepsis Action Taken by Nursing No Action Required 03/28/22 10:00 03/28/22 10:00 03/28/22 10:01 Temperature Temperature Source Pulse Rate 120 H 97 H Pulse Rhythm Pulse Strength Respiratory Rate 17 18 Respiratory Effort / Characteristics Respiratory Depth Respiratory Pattern Blood Pressure 77/35 L Blood Pressure Mean 49 Blood Pressure Position Pulse Oximetry Oxygen Delivery Method Sepsis Recent Fever Within 48 Hours Sepsis New/Unexplained Change in Mental Status Sepsis Action Taken by Nursing 03/28/22 10:01 03/28/22 10:30 03/28/22 10:30 Temperature Temperature Source Pulse Rate 107 H Pulse Rhythm Pulse Strength Respiratory Rate 19 Respiratory Effort / Characteristics Respiratory Depth Respiratory Pattern Blood Pressure 75/53 L 95/54 L Blood Pressure Mean 60 67 Blood Pressure Position Pulse Oximetry Oxygen Delivery Method Sepsis Recent Fever Within 48 Hours Sepsis New/Unexplained Change in Mental Status Sepsis Action Taken by Nursing CONSTITUTIONAL/VITAL SIGNS: Reviewed / noted above. GENERAL: Non-toxic in appearance. INTEGUMENTARY: Warm, dry, and [place]. Sacral decubitus ulcer noted. HEAD: Normocephalic. EYES: without scleral icterus or trauma. ENT/OROPHARYNX: clear and moist. LYMPHADENOPATHY/NECK: Is supple without lymphadenopathy or meningismus. RESPIRATORY: Clear to auscultation bilaterally. No increased work of breathing. CARDIOVASCULAR: Regular rate and rhythm. GI/ABDOMEN: Soft and nontender. No organomegaly or pulsatile mass. EXTREMITIES: Warm and well perfused. The left leg is erythematous and warm compared to the right. There are some ulcerations on the leg. BACK: No CVA tenderness. NEUROLOGICAL: Intact without focal deficits. PSYCHIATRIC: normal affect. MUSCULOSKELETAL: Normally developed with good muscle tone. TRIAGE NURSING DOCUMENTATION REVIEWED. Course Administered Medications Discontinued Medications Vancomycin HCl 2,000 mg/ (Sodium Chloride) 540 mls @ 200 mls/hr IV NOW ONE Stop: 03/28/22 11:09 Last Admin: 03/28/22 09:40 Dose: 200 mls/hr Documented By: WALE Sodium Chloride (Nss 1000ml) 500 mls @ 999 mls/hr IV .Q31M STIVEN Stop: 03/28/22 09:00 Last Infusion: 03/28/22 10:25 Dose: 0 mls/hr Documented By: Admin: 03/28/22 09:40 Dose: 999 mls/hr Documented By: WALE Oxycodone/Acetaminophen (Oxycodone/Acetaminophen 5mg/325mg Tab) 1 tab PO NOW STA Stop: 03/28/22 08:31 Last Admin: 03/28/22 09:45 Dose: 1 tab Documented By: WALE Medical Decision Making Differential Diagnosis Differential includes acute coronary syndrome, myocardial infarction, CVA, TIA, anemia, infection, pneumonia, UTI, pyelonephritis, poor nutrition, dehydration, electrolyte disturbance,hypoglycemia. Medical Records Attestation: I reviewed the patient's medical records. Home Medications Current Medication List: was personally reviewed by me Laboratory Data Attestation: I reviewed the patient's lab results. Result diagrams: 03/28/22 08:56 03/28/22 08:56 Lab Results 03/28/22 03/28/22 03/28/22 Range/Units 08:56 08:56 08:56 WBC 18.84 H (4.8-10.8) K/ul RBC 3.54 L (3.93-5.22) M/uL Hgb 11.4 L (12.0-16.0) g/dl Hct 36.2 (34.1-44.9) % MCV 102.3 H (80.0-100.0) fL MCH 32.2 (25.0-34.0) pg MCHC 31.5 L (32.0-36.0) g/dL RDW Std Deviation 53.9 H (36.4-46.3) fL RDW Coeff of Marielle 14.5 (11.5-14.5) % Plt Count 379 (130-400) K/uL MPV 9.3 L (9.4-12.3) fL Immature Gran % (Auto) 0.8 % Neut % (Auto) 93.9 % Lymph % (Auto) 3.2 % Coal % (Auto) 1.4 % Eos % (Auto) 0.4 % Baso % (Auto) 0.3 % Neut # (Auto) 17.69 H (1.4-6.5) K/uL Lymph # (Auto) 0.60 L (1.2-3.4) K/uL Coal # (Auto) 0.26 (0.24-0.82) K/uL Eos # (Auto) 0.08 (0-0.50) K/uL Baso # (Auto) 0.05 (0-0.2) K/uL Immature Gran # (Auto) 0.16 H (0.00-0.02) K/uL Anisocytosis Present Sodium 137 (136-145) mmol/L Potassium 4.1 (3.5-5.1) mmol/L Chloride 107 (98-107) mmol/L Carbon Dioxide 22 (21-32) mmol/L Anion Gap 8 (3-11) BUN 30 H (6-23) mg/dl Creatinine 1.52 H (0.6-1.2) mg/dl Est Cr Clr Drug Dosing 29.4 ml/min Est GFR ( Amer) 35.9 ml/min Est GFR (Non-Af Amer) 30.9 ml/min BUN/Creatinine Ratio 19.7 (10-20) Glucose 135 H (70-99(Fasting)) mg/dl Lactate 2.5 H* (0.4-2.0) mmol/L Calcium 9.6 (8.5-10.1) mg/dl Magnesium 1.7 (1.7-2.4) mg/dl Total Bilirubin 0.6 (0.2-1.0) mg/dl Direct Bilirubin 0.2 (0-0.2) mg/dl AST 10 L (13-39) U/L ALT 12 (7-52) U/L Alkaline Phosphatase 89 (34-104) U/L Troponin I High Sens 9.5 (0-14) pg/ml Total Protein 5.7 L (6.0-8.3) gm/dl Albumin 2.8 L (3.4-5.0) gm/dl Procalcitonin (0-0.5) ng/ml SARS-CoV-2, RNA, NAAT (NEGATIVE) 03/28/22 03/28/22 Range/Units 08:56 09:20 WBC (4.8-10.8) K/ul RBC (3.93-5.22) M/uL Hgb (12.0-16.0) g/dl Hct (34.1-44.9) % MCV (80.0-100.0) fL MCH (25.0-34.0) pg MCHC (32.0-36.0) g/dL RDW Std Deviation (36.4-46.3) fL RDW Coeff of Marielle (11.5-14.5) % Plt Count (130-400) K/uL MPV (9.4-12.3) fL Immature Gran % (Auto) % Neut % (Auto) % Lymph % (Auto) % Coal % (Auto) % Eos % (Auto) % Baso % (Auto) % Neut # (Auto) (1.4-6.5) K/uL Lymph # (Auto) (1.2-3.4) K/uL Coal # (Auto) (0.24-0.82) K/uL Eos # (Auto) (0-0.50) K/uL Baso # (Auto) (0-0.2) K/uL Immature Gran # (Auto) (0.00-0.02) K/uL Anisocytosis Sodium (136-145) mmol/L Potassium (3.5-5.1) mmol/L Chloride (98-107) mmol/L Carbon Dioxide (21-32) mmol/L Anion Gap (3-11) BUN (6-23) mg/dl Creatinine (0.6-1.2) mg/dl Est Cr Clr Drug Dosing ml/min Est GFR ( Amer) ml/min Est GFR (Non-Af Amer) ml/min BUN/Creatinine Ratio (10-20) Glucose (70-99(Fasting)) mg/dl Lactate (0.4-2.0) mmol/L Calcium (8.5-10.1) mg/dl Magnesium (1.7-2.4) mg/dl Total Bilirubin (0.2-1.0) mg/dl Direct Bilirubin (0-0.2) mg/dl AST (13-39) U/L ALT (7-52) U/L Alkaline Phosphatase (34-104) U/L Troponin I High Sens (0-14) pg/ml Total Protein (6.0-8.3) gm/dl Albumin (3.4-5.0) gm/dl Procalcitonin 0.16 (0-0.5) ng/ml SARS-CoV-2, RNA, NAAT NEGATIVE (NEGATIVE) Imaging Data Radiologist's Impression: Chest X-Ray 03/28/22 08:28 XR chest 1V portable HISTORY: Sepsis COMPARISON: Chest 03/18/2022. FINDINGS: No pneumothorax. There are bilateral total shoulder arthroplasties again noted. No new focal lung consolidations to suggest a pneumonia. No evidence for pulmonary edema. The cardiac silhouette remains borderline enlarged. There are calcifications within the aortic knob. Stable blunting of the costophrenic sulci. No large pleural effusions identified. IMPRESSION: No significant change compared to the prior study. No acute process. ACT 112: Negative or not required by law. Electronically signed by: Esdras Salazar M.D. 03/28/2022 9:51 AM ECG Data Attestation: I personally reviewed and interpreted this ECG as follows: Additional Comments: Twelve-lead EKG: Per my interpretation shows chronic A. fib at a rate of 110. No ST elevation. No PVCs. Normal QTC. MDM Narrative 86-year-old female presents with what appears to be an acute left leg cellulitis with erythema and increased warmth as well as increased discomfort. Her initial blood pressure was slightly low with a blood pressure of 81/54. Heart rate was 108. She is afebrile. The patient was given IV fluids and started on IV vancomycin. COVID test was negative. Chest x-ray was negative for acute disease. White blood cell count was 18.8. Lactic acid is 2.5. BUN is 30 and creatinine is 1.5. Procalcitonin is negative. The patient was given IV fluids and IV vancomycin. Blood pressure did improve from 81/54-90 5/54. She was given a Percocet for discomfort. An additional liter of normal saline was ordered. She will be seen by the hospitalist for further evaluation and care. Impression & Plan Cellulitis of left leg Discharge Plan Visit Data Chief Complaint: Wound ED Provider: Darryn Caro Discharge Problem: Cellulitis of left leg Patient Disposition: Being Evaluated by Hospitalist Forms Stand Alone Forms: [facility] Prescriptions Prescriptions: No Action Eliquis 5 mg tablet 5 mg PO BID Qty: 180 3RF levothyroxine 112 mcg tablet 112 mcg PO QPM Qty: 30 0RF ezetimibe [Zetia] 10 mg tablet 10 mg PO QAM Qty: 90 3RF PreserVision AREDS-2 [id number] Capsule 2 tab PO QAM pantoprazole [Protonix] 40 mg tablet,delayed release (DR/EC) 40 mg PO QAM budesonide-formoterol [Symbicort] 160-4.5 mcg/actuation HFA aerosol inhaler 2 puff INHALATION BID PRN (Reason: Shortness Of Breath Or Wheezing) montelukast 10 mg tablet 10 mg PO QPM acetaminophen [Tylenol] 325 mg Tablet 650 mg PO Q4H PRN (Reason: PAIN/FEVER) ProSource 10-100 gram-kcal/30 mL Liquid 1 ea PO BID Rx Instructions: TAKES 30 ML BIDM ascorbic acid (vitamin C) [Vitamin C] 500 mg Tablet 500 mg PO QAM Qty: 20 0RF linezolid 600 mg tablet 600 mg PO BID Qty: 14 0RF metoprolol succinate 100 mg tablet extended release 24 hr 100 mg PO QAM Qty: 45 3RF Referrals Referrals: Willi Sanders DO [Physician] -
[2022-03-28 09:09] LABS: Hematocrit (blood only) 36.2 % (34.1-44.9); Hemoglobin 11.4 g/dl (12.0-16.0); Mean Corpuscular Hemoglobin 32.2 pg (25.0-34.0); Mean Corpuscular Hgb Conc 31.5 g/dL (32.0-36.0); Mean Corpuscular Volume 102.3 fL (80.0-100.0); Mean Platelet Volume 9.3 fL (9.4-12.3); Platelet Count 379 K/uL (130-400); RDW Coefficient of Variation 14.5 % (11.5-14.5); RDW Standard Deviation 53.9 fL (36.4-46.3); Red Blood Count 3.54 M/uL (3.93-5.22); White Blood Count 18.84 K/ul (4.8-10.8)
[2022-03-28 09:30] LABS: Albumin Level 2.8 gm/dl (3.4-5.0); Anisocytosis Present; BUN Creatinine Ratio 19.7 (10-20); Basophils # (auto) 0.05 K/uL (0-0.2); Basophils % (auto) 0.3 %; Bilirubin Direct 0.2 mg/dl (0-0.2); Bilirubin,Total 0.6 mg/dl (0.2-1.0); Calcium 9.6 mg/dl (8.5-10.1); Creatinine Clr Calc Pharmacy 29.4 ml/min; Eosinophils # (auto) 0.08 K/uL (0-0.50); Eosinophils % (auto) 0.4 %; Est GFR (African American) 35.9 ml/min; Est GFR (Non-African American) 30.9 ml/min; Immature Granulocytes # (auto) 0.16 K/uL (0.00-0.02); Immature Granulocytes % (auto) 0.8 %; Lymphocytes % (auto) 3.2 %; Magnesium 1.7 mg/dl (1.7-2.4); Monocytes # (auto) 0.26 K/uL (0.24-0.82); Monocytes % (auto) 1.4 %; Neutrophils # (auto) 17.69 K/uL (1.4-6.5); Neutrophils % (auto) 93.9 %; Potassium 4.1 mmol/L (3.5-5.1); Total Protein 5.7 gm/dl (6.0-8.3)
[2022-03-28 09:34] LABS: Troponin I High Sensitivity 9.5 pg/ml (0-14)
--- NOTE | 2022-03-28 09:37 | Electrocardiogram Report ---
Test Reason : Blood Pressure : / mmHG Vent. Rate : 110 BPM Atrial Rate : 064 BPM P-R Int : 000 ms QRS Dur : 076 ms QT Int : 290 ms P-R-T Axes : 000 -04 024 degrees QTc Int : 392 ms Atrial fibrillation with rapid ventricular response Low voltage QRS Abnormal ECG When compared with ECG of 18-MAR-2022 11:29, No significant change was found Confirmed by Mamadou Ragland ([id number]) on 03/28/2022 9:37:06 AM Referred By: REFERRED SELF Confirmed By:Mamadou Ragland
--- NOTE | 2022-03-28 09:52 | XRay Report ---
XR chest 1V portable HISTORY: Sepsis COMPARISON: Chest 03/18/2022. FINDINGS: No pneumothorax. There are bilateral total shoulder arthroplasties again noted. No new foca l lung consolidations to suggest a pneumonia. No evidence for pulmonary edema. The cardiac silhouette remains borderline enlarged. There are calcifications within the aortic knob. Stable blunting of the costophrenic sulci. No large pleural effusions identified. IMPRESSION: No significant change compared to the prior study. No acute process. ACT 112: Negative or not required by law. Electronically signed by: Esdras Salazar M.D. 03/28/2022 9:51 AM
[2022-03-28] MEDS ORDERED: SODIUM CHLORIDE 0.9% 1000ML 1,000 ML IV ONE (11:13)
--- NOTE | 2022-03-28 11:57 | History & Physical Report ---
Date of Service March 28, 2022 Assessment & Plan (1) Cellulitis of left leg: Plan: Worsening symptoms since discharge on 03/24 despite continued linezolid (2) Severe sepsis: Plan: Pt meets criteria for severe sepsis with tachycardia, hypotension, leukocytosis, and elevated lactate with known LE cellulitis (3) Peripheral arterial disease: (4) Wound of lower extremity: (5) Atrial fibrillation, permanent: (6) Lower extremity edema: (7) GERD (gastroesophageal reflux disease): (8) Dyslipidemia: (9) Hypothyroid: (10) Pulmonary hypertension: (11) Chronic diastolic CHF (congestive heart failure): (12) Coronary artery disease: (13) Asthma: Plan Pt recently admitted to this facility with ongoing issues with LE wounds and associated cellulitis. Initially treated with IV Vanco before transitioned to linezolid and discharged back to the [facility] at [facility]. Initially, felt okay but worsening symptoms again over the last two days, feeling especially poor this morning, so sent back to the ED for evaluation. Referred for admission due to worsening infection on oral antibiotics. - Admit to [facility] telemetry - Restarted IV Vancomycin with pharmacy consult to help with dosing - Consult ID for additional antibiotic recommendations - Daily labs - Consult wound care nurse - Hold on vascular consult for now since they saw patient last week - may need to reevaluate pending clinical course - Continue other home medications as appropriate Pt seen and examined with collaborating physician, Dr. Laguna. Plan of care discussed and as outlined above. Code Status: DNR/DNI DVT Prophylaxis: on chronic Michellequis Theo Jaeger PA-C History of Present Illness Chief Complaint: worsening left leg infection Primary Care Provider: [facility] This is an 86 y/o female with a PMH of PAD (follows with vascular) w/ chronic wounds, CAD, atrial fibrillation on chronic AC with Eliquis, diastolic CHF (follows w/ CHF clinic), pHTN, aortic regurgitation, hypothyroidism, depression, anxiety, and dyslipidemia who presents to the ED today from [facility] with worsening redness, warmth and pain in her LLE. Pt was recently admitted to [facility] from 03/18/22-03/24/22 with LLE cellulitis and stage III pressure ulcer of left buttock. She was initially treated with vancomycin but was transitioned to linezolid orally for 14 days per ID's recommendation. She was also noted to have an MORENA during the last admission and was seen by nephrology. It is unclear if creatinine will return to baseline or if this is pt's new baseline. Pt reports that initially she felt like she did okay after discharge. However, over the last 1-2 days she has noted increased pain in the LLE, worse than usual pain. Associated back and buttock pain. She specifically notes pain in left knee but reports that it does not seem to be pain within the joint itself but rather related to wounds of the posterior knee. This morning, she felt particularly worse with noted nausea, dry heaves, and small amount of emesis after breakfast. Overall, she reports that she just felt poorly this morning. Pt reports taking medication as prescribed at discharge but pt is unsure if that includes her antibiotics. Reports that the large blister she had on her left leg previously finally broke and now has a blood blister in the middle of it. Overall, she thinks her wounds have been stable or potentially worsening but is unsure. States that staff at [facility] have been doing regular dressing changes and wound care. Reports minimally ambulatory at baseline - typically uses wheelchair but can ambulate a few steps in her room. Saw vascular surgery previously, most recently last week during admission. Recommended wound care with outpatient follow-up but no acute intervention required. Allergies Allergy/AdvReac Type Severity Reaction Status Date / Time latex Allergy Intermediate Rash, Verified 03/03/22 13:13 itching povidone-iodine Allergy Intermediate Itching Verified 03/03/22 13:13 [From Betadine] soap [From Betadine] Allergy Intermediate Itching Verified 03/03/22 13:13 aspirin AdvReac Mild Dizziness Verified 03/03/22 13:13 Home Medications Medication Instructions Recorded Confirmed Type vit C 250 mg-vit E 90 mg-zinc 40 2 tab PO QAM 05/01/20 03/28/22 History mg-copper 1 [id number] capsule (PreserVision AREDS-2) budesonide-formoterol HFA 160 2 puff inhalation BID PRN 09/15/20 03/28/22 History mcg-4.5 mcg/actuation aerosol Shortness Of Breath Or Wheezing inhaler (Symbicort) apixaban 5 mg tablet (Eliquis) 5 mg PO BID #180 tabs 01/28/21 03/28/22 Rx pantoprazole 40 mg tablet,delayed 40 mg PO QAM GERD 05/14/21 03/28/22 History release (Protonix) montelukast 10 mg tablet 10 mg PO QPM 08/20/21 03/28/22 History ezetimibe 10 mg tablet (Zetia) 10 mg PO QAM #90 tabs 11/24/21 03/28/22 Rx ascorbic acid (vitamin C) 500 mg 500 mg PO QAM #20 tabs 01/02/22 03/28/22 Rx tablet (Vitamin C) linezolid 600 mg tablet 600 mg PO BID #14 tabs 03/24/22 03/28/22 Rx acetaminophen 500 mg tablet 500 mg PO Q6H PRN Pain 03/28/22 03/28/22 History bumetanide 1 mg tablet 1 mg PO DAILY 03/28/22 03/28/22 History carboxymethylcellulose sodium 0.5 1 drp ophthalmic (eye) TID 03/28/22 03/28/22 History % eye drops (Refresh Tears) cholecalciferol (vitamin D3) 50 50 mcg PO DAILY 03/28/22 03/28/22 History mcg (2,000 unit) capsule (Vitamin D3) levothyroxine 112 mcg tablet 112 mcg PO QAM 03/28/22 03/28/22 History melatonin 3 mg tablet 3 mg PO HS 03/28/22 03/28/22 History metoprolol succinate 50 mg 50 mg PO BID 03/28/22 03/28/22 History tablet,extended release 24 hr oxycodone 5 mg tablet 2.5 mg PO Q8H PRN Pain 03/28/22 03/28/22 History oxycodone 5 mg tablet (Roxicodone) 2.5 mg PO DAILY 03/28/22 03/28/22 History polyethylene glycol 3350 17 17 g PO DAILY 03/28/22 03/28/22 History gram/dose oral powder (Miralax) sennosides 8.6 mg-docusate sodium 2 tab-cap PO BID 03/28/22 03/28/22 History 50 mg tablet (Senna-S) Past Med/Surg History Medical History Acute diverticulitis Anxiety and depression Aortic regurgitation Asthma inhaler prn Atrial fibrillation with rapid ventricular response Atrial fibrillation, permanent on eliquis and follows with Dr. Colón Chronic diastolic CHF (congestive heart failure) Coronary artery disease Diverticulitis Dyslipidemia Esophageal stricture H/O fall 08/2020 Hearing deficit History of COVID-19 diagnosed 05/18/22 @ [place]--asymptomatic, tested prior to procedure--no issues now Hypotension Hypothyroid Leukocytosis Macular degeneration On anticoagulant therapy eliquis daily Osteoarthritis Pulmonary hypertension Spinal stenosis Surgical History History of bilateral cataract extraction History of cardiac cath ?2015 @ [facility]--no stents History of colonoscopy with polypectomy History of dilatation and curettage History of esophagogastroduodenoscopy (EGD) History of left hip replacement History of left shoulder replacement History of parathyroidectomy ELEVATED CALCIUM LEVELS? (2 REMOVED) History of right hip replacement History of right shoulder replacement History of tonsillectomy and adenoidectomy History of tooth extraction History of total left knee replacement (TKR) x2 History of total right knee replacement (TKR) x2 History of wisdom tooth extraction S/P cholecystectomy S/P dilatation of esophageal stricture Family History Mother Cancer uterine Thyroid disease Father Cancer esophageal Family history of esophageal cancer Sister Family history of diabetes mellitus Sister Family history of diabetes mellitus Brother Family history of diabetes mellitus Family hx of colon cancer Other No family history of adverse response to anesthesia Social History Smoking Status: Former smoker Tobacco Type: Cigarettes Cigarettes Per Day: 1 ppd; Second Hand Exposure: No; Do You Dip or Chew Tobacco: No; Hx Alcohol Use: No Hx Substance Use: No Preferred Language: Italian Communication Ability: Effective Visual Impairment: Limited Hearing Ability: Normal Med Surg Rn Required: No Beliefs That Will Affect Care: None Current Living Situation: Personal Care Facility [facility] How many Children do You have: 4 Feels Safe at Home: Yes Safety Concerns: Feels Safe At This Time caffeine: No during the past year weight has: remained stable Assistive Devices: Denture - Upper, Glasses, Walker and Wheelchair Review of Systems Review of Systems: All systems reviewed & are unremarkable except as noted in HPI & below Constitutional: + fatigue and + malaise Ear, Nose, Mouth, Throat: no sore throat Respiratory: no cough and no dyspnea Cardiovascular: + lightheadedness; no chest pain Gastrointestinal: as per Subjective / HPI and + abdominal pain (this AM); no constipation and no diarrhea/loose stools Genitourinary: no dysuria and no urinary frequency Musculoskeletal: + back pain and + problem reported (left leg pain) Integumentary: + wounds (ongoing issue - denies new wounds) Neurologic: + dizziness (intermittent x months w/ lying down or turning head); no headache(s) Physical Exam Constitutional: well developed and well nourished; no acute distress Eyes: + anicteric sclerae Neck: trachea midline Respiratory: no respiratory distress and no labored breathing Auscultation: lungs clear to auscultation bilaterally; no rales, no rhonchi and no wheezes Cardiovascular: Rate/Rhythm: + tachycardic and + irregularly irregular Extremities: + edema (3+ pitting edema to knees, 2+ distal thighs) Gastrointestinal (Abdomen): Inspection/Auscultation: normal bowel sounds; abdomen not distended Percussion/Palpation: abdomen soft; abdomen nontender Musculoskeletal: Head/Neck/Chest: normocephalic, head atraumatic and neck supple Skin: bilateral LE with multiple wounds, blisters (right), some scabbed over, some with dressings in place, with erythema of LLE extending to mid-thigh, associated warmth, no purulent drainage. Neurologic: moves all extremities; not confused Results & Data Results & Data ([facility]) Vital Signs (Past 12 Hours) Vital Signs Temp Pulse Resp BP Pulse Ox O2 Del Method 03/28/22 10:30 107 H 19 03/28/22 10:30 95/54 L 03/28/22 10:01 75/53 L 03/28/22 10:01 97 H 18 03/28/22 10:00 120 H 17 03/28/22 10:00 77/35 L 03/28/22 09:38 110 H 18 03/28/22 08:28 94 Room Air 03/28/22 07:45 36.7 C 108 H 20 81/54 L 96 Room Air Laboratory Results Laboratory Results - last 24 hr 03/28/22 03/28/22 03/28/22 08:56 08:56 08:56 WBC 18.84 H RBC 3.54 L Hgb 11.4 L Hct 36.2 MCV 102.3 H MCH 32.2 MCHC 31.5 L RDW Std Deviation 53.9 H RDW Coeff of Marielle 14.5 Plt Count 379 MPV 9.3 L Immature Gran % (Auto) 0.8 Neut % (Auto) 93.9 Lymph % (Auto) 3.2 [place] % (Auto) 1.4 Eos % (Auto) 0.4 Baso % (Auto) 0.3 Neut # (Auto) 17.69 H Lymph # (Auto) 0.60 L [place] # (Auto) 0.26 Eos # (Auto) 0.08 Baso # (Auto) 0.05 Immature Gran # (Auto) 0.16 H Anisocytosis Present Sodium 137 Potassium 4.1 Chloride 107 Carbon Dioxide 22 Anion Gap 8 BUN 30 H Creatinine 1.52 H Est Cr Clr Drug Dosing 29.4 Est GFR ( Amer) 35.9 Est GFR (Non-Af Amer) 30.9 BUN/Creatinine Ratio 19.7 Glucose 135 H Lactate 2.5 H* Calcium 9.6 Magnesium 1.7 Total Bilirubin 0.6 Direct Bilirubin 0.2 AST 10 L ALT 12 Alkaline Phosphatase 89 Troponin I High Sens 9.5 Total Protein 5.7 L Albumin 2.8 L Procalcitonin SARS-CoV-2, RNA, NAAT 03/28/22 03/28/22 03/28/22 08:56 09:20 10:49 WBC RBC Hgb Hct MCV MCH MCHC RDW Std Deviation RDW Coeff of Marielle Plt Count MPV Immature Gran % (Auto) Neut % (Auto) Lymph % (Auto) [place] % (Auto) Eos % (Auto) Baso % (Auto) Neut # (Auto) Lymph # (Auto) [place] # (Auto) Eos # (Auto) Baso # (Auto) Immature Gran # (Auto) Anisocytosis Sodium Potassium Chloride Carbon Dioxide Anion Gap BUN Creatinine Est Cr Clr Drug Dosing Est GFR ( Amer) Est GFR (Non-Af Amer) BUN/Creatinine Ratio Glucose Lactate 1.9 Calcium Magnesium Total Bilirubin Direct Bilirubin AST ALT Alkaline Phosphatase Troponin I High Sens Total Protein Albumin Procalcitonin 0.16 SARS-CoV-2, RNA, NAAT NEGATIVE Medications Administered Discontinued Medications Vancomycin HCl 2,000 mg/ (Sodium Chloride) 540 mls @ 200 mls/hr IV NOW ONE Stop: 03/28/22 11:09 Last Admin: 03/28/22 09:40 Dose: 200 mls/hr Documented By: WALE Sodium Chloride (Nss 1000ml) 500 mls @ 999 mls/hr IV .Q31M STIVEN Stop: 03/28/22 09:00 Last Infusion: 03/28/22 10:25 Dose: 0 mls/hr Documented By: Admin: 03/28/22 09:40 Dose: 999 mls/hr Documented By: WALE Oxycodone/Acetaminophen (Oxycodone/Acetaminophen 5mg/325mg Tab) 1 tab PO NOW STA Stop: 03/28/22 08:31 Last Admin: 03/28/22 09:45 Dose: 1 tab Documented By: WALE Code Status & VTE Plan VTE Prophylaxis Plan VTE Prophylaxis will be ordered: No Supervising Physician Co-Signing Physician Notes 86-year-old lady with PMH of PAD [follows with vascular] with chronic wounds, CAD, A. 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 Patient was recently admitted and treated for LLE cellulitis, ID had evaluated the patient, vascular surgery had evaluated the patient, patient was discharged on linezolid and patient reports that she is compliant with medications while in [facility]. Likely severe sepsis: HR, WBC, Lactate elevated. Patient does have erythema and warmth extending up to upper thigh and left lower extremity, patient does have blisters in bilateral lower extremities. Patient received vancomycin in the ED, will continue with vancomycin and add cefepime. Infectious disease consulted. Wound care consult. c/w IVF at 65 ml/hr, diet ordered. Monitor renal function, current creatinine of 1.5 to may be patient's new baseline. Monitor and replete electrolytes. Upon examination: GENERAL: Alert and oriented x3. NAD, on RA. Ill/frail/weak appearing. HEENT: No pallor, no icterus. Pupils equal, round and reactive to light. Oral mucosa moist. NECK: No JVD, no neck masses. HEART: S1 and S2 heard. irregular rate and rhythm. No murmur, no gallop. RESPIRATORY SYSTEM: Normal AP diameter. No accessory muscle use. No wheezing, no crackles. ABDOMEN: Soft, bowel sounds present, nontender, no distention. CENTRAL NERVOUS SYSTEM: No facial droop. Speech is clear. Obeys simple commands. Moves extremities. EXTREMITIES: BLE blisters, 2+ pitting edema. LLE w/ additional erythema/warmth and tender extending upto upper thigh. Knee w/ limited ROM, no exacerbation of pain w/ knee manipulation or exam. I have seen and examined the patient and have discussed the case with the provider above. I agree with the assessment and plan as stated.
[2022-03-28] MEDS ORDERED: ACETAMINOPHEN 325 MG TAB PO PRN (13:48)
[2022-03-28] MEDS ORDERED: CEFEPIME 1,000 MG in SYRINGE 0 ML IV SCH (15:45)
[2022-03-28] MEDS: SODIUM CHLORIDE 0.9% 1000ML 1,000 ML IV SCH (15:54)
[2022-03-28] MEDS ORDERED: PIPERACILLIN/TAZOBACTAM 3.375 GM in DEXTROSE 5% 100 ML IV ONE (16:00)
[2022-03-28] MEDS ORDERED: DAPTOmycin 225 MG in SYRINGE 0 ML IV SCH (16:30)
--- NOTE | 2022-03-28 17:28 | CT Scan Report ---
CT femur LT wo con CLINICAL HISTORY: r/o necrotizing fas/abscess collection TECHNIQUE: Multidetector row helical CT of the was performed without intravenous contrast. Coronal an d sagittal reformations were obtained. Automated dose lowering techniques and/or adjustment according to patient size were utilized for this examination. CT DOSE: 1135.33 mGy.cm Comparison: None available at the time of this dictation. FINDINGS: The osseous structures are without fracture or dislocation. Patient is status post total knee arthrop lasty. No joint effusion is seen. There is a fluid collection in the lateral thigh skin thickening. No subcutaneous gas is seen. Diffuse soft tissue edema is seen in the mid and distal thigh. Vascular calcifications are seen. IMPRESSION: There is a fluid density lesion in the lateral thigh. Evaluation is limited by noncontrast technique, this may represent a phlegmon or developing abscess, a hematoma is also possible although less likel y. Skin thickening and soft tissue edema is seen compatible with cellulitis. No evidence of necrotizi ng fasciitis. ACT 112: Negative or not required by law. Electronically signed by: Sammy Davis M.D. 03/28/2022 5:27 PM
--- NOTE | 2022-03-28 17:53 | CT Scan Report ---
CT SCAN OF THE LEFT TIBIA AND FIBULA WITHOUT IV CONTRAST CLINICAL HISTORY: Infection. COMPARISON STUDY: No priors. TECHNIQUE: CT scan of the left tibia and fibula was performed from the knee and the ankle. Images are reviewed in the axial, sagittal, coronal planes. IV contrast was not administered for this examinati on. A dose lowering technique was utilized adhering to the principles of ALARA. The examination is si gnificantly degraded by streak artifact from a left hip arthroplasty. Note that interpretation is sub optimal without plain film correlate. FINDINGS: The skeletal structures are osteopenic. There is no evidence of left tibial or fibular frac ture. No bony erosion or periostitis is identified. The knee joint cannot be assessed. The ankle join t is grossly maintained. There is atherosclerotic calcification of the regional arteries. Diffuse sof t tissue edema is present throughout the left lower extremity with dermal thickening and subcutaneous fluid. No organized/drainable fluid collection is identified. No soft tissue gas is seen. The partia lly imaged right lower extremity shows similar appearing edema. There is generalized atrophy of the r egional musculature. IMPRESSION: 1. No acute bony abnormality is identified. 2. Soft tissue edema and dermal thickening throughout the left lower extremity as above. Clinical cor relation will be required. 3. No organized/drainable fluid collection is seen on this unenhanced examination and no soft tissue gas is identified. 4. The partially imaged right lower extremity shows similar soft tissue edema. ACT 112: Negative or not required by law. Dictated: 03/28/2022 5:05 PM Transcribed: 03/28/2022 5:36 PM Kristina [id number] [email or web address] Electronically signed by: Cesar Santos M.D. 03/28/2022 5:51 PM
[2022-03-28] MEDS: MONTELUKAST SODIUM 10 MG TABLET PO SCH (20:04)
[2022-03-28] MEDS: APIXABAN 5 MG TABLET PO SCH (20:05)
[2022-03-28] MEDS: METOPROLOL SUCC 50MG EXT REL TAB PO SCH (20:06)
[2022-03-28] MEDS: ARTIFICIAL TEARS OP SCH (20:07)
[2022-03-28] MEDS: PIPERACILLIN/TAZOBACTAM 3.375 GM in DEXTROSE 5% 100 ML IV SCH (22:50)
[2022-03-29] MEDS ORDERED: SODIUM CHLORIDE 0.9% 500 ML IV SCH ×3 (00:15→03:15)
[2022-03-29] MEDS ORDERED: SODIUM CHLORIDE 0.9% 1000ML 1,000 ML IV SCH ×2 (03:00→15:30)
[2022-03-29 03:29] LABS: Hematocrit (blood only) 33.3 % (34.1-44.9); Hemoglobin 10.4 g/dl (12.0-16.0); Mean Corpuscular Hemoglobin 32.1 pg (25.0-34.0); Mean Corpuscular Hgb Conc 31.2 g/dL (32.0-36.0); Mean Corpuscular Volume 102.8 fL (80.0-100.0); Mean Platelet Volume 9.1 fL (9.4-12.3); Platelet Count 319 K/uL (130-400); RDW Coefficient of Variation 14.6 % (11.5-14.5); RDW Standard Deviation 54.7 fL (36.4-46.3); Red Blood Count 3.24 M/uL (3.93-5.22); White Blood Count 19.81 K/ul (4.8-10.8)
[2022-03-29 03:48] LABS: Albumin Globulin Ratio 0.9 (0.9-2); Albumin Level 2.5 gm/dl (3.4-5.0); BUN Creatinine Ratio 16.1 (10-20); Bilirubin,Total 0.5 mg/dl (0.2-1.0); Calcium 8.7 mg/dl (8.5-10.1); Creatinine Clr Calc Pharmacy 25.7 ml/min; Est GFR (African American) 30.5 ml/min; Est GFR (Non-African American) 26.3 ml/min; Globulin 2.9 gm/dl (2.5-4.0); Potassium 4.2 mmol/L (3.5-5.1); Total Protein 5.4 gm/dl (6.0-8.3)
[2022-03-29 04:26] LABS: Basophils # (auto) 0.04 K/uL (0-0.2); Basophils % (auto) 0.2 %; Echinocytes 2+; Eosinophils # (auto) 0.06 K/uL (0-0.50); Eosinophils % (auto) 0.3 %; Immature Granulocytes # (auto) 0.14 K/uL (0.00-0.02); Immature Granulocytes % (auto) 0.7 %; Lymphocytes # (auto) 0.61 K/uL (1.2-3.4); Lymphocytes % (auto) 3.1 %; Monocytes # (auto) 0.25 K/uL (0.24-0.82); Monocytes % (auto) 1.3 %; Neutrophils # (auto) 18.71 K/uL (1.4-6.5); Neutrophils % (auto) 94.4 %
[2022-03-29] MEDS: SODIUM CHLORIDE 0.9% 1000ML 1,000 ML IV SCH (05:43)
[2022-03-29] MEDS: PIPERACILLIN/TAZOBACTAM 3.375 GM in DEXTROSE 5% 100 ML IV SCH ×3 (05:43→22:17)
[2022-03-29] MEDS: PANTOprazole 40 MG TAB PO SCH (08:09)
[2022-03-29] MEDS: METOPROLOL SUCC 50MG EXT REL TAB PO SCH ×2 (08:09→21:01)
[2022-03-29] MEDS: ASCORBIC ACID 500 MG TAB PO SCH (08:09)
[2022-03-29] MEDS: BUMETANIDE 1 MG TAB PO SCH (08:09)
[2022-03-29] MEDS: APIXABAN 5 MG TABLET PO SCH ×2 (08:09→21:00)
[2022-03-29] MEDS: CHOLECALCIFEROL 1,000 UNITS 25 MCG TAB PO SCH (08:09)
[2022-03-29] MEDS: EZETIMIBE 10 MG TABLET PO SCH (08:09)
[2022-03-29] MEDS: LEVOTHYROXINE SODIUM 112 MCG TABLET PO SCH (08:11)
[2022-03-29] MEDS: ARTIFICIAL TEARS OP SCH ×3 (08:11→21:01)
[2022-03-29] MEDS: POLYETHYLENE (MIRALAX) 17 GM PACK PO SCH (08:16)
[2022-03-29] MEDS: oxyCODONE HCL IR 5 MG TAB (IMMEDIATE RELEASE) PO SCH (08:16)
--- NOTE | 2022-03-29 12:58 | Hospitalist Progress Note ---
Date of Service March 29, 2022 Assessment & Plan (1) Severe sepsis: Plan: Pt meets criteria for severe sepsis with tachycardia, hypotension, leukocytosis, and elevated lactate with known LE cellulitis. Heart rate is improved today White blood cell count remains elevated at 19.8 (was 18.8 yesterday). She appears resuscitated although remains hypotensive despite fluids. Continue current antibiotic therapy. Pending Ortho evaluation for possible abscess. (2) Cellulitis of left leg: Plan: Worsening symptoms since discharge on 03/24 despite linezolid which followed several days of intravenous antibiotics in the hospital, CT femur reveals a fluid density lesion in the lateral thigh on the left leg. This may represent phlegmon or developing abscess and hematoma is also possible as the patient is on Eliquis. Consult orthopedics to assist with recommendations/treatment. Continue current antibiotic therapy consisting of Dapto and Zosyn per ID recommendations. (3) Peripheral arterial disease: Plan: Continue local wound care. If wounds are not healing with antibiotic therapy, consider repeat vascular surgery consultation. Notably they saw her last admission. Doppler for pulses every 4 hours. (4) Wound of lower extremity: Plan: Wound care has been consulted but has not yet seen the patient. (5) Atrial fibrillation, permanent: Plan: Chronic, stable. Heart rate has improved after resuscitation for sepsis and IV fluids overnight. Hold Bumex while patient is hypotensive. Continue Eliquis unless developing lesion in the leg turns out to be hematoma. (6) Chronic diastolic CHF (congestive heart failure): Plan: Hold Bumex in setting of hypotension. (7) Coronary artery disease: Plan: Chronic, stable. Continue home medications. (8) Asthma: Plan: Chronic, stable. No evidence of exacerbation. Continue home inhalers and montelukast. (9) DVT prophylaxis: Plan: Apixaban DNR/DNI Disposition-PT and OT recently evaluated the patient going home and recommended she was safe to return home. Once her pain is better controlled, may need repeat PT and OT consultation later this admission. [facility] Hospitalist Admission and Anticipated Discharge Date Admission Date: March 28, 2022 Subjective 86-year-old female recently admitted for lower extremity cellulitis presents for contralateral leg affected with erythema and warmth concerning for infection. Patient was given IV antibiotics and sent home on linezolid which she was taking when she developed this erythema and warmth. Left leg is affected and CT femur yesterday showed possible developing phlegmon/abscess. Consulting orthopedics to see if this needs to be addressed from surgical standpoint. Infectious disease agrees with daptomycin/Zosyn. Patient remains hypotensive. She denies any symptoms other than uncontrolled pain in her legs. She is chronically on oxycodone. No other issues per her report at this time. She mostly defers to her daughter on medical care, medications etc. Review of Systems Review of Systems: All systems reviewed negative except as indicated above. Physical Exam Physical Exam: CONSTITUTIONAL: WNWD, vitals as above, generally well- appearing, NAD EYES: normal conjunctivae, no scleral icterus ENT: external ear and nose normal, MMM NECK: trachea midline RESPIRATORY: clear to auscultation bilaterally, no crackles, rales or wheezes, normal respiratory effort CARDIOVASCULAR: regular rate and rhythm, S1 and 2 heard without murmurs, gallops or rubs, no JVD, no peripheral edema CHEST: inspection of chest was normal GASTROINTESTINAL: soft, nontender, ND, no guarding MUSCULOSKELETAL: strength 5/5 throughout, head is normocephalic and atraumatic SKIN: warm and dry, there is a clear difference between the left lower extremity and the right lower extremity. Left >right is warm to touch and erythematous throughout the entire leg. NEUROLOGIC: CN 2-12 grossly intact, normal cognition, normal speech, no tremor PSYCHIATRIC: alert cooperative and oriented to person, place and time. Euthymic mood, makes good eye contact, language grossly intact, recent and remote memory grossly intact. \ Results & Data Results & Data ([facility]) Vital Signs (Past 12 Hours) Vital Signs Temp Pulse Pulse Resp BP BP Pulse Ox 03/29/22 11:23 36.9 C 86 16 67/51 L 81/61 L 03/29/22 11:22 03/29/22 07:59 36.8 C 100 H 20 91/67 L 98 03/29/22 07:33 111 H 03/29/22 04:54 119 H 85/62 L 03/29/22 02:56 37.1 C 99 H 20 77/58 L 03/29/22 01:20 81/57 L O2 Del Method 03/29/22 11:23 03/29/22 11:22 Room Air 03/29/22 07:59 Room Air 03/29/22 07:33 03/29/22 04:54 03/29/22 02:56 03/29/22 01:20 Laboratory Results Short CBC 03/29/22 Range/Units 03:18 WBC 19.81 H (4.8-10.8) K/ul Hgb 10.4 L (12.0-16.0) g/dl Hct 33.3 L (34.1-44.9) % Plt Count 319 (130-400) K/uL BMP 03/29/22 03:18 Sodium 135 L Potassium 4.2 Chloride 109 H Carbon Dioxide 21 BUN 28 H Creatinine 1.74 H Glucose 122 H Calcium 8.7 Liver Function 03/29/22 Range/Units 03:18 Total Bilirubin 0.5 (0.2-1.0) mg/dl AST 9 L (13-39) U/L ALT 11 (7-52) U/L Alkaline Phosphatase 82 (34-104) U/L Albumin 2.5 L (3.4-5.0) gm/dl Medications Administered Current Inpatient Medications Acetaminophen (Acetaminophen 325 Mg Tab) 650 mg PO Q4H PRN PRN Reason: Pain or Fever Stop: 04/27/22 13:47 Last Admin: 03/28/22 20:03 Dose: 650 mg Apixaban (Apixaban 5 Mg Tablet) 5 mg PO BID [facility] Stop: 04/27/22 20:59 Last Admin: 03/29/22 08:09 Dose: 5 mg Artificial Tears (Artificial Tears) 1 drops OP TID [facility] Stop: 04/27/22 20:59 Last Admin: 03/29/22 08:11 Dose: 1 drops Ascorbic Acid (Ascorbic Acid 500 Mg Tab) 500 mg PO QAM [facility] Stop: 04/28/22 08:59 Last Admin: 03/29/22 08:09 Dose: 500 mg Bumetanide (Bumetanide 1 Mg Tab) 1 mg PO DAILY [facility] Stop: 04/28/22 08:59 Last Admin: 03/29/22 08:09 Dose: 1 mg Ezetimibe (Ezetimibe 10 Mg Tablet) 10 mg PO QAM [facility] Stop: 04/28/22 08:59 Last Admin: 03/29/22 08:09 Dose: 10 mg Sodium Chloride (Nss 1000ml) 1,000 mls @ 100 mls/hr IV .Q10H [facility] Stop: 03/29/22 15:40 Last Admin: 03/29/22 05:43 Dose: 65 mls/hr Piperacillin Sod/Tazobactam (Sod 3.375 gm/ Dextrose) 115 mls @ 28.75 mls/hr IV Q8H [facility]; Protocol Stop: 04/04/22 21:59 Last Infusion: 03/29/22 09:57 Dose: Infused Daptomycin 225 mg/ Syringe 4.5 mls @ 2.25 mls/min IV Q48H [facility]; Protocol Stop: 04/04/22 16:29 Last Admin: 03/28/22 16:51 Dose: 2.25 mls/min Levothyroxine Sodium (Levothyroxine Sodium 112 Mcg Tablet) 112 mcg PO QAM [facility] Stop: 04/28/22 08:59 Last Admin: 03/29/22 08:11 Dose: 112 mcg Metoprolol Succinate (Metoprolol Succ 50mg Ext Rel Tab) 50 mg PO BID [facility] Stop: 04/27/22 20:59 Last Admin: 03/29/22 08:09 Dose: Not Given Montelukast Sodium (Montelukast Sodium 10 Mg Tablet) 10 mg PO QPM [facility] Stop: 04/27/22 20:59 Last Admin: 03/28/22 20:04 Dose: 10 mg Oxycodone HCl (Oxycodone Hcl Ir 5 Mg Tab (Immediate Release)) 2.5 mg PO Q8H PRN PRN Reason: Pain Stop: 04/11/22 15:57 Oxycodone HCl (Oxycodone Hcl Ir 5 Mg Tab (Immediate Release)) 2.5 mg PO DAILY [facility] Stop: 04/12/22 08:59 Last Admin: 03/29/22 08:16 Dose: 2.5 mg Pantoprazole Sodium (Pantoprazole 40 Mg Tab) 40 mg PO QAM [facility] Stop: 04/28/22 08:59 Last Admin: 03/29/22 08:09 Dose: 40 mg Polyethylene Glycol (Polyethylene (Miralax) 17 Gm Pack) 17 gm PO DAILY [facility] Stop: 04/28/22 08:59 Last Admin: 03/29/22 08:16 Dose: 17 gm Vitamin D (Cholecalciferol 1,000 Units 25 Mcg Tab) 2,000 units PO DAILY [facility] Stop: 04/28/22 08:59 Last Admin: 03/29/22 08:09 Dose: 2,000 units
[2022-03-29] MEDS: ACETAMINOPHEN 500 MG TAB PO SCH ×2 (15:46→22:51)
--- NOTE | 2022-03-29 16:35 | Orthopedic Consultation ---
Date of Consultation March 29, 2022 Assessment & Plan (1) Leg wound, left: Left lower extremity wound(s) focusing on the left thigh. Currently, I do not see a need for urgent debridement however I will discuss this with [facility] physician on-call this evening. Bruising the other wounds from wound care team has been documented, these do not seem to need urgent debridement either. CT scans as noted below. No drainable abscesses noted. No obvious sign of gas. Continue current wound care. We will continue to follow for now. We will await Dr. Saucedo's input. If debridement is needed, he will be here on and could possibly take care of at that time. Supervising Physician Co-Signing Physician Notes Patient seen and examined. Agree with ALYSON Owusu's note as above. Patient has multiple superficial blisters on bilateral lower extremities. Her daughter is with her, and states that this originally started when she slipped on some steps and got a large rug burn with a very large blood blister. They have been treating this with wound care, but she keeps getting recurrent blistering in bilateral lower extremities. She does have quite a bit of pitting edema in both legs. None of her wounds appear deep. No evidence of abscesses. She does not require any orthopedic surgical intervention. Continue with wound care. Orthopedics will sign off at this point. Please call with questions. History of Present Illness Reason for Consultation: Left lower extremity wound Attending Physician: Rima Samuel, History of Present Illness This is an 86 y/o female with a PMH of PAD (follows with vascular) w/ chronic wounds, CAD, atrial fibrillation on chronic AC with Eliquis, diastolic CHF (follows w/ CHF clinic), pHTN, aortic regurgitation, hypothyroidism, depression, anxiety, and dyslipidemia who presents to the ED today from [facility] with worsening redness, warmth and pain in her LLE. Patient was just recently in the hospital proxy 1 week ago for right lower extremity wounds. She was discharged back to where she resides at [facility]. Patient states that she was doing fairly well the first few days however within the last couple of days she had noticed a worsening of her left lower extremity with increased redness and swelling and increasing blisters on the leg she started feeling more ill and was brought into the emergency room. She was thusly admitted for further care. Patient had a noted large blister on the left thigh which we are asked to see. Patient is currently sitting up in bed awake and alert. Oriented and pleasant. Allergies Allergy/AdvReac Type Severity Reaction Status Date / Time latex Allergy Intermediate Rash, Verified 03/03/22 13:13 itching povidone-iodine Allergy Intermediate Itching Verified 03/03/22 13:13 [From Betadine] soap [From Betadine] Allergy Intermediate Itching Verified 03/03/22 13:13 aspirin AdvReac Mild Dizziness Verified 03/03/22 13:13 Home Medications Medication Instructions Recorded Confirmed Type vit C 250 mg-vit E 90 mg-zinc 40 2 tab PO QAM 05/01/20 03/28/22 History mg-copper 1 [id number] capsule (PreserVision AREDS-2) budesonide-formoterol HFA 160 2 puff inhalation BID PRN 09/15/20 03/28/22 History mcg-4.5 mcg/actuation aerosol Shortness Of Breath Or Wheezing inhaler (Symbicort) apixaban 5 mg tablet (Eliquis) 5 mg PO BID #180 tabs 01/28/21 03/28/22 Rx pantoprazole 40 mg tablet,delayed 40 mg PO QAM GERD 05/14/21 03/28/22 History release (Protonix) montelukast 10 mg tablet 10 mg PO QPM 08/20/21 03/28/22 History ezetimibe 10 mg tablet (Zetia) 10 mg PO QAM #90 tabs 11/24/21 03/28/22 Rx ascorbic acid (vitamin C) 500 mg 500 mg PO QAM #20 tabs 01/02/22 03/28/22 Rx tablet (Vitamin C) linezolid 600 mg tablet 600 mg PO BID #14 tabs 03/24/22 03/28/22 Rx acetaminophen 500 mg tablet 500 mg PO Q6H PRN Pain 03/28/22 03/28/22 History bumetanide 1 mg tablet 1 mg PO DAILY 03/28/22 03/28/22 History carboxymethylcellulose sodium 0.5 1 drp ophthalmic (eye) TID 03/28/22 03/28/22 History % eye drops (Refresh Tears) cholecalciferol (vitamin D3) 50 50 mcg PO DAILY 03/28/22 03/28/22 History mcg (2,000 unit) capsule (Vitamin D3) levothyroxine 112 mcg tablet 112 mcg PO QAM 03/28/22 03/28/22 History melatonin 3 mg tablet 3 mg PO HS 03/28/22 03/28/22 History metoprolol succinate 50 mg 50 mg PO BID 03/28/22 03/28/22 History tablet,extended release 24 hr oxycodone 5 mg tablet 2.5 mg PO Q8H PRN Pain 03/28/22 03/28/22 History oxycodone 5 mg tablet (Roxicodone) 2.5 mg PO DAILY 03/28/22 03/28/22 History polyethylene glycol 3350 17 17 g PO DAILY 03/28/22 03/28/22 History gram/dose oral powder (Miralax) sennosides 8.6 mg-docusate sodium 2 tab-cap PO BID 03/28/22 03/28/22 History 50 mg tablet (Senna-S) Patient History Medical History Acute diverticulitis Anxiety and depression Aortic regurgitation Asthma inhaler prn Atrial fibrillation with rapid ventricular response Atrial fibrillation, permanent on eliquis and follows with Dr. Colón Chronic diastolic CHF (congestive heart failure) Coronary artery disease Diverticulitis Dyslipidemia Esophageal stricture H/O fall 08/2020 Hearing deficit History of COVID-19 diagnosed 05/18/22 @ [place]--asymptomatic, tested prior to procedure--no issues now Hypotension Hypothyroid Leukocytosis Macular degeneration On anticoagulant therapy eliquis daily Osteoarthritis Pulmonary hypertension Spinal stenosis Surgical History History of bilateral cataract extraction History of cardiac cath ?2015 @ [facility]--no stents History of colonoscopy with polypectomy History of dilatation and curettage History of esophagogastroduodenoscopy (EGD) History of left hip replacement History of left shoulder replacement History of parathyroidectomy ELEVATED CALCIUM LEVELS? (2 REMOVED) History of right hip replacement History of right shoulder replacement History of tonsillectomy and adenoidectomy History of tooth extraction History of total left knee replacement (TKR) x2 History of total right knee replacement (TKR) x2 History of wisdom tooth extraction S/P cholecystectomy S/P dilatation of esophageal stricture Family History Mother Cancer uterine Thyroid disease Father Cancer esophageal Family history of esophageal cancer Sister Family history of diabetes mellitus Sister Family history of diabetes mellitus Brother Family history of diabetes mellitus Family hx of colon cancer Other No family history of adverse response to anesthesia Social History Smoking Status: Former smoker Tobacco Type: Cigarettes Cigarettes Per Day: 1 ppd; Second Hand Exposure: No; Do You Dip or Chew Tobacco: No; Hx Alcohol Use: No Hx Substance Use: No Preferred Language: Burmese Communication Ability: Effective Visual Impairment: Limited Hearing Ability: Normal Car Clerk Pullman Required: No Beliefs That Will Affect Care: None Current Living Situation: Personal Care Facility [facility] How many Children do You have: 4 Feels Safe at Home: Yes Safety Concerns: Feels Safe At This Time caffeine: No during the past year weight has: remained stable Assistive Devices: Glasses, Walker and Wheelchair Physical Exam Physical Exam: On examination of her left lower extremity, she has moderate swelling in the whole of the leg. The good portion of her leg is erythematous. Splotchy erythema noted on above the knee and the thigh. She has marked erythema noted of the lower extremity below the knee. Patient denies pain from this. Her skin is very thin and fragile. Looking at her left thigh wound, Optifoam dressings are gently pulled down. This reveals further dressings over the wound itself. These are also pulled down gently. Patient has a large blister area that has opened up in the central portion and also over the proximal portion. There is a small area of blister that resides proximally that has not broken open. There is what appears to be subcutaneous fat showing one- point on the anterior proximal portion. There is no gross purulence. There is mild serous drainage noted at this time. There is no foul odor. This does not appear to be urgently debrided at this time. Optifoam dressings placed back on wounds. Results & Data ([facility]) Vital Signs (Past 12 Hours) Vital Signs Temp Pulse Pulse Resp BP BP Pulse Ox 03/29/22 16:26 36.3 C L 89 18 83/59 L 98 03/29/22 15:38 108 H 03/29/22 11:23 36.9 C 86 16 67/51 L 81/61 L 03/29/22 11:22 03/29/22 07:59 36.8 C 100 H 20 91/67 L 98 03/29/22 07:33 111 H 03/29/22 04:54 119 H 85/62 L O2 Del Method 03/29/22 16:26 Room Air 03/29/22 15:38 03/29/22 11:23 03/29/22 11:22 Room Air 03/29/22 07:59 Room Air 03/29/22 07:33 03/29/22 04:54 Diagnostic Findings Patient:ALYCIA BUSBY Admit Date:03/28/22 MR#:[id number] Address1:[facility] [address]AHID Acct ID:[id number] Address2:[facility] Date:[address] Zip:[place] [address] Age:86 Location: Sex:F Room/Bed:[facility] Att Phy:Evelyn Laguna MD Diagnosis:LE CELLULITIS, WOUNDS Alena Phy:[facility] Service Date:03/28/22 Fam Phy: Interpreting Phy:Cesar Santos MDAdmit Phy:Evelyn Laguna MD Ordering Phy:Evelyn Laguna MD cc: ~ CT SCAN OF THE LEFT TIBIA AND FIBULA WITHOUT IV CONTRAST CLINICAL HISTORY: Infection. COMPARISON STUDY: No priors. TECHNIQUE: CT scan of the left tibia and fibula was performed from the knee and the ankle. Images are reviewed in the axial, sagittal, coronal planes. IV contrast was not administered for this examination. A dose lowering technique was utilized adhering to the principles of ALARA. The examination is significantly degraded by streak artifact from a left hip arthroplasty. Note that interpretation is suboptimal without plain film correlate. FINDINGS: The skeletal structures are osteopenic. There is no evidence of left tibial or fibular fracture. No bony erosion or periostitis is identified. The knee joint cannot be assessed. The ankle joint is grossly maintained. There is atherosclerotic calcification of the regional arteries. Diffuse soft tissue edema is present throughout the left lower extremity with dermal thickening and subcutaneous fluid. No organized/drainable fluid collection is identified. No soft tissue gas is seen. The partially imaged right lower extremity shows similar appearing edema. There is generalized atrophy of the regional musculature. IMPRESSION: 1. No acute bony abnormality is identified. 2. Soft tissue edema and dermal thickening throughout the left lower extremity as above. Clinical correlation will be required. 3. No organized/drainable fluid collection is seen on this unenhanced examination and no soft tissue gas is identified. 4. The partially imaged right lower extremity shows similar soft tissue edema. CT femur LT wo con CLINICAL HISTORY: r/o necrotizing fas/abscess collection TECHNIQUE: Multidetector row helical CT of the was performed without intravenous contrast. Coronal and sagittal reformations were obtained. Automated dose lowering techniques and/or adjustment according to patient size were utilized for this examination. CT DOSE: 1135.33 mGy.cm Comparison: None available at the time of this dictation. FINDINGS: The osseous structures are without fracture or dislocation. Patient is status post total knee arthroplasty. No joint effusion is seen. There is a fluid collection in the lateral thigh skin thickening. No subcutaneous gas is seen. Diffuse soft tissue edema is seen in the mid and distal thigh. Vascular calcifications are seen. IMPRESSION: There is a fluid density lesion in the lateral thigh. Evaluation is limited by noncontrast technique, this may represent a phlegmon or developing abscess, a hematoma is also possible although less likely. Skin thickening and soft tissue edema is seen compatible with cellulitis. No evidence of necrotizing fasciitis. ACT 112: Negative or not required by law.
[2022-03-29] MEDS: MONTELUKAST SODIUM 10 MG TABLET PO SCH (21:01)
[2022-03-30] MEDS: PIPERACILLIN/TAZOBACTAM 3.375 GM in DEXTROSE 5% 100 ML IV SCH (05:13)
[2022-03-30 06:09] LABS: Hematocrit (blood only) 30.9 % (34.1-44.9); Hemoglobin 9.7 g/dl (12.0-16.0); Mean Corpuscular Hemoglobin 31.8 pg (25.0-34.0); Mean Corpuscular Hgb Conc 31.4 g/dL (32.0-36.0); Mean Corpuscular Volume 101.3 fL (80.0-100.0); Mean Platelet Volume 9.3 fL (9.4-12.3); Platelet Count 286 K/uL (130-400); RDW Coefficient of Variation 14.6 % (11.5-14.5); RDW Standard Deviation 54.6 fL (36.4-46.3); Red Blood Count 3.05 M/uL (3.93-5.22); White Blood Count 13.91 K/ul (4.8-10.8)
[2022-03-30 06:38] LABS: Albumin Globulin Ratio 0.9 (0.9-2); Albumin Level 2.4 gm/dl (3.4-5.0); BUN Creatinine Ratio 16.9 (10-20); Bilirubin,Total 0.3 mg/dl (0.2-1.0); Calcium 8.6 mg/dl (8.5-10.1); Creatinine Clr Calc Pharmacy 26.3 ml/min; Est GFR (African American) 29.8 ml/min; Est GFR (Non-African American) 25.7 ml/min; Globulin 2.7 gm/dl (2.5-4.0); Potassium 4.1 mmol/L (3.5-5.1); Total Protein 5.1 gm/dl (6.0-8.3)
[2022-03-30 06:43] LABS: Basophils # (auto) 0.01 K/uL (0-0.2); Basophils % (auto) 0.1 %; Echinocytes 1+; Eosinophils # (auto) 0.07 K/uL (0-0.50); Eosinophils % (auto) 0.5 %; Immature Granulocytes # (auto) 0.09 K/uL (0.00-0.02); Immature Granulocytes % (auto) 0.6 %; Lymphocytes % (auto) 2.9 %; Monocytes # (auto) 0.37 K/uL (0.24-0.82); Monocytes % (auto) 2.7 %; Neutrophils # (auto) 12.97 K/uL (1.4-6.5); Neutrophils % (auto) 93.2 %
[2022-03-30] MEDS: ARTIFICIAL TEARS OP SCH ×3 (08:13→21:02)
[2022-03-30] MEDS: APIXABAN 5 MG TABLET PO SCH ×2 (08:13→21:00)
[2022-03-30] MEDS: ACETAMINOPHEN 500 MG TAB PO SCH ×3 (08:13→23:18)
[2022-03-30] MEDS: CHOLECALCIFEROL 1,000 UNITS 25 MCG TAB PO SCH (08:14)
[2022-03-30] MEDS: EZETIMIBE 10 MG TABLET PO SCH (08:14)
[2022-03-30] MEDS: ASCORBIC ACID 500 MG TAB PO SCH (08:14)
[2022-03-30] MEDS: POLYETHYLENE (MIRALAX) 17 GM PACK PO SCH (08:15)
[2022-03-30] MEDS: METOPROLOL SUCC 50MG EXT REL TAB PO SCH ×2 (08:15→21:01)
[2022-03-30] MEDS: PANTOprazole 40 MG TAB PO SCH (08:15)
[2022-03-30] MEDS: LEVOTHYROXINE SODIUM 112 MCG TABLET PO SCH (08:15)
[2022-03-30] MEDS: oxyCODONE HCL IR 5 MG TAB (IMMEDIATE RELEASE) PO SCH (08:19)
[2022-03-30] MEDS: DAPTOmycin 300 MG in SYRINGE 0 ML IV SCH (08:49)
[2022-03-30] MEDS: MEROPENEM 500 MG in SYRINGE 0 ML IV SCH ×2 (11:45→21:01)
--- NOTE | 2022-03-30 17:32 | Hospitalist Progress Note ---
Date of Service March 30, 2022 Assessment & Plan (1) Severe sepsis: Plan: Severe Sepsis Left Leg Cellulitis B/L Leg wounds Blood culture: Negative to date Wound culture pending Received IV fluids Diuretics held Continue on daptomycin, meropenem ID consulted Continue wound care Appreciate orthopedics input (2) Cellulitis of left leg: Plan: Worsening symptoms since discharge on 03/24 despite linezolid which followed several days of intravenous antibiotics in the hospital --Left Leg CT:No acute bony abnormality is identified. Soft tissue edema and dermal thickening throughout the left lower extremity as above. Clinical correlation will be required. No organized/drainable fluid collection is seen on this unenhanced examination and no soft tissue gas is identified. The partially imaged right lower extremity shows similar soft tissue edema. -- Management as above (3) Peripheral arterial disease: Plan: Continue local wound care. Previously evaluated by vascular surgery If clinically no improvement, will need to reconsult vascular surgery (4) Wound of lower extremity: Plan: Continue wound care (5) Atrial fibrillation, permanent: Plan: Chronic, stable. Continue metoprolol On Eliquis for anticoagulation (6) Chronic diastolic CHF (congestive heart failure): Plan: Resume Bumex as able Monitor Volume status (7) Coronary artery disease: Plan: Chronic, stable. Continue home medications. (8) Asthma: Plan: Chronic, stable. Continue home inhalers and montelukast. (9) DVT prophylaxis: Plan: Apixaban Code Status DNR/DNI Admission and Anticipated Discharge Date Admission Date: March 28, 2022 Subjective Patient is seen and examined at bedside Patient states having chronic cough which she attributes to her asthma is unchanged Reports bilateral leg wounds, swelling, erythema Denies any chest pain, dyspnea, dizziness Discussed with patient's family over the phone No other complaints Review of Systems Review of Systems: All systems reviewed & are unremarkable except as noted in Subjective Physical Exam Physical Exam: Physical Exam: Vitals signs as noted above General Appearance:Moderately built and nourished, no apparent distress Head: normocephalic, Atraumatic Eyes: normal inspection, EOMI Neck: supple, Trachea midline Respiratory/Chest: Normal breath sounds, CTA, No accessory muscle use Cardiovascular: Irregularly irregular, No murmur Abdomen/GI:Soft, Non tender, Bowel sounds present Extremities/Musculoskeletal:normal inspection, 2+ B/L Edema, +B/L Leg wounds, Erythema Neurologic/Psych:AAOX3, grossly no focal neurological deficits Skin: normal color, warm Results & Data Results & Data ([facility]) Vital Signs (Past 12 Hours) Vital Signs Temp Pulse Pulse Resp BP Pulse Ox O2 Del Method 03/30/22 16:50 36.7 C 64 19 116/72 99 Room Air 03/30/22 15:48 107 H 03/30/22 12:00 36.4 C L 55 L 18 86/54 L 03/30/22 14:35 36.4 C L 120 H 18 103/69 03/30/22 08:46 36.3 C L 56 L 19 93/60 L 97 Room Air 03/30/22 07:54 97 H Laboratory Results Short CBC 03/30/22 Range/Units 05:48 WBC 13.91 H (4.8-10.8) K/ul Hgb 9.7 L (12.0-16.0) g/dl Hct 30.9 L (34.1-44.9) % Plt Count 286 (130-400) K/uL BMP 03/30/22 05:48 Sodium 136 Potassium 4.1 Chloride 112 H Carbon Dioxide 20 L BUN 30 H Creatinine 1.77 H Glucose 167 H Calcium 8.6 Cardiac Enzymes 03/30/22 Range/Units 05:48 Total Creatine Kinase 17 L (26-192) U/L Liver Function 03/30/22 Range/Units 05:48 Total Bilirubin 0.3 (0.2-1.0) mg/dl AST 9 L (13-39) U/L ALT 10 (7-52) U/L Alkaline Phosphatase 89 (34-104) U/L Albumin 2.4 L (3.4-5.0) gm/dl
[2022-03-30] MEDS: MONTELUKAST SODIUM 10 MG TABLET PO SCH (21:01)
[2022-03-30] MEDS: ADVANCED PROBIOTIC 1250 MG CAPSULE PO SCH (21:02)
[2022-03-30] MEDS: oxyCODONE HCL IR 5 MG TAB (IMMEDIATE RELEASE) PO PRN (23:21)
[2022-03-31] MEDS: MEROPENEM 500 MG in SYRINGE 0 ML IV SCH ×3 (05:25→22:11)
[2022-03-31 07:02] LABS: Hematocrit (blood only) 32.3 % (34.1-44.9); Hemoglobin 10.1 g/dl (12.0-16.0); Mean Corpuscular Hemoglobin 31.9 pg (25.0-34.0); Mean Corpuscular Hgb Conc 31.3 g/dL (32.0-36.0); Mean Corpuscular Volume 101.9 fL (80.0-100.0); Mean Platelet Volume 9.4 fL (9.4-12.3); Platelet Count 346 K/uL (130-400); RDW Coefficient of Variation 14.5 % (11.5-14.5); RDW Standard Deviation 54.7 fL (36.4-46.3); Red Blood Count 3.17 M/uL (3.93-5.22); White Blood Count 13.18 K/ul (4.8-10.8)
[2022-03-31 07:32] LABS: Albumin Globulin Ratio 0.9 (0.9-2); Albumin Level 2.5 gm/dl (3.4-5.0); BUN Creatinine Ratio 17.2 (10-20); Bilirubin,Total 0.3 mg/dl (0.2-1.0); Creatinine Clr Calc Pharmacy 26.5 ml/min; Est GFR (African American) 30.5 ml/min; Est GFR (Non-African American) 26.3 ml/min; Globulin 2.9 gm/dl (2.5-4.0); Potassium 4.4 mmol/L (3.5-5.1); Total Protein 5.4 gm/dl (6.0-8.3)
[2022-03-31 07:43] LABS: Basophils # (auto) 0.01 K/uL (0-0.2); Basophils % (auto) 0.1 %; Echinocytes 1+; Eosinophils # (auto) 0.08 K/uL (0-0.50); Eosinophils % (auto) 0.6 %; Immature Granulocytes # (auto) 0.09 K/uL (0.00-0.02); Immature Granulocytes % (auto) 0.7 %; Lymphocytes # (auto) 0.51 K/uL (1.2-3.4); Lymphocytes % (auto) 3.9 %; Monocytes # (auto) 0.43 K/uL (0.24-0.82); Monocytes % (auto) 3.3 %; Neutrophils # (auto) 12.06 K/uL (1.4-6.5); Neutrophils % (auto) 91.4 %; Polychromasia 1+
[2022-03-31] MEDS: ACETAMINOPHEN 500 MG TAB PO SCH ×3 (07:45→23:56)
[2022-03-31] MEDS: oxyCODONE HCL IR 5 MG TAB (IMMEDIATE RELEASE) PO SCH (07:46)
[2022-03-31] MEDS: ADVANCED PROBIOTIC 1250 MG CAPSULE PO SCH (07:47)
[2022-03-31] MEDS: APIXABAN 5 MG TABLET PO SCH ×2 (07:48→20:25)
[2022-03-31] MEDS: EZETIMIBE 10 MG TABLET PO SCH (07:48)
[2022-03-31] MEDS: CHOLECALCIFEROL 1,000 UNITS 25 MCG TAB PO SCH (07:48)
[2022-03-31] MEDS: LEVOTHYROXINE SODIUM 112 MCG TABLET PO SCH (07:48)
[2022-03-31] MEDS: PANTOprazole 40 MG TAB PO SCH (07:48)
[2022-03-31] MEDS: METOPROLOL SUCC 50MG EXT REL TAB PO SCH ×2 (07:49→20:25)
[2022-03-31] MEDS: POLYETHYLENE (MIRALAX) 17 GM PACK PO SCH (07:49)
[2022-03-31] MEDS: ASCORBIC ACID 500 MG TAB PO SCH (07:49)
[2022-03-31] MEDS: ARTIFICIAL TEARS OP SCH ×3 (08:54→20:25)
--- NOTE | 2022-03-31 16:56 | Hospitalist Progress Note ---
Date of Service March 31, 2022 Assessment & Plan (1) Severe sepsis: Plan: Severe Sepsis Left Leg Cellulitis B/L Leg wounds Blood culture: Negative to date Wound culture pending Received IV fluids Continue on daptomycin, meropenem Appreciate ID Input Continue wound care Appreciate orthopedics input No plan for debridement as per Ortho Continue current medications (2) Cellulitis of left leg: Plan: Worsening symptoms since discharge on 03/24 despite linezolid which followed several days of intravenous antibiotics in the hospital --Left Leg CT:No acute bony abnormality is identified. Soft tissue edema and dermal thickening throughout the left lower extremity as above. Clinical correlation will be required. No organized/drainable fluid collection is seen on this unenhanced examination and no soft tissue gas is identified. The partially imaged right lower extremity shows similar soft tissue edema. -- Management as above (3) Peripheral arterial disease: Plan: Continue local wound care. Previously evaluated by vascular surgery If clinically no improvement, will need to reconsult vascular surgery (4) Wound of lower extremity: Plan: Continue wound care (5) Atrial fibrillation, permanent: Plan: Chronic, stable. Continue metoprolol On Eliquis for anticoagulation (6) Chronic diastolic CHF (congestive heart failure): Plan: Resume Bumex Monitor Volume status (7) Coronary artery disease: Plan: Chronic, stable. Continue home medications. (8) Asthma: Plan: Chronic, stable. Continue home inhalers and montelukast. Pressure ulcer of sacral region, stage 1 POA Continue wound care Reposition frequently (9) DVT prophylaxis: Plan: Apixaban Code Status DNR/DNI Admission and Anticipated Discharge Date Admission Date: March 28, 2022 Subjective Patient is seen and examined at bedside No new complaints Reports bilateral leg wounds, swelling, erythema Denies any chest pain, dyspnea, dizziness Had wound dressing change today Review of Systems Review of Systems: All systems reviewed & are unremarkable except as noted in Subjective Physical Exam Physical Exam: Physical Exam: Vitals signs as noted above General Appearance:Moderately built and nourished, no apparent distress Head: normocephalic, Atraumatic Eyes: normal inspection, EOMI Neck: supple, Trachea midline Respiratory/Chest: Normal breath sounds, CTA, No accessory muscle use Cardiovascular: Irregularly irregular, No murmur Abdomen/GI:Soft, Non tender, Bowel sounds present Extremities/Musculoskeletal:normal inspection, 2+ B/L Edema, +B/L Leg wounds, Erythema Neurologic/Psych:AAOX3, grossly no focal neurological deficits Skin: normal color, warm Results & Data Results & Data ([facility]) Vital Signs (Past 12 Hours) Vital Signs Temp Pulse Pulse Resp BP Pulse Ox O2 Del Method 03/31/22 11:47 36.5 C 70 19 98/72 L 93 Room Air 03/31/22 07:25 Room Air 03/31/22 08:13 36.7 C 113 H 19 110/69 91 Room Air 03/31/22 06:11 102 H Laboratory Results Short CBC 03/31/22 Range/Units 05:54 WBC 13.18 H (4.8-10.8) K/ul Hgb 10.1 L (12.0-16.0) g/dl Hct 32.3 L (34.1-44.9) % Plt Count 346 (130-400) K/uL BMP 03/31/22 05:54 Sodium 137 Potassium 4.4 Chloride 113 H Carbon Dioxide 18 L BUN 30 H Creatinine 1.74 H Glucose 147 H Calcium 9.0 Liver Function 03/31/22 Range/Units 05:54 Total Bilirubin 0.3 (0.2-1.0) mg/dl AST 14 (13-39) U/L ALT 13 (7-52) U/L Alkaline Phosphatase 90 (34-104) U/L Albumin 2.5 L (3.4-5.0) gm/dl
[2022-03-31] MEDS: oxyCODONE HCL IR 5 MG TAB (IMMEDIATE RELEASE) PO PRN (20:23)
[2022-03-31] MEDS: MONTELUKAST SODIUM 10 MG TABLET PO SCH (20:24)
[2022-03-31] MEDS ORDERED: ALBUMIN 25% 100 mL 25 GM/100 ML VIAL IV ONE (21:30)
[2022-04-01] MEDS: MEROPENEM 500 MG in SYRINGE 0 ML IV SCH ×3 (06:08→21:52)
[2022-04-01 06:58] LABS: Hematocrit (blood only) 32.3 % (34.1-44.9); Hemoglobin 10.3 g/dl (12.0-16.0); Mean Corpuscular Hemoglobin 32.2 pg (25.0-34.0); Mean Corpuscular Hgb Conc 31.9 g/dL (32.0-36.0); Mean Corpuscular Volume 100.9 fL (80.0-100.0); Mean Platelet Volume 9.2 fL (9.4-12.3); Platelet Count 362 K/uL (130-400); RDW Coefficient of Variation 14.4 % (11.5-14.5); RDW Standard Deviation 53.2 fL (36.4-46.3)
[2022-04-01] MEDS: ACETAMINOPHEN 500 MG TAB PO SCH ×2 (07:00→13:59)
[2022-04-01 07:08] LABS: BUN Creatinine Ratio 21.7 (10-20); Calcium 9.3 mg/dl (8.5-10.1); Creatinine Clr Calc Pharmacy 35.8 ml/min; Est GFR (African American) 43.7 ml/min; Est GFR (Non-African American) 37.7 ml/min; Potassium 4.4 mmol/L (3.5-5.1)
[2022-04-01] MEDS: oxyCODONE HCL IR 5 MG TAB (IMMEDIATE RELEASE) PO SCH (08:21)
[2022-04-01] MEDS: DAPTOmycin 300 MG in SYRINGE 0 ML IV SCH (08:22)
[2022-04-01] MEDS: POLYETHYLENE (MIRALAX) 17 GM PACK PO SCH (08:22)
[2022-04-01] MEDS: METOPROLOL SUCC 50MG EXT REL TAB PO SCH ×2 (08:23→19:48)
[2022-04-01] MEDS: ARTIFICIAL TEARS OP SCH ×3 (08:23→19:47)
[2022-04-01] MEDS: PANTOprazole 40 MG TAB PO SCH (08:24)
[2022-04-01] MEDS: APIXABAN 5 MG TABLET PO SCH ×2 (08:24→19:49)
[2022-04-01] MEDS: CHOLECALCIFEROL 1,000 UNITS 25 MCG TAB PO SCH (08:24)
[2022-04-01] MEDS: LEVOTHYROXINE SODIUM 112 MCG TABLET PO SCH (08:24)
[2022-04-01] MEDS: ASCORBIC ACID 500 MG TAB PO SCH (08:25)
[2022-04-01] MEDS: EZETIMIBE 10 MG TABLET PO SCH (08:25)
[2022-04-01] MEDS: BUMETANIDE 1 MG TAB PO SCH (08:25)
[2022-04-01] MEDS: ADVANCED PROBIOTIC 1250 MG CAPSULE PO SCH (08:25)
--- NOTE | 2022-04-01 17:44 | Hospitalist Progress Note ---
Date of Service April 01, 2022 Assessment & Plan (1) Severe sepsis: Plan: Severe Sepsis Left Leg Cellulitis B/L Leg wounds Blood culture: Negative to date Wound culture: Gram Negative bacilli Received IV fluids Continue on daptomycin, meropenem Appreciate ID Input Continue wound care Appreciate orthopedics input No plan for debridement as per Ortho Further management based on cultures (2) Cellulitis of left leg: Plan: Worsening symptoms since discharge on 03/24 despite linezolid which followed several days of intravenous antibiotics in the hospital --Left Leg CT:No acute bony abnormality is identified. Soft tissue edema and dermal thickening throughout the left lower extremity as above. Clinical correlation will be required. No organized/drainable fluid collection is seen on this unenhanced examination and no soft tissue gas is identified. The partially imaged right lower extremity shows similar soft tissue edema. -- Management as above (3) Peripheral arterial disease: Plan: Continue local wound care. Previously evaluated by vascular surgery If clinically no improvement, will need to reconsult vascular surgery (4) Wound of lower extremity: Plan: Continue wound care (5) Atrial fibrillation, permanent: Plan: Chronic, stable. Continue metoprolol On Eliquis for anticoagulation (6) Chronic diastolic CHF (congestive heart failure): Plan: Resumed Bumex Monitor Volume status (7) Coronary artery disease: Plan: Chronic, stable. Continue home medications. (8) Asthma: Plan: Chronic, stable. Continue home inhalers and montelukast. Pressure ulcer of sacral region, stage 1 POA Continue wound care Reposition frequently (9) DVT prophylaxis: Plan: Apixaban Code Status DNR/DNI Admission and Anticipated Discharge Date Admission Date: March 28, 2022 Subjective Patient is seen and examined at bedside Leg erythema improving Denies any chest pain, dyspnea, dizziness Discussed with Patient's family at bedside Review of Systems Review of Systems: All systems reviewed & are unremarkable except as noted in Subjective Physical Exam Physical Exam: Physical Exam: Vitals signs as noted above General Appearance:Moderately built and nourished, no apparent distress Head: normocephalic, Atraumatic Eyes: normal inspection, EOMI Neck: supple, Trachea midline Respiratory/Chest: Normal breath sounds, CTA, No accessory muscle use Cardiovascular: Irregularly irregular, No murmur Abdomen/GI:Soft, Non tender, Bowel sounds present Extremities/Musculoskeletal:normal inspection, 2+ B/L Edema, +B/L Leg wounds, Erythema Neurologic/Psych:AAOX3, grossly no focal neurological deficits Skin: normal color, warm Results & Data Results & Data ([facility]) Vital Signs (Past 12 Hours) Vital Signs Temp Pulse Pulse Resp BP Pulse Ox O2 Del Method 04/01/22 16:05 36.3 C L 99 H 19 104/71 04/01/22 14:55 100 H 04/01/22 11:31 36.5 C 88 19 110/72 96 Room Air 04/01/22 08:29 36.7 C 90 20 112/74 97 Room Air 04/01/22 07:08 86 Laboratory Results Short CBC 04/01/22 Range/Units 06:27 WBC 9.50 (4.8-10.8) K/ul Hgb 10.3 L (12.0-16.0) g/dl Hct 32.3 L (34.1-44.9) % Plt Count 362 (130-400) K/uL BMP 04/01/22 06:27 Sodium 138 Potassium 4.4 Chloride 111 H Carbon Dioxide 22 BUN 28 H Creatinine 1.29 H D Glucose 114 H Calcium 9.3
[2022-04-01] MEDS: MONTELUKAST SODIUM 10 MG TABLET PO SCH (19:49)
[2022-04-01] MEDS: oxyCODONE HCL IR 5 MG TAB (IMMEDIATE RELEASE) PO PRN (20:11)
[2022-04-02] MEDS: ACETAMINOPHEN 500 MG TAB PO SCH ×4 (00:31→23:39)
[2022-04-02] MEDS: MEROPENEM 500 MG in SYRINGE 0 ML IV SCH ×4 (05:42→21:06)
[2022-04-02 07:43] LABS: BUN Creatinine Ratio 21.9 (10-20); Calcium 9.7 mg/dl (8.5-10.1); Creatinine Clr Calc Pharmacy 35.3 ml/min; Est GFR (African American) 44.1 ml/min; Est GFR (Non-African American) 38.1 ml/min; Potassium 4.3 mmol/L (3.5-5.1)
[2022-04-02] MEDS ORDERED: DAPTOmycin 300 MG in SYRINGE 0 ML IV SCH (09:00)
[2022-04-02] MEDS: APIXABAN 5 MG TABLET PO SCH ×2 (09:52→20:38)
[2022-04-02] MEDS: EZETIMIBE 10 MG TABLET PO SCH (09:52)
[2022-04-02] MEDS: BUMETANIDE 1 MG TAB PO SCH (09:52)
[2022-04-02] MEDS: LEVOTHYROXINE SODIUM 112 MCG TABLET PO SCH (09:52)
[2022-04-02] MEDS: METOPROLOL SUCC 50MG EXT REL TAB PO SCH ×2 (09:52→20:41)
[2022-04-02] MEDS: ASCORBIC ACID 500 MG TAB PO SCH (09:52)
[2022-04-02] MEDS: PANTOprazole 40 MG TAB PO SCH (09:52)
[2022-04-02] MEDS: ARTIFICIAL TEARS OP SCH ×3 (09:53→20:40)
[2022-04-02] MEDS: POLYETHYLENE (MIRALAX) 17 GM PACK PO SCH (09:53)
[2022-04-02] MEDS: ADVANCED PROBIOTIC 1250 MG CAPSULE PO SCH (09:53)
[2022-04-02] MEDS: CHOLECALCIFEROL 1,000 UNITS 25 MCG TAB PO SCH (09:54)
[2022-04-02] MEDS: oxyCODONE HCL IR 5 MG TAB (IMMEDIATE RELEASE) PO SCH (09:58)
[2022-04-02] MEDS: oxyCODONE HCL IR 5 MG TAB (IMMEDIATE RELEASE) PO PRN (14:08)
--- NOTE | 2022-04-02 16:32 | Hospitalist Progress Note ---
Date of Service April 02, 2022 Assessment & Plan (1) Severe sepsis: Plan: Severe Sepsis Left Leg Cellulitis B/L Leg wounds Blood culture: Negative Wound culture: Klebsiella Received IV fluids Continue on daptomycin, meropenem>>Meropenem Appreciate ID Input Continue wound care Appreciate orthopedics input No plan for debridement as per Ortho Continue current antibiotic (2) Cellulitis of left leg: Plan: Worsening symptoms since discharge on 03/24 despite linezolid which followed several days of intravenous antibiotics in the hospital --Left Leg CT:No acute bony abnormality is identified. Soft tissue edema and dermal thickening throughout the left lower extremity as above. Clinical correlation will be required. No organized/drainable fluid collection is seen on this unenhanced examination and no soft tissue gas is identified. The partially imaged right lower extremity shows similar soft tissue edema. -- Management as above (3) Peripheral arterial disease: Plan: Continue local wound care. Previously evaluated by vascular surgery If clinically no improvement, will need to reconsult vascular surgery (4) Wound of lower extremity: Plan: Continue wound care (5) Atrial fibrillation, permanent: Plan: Chronic, stable. Continue metoprolol On Eliquis for anticoagulation (6) Chronic diastolic CHF (congestive heart failure): Plan: Resumed Bumex Monitor Volume status (7) Coronary artery disease: Plan: Chronic, stable. Continue home medications. (8) Asthma: Plan: Chronic, stable. Continue home inhalers and montelukast. Pressure ulcer of sacral region, stage 1 POA Continue wound care Reposition frequently (9) DVT prophylaxis: Plan: Apixaban Code Status DNR/DNI Admission and Anticipated Discharge Date Admission Date: March 28, 2022 Subjective Patient is seen and examined at bedside No new complaints Wound culture growing Klebsiella Leg erythema continues to improve Denies any chest pain, dyspnea, dizziness Family at bedside Review of Systems Review of Systems: All systems reviewed & are unremarkable except as noted in Subjective Physical Exam Physical Exam: Physical Exam: Vitals signs as noted above General Appearance:Moderately built and nourished, no apparent distress Head: normocephalic, Atraumatic Eyes: normal inspection, EOMI Neck: supple, Trachea midline Respiratory/Chest: Normal breath sounds, CTA, No accessory muscle use Cardiovascular: Irregularly irregular, No murmur Abdomen/GI:Soft, Non tender, Bowel sounds present Extremities/Musculoskeletal:normal inspection, 2+ B/L Edema, +B/L Leg wounds, Erythema improved Neurologic/Psych:AAOX3, grossly no focal neurological deficits Skin: normal color, warm Results & Data Results & Data ([facility]) Vital Signs (Past 12 Hours) Vital Signs Temp Pulse Pulse Resp BP Pulse Ox O2 Del Method 04/02/22 15:35 Room Air 04/02/22 08:00 84 04/02/22 15:23 36.9 C 62 20 105/73 97 Room Air 04/02/22 08:18 36.7 C 96 H 20 117/77 95 Room Air Laboratory Results [facility] 04/02/22 06:33 Sodium 138 Potassium 4.3 Chloride 112 H Carbon Dioxide 21 BUN 28 H Creatinine 1.28 H Glucose 117 H Calcium 9.7
[2022-04-02] MEDS: MONTELUKAST SODIUM 10 MG TABLET PO SCH (20:41)
[2022-04-03] MEDS: MEROPENEM 500 MG in SYRINGE 0 ML IV SCH ×3 (05:04→21:20)
[2022-04-03 06:29] LABS: Hemoglobin 10.5 g/dl (12.0-16.0); Mean Corpuscular Hemoglobin 32.1 pg (25.0-34.0); Mean Corpuscular Hgb Conc 31.8 g/dL (32.0-36.0); Mean Corpuscular Volume 100.9 fL (80.0-100.0); Mean Platelet Volume 9.2 fL (9.4-12.3); Platelet Count 371 K/uL (130-400); RDW Coefficient of Variation 14.3 % (11.5-14.5); RDW Standard Deviation 53.1 fL (36.4-46.3); Red Blood Count 3.27 M/uL (3.93-5.22); White Blood Count 9.69 K/ul (4.8-10.8)
[2022-04-03 07:03] LABS: BUN Creatinine Ratio 25.7 (10-20); Calcium 9.4 mg/dl (8.5-10.1); Creatinine Clr Calc Pharmacy 40.2 ml/min; Est GFR (African American) 51.3 ml/min; Est GFR (Non-African American) 44.3 ml/min; Potassium 3.9 mmol/L (3.5-5.1)
[2022-04-03] MEDS: ADVANCED PROBIOTIC 1250 MG CAPSULE PO SCH (09:29)
[2022-04-03] MEDS: METOPROLOL SUCC 50MG EXT REL TAB PO SCH ×2 (09:30→20:08)
[2022-04-03] MEDS: APIXABAN 5 MG TABLET PO SCH ×2 (09:30→20:05)
[2022-04-03] MEDS: ASCORBIC ACID 500 MG TAB PO SCH (09:30)
[2022-04-03] MEDS: ACETAMINOPHEN 500 MG TAB PO SCH ×3 (09:30→21:16)
[2022-04-03] MEDS: EZETIMIBE 10 MG TABLET PO SCH (09:30)
[2022-04-03] MEDS: PANTOprazole 40 MG TAB PO SCH (09:30)
[2022-04-03] MEDS: LEVOTHYROXINE SODIUM 112 MCG TABLET PO SCH (09:30)
[2022-04-03] MEDS: CHOLECALCIFEROL 1,000 UNITS 25 MCG TAB PO SCH (09:30)
[2022-04-03] MEDS: BUMETANIDE 1 MG TAB PO SCH (09:30)
[2022-04-03] MEDS: ARTIFICIAL TEARS OP SCH ×3 (09:31→20:04)
[2022-04-03] MEDS: POLYETHYLENE (MIRALAX) 17 GM PACK PO SCH (09:31)
[2022-04-03] MEDS: oxyCODONE HCL IR 5 MG TAB (IMMEDIATE RELEASE) PO SCH (09:32)
--- NOTE | 2022-04-03 12:46 | Hospitalist Progress Note ---
Date of Service April 03, 2022 Assessment & Plan (1) Severe sepsis: Plan: Severe Sepsis Left Leg Cellulitis B/L Leg wounds Blood culture: Negative Wound culture: Klebsiella Received IV fluids Continue on daptomycin, meropenem>>Meropenem Appreciate ID Input Continue wound care Appreciate orthopedics input No plan for debridement as per Ortho Will discuss with ID for further recommendations (2) Cellulitis of left leg: Plan: Worsening symptoms since discharge on 03/24 despite linezolid which followed several days of intravenous antibiotics in the hospital --Left Leg CT:No acute bony abnormality is identified. Soft tissue edema and dermal thickening throughout the left lower extremity as above. Clinical correlation will be required. No organized/drainable fluid collection is seen on this unenhanced examination and no soft tissue gas is identified. The partially imaged right lower extremity shows similar soft tissue edema. -- Management as above (3) Peripheral arterial disease: Plan: Continue local wound care. Previously evaluated by vascular surgery If clinically no improvement, will need to reconsult vascular surgery (4) Wound of lower extremity: Plan: Continue wound care (5) Atrial fibrillation, permanent: Plan: Chronic, stable. Continue metoprolol On Eliquis for anticoagulation (6) Chronic diastolic CHF (congestive heart failure): Plan: Resumed Bumex Monitor Volume status (7) Coronary artery disease: Plan: Chronic, stable. Continue home medications. (8) Asthma: Plan: Chronic, stable. Continue home inhalers and montelukast. Pressure ulcer of sacral region, stage 1 POA Continue wound care Reposition frequently (9) DVT prophylaxis: Plan: Apixaban Code Status DNR/DNI Admission and Anticipated Discharge Date Admission Date: March 28, 2022 Subjective Patient is seen and examined at bedside States having transient nausea earlier today Denies any chest pain, dyspnea, dizziness, nausea, abd pain Family at bedside No other complaints Review of Systems Review of Systems: All systems reviewed & are unremarkable except as noted in Subjective Physical Exam Physical Exam: Physical Exam: Vitals signs as noted above General Appearance:Moderately built and nourished, no apparent distress Head: normocephalic, Atraumatic Eyes: normal inspection, EOMI Neck: supple, Trachea midline Respiratory/Chest: Normal breath sounds, CTA, No accessory muscle use Cardiovascular: Irregularly irregular, No murmur Abdomen/GI:Soft, Non tender, Bowel sounds present Extremities/Musculoskeletal:normal inspection, 2+ B/L Edema, +B/L Leg wounds, Erythema improved Neurologic/Psych:AAOX3, grossly no focal neurological deficits Skin: normal color, warm Results & Data Results & Data ([facility]) Vital Signs (Past 12 Hours) Vital Signs Temp Pulse Resp BP BP Pulse Ox O2 Del Method 04/03/22 12:00 36.3 C L 90 18 92/58 L 94 Room Air 04/03/22 06:22 36.5 C 89 20 109/73 97 Room Air Laboratory Results Short CBC 04/03/22 Range/Units 05:26 WBC 9.69 (4.8-10.8) K/ul Hgb 10.5 L (12.0-16.0) g/dl Hct 33.0 L (34.1-44.9) % Plt Count 371 (130-400) K/uL BMP 04/03/22 05:26 Sodium 138 Potassium 3.9 Chloride 111 H Carbon Dioxide 23 BUN 29 H Creatinine 1.13 Glucose 132 H Calcium 9.4
[2022-04-03] MEDS: MONTELUKAST SODIUM 10 MG TABLET PO SCH (20:07)
[2022-04-03] MEDS ORDERED: POTASSIUM CHLORIDE PWD 20 MEQ PACK PO STA (20:53)
[2022-04-03] MEDS ORDERED: hydrOXYzine HCl 10 MG TAB PO STA (20:53)
[2022-04-04] MEDS: MEROPENEM 500 MG in SYRINGE 0 ML IV SCH ×3 (05:11→21:35)
[2022-04-04] MEDS: ACETAMINOPHEN 500 MG TAB PO SCH ×3 (05:11→21:30)
[2022-04-04 07:15] LABS: BUN Creatinine Ratio 25.2 (10-20); Calcium 9.3 mg/dl (8.5-10.1); Creatinine Clr Calc Pharmacy 40.9 ml/min; Est GFR (African American) 52.4 ml/min; Est GFR (Non-African American) 45.2 ml/min; Potassium 4.5 mmol/L (3.5-5.1)
[2022-04-04] MEDS: POLYETHYLENE (MIRALAX) 17 GM PACK PO SCH (09:22)
[2022-04-04] MEDS: METOPROLOL SUCC 50MG EXT REL TAB PO SCH ×2 (09:23→21:28)
[2022-04-04] MEDS: PANTOprazole 40 MG TAB PO SCH (09:24)
[2022-04-04] MEDS: LEVOTHYROXINE SODIUM 112 MCG TABLET PO SCH (09:25)
[2022-04-04] MEDS: ADVANCED PROBIOTIC 1250 MG CAPSULE PO SCH (09:26)
[2022-04-04] MEDS: CHOLECALCIFEROL 1,000 UNITS 25 MCG TAB PO SCH (09:27)
[2022-04-04] MEDS: EZETIMIBE 10 MG TABLET PO SCH (09:27)
[2022-04-04] MEDS: BUMETANIDE 1 MG TAB PO SCH (09:28)
[2022-04-04] MEDS: ASCORBIC ACID 500 MG TAB PO SCH (09:29)
[2022-04-04] MEDS: APIXABAN 5 MG TABLET PO SCH ×2 (09:30→21:29)
[2022-04-04] MEDS: ARTIFICIAL TEARS OP SCH ×3 (09:30→21:30)
[2022-04-04] MEDS: oxyCODONE HCL IR 5 MG TAB (IMMEDIATE RELEASE) PO SCH (09:49)
--- NOTE | 2022-04-04 16:09 | Hospitalist Progress Note ---
Date of Service April 04, 2022 Assessment & Plan (1) Severe sepsis: Plan: Severe Sepsis Left Leg Cellulitis B/L Leg wounds Blood culture: Negative Wound culture: Klebsiella Received IV fluids Continue on daptomycin, meropenem>>Meropenem Appreciate ID Input Continue wound care Appreciate orthopedics input No plan for debridement as per Ortho Discussed with on 04/04/22 Plan to transition to cefuroxime, doxycycline upon discharge to complete 10-day course Needs follow-up with wound clinic upon discharge (2) Cellulitis of left leg: Plan: Worsening symptoms since discharge on 03/24 despite linezolid which followed several days of intravenous antibiotics in the hospital --Left Leg CT:No acute bony abnormality is identified. Soft tissue edema and dermal thickening throughout the left lower extremity as above. Clinical correlation will be required. No organized/drainable fluid collection is seen on this unenhanced examination and no soft tissue gas is identified. The partially imaged right lower extremity shows similar soft tissue edema. -- Management as above (3) Peripheral arterial disease: Plan: Continue local wound care. Previously evaluated by vascular surgery If clinically no improvement, will need to reconsult vascular surgery (4) Wound of lower extremity: Plan: Continue wound care (5) Atrial fibrillation, permanent: Plan: Chronic, stable. Continue metoprolol On Eliquis for anticoagulation (6) Chronic diastolic CHF (congestive heart failure): Plan: Resumed Bumex Monitor Volume status (7) Coronary artery disease: Plan: Chronic, stable. Continue home medications. (8) Asthma: Plan: Chronic, stable. Continue home inhalers and montelukast. Pressure ulcer of sacral region, stage 1 POA Continue wound care Reposition frequently (9) DVT prophylaxis: Plan: Apixaban Code Status DNR/DNI Admission and Anticipated Discharge Date Admission Date: March 28, 2022 Subjective Patient is seen and examined at bedside Nausea resolved No new complaints Discussed with ID and patient's daughter over the phone Denies any chest pain, dyspnea, dizziness, nausea, abd pain Review of Systems Review of Systems: All systems reviewed & are unremarkable except as noted in Subjective Physical Exam Physical Exam: Physical Exam: Vitals signs as noted above General Appearance:Moderately built and nourished, no apparent distress Head: normocephalic, Atraumatic Eyes: normal inspection, EOMI Neck: supple, Trachea midline Respiratory/Chest: Normal breath sounds, CTA, No accessory muscle use Cardiovascular: Irregularly irregular, No murmur Abdomen/GI:Soft, Non tender, Bowel sounds present Extremities/Musculoskeletal:normal inspection, 2+ B/L Edema, +B/L Leg wounds, Erythema improved Neurologic/Psych:AAOX3, grossly no focal neurological deficits Skin: normal color, warm Results & Data Results & Data ([facility]) Vital Signs (Past 12 Hours) Vital Signs Temp Pulse Pulse Resp BP BP Pulse Ox 04/04/22 15:36 36.5 C 90 20 96/64 L 98 04/04/22 15:00 102 H 04/04/22 08:00 97 H 04/04/22 11:22 36.3 C L 94 H 20 107/71 99 04/04/22 10:54 04/04/22 07:00 35.7 C L 96 H 17 124/74 97 O2 Del Method 04/04/22 15:36 Room Air 04/04/22 15:00 04/04/22 08:00 04/04/22 11:22 Room Air 04/04/22 10:54 Room Air 04/04/22 07:00 Room Air
[2022-04-04] MEDS: MONTELUKAST SODIUM 10 MG TABLET PO SCH (21:29)
[2022-04-05] MEDS ORDERED: MELATONIN 3 MG TAB PO PRN (02:45)
[2022-04-05 05:48] LABS: Hematocrit (blood only) 33.5 % (34.1-44.9); Hemoglobin 10.5 g/dl (12.0-16.0); Mean Corpuscular Hemoglobin 31.9 pg (25.0-34.0); Mean Corpuscular Hgb Conc 31.3 g/dL (32.0-36.0); Mean Corpuscular Volume 101.8 fL (80.0-100.0); Mean Platelet Volume 9.3 fL (9.4-12.3); Platelet Count 370 K/uL (130-400); RDW Coefficient of Variation 14.4 % (11.5-14.5); RDW Standard Deviation 53.2 fL (36.4-46.3); Red Blood Count 3.29 M/uL (3.93-5.22); White Blood Count 8.52 K/ul (4.8-10.8)
[2022-04-05 06:10] LABS: BUN Creatinine Ratio 29.1 (10-20); Calcium 9.4 mg/dl (8.5-10.1); Creatinine Clr Calc Pharmacy 44.1 ml/min; Est GFR (African American) 57.4 ml/min; Est GFR (Non-African American) 49.5 ml/min; Potassium 4.2 mmol/L (3.5-5.1)
[2022-04-05] MEDS: ACETAMINOPHEN 500 MG TAB PO SCH (06:39)
[2022-04-05] MEDS: MEROPENEM 500 MG in SYRINGE 0 ML IV SCH (06:40)
[2022-04-05] MEDS: METOPROLOL SUCC 50MG EXT REL TAB PO SCH (08:17)
[2022-04-05] MEDS: ASCORBIC ACID 500 MG TAB PO SCH (08:17)
[2022-04-05] MEDS: LEVOTHYROXINE SODIUM 112 MCG TABLET PO SCH (08:17)
[2022-04-05] MEDS: ADVANCED PROBIOTIC 1250 MG CAPSULE PO SCH (08:17)
[2022-04-05] MEDS: PANTOprazole 40 MG TAB PO SCH (08:17)
[2022-04-05] MEDS: CHOLECALCIFEROL 1,000 UNITS 25 MCG TAB PO SCH (08:17)
[2022-04-05] MEDS: BUMETANIDE 1 MG TAB PO SCH (08:17)
[2022-04-05] MEDS: APIXABAN 5 MG TABLET PO SCH (08:17)
[2022-04-05] MEDS: EZETIMIBE 10 MG TABLET PO SCH (08:18)
[2022-04-05] MEDS: ARTIFICIAL TEARS OP SCH (08:18)
[2022-04-05] MEDS: POLYETHYLENE (MIRALAX) 17 GM PACK PO SCH (08:19)
[2022-04-05] MEDS: oxyCODONE HCL IR 5 MG TAB (IMMEDIATE RELEASE) PO SCH (08:24)
--- NOTE | 2022-04-05 12:42 | Hospitalist Progress Note ---
Date of Service April 05, 2022 Assessment & Plan (1) Severe sepsis: Plan: Severe Sepsis Left Leg Cellulitis B/L Leg wounds Blood culture: Negative Wound culture: Klebsiella Received IV fluids Continue on daptomycin, meropenem>>Meropenem Appreciate ID Input Continue wound care Appreciate orthopedics input No plan for debridement as per Ortho Discussed with on 04/04/22 Transition to cephalexin, doxycycline upon discharge to complete the course as per ID Advised to follow up with wound clinic upon discharge (2) Cellulitis of left leg: Plan: Worsening symptoms since discharge on 03/24 despite linezolid which followed several days of intravenous antibiotics in the hospital --Left Leg CT:No acute bony abnormality is identified. Soft tissue edema and dermal thickening throughout the left lower extremity as above. Clinical correlation will be required. No organized/drainable fluid collection is seen on this unenhanced examination and no soft tissue gas is identified. The partially imaged right lower extremity shows similar soft tissue edema. -- Management as above (3) Peripheral arterial disease: Plan: Continue local wound care. Previously evaluated by vascular surgery If clinically no improvement, will need to reconsult vascular surgery (4) Wound of lower extremity: Plan: Continue wound care (5) Atrial fibrillation, permanent: Plan: Chronic, stable. Continue metoprolol On Eliquis for anticoagulation (6) Chronic diastolic CHF (congestive heart failure): Plan: Resumed Bumex Monitor Volume status (7) Coronary artery disease: Plan: Chronic, stable. Continue home medications. (8) Asthma: Plan: Chronic, stable. Continue home inhalers and montelukast. Pressure ulcer of sacral region, stage 1 POA Continue wound care Reposition frequently (9) DVT prophylaxis: Plan: Apixaban Code Status DNR/DNI Admission and Anticipated Discharge Date Admission Date: March 28, 2022 Subjective Patient is seen and examined at bedside States feeling well No complaints Denies any chest pain, dyspnea, dizziness, nausea, abd pain Plan to discharge today Review of Systems Review of Systems: All systems reviewed & are unremarkable except as noted in Subjective Physical Exam Physical Exam: Physical Exam: Vitals signs as noted above General Appearance:Moderately built and nourished, no apparent distress Head: normocephalic, Atraumatic Eyes: normal inspection, EOMI Neck: supple, Trachea midline Respiratory/Chest: Normal breath sounds, CTA, No accessory muscle use Cardiovascular: Irregularly irregular, No murmur Abdomen/GI:Soft, Non tender, Bowel sounds present Extremities/Musculoskeletal:normal inspection, 2+ B/L Edema, +B/L Leg wounds, Erythema improved Neurologic/Psych:AAOX3, grossly no focal neurological deficits Skin: normal color, warm Results & Data Results & Data ([facility]) Vital Signs (Past 12 Hours) Vital Signs Temp Pulse Resp BP Pulse Ox O2 Del Method 04/05/22 08:15 Room Air 04/05/22 11:39 36.5 C 95 H 18 103/63 96 Room Air 04/05/22 08:06 36.5 C 87 18 111/73 96 Room Air 04/05/22 02:46 36.6 C 102 H 20 96/68 L 96 Room Air Laboratory Results Short CBC 04/05/22 Range/Units 05:23 WBC 8.52 (4.8-10.8) K/ul Hgb 10.5 L (12.0-16.0) g/dl Hct 33.5 L (34.1-44.9) % Plt Count 370 (130-400) K/uL BMP 04/05/22 05:23 Sodium 138 Potassium 4.2 Chloride 110 H Carbon Dioxide 24 BUN 30 H Creatinine 1.03 Glucose 119 H Calcium 9.4 Cardiac Enzymes 04/05/22 Range/Units 10:38 Total Creatine Kinase < 10 L (26-192) U/L
--- NOTE | 2022-04-05 12:55 | Discharge Summary ---
Date of Service April 05, 2022 Admission HPI Per Admitting Provider This is an 86 y/o female with a PMH of PAD (follows with vascular) w/ chronic wounds, CAD, atrial fibrillation on chronic AC with Eliquis, diastolic CHF (follows w/ CHF clinic), pHTN, aortic regurgitation, hypothyroidism, depression, anxiety, and dyslipidemia who presents to the ED today from [facility] with worsening redness, warmth and pain in her LLE. Pt was recently admitted to [facility] from 03/18/22-03/24/22 with LLE cellulitis and stage III pressure ulcer of left buttock. She was initially treated with vancomycin but was transitioned to linezolid orally for 14 days per ID's recommendation. She was also noted to have an MORENA during the last admission and was seen by nephrology. It is unclear if creatinine will return to baseline or if this is pt's new baseline. Pt reports that initially she felt like she did okay after discharge. However, over the last 1-2 days she has noted increased pain in the LLE, worse than usual pain. Associated back and buttock pain. She specifically notes pain in left knee but reports that it does not seem to be pain within the joint itself but rather related to wounds of the posterior knee. This morning, she felt particularly worse with noted nausea, dry heaves, and small amount of emesis after breakfast. Overall, she reports that she just felt poorly this morning. Pt reports taking medication as prescribed at discharge but pt is unsure if that includes her antibiotics. Reports that the large blister she had on her left leg previously finally broke and now has a blood blister in the middle of it. Overall, she thinks her wounds have been stable or potentially worsening but is unsure. States that staff at [facility] have been doing regular dressing changes and wound care. Reports minimally ambulatory at baseline - typically uses wheelchair but can ambulate a few steps in her room. Saw vascular surgery previously, most recently last week during admission. Recommended wound care with outpatient follow-up but no acute intervention required. Admission Exam Per Admitting Provider Physical Exam Constitutional: well developed and well nourished; no acute distress Eyes: + anicteric sclerae Neck: trachea midline Respiratory: no respiratory distress and no labored breathing Auscultation: lungs clear to auscultation bilaterally; no rales, no rhonchi and no wheezes Cardiovascular: Rate/Rhythm: + tachycardic and + irregularly irregular Extremities: + edema (3+ pitting edema to knees, 2+ distal thighs) Gastrointestinal (Abdomen): Inspection/Auscultation: normal bowel sounds; abdomen not distended Percussion/Palpation: abdomen soft; abdomen nontender Musculoskeletal: Head/Neck/Chest: normocephalic, head atraumatic and neck supple Skin: bilateral LE with multiple wounds, blisters (right), some scabbed over, some with dressings in place, with erythema of LLE extending to mid-thigh, associated warmth, no purulent drainage. Neurologic: moves all extremities; not confused Principal Diagnosis Severe Sepsis Left Leg Cellulitis Discharge Data Allergies Allergy/AdvReac Type Severity Reaction Status Date / Time latex Allergy Intermediate Rash, Verified 03/03/22 13:13 itching povidone-iodine Allergy Intermediate Itching Verified 03/03/22 13:13 [From Betadine] soap [From Betadine] Allergy Intermediate Itching Verified 03/03/22 13:13 aspirin AdvReac Mild Dizziness Verified 03/03/22 13:13 Consultations 03/28/22 12:02 ED Decision to Admit Stat 03/28/22 13:48 Consult Infectious Diseases Routine 03/29/22 15:10 Consult Orthopedic Surgery Routine Procedures Performed Laboratory Results WBC 8.52 K/ul (4.8-10.8) 04/05/22 05:23 RBC 3.29 M/uL (3.93-5.22) L 04/05/22 05:23 Hgb 10.5 g/dl (12.0-16.0) L 04/05/22 05:23 Hct 33.5 % (34.1-44.9) L 04/05/22 05:23 MCV 101.8 fL (80.0-100.0) H 04/05/22 05:23 MCH 31.9 pg (25.0-34.0) 04/05/22 05:23 MCHC 31.3 g/dL (32.0-36.0) L 04/05/22 05:23 RDW Std Deviation 53.2 fL (36.4-46.3) H 04/05/22 05:23 RDW Coeff of Marielle 14.4 % (11.5-14.5) 04/05/22 05:23 Plt Count 370 K/uL (130-400) 04/05/22 05:23 MPV 9.3 fL (9.4-12.3) L 04/05/22 05:23 Immature Gran % (Auto) 0.7 % 03/31/22 05:54 Neut % (Auto) 91.4 % 03/31/22 05:54 Lymph % (Auto) 3.9 % 03/31/22 05:54 Travis % (Auto) 3.3 % 03/31/22 05:54 Eos % (Auto) 0.6 % 03/31/22 05:54 Baso % (Auto) 0.1 % 03/31/22 05:54 Neut # (Auto) 12.06 K/uL (1.4-6.5) H 03/31/22 05:54 Lymph # (Auto) 0.51 K/uL (1.2-3.4) L 03/31/22 05:54 Travis # (Auto) 0.43 K/uL (0.24-0.82) 03/31/22 05:54 Eos # (Auto) 0.08 K/uL (0-0.50) 03/31/22 05:54 Baso # (Auto) 0.01 K/uL (0-0.2) 03/31/22 05:54 Immature Gran # (Auto) 0.09 K/uL (0.00-0.02) H 03/31/22 05:54 Polychromasia 1+ 03/31/22 05:54 Anisocytosis Present 03/28/22 08:56 Echinocytes 1+ 03/31/22 05:54 Sodium 138 mmol/L (136-145) 04/05/22 05:23 Potassium 4.2 mmol/L (3.5-5.1) 04/05/22 05:23 Chloride 110 mmol/L (98-107) H 04/05/22 05:23 Carbon Dioxide 24 mmol/L (21-32) 04/05/22 05:23 Anion Gap 4 (3-11) 04/05/22 05:23 BUN 30 mg/dl (6-23) H 04/05/22 05:23 Creatinine 1.03 mg/dl (0.6-1.2) 04/05/22 05:23 Est Cr Clr Drug Dosing 44.1 ml/min 04/05/22 05:23 Est GFR ( Amer) 57.4 ml/min 04/05/22 05:23 Est GFR (Non-Af Amer) 49.5 ml/min 04/05/22 05:23 BUN/Creatinine Ratio 29.1 (10-20) H 04/05/22 05:23 Glucose 119 mg/dl (70-99(Fasting)) H 04/05/22 05:23 Lactate 1.2 mmol/L (0.4-2.0) 03/29/22 03:18 Calcium 9.4 mg/dl (8.5-10.1) 04/05/22 05:23 Magnesium 1.7 mg/dl (1.7-2.4) 03/28/22 08:56 Total Bilirubin 0.3 mg/dl (0.2-1.0) 03/31/22 05:54 Direct Bilirubin 0.2 mg/dl (0-0.2) 03/28/22 08:56 AST 14 U/L (13-39) 03/31/22 05:54 ALT 13 U/L (7-52) 03/31/22 05:54 Alkaline Phosphatase 90 U/L (34-104) 03/31/22 05:54 Total Creatine Kinase < 10 U/L (26-192) L 04/05/22 10:38 Troponin I High Sens 9.5 pg/ml (0-14) 03/28/22 08:56 Total Protein 5.4 gm/dl (6.0-8.3) L 03/31/22 05:54 Albumin 2.5 gm/dl (3.4-5.0) L 03/31/22 05:54 Globulin 2.9 gm/dl (2.5-4.0) 03/31/22 05:54 Albumin/Globulin Ratio 0.9 (0.9-2) 03/31/22 05:54 Procalcitonin 0.16 ng/ml (0-0.5) 03/28/22 08:56 SARS-CoV-2, RNA, NAAT NEGATIVE (NEGATIVE) 03/28/22 09:20 Impressions Chest X-Ray 03/28/22 08:28 XR chest 1V portable HISTORY: Sepsis COMPARISON: Chest 03/18/2022. FINDINGS: No pneumothorax. There are bilateral total shoulder arthroplasties again noted. No new focal lung consolidations to suggest a pneumonia. No evidence for pulmonary edema. The cardiac silhouette remains borderline enlarged. There are calcifications within the aortic knob. Stable blunting of the costophrenic sulci. No large pleural effusions identified. IMPRESSION: No significant change compared to the prior study. No acute process. ACT 112: Negative or not required by law. Electronically signed by: Esdras Salazar M.D. 03/28/2022 9:[address] 03/28/22 15:47 CT femur LT wo con CLINICAL HISTORY: r/o necrotizing fas/abscess collection TECHNIQUE: Multidetector row helical CT of the was performed without intravenous contrast. Coronal and sagittal reformations were obtained. Automated dose lowering techniques and/or adjustment according to patient size were utilized for this examination. CT DOSE: 1135.33 mGy.cm Comparison: None available at the time of this dictation. FINDINGS: The osseous structures are without fracture or dislocation. Patient is status post total knee arthroplasty. No joint effusion is seen. There is a fluid collection in the lateral thigh skin thickening. No subcutaneous gas is seen. Diffuse soft tissue edema is seen in the mid and distal thigh. Vascular calcifications are seen. IMPRESSION: There is a fluid density lesion in the lateral thigh. Evaluation is limited by noncontrast technique, this may represent a phlegmon or developing abscess, a hematoma is also possible although less likely. Skin thickening and soft tissue edema is seen compatible with cellulitis. No evidence of necrotizing fasciitis. ACT 112: Negative or not required by law. Electronically signed by: Sammy Davis M.D. 03/28/2022 5:[address] 03/28/22 15:47 CT SCAN OF THE LEFT TIBIA AND FIBULA WITHOUT IV CONTRAST CLINICAL HISTORY: Infection. COMPARISON STUDY: No priors. TECHNIQUE: CT scan of the left tibia and fibula was performed from the knee and the ankle. Images are reviewed in the axial, sagittal, coronal planes. IV contrast was not administered for this examination. A dose lowering technique was utilized adhering to the principles of ALARA. The examination is significantly degraded by streak artifact from a left hip arthroplasty. Note that interpretation is suboptimal without plain film correlate. FINDINGS: The skeletal structures are osteopenic. There is no evidence of left tibial or fibular fracture. No bony erosion or periostitis is identified. The knee joint cannot be assessed. The ankle joint is grossly maintained. There is atherosclerotic calcification of the regional arteries. Diffuse soft tissue edema is present throughout the left lower extremity with dermal thickening and subcutaneous fluid. No organized/drainable fluid collection is identified. No soft tissue gas is seen. The partially imaged right lower extremity shows similar appearing edema. There is generalized atrophy of the regional musculature. IMPRESSION: 1. No acute bony abnormality is identified. 2. Soft tissue edema and dermal thickening throughout the left lower extremity as above. Clinical correlation will be required. 3. No organized/drainable fluid collection is seen on this unenhanced examination and no soft tissue gas is identified. 4. The partially imaged right lower extremity shows similar soft tissue edema. ACT 112: Negative or not required by law. Dictated: 03/28/2022 5:05 PM Transcribed: 03/28/2022 5:36 PM Kristina [id number] [email or web address] Electronically signed by: Csear Santos M.D. 03/28/2022 5:51 PM Ordered Studies 03/28/22 15:47 CT leg [CT femur LT wo con] Urgent CT leg [CT tib/fib LT wo con] Urgent Hospital Course (1) Severe sepsis: Severe Sepsis Left Leg Cellulitis B/L Leg wounds Blood culture: Negative Wound culture: Klebsiella Received IV fluids Continue on daptomycin, meropenem>>Meropenem Appreciate ID Input Continue wound care Appreciate orthopedics input No plan for debridement as per Ortho Discussed with on 04/04/22 Transition to cephalexin, doxycycline upon discharge to complete the course as per ID Advised to follow up with wound clinic upon discharge (2) Cellulitis of left leg: Worsening symptoms since discharge on 03/24 despite linezolid which followed several days of intravenous antibiotics in the hospital --Left Leg CT:No acute bony abnormality is identified. Soft tissue edema and dermal thickening throughout the left lower extremity as above. Clinical correlation will be required. No organized/drainable fluid collection is seen on this unenhanced examination and no soft tissue gas is identified. The partially imaged right lower extremity shows similar soft tissue edema. -- Management as above (3) Peripheral arterial disease: Continue local wound care. Previously evaluated by vascular surgery If clinically no improvement, will need to reconsult vascular surgery (4) Wound of lower extremity: Continue wound care (5) Atrial fibrillation, permanent: Chronic, stable. Continue metoprolol On Eliquis for anticoagulation (6) Chronic diastolic CHF (congestive heart failure): Resumed Bumex Monitor Volume status (7) Coronary artery disease: Chronic, stable. Continue home medications. (8) Asthma: Chronic, stable. Continue home inhalers and montelukast. Pressure ulcer of sacral region, stage 1 POA Continue wound care Reposition frequently (9) DVT prophylaxis: Apixaban Code Status DNR/DNI Total Time Total Time Spent Total Time Spent (In Minutes): 45 minutes Discharge Plan Discharge Items Patient Disposition: Personal Snf Reason For Visit: LE CELLULITIS, WOUNDS Discharge Diagnosis: Severe Sepsis Left Leg Cellulitis Activity: Per Instructions section Exercise/Sports: Gradually increase as tolerated Non-emergency contact: Primary Care Provider and Specialist Call non-emergency contact if: you have any medication questions, your symptoms worsen, your pain is concerning for you and you have a fever Follow-up/Referrals: [facility] [Primary Care Provider] - Diet: Heart Healthy and Low Sodium (2gm) Addtl Attending Provider Instructions: Follow-up with your primary care physician at [facility] in 1 week Follow-up with wound clinic in 1 week as advised. --- Complete antibiotic course cephalexin 500 mg twice a day along with doxycycline 100 mg twice a day for 2 more days and stop. --- Continue daily dressing of the wounds as recommended. Seek immediate medical attention if your symptoms reoccur or worsen Please take all medications as instructed on discharge list below. Please call if you have any questions or problems. You can reach a [facility] hospitalist on duty at [facility] 24 hours a day by calling [phone] Pending Studies at Discharge: No Stand-Alone Forms: My [facility] [employer], Smoking Cessation Skilled Items Patient informed of condition?: Yes DNR: Yes Discharge Level of Care: Other Communicable Disease: No Discharge Prognosis: Stable Lines: None Urinary Catheter: No Medications and DC Order Prescriptions: New Advanced Probiotic 625 mg (10 billion cell) Capsule 2 cap PO DAILY Qty: 30 0RF cephalexin 500 mg tablet 500 mg PO BID Qty: 5 0RF doxycycline hyclate 100 mg tablet 100 mg PO BID Qty: 5 0RF Continued Eliquis 5 mg tablet 5 mg PO BID Qty: 180 3RF ezetimibe [Zetia] 10 mg tablet 10 mg PO QAM Qty: 90 3RF PreserVision AREDS-2 [phone] [id number] Capsule 2 tab PO QAM pantoprazole [Protonix] 40 mg tablet,delayed release (DR/EC) 40 mg PO QAM budesonide-formoterol [Symbicort] 160-4.5 mcg/actuation HFA aerosol inhaler 2 puff INHALATION BID PRN (Reason: Shortness Of Breath Or Wheezing) montelukast 10 mg tablet 10 mg PO QPM ascorbic acid (vitamin C) [Vitamin C] 500 mg Tablet 500 mg PO QAM Qty: 20 0RF metoprolol succinate 50 mg tablet extended release 24 hr 50 mg PO BID bumetanide 1 mg tablet 1 mg PO DAILY levothyroxine 112 mcg tablet 112 mcg PO QAM sennosides-docusate sodium [Senna-S] 8.6-50 mg Tablet 2 tab-cap PO BID melatonin 3 mg Tablet 3 mg PO HS carboxymethylcellulose sodium [Refresh Tears] 0.5 % Drops 1 drp OPHTHALMIC (EYE) TID polyethylene glycol 3350 [Miralax] 17 gram/dose Powder 17 g PO DAILY oxycodone [Roxicodone] 5 mg Tablet 2.5 mg PO DAILY cholecalciferol (vitamin D3) [Vitamin D3] 50 mcg (2,000 unit) Capsule 50 mcg PO DAILY acetaminophen 500 mg Tablet 500 mg PO Q6H PRN (Reason: Pain) oxycodone 5 mg tablet 2.5 mg PO Q8H PRN (Reason: Pain) Discontinued linezolid 600 mg tablet 600 mg PO BID Qty: 14 0RF Discharge Orders: Discharge Order (Routine); Ordered 04/05/22 Ordered By: Vicente Marquez Admission Data Admit Date/Time: 03/28/22 11:34 Attending Provider: Vicente Marquez Admit Provider: Evelyn Laguna Primary Care Provider: [facility] Other Providers: Evelyn Laguna ; Alonso Echevarria ; Percy Daliey ; Jaswinder Adan I. ; Dick Sun II ; Chloe Alvarenga ; Jhon Cabrera ; Issac Nur ; Nicholas Martinez ; Yvon Saucedo
== END 2022-04-05 14:36 | disposition home or self-care (01) | DRG 872 ==
LOC: ED 07:44 → 2N 11:34 → SUATTDRO 11:34 → 2N 12:47
DX: E03.9 Hypothyroidism, unspecified; S81.802A Unspecified open wound, left lower leg, initial encounter; Z79.890 Hormone replacement therapy; Z88.6 Allergy status to analgesic agent; I25.10 Atherosclerotic heart disease of native coronary artery without angina pectoris; Z79.01 Long term (current) use of anticoagulants; I27.20 Pulmonary hypertension, unspecified; Z79.891 Long term (current) use of opiate analgesic; Z79.899 Other long term (current) drug therapy; I48.21 Permanent atrial fibrillation; R65.20 Severe sepsis without septic shock; Z91.048 Other nonmedicinal substance allergy status; Z66 Do not resuscitate; B96.1 Klebsiella pneumoniae [K. pneumoniae] as the cause of diseases classified elsewhere; L03.116 Cellulitis of left lower limb; Z87.891 Personal history of nicotine dependence; X58.XXXA Exposure to other specified factors, initial encounter; Z91.040 Latex allergy status; I73.9 Peripheral vascular disease, unspecified; L89.151 Pressure ulcer of sacral region, stage 1; A41.9 Sepsis, unspecified organism; E78.5 Hyperlipidemia, unspecified; I50.32 Chronic diastolic (congestive) heart failure; K21.9 Gastro-esophageal reflux disease without esophagitis; S81.801A Unspecified open wound, right lower leg, initial encounter; J45.909 Unspecified asthma, uncomplicated

== ENCOUNTER 2022-04-19 19:59 | Inpatient (IN) ==
[2022-04-19] MEDS ORDERED: CEFEPIME 2,000 MG/20 ML VIAL IV STA (20:23)
--- NOTE | 2022-04-19 20:29 | Emergency Department Note ---
Impression & Plan Hypoxia, Somnolence, Pedal edema, Cellulitis ED Provider Note NAME: ALYCIA BUSBY AGE: 86 SEX: F : 1935 ARRIVES VIA: Ambulance INFORMANT: [Patient][family, nursing] ED PROVIDER(S): [Cesar Beasley MD] CHIEF COMPLAINT: Illness HISTORY OF PRESENT ILLNESS: The patient is an 86-year-old female who has been sleepy with a lower O2 saturation for 3 days. Today, they woke her up and her O2 saturation was 70%. She does not typically wear oxygen. She was sent from her care center to our facility. The patient has been coughing more. She has had some chills without fever. No vomiting or diarrhea, no sore throat or stuffy nose. No abdominal pain. She has had some leg edema. As per the family, the patient is off of antibiotics as of about a week ago, she was on antibiotics for a cellulitis. As per nursing staff, the patient's O2 saturation was 86% without oxygen. With supplemental O2, her sat is adequate. REVIEW OF SYSTEMS: See HPI for pertinent positives and negatives. A total of ten systems were reviewed and were otherwise negative. PMHx/PSHx: See Below SOCIAL HISTORY: See Below. PHYSICAL EXAM: GENERAL: Patient is in no acute distress. HEENT: No acute trauma, normocephalic atraumatic, mucous membranes moist, no nasal congestion, no scleral icterus. NECK: No stridor, no adenopathy, no meningismus, trachea is midline. LUNGS: Diminished breath sounds bilaterally, no wheezing, no respiratory distress, breath sounds are equal. HEART: Mildly tachycardic and irregular, no obvious murmur. ABDOMEN: Soft, nontender, bowel sounds positive, no peritonitis. Obese. EXTREMITIES: No cyanosis. There is marked bilateral pedal edema with multiple open areas which have been bandaged. Clear drainage noted. There is erythema to both lower extremities, worse on the right in the area of the proximal calf extending across the knee. There is warmth present NEUROLOGIC: Oriented x 3, no acute motor or sensory deficits, no focal weakness. SKIN: No rash, potential mild jaundice, no diaphoresis. DIFFERENTIAL DIAGNOSIS: Infection, dehydration, UTI, COVID-19, RSV, influenza, CHF, CO2 retention, liver or renal failure, metabolic abnormality, hypo/hyperglycemia, electrolyte disturbance, anemia, hypoxia, cardiac sources, intracerebral event, toxicologic issues, stroke, TIA, as well as other pathologies. EMERGENCY DEPARTMENT COURSE/PROCEDURES: ECG: Indication was weakness and shortness of breath. The ECG shows what appears to be atrial fibrillation with a significant baseline artifact. No ST elevation. The rate is 134. No PVCs. The QTc is 480. Continuous Cardiac Monitoring: An order was placed for continuous cardiac monitoring. The monitor shows a rate of 112 with atrial fibrillation. Critical Care Note: I have personally spent 41 minutes of critical care time in the direct management of this patient. This includes bedside care, interpretation of diagnostic studies, and testing, discussion with consultants, patient, and family members, and other required patient management activities. This 41 minutes is in excess of all separately billable procedures. MEDICAL DECISION MAKING: There is no leukocytosis. The patient is anemic but she does carry a history of this problem. There is a normal platelet count. INR is elevated, likely from her Eliquis use. ABG shows some CO2 retention however, this seems compensated by a higher bicarb. There was no acidosis. No renal failure or significant electrolyte abnormality. Lactic acid level was not elevated making sepsis less likely. ECG shows atrial fibrillation with some artifact. No obvious acute ischemia. Cardiac enzyme testing x1 is not consistent with acute cardiac injury. Patient appears to be in a euthyroid state. BNP is elevated consistent with fluid overload. COVID, influenza and RSV test were negative. Chest x-ray shows some chronic congestion, no obvious CHF, no pneumonia. The patient received a small amount of IV saline, she was given IV cefepime as antibiotic coverage. She was maintained on nasal cannula supplementation. The patient presents hypoxic, somnolent. She is fluid overloaded with cellulitis. She is going to require a hospital stay and further care. I spoke with the patient and her family, I talked to the casey saw operator. The on- call hospitalist was consulted. Past Med/Surg History Medical History Acute diverticulitis Anxiety and depression Aortic regurgitation Asthma inhaler prn Atrial fibrillation with rapid ventricular response Atrial fibrillation, permanent on eliquis and follows with Dr. Colón Chronic diastolic CHF (congestive heart failure) Coronary artery disease Diverticulitis Dyslipidemia Esophageal stricture H/O fall 08/2020 Hearing deficit History of COVID-19 diagnosed 05/18/22 @ [place]--asymptomatic, tested prior to procedure--no issues now Hypotension Hypothyroid Leukocytosis Macular degeneration On anticoagulant therapy eliquis daily Osteoarthritis Pulmonary hypertension Spinal stenosis Valvular heart disease Surgical History History of bilateral cataract extraction History of cardiac cath ?[address] [facility]--no stents History of colonoscopy with polypectomy History of dilatation and curettage History of esophagogastroduodenoscopy (EGD) History of left hip replacement History of left shoulder replacement History of parathyroidectomy ELEVATED CALCIUM LEVELS? (2 REMOVED) History of right hip replacement History of right shoulder replacement History of tonsillectomy and adenoidectomy History of tooth extraction History of total left knee replacement (TKR) x2 History of total right knee replacement (TKR) x2 History of wisdom tooth extraction S/P cholecystectomy S/P dilatation of esophageal stricture Family History Mother Cancer uterine Thyroid disease Father Cancer esophageal Family history of esophageal cancer Sister Family history of diabetes mellitus Sister Family history of diabetes mellitus Brother Family history of diabetes mellitus Family hx of colon cancer Other No family history of adverse response to anesthesia Social History Smoking Status: Unknown if ever smoked Tobacco Type: Cigarettes Cigarettes Per Day: 1 ppd; Second Hand Exposure: No; Hx Alcohol Use: No Hx Substance Use: No Preferred Language: Taiwanese Communication Ability: Effective Visual Impairment: Limited Hearing Ability: Normal Cooling Pan Tender Required: No Beliefs That Will Affect Care: None Current Living Situation: Personal Care Facility Current Living Situation Comment: [facility] How many Children do You have: 4 Feels Safe at Home: Yes caffeine: No during the past year weight has: remained stable Assistive Devices: Glasses, Walker and Wheelchair Allergies Allergies Allergy/AdvReac Type Severity Reaction Status Date / Time latex Allergy Intermediate Rash, Verified 04/19/22 21:46 itching povidone-iodine Allergy Intermediate Itching Verified 04/19/22 21:46 [From Betadine] soap [From Betadine] Allergy Intermediate Itching Verified 04/19/22 21:46 aspirin AdvReac Mild Dizziness Verified 04/19/22 21:46 Home Meds Home Medications Medication Instructions Recorded Confirmed vit C 250 mg-vit E 90 mg-zinc 40 2 tab PO QAM 05/01/20 04/19/22 mg-copper 1 [id number] capsule (PreserVision AREDS-2) budesonide-formoterol HFA 160 2 puff inhalation BID PRN 09/15/20 04/19/22 mcg-4.5 mcg/actuation aerosol Shortness Of Breath Or Wheezing inhaler (Symbicort) pantoprazole 40 mg tablet,delayed 40 mg PO QAM GERD 05/14/21 04/19/22 release (Protonix) montelukast 10 mg tablet 10 mg PO QPM 08/20/21 04/19/22 acetaminophen 500 mg tablet 500 mg PO Q6H PRN Pain 03/28/22 04/19/22 bumetanide 1 mg tablet 1 mg PO DAILY 03/28/22 04/19/22 carboxymethylcellulose sodium 0.5 1 drp ophthalmic (eye) TID 03/28/22 04/19/22 % eye drops (Refresh Tears) cholecalciferol (vitamin D3) 50 50 mcg PO DAILY 03/28/22 04/19/22 mcg (2,000 unit) capsule (Vitamin D3) levothyroxine 112 mcg tablet 112 mcg PO DAILYBB 03/28/22 04/19/22 melatonin 3 mg tablet 3 mg PO QDD 03/28/22 04/19/22 metoprolol succinate 50 mg 50 mg PO BID 03/28/22 04/19/22 tablet,extended release 24 hr oxycodone 5 mg tablet 2.5 mg PO QAM 03/28/22 04/19/22 polyethylene glycol 3350 17 17 g PO DAILY 03/28/22 04/19/22 gram/dose oral powder (Miralax) sennosides 8.6 mg-docusate sodium 2 tab-cap PO BID17 03/28/22 04/19/22 50 mg tablet (Senna-S) apixaban 5 mg tablet (Eliquis) 5 mg PO BID17 04/19/22 04/19/22 bismuth subsalicylate 262 mg/15 mL 524 mg PO Q6H PRN UPSET STOMACH 04/19/22 04/19/22 oral suspension (Hickory Bismuth) food supplemt, lactose-reduced 1 ea PO QAM 04/19/22 04/19/22 ondansetron HCl 4 mg tablet 4 mg PO Q4H PRN NAUSEA/VOMITING 04/19/22 04/19/22 oxycodone 5 mg tablet 2.5 mg PO Q8H PRN Pain 04/19/22 04/19/22 Previous Rx's Medication Instructions Recorded ezetimibe 10 mg tablet (Zetia) 10 mg PO QAM #90 tabs 11/24/21 ascorbic acid (vitamin C) 500 mg 500 mg PO QAM #20 tabs 01/02/22 tablet (Vitamin C) L.acidop,casei,lactis,rham-B.lact,jessy 2 cap PO DAILY #30 caps 04/05/22 625 mg (10 billion cell) capsule (Advanced Probiotic) Results & Data (ED) Vital Signs Vital Signs - 24 hr 04/19/22 20:00 04/19/22 21:45 Temperature 37.4 C Temperature Source Oral Pulse Rate 118 H 92 H Respiratory Rate 21 22 Blood Pressure 97/66 L 98/63 L Blood Pressure Mean 76 74 Pulse Oximetry 100 96 Oxygen Delivery Method Nasal Cannula Nasal Cannula Oxygen Flow Rate 2 2 Sepsis Recent Fever Within 48 Hours No Sepsis New/Unexplained Change in Mental Status No Sepsis Action Taken by Nursing Physician Notified Home Medications Current Medication List: was personally reviewed by me Laboratory Data Attestation: I reviewed the patient's lab results. Result diagrams: 04/19/22 21:14 04/19/22 21:14 Lab Results 04/19/22 04/19/22 04/19/22 Range/Units 20:49 21:14 21:14 WBC 9.31 (4.8-10.8) K/ul RBC 3.27 L (3.93-5.22) M/uL Hgb 10.5 L (12.0-16.0) g/dl Hct 32.7 L (34.1-44.9) % MCV 100.0 (80.0-100.0) fL MCH 32.1 (25.0-34.0) pg MCHC 32.1 (32.0-36.0) g/dL RDW Std Deviation 53.7 H (36.4-46.3) fL RDW Coeff of Marielle 14.7 H (11.5-14.5) % Plt Count 330 (130-400) K/uL MPV 9.4 (9.4-12.3) fL Immature Gran % (Auto) 0.4 % Neut % (Auto) 88.3 % Lymph % (Auto) 5.4 % Parmer % (Auto) 3.9 % Eos % (Auto) 1.7 % Baso % (Auto) 0.3 % Neut # (Auto) 8.22 H (1.4-6.5) K/uL Lymph # (Auto) 0.50 L (1.2-3.4) K/uL Parmer # (Auto) 0.36 (0.24-0.82) K/uL Eos # (Auto) 0.16 (0-0.50) K/uL Baso # (Auto) 0.03 (0-0.2) K/uL Immature Gran # (Auto) 0.04 H (0.00-0.02) K/uL PT 14.3 H (9.0-12.0) Seconds INR 1.4 H (0.9-1.1) APTT 34.9 H (21.0-31.0) Seconds PTT Ratio 1.3 ABG pH (7.35-7.45) ABG pCO2 (35-46) mmHg ABG pO2 (80-95) mmHg ABG HCO3 (19-24) mmol/L ABG O2 Saturation (90-95) % ABG Base Excess (-9-1.8) mEq/L Nadir Test (Pos) Oxygen Given Sodium (136-145) mmol/L Potassium (3.5-5.1) mmol/L Chloride (98-107) mmol/L Carbon Dioxide (21-32) mmol/L Anion Gap (3-11) BUN (6-23) mg/dl Creatinine (0.6-1.2) mg/dl Est Cr Clr Drug Dosing ml/min Est GFR ( Amer) ml/min Est GFR (Non-Af Amer) ml/min BUN/Creatinine Ratio (10-20) Glucose (70-99(Fasting)) mg/dl Lactate (0.4-2.0) mmol/L Calcium (8.5-10.1) mg/dl Magnesium (1.7-2.4) mg/dl Total Bilirubin (0.2-1.0) mg/dl AST (13-39) U/L ALT (7-52) U/L Alkaline Phosphatase (34-104) U/L Ammonia (18-72) umol/L Troponin I High Sens (0-14) pg/ml B-Natriuretic Peptide (0-100) pg/ml Total Protein (6.0-8.3) gm/dl Albumin (3.4-5.0) gm/dl Globulin (2.5-4.0) gm/dl Albumin/Globulin Ratio (0.9-2) TSH (0.300-4.500) uIu/ml SARS-CoV-2 (PCR) NEGATIVE (Negative) Influenza Type A (PCR) Negative (Neg) Influenza Type B (PCR) Negative (Neg) RSV (RT-PCR) Negative (Neg) 04/19/22 04/19/22 04/19/22 Range/Units 21:14 21:14 21:14 WBC (4.8-10.8) K/ul RBC (3.93-5.22) M/uL Hgb (12.0-16.0) g/dl Hct (34.1-44.9) % MCV (80.0-100.0) fL MCH (25.0-34.0) pg MCHC (32.0-36.0) g/dL RDW Std Deviation (36.4-46.3) fL RDW Coeff of Marielle (11.5-14.5) % Plt Count (130-400) K/uL MPV (9.4-12.3) fL Immature Gran % (Auto) % Neut % (Auto) % Lymph % (Auto) % Parmer % (Auto) % Eos % (Auto) % Baso % (Auto) % Neut # (Auto) (1.4-6.5) K/uL Lymph # (Auto) (1.2-3.4) K/uL Parmer # (Auto) (0.24-0.82) K/uL Eos # (Auto) (0-0.50) K/uL Baso # (Auto) (0-0.2) K/uL Immature Gran # (Auto) (0.00-0.02) K/uL PT (9.0-12.0) Seconds INR (0.9-1.1) APTT (21.0-31.0) Seconds PTT Ratio ABG pH (7.35-7.45) ABG pCO2 (35-46) mmHg ABG pO2 (80-95) mmHg ABG HCO3 (19-24) mmol/L ABG O2 Saturation (90-95) % ABG Base Excess (-9-1.8) mEq/L Nadir Test (Pos) Oxygen Given Sodium 135 L (136-145) mmol/L Potassium 3.7 (3.5-5.1) mmol/L Chloride 98 (98-107) mmol/L Carbon Dioxide 31 (21-32) mmol/L Anion Gap 6 (3-11) BUN 27 H (6-23) mg/dl Creatinine 1.19 (0.6-1.2) mg/dl Est Cr Clr Drug Dosing 38.5 ml/min Est GFR ( Amer) 48.2 ml/min Est GFR (Non-Af Amer) 41.6 ml/min BUN/Creatinine Ratio 22.7 H (10-20) Glucose 136 H (70-99(Fasting)) mg/dl Lactate 0.9 (0.4-2.0) mmol/L Calcium 9.3 (8.5-10.1) mg/dl Magnesium 1.8 (1.7-2.4) mg/dl Total Bilirubin 1.0 (0.2-1.0) mg/dl AST 11 L (13-39) U/L ALT 10 (7-52) U/L Alkaline Phosphatase 92 (34-104) U/L Ammonia 33.0 (18-72) umol/L Troponin I High Sens 8.0 (0-14) pg/ml B-Natriuretic Peptide (0-100) pg/ml Total Protein 6.0 (6.0-8.3) gm/dl Albumin 2.8 L (3.4-5.0) gm/dl Globulin 3.2 (2.5-4.0) gm/dl Albumin/Globulin Ratio 0.9 (0.9-2) TSH (0.300-4.500) uIu/ml SARS-CoV-2 (PCR) (Negative) Influenza Type A (PCR) (Neg) Influenza Type B (PCR) (Neg) RSV (RT-PCR) (Neg) 04/19/22 04/19/22 04/19/22 Range/Units 21:14 21:14 21:16 WBC (4.8-10.8) K/ul RBC (3.93-5.22) M/uL Hgb (12.0-16.0) g/dl Hct (34.1-44.9) % MCV (80.0-100.0) fL MCH (25.0-34.0) pg MCHC (32.0-36.0) g/dL RDW Std Deviation (36.4-46.3) fL RDW Coeff of Marielle (11.5-14.5) % Plt Count (130-400) K/uL MPV (9.4-12.3) fL Immature Gran % (Auto) % Neut % (Auto) % Lymph % (Auto) % Parmer % (Auto) % Eos % (Auto) % Baso % (Auto) % Neut # (Auto) (1.4-6.5) K/uL Lymph # (Auto) (1.2-3.4) K/uL Parmer # (Auto) (0.24-0.82) K/uL Eos # (Auto) (0-0.50) K/uL Baso # (Auto) (0-0.2) K/uL Immature Gran # (Auto) (0.00-0.02) K/uL PT (9.0-12.0) Seconds INR (0.9-1.1) APTT (21.0-31.0) Seconds PTT Ratio ABG pH 7.41 (7.35-7.45) ABG pCO2 51 H (35-46) mmHg ABG pO2 95 (80-95) mmHg ABG HCO3 32 H (19-24) mmol/L ABG O2 Saturation 97.7 H (90-95) % ABG Base Excess 6.3 H (-9-1.8) mEq/L Nadir Test POS (Pos) Oxygen Given 1 L Sodium (136-145) mmol/L Potassium (3.5-5.1) mmol/L Chloride (98-107) mmol/L Carbon Dioxide (21-32) mmol/L Anion Gap (3-11) BUN (6-23) mg/dl Creatinine (0.6-1.2) mg/dl Est Cr Clr Drug Dosing ml/min Est GFR ( Amer) ml/min Est GFR (Non-Af Amer) ml/min BUN/Creatinine Ratio (10-20) Glucose (70-99(Fasting)) mg/dl Lactate (0.4-2.0) mmol/L Calcium (8.5-10.1) mg/dl Magnesium (1.7-2.4) mg/dl Total Bilirubin (0.2-1.0) mg/dl AST (13-39) U/L ALT (7-52) U/L Alkaline Phosphatase (34-104) U/L Ammonia (18-72) umol/L Troponin I High Sens (0-14) pg/ml B-Natriuretic Peptide 772 H (0-100) pg/ml Total Protein (6.0-8.3) gm/dl Albumin (3.4-5.0) gm/dl Globulin (2.5-4.0) gm/dl Albumin/Globulin Ratio (0.9-2) TSH 3.363 (0.300-4.500) uIu/ml SARS-CoV-2 (PCR) (Negative) Influenza Type A (PCR) (Neg) Influenza Type B (PCR) (Neg) RSV (RT-PCR) (Neg) Administered Medications Magnesium Sulfate/Dextrose (Magnesium Sulfate / D5w) 1 gm in 100 mls @ 50 mls/hr IV ONE ONE Stop: 04/20/22 00:59 Last Admin: 04/19/22 23:04 Dose: 50 mls/hr Documented By: JOSÉ MIGUEL Discontinued Medications Sodium Chloride (Nss) 500 mls @ 999 mls/hr IV .Q31M STIVEN Stop: 04/19/22 21:00 Last Infusion: 04/19/22 22:22 Dose: 0 mls/hr Documented By: JOSÉ MIGUEL Admin: 04/19/22 21:51 Dose: 999 mls/hr Documented By: JOSÉ MIGUEL Cefepime HCl (Maxipime) 2,000 mg in 20 mls @ 5 mls/min IV NOW STA; Protocol Stop: 04/19/22 20:26 Last Admin: 04/19/22 21:51 Dose: 5 mls/min Documented By: JOSÉ MIGUEL Imaging Data Radiologist's Impression: Chest X-Ray 04/19/22 20:23 SINGLE VIEW CHEST CLINICAL HISTORY: Generalized weakness. FINDINGS: An AP, portable, upright chest radiograph is compared to study dated 03/28/2022. The heart is enlarged noting atherosclerotic calcification of the thoracic aorta. The pulmonary vasculature is noncongested. Chronic interstitial thickening is similar to previous. There is bibasilar scarring/atelectasis. The lungs and pleural spaces are otherwise clear. No pneumothorax is seen. The skeletal structures are osteopenic. The bony thorax is grossly intact. Bilateral shoulder arthroplasties are in place. IMPRESSION: Cardiomegaly with no active disease in the chest. ACT 112: Negative or not required by law. Electronically signed by: Cesar Santos M.D. 04/19/2022 8:40 PM Discharge Plan Visit Data Chief Complaint: Illness Stated Complaint: ILLNESS ED Provider: Cesar Beasley Discharge Problem: Hypoxia, Somnolence, Pedal edema, Cellulitis Patient Disposition: Admitted As Inpatient Condition: Fair Forms Stand Alone Forms: [facility] [employer] Labs Prescriptions Prescriptions: No Action ezetimibe [Zetia] 10 mg tablet 10 mg PO QAM Qty: 90 3RF PreserVision AREDS-2 [id number]-mg Capsule 2 tab PO QAM pantoprazole [Protonix] 40 mg tablet,delayed release (DR/EC) 40 mg PO QAM budesonide-formoterol [Symbicort] 160-4.5 mcg/actuation HFA aerosol inhaler 2 puff INHALATION BID PRN (Reason: Shortness Of Breath Or Wheezing) montelukast 10 mg tablet 10 mg PO QPM ascorbic acid (vitamin C) [Vitamin C] 500 mg Tablet 500 mg PO QAM Qty: 20 0RF metoprolol succinate 50 mg tablet extended release 24 hr 50 mg PO BID bumetanide 1 mg tablet 1 mg PO DAILY levothyroxine 112 mcg tablet 112 mcg PO DAILYBB sennosides-docusate sodium [Senna-S] 8.6-50 mg Tablet 2 tab-cap PO BID17 melatonin 3 mg Tablet 3 mg PO QDD carboxymethylcellulose sodium [Refresh Tears] 0.5 % Drops 1 drp OPHTHALMIC (EYE) TID polyethylene glycol 3350 [Miralax] 17 gram/dose Powder 17 g PO DAILY cholecalciferol (vitamin D3) [Vitamin D3] 50 mcg (2,000 unit) Capsule 50 mcg PO DAILY acetaminophen 500 mg Tablet 500 mg PO Q6H MDD 3 GRAMS/24 HOURS PRN (Reason: Pain) oxycodone 5 mg tablet 2.5 mg PO QAM Advanced Probiotic 625 mg (10 billion cell) Capsule 2 cap PO DAILY Qty: 30 0RF ondansetron HCl [Zofran] 4 mg Tablet 4 mg PO Q4H PRN (Reason: NAUSEA/VOMITING) bismuth subsalicylate [Hickory Bismuth] 262 mg/15 mL Suspension 524 mg PO Q6H PRN (Reason: UPSET STOMACH) oxycodone 5 mg Tablet 2.5 mg PO Q8H PRN (Reason: Pain) Boost Liquid 1 ea PO QAM Rx Instructions: CHOCOLATE Eliquis 5 mg tablet 5 mg PO BID17 Referrals Referrals: [facility] [Primary Care Provider] -
[2022-04-19] MEDS ORDERED: SODIUM CHLORIDE 0.9% 500 ML IV SCH (20:30)
--- NOTE | 2022-04-19 20:41 | XRay Report ---
SINGLE VIEW CHEST CLINICAL HISTORY: Generalized weakness. FINDINGS: An AP, portable, upright chest radiograph is compared to study dated 03/28/2022. The heart is enlarged noting atherosclerotic calcification of the thoracic aorta. The pulmonary vasculature is noncongested. Chronic interstitial thickening is similar to previous. There is bibasilar scarring/ate lectasis. The lungs and pleural spaces are otherwise clear. No pneumothorax is seen. The skeletal str uctures are osteopenic. The bony thorax is grossly intact. Bilateral shoulder arthroplasties are in p lace. IMPRESSION: Cardiomegaly with no active disease in the chest. ACT 112: Negative or not required by law. Electronically signed by: Cesar Santos M.D. 04/19/2022 8:40 PM
[2022-04-19 21:34] LABS: Influenza A virus by PCR Negative (Neg); Influenza B virus by PCR Negative (Neg); RSV by PCR Negative (Neg); SARS CoV2 RNA(COVID-19)Cepheid NEGATIVE (Negative)
[2022-04-19 21:34] LABS: Base Excess ABG 6.3 mEq/L (-9-1.8); HCO3 ABG 32 mmol/L (19-24); Oxygen Saturation ABG 97.7 % (90-95); PCO2 ABG 51 mmHg (35-46); PO2 ABG 95 mmHg (80-95); pH ABG 7.41 (7.35-7.45)
[2022-04-19 21:41] LABS: Allen Test POS (Pos)
[2022-04-19 21:46] LABS: INR 1.4 (0.9-1.1); Partial Thromboplastin Ratio 1.3; Partial Thromboplastin Time 34.9 Seconds (21.0-31.0); Prothrombin Time 14.3 Seconds (9.0-12.0)
[2022-04-19 22:02] LABS: Basophils # (auto) 0.03 K/uL (0-0.2); Basophils % (auto) 0.3 %; Eosinophils # (auto) 0.16 K/uL (0-0.50); Eosinophils % (auto) 1.7 %; Hematocrit (blood only) 32.7 % (34.1-44.9); Hemoglobin 10.5 g/dl (12.0-16.0); Immature Granulocytes # (auto) 0.04 K/uL (0.00-0.02); Immature Granulocytes % (auto) 0.4 %; Lymphocytes % (auto) 5.4 %; Mean Corpuscular Hemoglobin 32.1 pg (25.0-34.0); Mean Corpuscular Hgb Conc 32.1 g/dL (32.0-36.0); Mean Platelet Volume 9.4 fL (9.4-12.3); Monocytes # (auto) 0.36 K/uL (0.24-0.82); Monocytes % (auto) 3.9 %; Neutrophils # (auto) 8.22 K/uL (1.4-6.5); Neutrophils % (auto) 88.3 %; Platelet Count 330 K/uL (130-400); RDW Coefficient of Variation 14.7 % (11.5-14.5); RDW Standard Deviation 53.7 fL (36.4-46.3); Red Blood Count 3.27 M/uL (3.93-5.22); White Blood Count 9.31 K/ul (4.8-10.8)
[2022-04-19 22:14] LABS: Albumin Globulin Ratio 0.9 (0.9-2); Albumin Level 2.8 gm/dl (3.4-5.0); BUN Creatinine Ratio 22.7 (10-20); Calcium 9.3 mg/dl (8.5-10.1); Creatinine Clr Calc Pharmacy 38.5 ml/min; Est GFR (African American) 48.2 ml/min; Est GFR (Non-African American) 41.6 ml/min; Globulin 3.2 gm/dl (2.5-4.0); Magnesium 1.8 mg/dl (1.7-2.4); Potassium 3.7 mmol/L (3.5-5.1)
[2022-04-19] MEDS ORDERED: MAGNESIUM SULFATE / D5W 1 GM/100 ML BAG IV ONE (23:00)
[2022-04-19] MEDS ORDERED: DOXYCYCLINE HYCLATE 100 MG in DEXTROSE 5% 100 ML IV STA (23:23)
[2022-04-19] MEDS ORDERED: ALBUMIN 25% 100 mL 25 GM/100 ML VIAL IV ONE (23:43)
[2022-04-19] MEDS ORDERED: FUROSEMIDE INJ 20 MG/2 ML VIAL IV ONE (23:43)
[2022-04-20] MEDS ORDERED: AZTREONAM 2,000 MG in DEXTROSE 5% 100 ML IV STA (00:04)
--- NOTE | 2022-04-20 00:54 | History & Physical Report ---
Date of Service April 19, 2022 (Late entry) Assessment & Plan (1) Respiratory failure: Plan: Hypoxemia noted at residential during sleep Hypercapnia on ABG Underlying pulm hypertension History chronic diastolic heart failure History COPD Possible snoring as per patient Narcotic meds contributory to problem Possible OHS Recurrent RLE cellulitis History chronic LE wounds Underlying PVD Rule out osteomyelitis Enterobacter (cephalosporin and Bactrim resistant) on previous RLE wound CS No sepsis for now chronic diastolic heart failure (EF 55 to 60%, TTE 2019),baseline congestion Afib on Eliquis hx nonobstructive CAD hyperlipidemia on statin Rx hypothyroidism, euthyroid as of recent TSH Prediabetes, hemoglobin A1c of 6.13 December 2021 past tobacco abuse Medical telemetry Supplemental O2 Likely benefit from BiPAP at night Outpatient sleep study Pulmonary consult Re: Respiratory failure, possible OHS Hold narcotic meds for sedation/confusion Continue daily diuretic dose RLE wound CS, doxycycline and Azactam for now Plain x-ray right lower leg to rule out osteomyelitis May need MRI to definitively rule out osteomyelitis if plain x-ray negative DVT prophylaxis. [employer] DNR Text document was generated using [employer] voice recognition software. It may contain grammatical or spelling errors. Kindly contact undersigned for clarification of any documentation item in question. History of Present Illness Chief Complaint: Low oxygen as per records Primary Care Provider: [facility] Dr Sanders History obtained from patient and records. Medical history significant for chronic diastolic heart failure (EF 65 to 70%, TTE 2021), valvular heart disease (moderate MR/TR ), A. fib on Eliquis, pulmonary hypertension, nonobstructive CAD, PVD, hyperlipidemia, asthma, chronic leg wounds, primary hyperparathyroidism status post surgery, hypothyroidism, history diverticulitis, sacroiliitis, chronic pain on narcotics, chronic anemia (baseline hemoglobin of 10 ), past tobacco abuse. 2 confinements last month for recurrent left leg cellulitis. Patient discharged on cephalexin and doxycycline course following last admission. Patient noted to be sleepy the last 3 days as per report. O2 sats noted to be 70s. Patient does not wear oxygen. Patient thinks she probably snores. No prior sleep studies. Patient denies chest pain, unusual shortness of breath, unusual cough symptoms. No headache symptoms. Patient brought to the ER for evaluation. Right leg noted to be more swollen than usual. IV cefepime administered at the ER. 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 Allergies Allergy/AdvReac Type Severity Reaction Status Date / Time latex Allergy Intermediate Rash, Verified 04/19/22 21:46 itching povidone-iodine Allergy Intermediate Itching Verified 04/19/22 21:46 [From Betadine] soap [From Betadine] Allergy Intermediate Itching Verified 04/19/22 21:46 aspirin AdvReac Mild Dizziness Verified 04/19/22 21:46 Home Medications Medication Instructions Recorded Confirmed Type vit C 250 mg-vit E 90 mg-zinc 40 2 tab PO QAM 05/01/20 04/19/22 History mg-copper 1 qw-jwvrwe-zaawki capsule (PreserVision AREDS-2) budesonide-formoterol HFA 160 2 puff inhalation BID PRN 09/15/20 04/19/22 History mcg-4.5 mcg/actuation aerosol Shortness Of Breath Or Wheezing inhaler (Symbicort) pantoprazole 40 mg tablet,delayed 40 mg PO QAM GERD 05/14/21 04/19/22 History release (Protonix) montelukast 10 mg tablet 10 mg PO QPM 08/20/21 04/19/22 History ezetimibe 10 mg tablet (Zetia) 10 mg PO QAM #90 tabs 11/24/21 04/19/22 Rx ascorbic acid (vitamin C) 500 mg 500 mg PO QAM #20 tabs 01/02/22 04/19/22 Rx tablet (Vitamin C) acetaminophen 500 mg tablet 500 mg PO Q6H PRN Pain 03/28/22 04/19/22 History bumetanide 1 mg tablet 1 mg PO DAILY 03/28/22 04/19/22 History carboxymethylcellulose sodium 0.5 1 drp ophthalmic (eye) TID 03/28/22 04/19/22 History % eye drops (Refresh Tears) cholecalciferol (vitamin D3) 50 50 mcg PO DAILY 03/28/22 04/19/22 History mcg (2,000 unit) capsule (Vitamin D3) levothyroxine 112 mcg tablet 112 mcg PO DAILYBB 03/28/22 04/19/22 History melatonin 3 mg tablet 3 mg PO QDD 03/28/22 04/19/22 History metoprolol succinate 50 mg 50 mg PO BID 03/28/22 04/19/22 History tablet,extended release 24 hr oxycodone 5 mg tablet 2.5 mg PO QAM 03/28/22 04/19/22 History polyethylene glycol 3350 17 17 g PO DAILY 03/28/22 04/19/22 History gram/dose oral powder (Miralax) sennosides 8.6 mg-docusate sodium 2 tab-cap PO BID17 03/28/22 04/19/22 History 50 mg tablet (Senna-S) L.acidop,casei,lactis,rham-B.lact,jessy 2 cap PO DAILY #30 caps 04/05/22 04/19/22 Rx 625 mg (10 billion cell) capsule (Advanced Probiotic) apixaban 5 mg tablet (Eliquis) 5 mg PO BID17 04/19/22 04/19/22 History bismuth subsalicylate 262 mg/15 mL 524 mg PO Q6H PRN UPSET STOMACH 04/19/22 04/19/22 History oral suspension ([place] Bismuth) food supplemt, lactose-reduced 1 ea PO QAM 04/19/22 04/19/22 History ondansetron HCl 4 mg tablet 4 mg PO Q4H PRN NAUSEA/VOMITING 04/19/22 04/19/22 History oxycodone 5 mg tablet 2.5 mg PO Q8H PRN Pain 04/19/22 04/19/22 History Past Med/Surg History Medical History Acute diverticulitis Anxiety and depression Aortic regurgitation Asthma inhaler prn Atrial fibrillation with rapid ventricular response Atrial fibrillation, permanent on eliquis and follows with Dr. Colón Chronic diastolic CHF (congestive heart failure) Coronary artery disease Diverticulitis Dyslipidemia Esophageal stricture H/O fall 08/2020 Hearing deficit History of COVID-19 diagnosed 05/18/22 @ [place]--asymptomatic, tested prior to procedure--no issues now Hypotension Hypothyroid Leukocytosis Macular degeneration On anticoagulant therapy eliquis daily Osteoarthritis Pulmonary hypertension Spinal stenosis Valvular heart disease Surgical History History of bilateral cataract extraction History of cardiac cath ?2015 @ [facility]--no stents History of colonoscopy with polypectomy History of dilatation and curettage History of esophagogastroduodenoscopy (EGD) History of left hip replacement History of left shoulder replacement History of parathyroidectomy ELEVATED CALCIUM LEVELS? (2 REMOVED) History of right hip replacement History of right shoulder replacement History of tonsillectomy and adenoidectomy History of tooth extraction History of total left knee replacement (TKR) x2 History of total right knee replacement (TKR) x2 History of wisdom tooth extraction S/P cholecystectomy S/P dilatation of esophageal stricture Family History Mother Cancer uterine Thyroid disease Father Cancer esophageal Family history of esophageal cancer Sister Family history of diabetes mellitus Sister Family history of diabetes mellitus Brother Family history of diabetes mellitus Family hx of colon cancer Other No family history of adverse response to anesthesia Social History Smoking Status: Former smoker Tobacco Type: Cigarettes Cigarettes Per Day: 1 ppd; Second Hand Exposure: No; Hx Alcohol Use: No Hx Substance Use: No Preferred Language: Occitan Communication Ability: Effective Visual Impairment: Limited Hearing Ability: Normal Territory Account Executive Required: No Beliefs That Will Affect Care: None Current Living Situation: Personal Care Facility Current Living Situation Comment: [facility] How many Children do You have: 4 Feels Safe at Home: Yes caffeine: No during the past year weight has: remained stable Assistive Devices: Denture - Upper, Denture - Lower, Walker and Wheelchair Review of Systems Review of Systems: As per HPI, all other systems reviewed and negative Physical Exam Physical Exam: GENERAL: Slightly uncomfortable, obese, episodic lethargy during encounter SKIN: Pallor , warm HEENT: Pale palpebral conjunctivae, no ptosis, dry buccal mucosa, nasal cannula in place NECK : Supple, no tenderness CHEST : Decreased breath sounds, no tenderness HEART : irregular, no obvious murmurs ABDOMEN: Some distention, no tenderness EXTREMITIES : Dressings over both lower extremities, RLE erythema, no overt tenderness NEUROLOGIC : Coherent, chronic lip asymmetry, mild hearing impairment, gait and stance not assessed Results & Data Results & Data ([facility]) Vital Signs (Past 12 Hours) Vital Signs Temp Pulse Resp BP Pulse Ox O2 Del Method O2 Flow Rate 04/20/22 00:00 93 H 20 90/58 L 98 Nasal Cannula 2 04/19/22 23:30 102 H 21 98/67 L 99 Nasal Cannula 2 04/19/22 23:01 103 H 23 95/62 L 96 Nasal Cannula 2 04/19/22 21:45 92 H 22 98/63 L 96 Nasal Cannula 2 04/19/22 20:00 37.4 C 118 H 21 97/66 L 100 Nasal Cannula 2 Laboratory Results Laboratory Results WBC 9.31 K/ul (4.8-10.8) 04/19/22 21:14 RBC 3.27 M/uL (3.93-5.22) L 04/19/22 21:14 Hgb 10.5 g/dl (12.0-16.0) L 04/19/22 21:14 Hct 32.7 % (34.1-44.9) L 04/19/22 21:14 MCV 100.0 fL (80.0-100.0) 04/19/22 21:14 MCH 32.1 pg (25.0-34.0) 04/19/22 21:14 MCHC 32.1 g/dL (32.0-36.0) 04/19/22 21:14 RDW Std Deviation 53.7 fL (36.4-46.3) H 04/19/22 21:14 RDW Coeff of Marielle 14.7 % (11.5-14.5) H 04/19/22 21:14 Plt Count 330 K/uL (130-400) 04/19/22 21:14 MPV 9.4 fL (9.4-12.3) 04/19/22 21:14 Immature Gran % (Auto) 0.4 % 04/19/22 21:14 Neut % (Auto) 88.3 % 04/19/22 21:14 Lymph % (Auto) 5.4 % 04/19/22 21:14 Dickinson % (Auto) 3.9 % 04/19/22 21:14 Eos % (Auto) 1.7 % 04/19/22 21:14 Baso % (Auto) 0.3 % 04/19/22 21:14 Neut # (Auto) 8.22 K/uL (1.4-6.5) H 04/19/22 21:14 Lymph # (Auto) 0.50 K/uL (1.2-3.4) L 04/19/22 21:14 Dickinson # (Auto) 0.36 K/uL (0.24-0.82) 04/19/22 21:14 Eos # (Auto) 0.16 K/uL (0-0.50) 04/19/22 21:14 Baso # (Auto) 0.03 K/uL (0-0.2) 04/19/22 21:14 Immature Gran # (Auto) 0.04 K/uL (0.00-0.02) H 04/19/22 21:14 PT 14.3 Seconds (9.0-12.0) H 04/19/22 21:14 INR 1.4 (0.9-1.1) H 04/19/22 21:14 APTT 34.9 Seconds (21.0-31.0) H 04/19/22 21:14 PTT Ratio 1.3 04/19/22 21:14 ABG pH 7.41 (7.35-7.45) 04/19/22 21:14 ABG pCO2 51 mmHg (35-46) H 04/19/22 21:14 ABG pO2 95 mmHg (80-95) 04/19/22 21:14 ABG HCO3 32 mmol/L (19-24) H 04/19/22 21:14 ABG O2 Saturation 97.7 % (90-95) H 04/19/22 21:14 ABG Base Excess 6.3 mEq/L (-9-1.8) H 04/19/22 21:14 Nadir Test POS (Pos) 04/19/22 21:14 Oxygen Given 1 L 04/19/22 21:14 Sodium 135 mmol/L (136-145) L 04/19/22 21:14 Potassium 3.7 mmol/L (3.5-5.1) 04/19/22 21:14 Chloride 98 mmol/L (98-107) 04/19/22 21:14 Carbon Dioxide 31 mmol/L (21-32) 04/19/22 21:14 Anion Gap 6 (3-11) 04/19/22 21:14 BUN 27 mg/dl (6-23) H 04/19/22 21:14 Creatinine 1.19 mg/dl (0.6-1.2) 04/19/22 21:14 Est Cr Clr Drug Dosing 38.5 ml/min 04/19/22 21:14 Est GFR ( Amer) 48.2 ml/min 04/19/22 21:14 Est GFR (Non-Af Amer) 41.6 ml/min 04/19/22 21:14 BUN/Creatinine Ratio 22.7 (10-20) H 04/19/22 21:14 Glucose 136 mg/dl (70-99(Fasting)) H 04/19/22 21:14 Lactate 0.9 mmol/L (0.4-2.0) 04/19/22 21:14 Calcium 9.3 mg/dl (8.5-10.1) 04/19/22 21:14 Magnesium 1.8 mg/dl (1.7-2.4) 04/19/22 21:14 Total Bilirubin 1.0 mg/dl (0.2-1.0) 04/19/22 21:14 AST 11 U/L (13-39) L 04/19/22 21:14 ALT 10 U/L (7-52) 04/19/22 21:14 Alkaline Phosphatase 92 U/L (34-104) 04/19/22 21:14 Ammonia 33.0 umol/L (18-72) 04/19/22 21:14 Troponin I High Sens 8.0 pg/ml (0-14) 04/19/22 21:14 B-Natriuretic Peptide 772 pg/ml (0-100) H 04/19/22 21:16 Total Protein 6.0 gm/dl (6.0-8.3) 04/19/22 21:14 Albumin 2.8 gm/dl (3.4-5.0) L 04/19/22 21:14 Globulin 3.2 gm/dl (2.5-4.0) 04/19/22 21:14 Albumin/Globulin Ratio 0.9 (0.9-2) 04/19/22 21:14 TSH 3.363 uIu/ml (0.300-4.500) 04/19/22 21:14 SARS-CoV-2 (PCR) NEGATIVE (Negative) 04/19/22 20:49 Influenza Type A (PCR) Negative (Neg) 04/19/22 20:49 Influenza Type B (PCR) Negative (Neg) 04/19/22 20:49 RSV (RT-PCR) Negative (Neg) 04/19/22 20:49 Impressions Chest X-Ray 04/19/22 20:23 SINGLE VIEW CHEST CLINICAL HISTORY: Generalized weakness. FINDINGS: An AP, portable, upright chest radiograph is compared to study dated 03/28/2022. The heart is enlarged noting atherosclerotic calcification of the thoracic aorta. The pulmonary vasculature is noncongested. Chronic interstitial thickening is similar to previous. There is bibasilar scarring/atelectasis. The lungs and pleural spaces are otherwise clear. No pneumothorax is seen. The skel etal structures are osteopenic. The bony thorax is grossly intact. Bilateral shoulder arthroplasties are in place. IMPRESSION: Cardiomegaly with no active disease in the chest. ACT 112: Negative or not required by law. Electronically signed by: Cesar Santos M.D. 04/19/2022 8:40 PM Diagnostic Findings EKG as per my interpretation : Rate 135, A. fib, LAD, LVH, no ischemia, multiple artifacts Code Status & VTE Plan VTE Prophylaxis Plan VTE Prophylaxis will be ordered: Yes
[2022-04-20] MEDS ORDERED: MELATONIN 3 MG TAB PO PRN (01:25)
[2022-04-20] MEDS ORDERED: PROMETHAZINE HCL 12.5 MG in SODIUM CHLORIDE 0.9% 50 ML IV PRN (01:25)
[2022-04-20] MEDS: APIXABAN 5 MG TABLET PO SCH ×3 (02:20→17:07)
[2022-04-20] MEDS: LEVOTHYROXINE SODIUM 112 MCG TABLET PO SCH (05:37)
[2022-04-20 06:10] LABS: Appearance Urine Clear (Clear); Bacteria Urine Automated Negative (Negative); Bilirubin Urine Negative (Negative); Blood Urine Negative (Negative); Color Urine Yellow; Epithelial Cell Urine Auto 20-30 /lpf (0-5); Glucose Urine UA Negative (Negative); Ketones Urine Negative (Negative); Leukocyte Esterase Urine 1+ (Negative); Nitrite Urine Negative (Negative); Protein Urine Negative (Negative); RBC Urine Automated 0-4 /hpf (0-4); Specific Gravity Urine 1.012 (1.000-1.030); Urobilinogen Urine Negative (Negative)
[2022-04-20 06:56] LABS: Basophils # (auto) 0.03 K/uL (0-0.2); Basophils % (auto) 0.4 %; Eosinophils # (auto) 0.16 K/uL (0-0.50); Eosinophils % (auto) 1.9 %; Hematocrit (blood only) 31.6 % (34.1-44.9); Hemoglobin 9.6 g/dl (12.0-16.0); Immature Granulocytes # (auto) 0.02 K/uL (0.00-0.02); Immature Granulocytes % (auto) 0.2 %; Lymphocytes # (auto) 0.57 K/uL (1.2-3.4); Lymphocytes % (auto) 6.9 %; Mean Corpuscular Hemoglobin 31.3 pg (25.0-34.0); Mean Corpuscular Hgb Conc 30.4 g/dL (32.0-36.0); Mean Corpuscular Volume 102.9 fL (80.0-100.0); Mean Platelet Volume 9.6 fL (9.4-12.3); Monocytes # (auto) 0.45 K/uL (0.24-0.82); Monocytes % (auto) 5.4 %; Neutrophils # (auto) 7.07 K/uL (1.4-6.5); Neutrophils % (auto) 85.2 %; Platelet Count 282 K/uL (130-400); RDW Coefficient of Variation 14.7 % (11.5-14.5); RDW Standard Deviation 55.3 fL (36.4-46.3); Red Blood Count 3.07 M/uL (3.93-5.22)
[2022-04-20] MEDS: CEROVITE ADV FORMULA TAB PO SCH (07:43)
[2022-04-20] MEDS: PANTOprazole 40 MG TAB PO SCH (07:43)
[2022-04-20] MEDS: DOCUSATE SODIUM/SENNA 50/8.6MG TAB PO SCH ×2 (07:43→17:07)
[2022-04-20] MEDS: FLUTICASONE/VILANTEROL 200/25MCG 14 PUFFS/INHALER INH SCH (07:44)
[2022-04-20] MEDS: EZETIMIBE 10 MG TABLET PO SCH (07:44)
[2022-04-20] MEDS: METOPROLOL SUCC 25MG EXT REL TAB PO SCH ×2 (07:45→19:58)
[2022-04-20] MEDS: ADVANCED PROBIOTIC 1250 MG CAPSULE PO SCH (07:45)
[2022-04-20] MEDS: POLYETHYLENE (MIRALAX) 17 GM PACK PO SCH (07:54)
[2022-04-20 08:05] LABS: BUN Creatinine Ratio 23.1 (10-20); Calcium 9.3 mg/dl (8.5-10.1); Creatinine Clr Calc Pharmacy 39.2 ml/min; Est GFR (African American) 49.2 ml/min; Est GFR (Non-African American) 42.5 ml/min; Potassium 3.6 mmol/L (3.5-5.1)
[2022-04-20] MEDS: ARTIFICIAL TEARS OP SCH ×3 (08:17→19:57)
--- NOTE | 2022-04-20 08:26 | XRay Report ---
XR tibia fibula RT 2V CLINICAL HISTORY: recurrent infection, ro osteomyelitis TECHNIQUE: 2 radiographic views of the right leg were obtained. Comparison: Comparison is made to CTA lower extremity 03/07/2022 FINDINGS: There is no evidence of an acute fracture. Orthopedic hardware is seen spanning the knee without evid ence of hardware fracture. Radiodensity in the mid tibial shaft is nonspecific but unchanged from ernesto or exam. Diffuse soft tissue swelling is seen in the lower extremity. Vascular calcifications are see n. IMPRESSION: Diffuse soft tissue swelling without evidence of focal erosion to suggest osteomyelitis. No evidence of hardware fracture or perihardware loosening. ACT 112: Negative or not required by law. Electronically signed by: Sammy Davis M.D. 04/20/2022 8:24 AM
--- NOTE | 2022-04-20 08:35 | Pulmonary Consultation ---
Date of Consultation April 20, 2022 Assessment & Plan (1) Hypoxia: Catherine is an 86 y/o F PmHx PAD w/ chronic wounds to LE, atrial fibrillation on Eliquis, diastolic heart failure, hypothyroidism, hypertension, anxiety, dyslipidemia admitted for hypoxemia. Hypoxemia: -WBC, electrolytes WNL, BMP 772. CXR without any acute pulmonary processes. -Ordered procalcitonin to rule out infection, if negative can D/C antibiotics. -Given past history of diastolic heart failure, raised BMP, and 2+ edema at legs most likely CHF contribution to hypoxemia. -Would benefit from outpatient sleep study for possible underlying OHS/MU. -Added one time dose of 20mg IV Lasix w/ 40meq KCl, check for response. -Hopefully diuresis will help with O2, however will need close BP follow up given soft pressures. Diastolic CHF: -Echo from 03/2022 w/ elevated R ventricular systolic pressure. -Same plan as above. (2) Chronic diastolic CHF (congestive heart failure): (3) Cor pulmonale (chronic): (4) Venous insufficiency (chronic) (peripheral): Supervising Physician Co-Signing Physician Notes Patient seen and examined with resident physician. Agree with the assessment and plan as noted above. The patient has cor pulmonale secondary to left-sided heart disease and venous insufficiency of the lower extremities. There is no evidence of infection. There is no evidence of a COPD exacerbation. Antibiotics have been discontinued. Procalcitonin is unremarkable. We did give a dose of 20 mg IV Lasix plus potassium chloride. Wean oxygen as tolerated. Maintain saturations above 89%. Consider outpatient polysomnography. Will defer to the PCP. Recommend discharge with outpatient palliative care follow-up. No further recommendations at this time. We will sign off. Please call with q uestions. History of Present Illness Reason for Consultation: Resp failure, possible ohs Requesting Physician: Daniele Gonzales Attending Physician: Vicente Marquez MD History of Present Illness Catherine is an 86 year old female w/ PmHx PAD w/ chronic wounds to LE, atrial fibrillation on Eliquis, diastolic heart failure, hypothyroidism, hypertension, anxiety, dyslipidemia presenting to [facility] for low O2 saturations during the night prior to admission. Patient states she has issues with sleep and doesn't usually sleep for very long at home. She says she was awake last night when people from her facility ([facility]) came in and took her vitals. She was told that her oxygen saturation was low, possibly around 70%, although she is unsure and said she remembers that number for some reason. She said she was not having any difficulty with breathing, shortness of breath, chest pain, fevers or chills. She follows with Dr. Colón in cardiology for heart disease and says that she does not follow with any lead solutions architect. She states she has had PFTs in the past although can't remember when and denies any past history or diagnosis of COPD or emphysema. When asked she denies any use of inhaled medications at home and states she was on some inhaled medications last visit. Allergies Allergy/AdvReac Type Severity Reaction Status Date / Time latex Allergy Intermediate Rash, Verified 04/19/22 21:46 itching povidone-iodine Allergy Intermediate Itching Verified 04/19/22 21:46 [From Betadine] soap [From Betadine] Allergy Intermediate Itching Verified 04/19/22 21:46 aspirin AdvReac Mild Dizziness Verified 04/19/22 21:46 Home Medications Medication Instructions Recorded Confirmed Type vit C 250 mg-vit E 90 mg-zinc 40 2 tab PO QAM 05/01/20 04/19/22 History mg-copper 1 qx-cvkoez-jmmbjj capsule (PreserVision AREDS-2) budesonide-formoterol HFA 160 2 puff inhalation BID PRN 09/15/20 04/19/22 History mcg-4.5 mcg/actuation aerosol Shortness Of Breath Or Wheezing inhaler (Symbicort) pantoprazole 40 mg tablet,delayed 40 mg PO QAM GERD 05/14/21 04/19/22 History release (Protonix) montelukast 10 mg tablet 10 mg PO QPM 08/20/21 04/19/22 History ezetimibe 10 mg tablet (Zetia) 10 mg PO QAM #90 tabs 11/24/21 04/19/22 Rx ascorbic acid (vitamin C) 500 mg 500 mg PO QAM #20 tabs 01/02/22 04/19/22 Rx tablet (Vitamin C) acetaminophen 500 mg tablet 500 mg PO Q6H PRN Pain 03/28/22 04/19/22 History bumetanide 1 mg tablet 1 mg PO DAILY 03/28/22 04/19/22 History carboxymethylcellulose sodium 0.5 1 drp ophthalmic (eye) TID 03/28/22 04/19/22 History % eye drops (Refresh Tears) cholecalciferol (vitamin D3) 50 50 mcg PO DAILY 03/28/22 04/19/22 History mcg (2,000 unit) capsule (Vitamin D3) levothyroxine 112 mcg tablet 112 mcg PO DAILYBB 03/28/22 04/19/22 History melatonin 3 mg tablet 3 mg PO QDD 03/28/22 04/19/22 History metoprolol succinate 50 mg 50 mg PO BID 03/28/22 04/19/22 History tablet,extended release 24 hr oxycodone 5 mg tablet 2.5 mg PO QAM 03/28/22 04/19/22 History polyethylene glycol 3350 17 17 g PO DAILY 03/28/22 04/19/22 History gram/dose oral powder (Miralax) sennosides 8.6 mg-docusate sodium 2 tab-cap PO BID17 03/28/22 04/19/22 History 50 mg tablet (Senna-S) L.acidop,casei,lactis,rham-B.lact,jessy 2 cap PO DAILY #30 caps 04/05/22 04/19/22 Rx 625 mg (10 billion cell) capsule (Advanced Probiotic) apixaban 5 mg tablet (Eliquis) 5 mg PO BID17 04/19/22 04/19/22 History bismuth subsalicylate 262 mg/15 mL 524 mg PO Q6H PRN UPSET STOMACH 04/19/22 04/19/22 History oral suspension ([place] Bismuth) food supplemt, lactose-reduced 1 ea PO QAM 04/19/22 04/19/22 History ondansetron HCl 4 mg tablet 4 mg PO Q4H PRN NAUSEA/VOMITING 04/19/22 04/19/22 History oxycodone 5 mg tablet 2.5 mg PO Q8H PRN Pain 04/19/22 04/19/22 History Patient History Medical History (Updated 04/20/22 @ 16:46 by Marcos Whittaker MD) Acute diverticulitis Anxiety and depression Aortic regurgitation Asthma inhaler prn Atrial fibrillation with rapid ventricular response Atrial fibrillation, permanent on eliquis and follows with Dr. Colón Chronic diastolic CHF (congestive heart failure) Cor pulmonale (chronic) Coronary artery disease Diverticulitis Dyslipidemia Esophageal stricture H/O fall 08/2020 Hearing deficit History of COVID-19 diagnosed 05/18/22 @ [place]--asymptomatic, tested prior to procedure--no issues now Hypotension Hypothyroid Leukocytosis Macular degeneration On anticoagulant therapy eliquis daily Osteoarthritis Pulmonary hypertension Spinal stenosis Valvular heart disease Venous insufficiency (chronic) (peripheral) Surgical History History of bilateral cataract extraction History of cardiac cath ?2015 @ [facility]--no stents History of colonoscopy with polypectomy History of dilatation and curettage History of esophagogastroduodenoscopy (EGD) History of left hip replacement History of left shoulder replacement History of parathyroidectomy ELEVATED CALCIUM LEVELS? (2 REMOVED) History of right hip replacement History of right shoulder replacement History of tonsillectomy and adenoidectomy History of tooth extraction History of total left knee replacement (TKR) x2 History of total right knee replacement (TKR) x2 History of wisdom tooth extraction S/P cholecystectomy S/P dilatation of esophageal stricture Family History Mother Cancer uterine Thyroid disease Father Cancer esophageal Family history of esophageal cancer Sister Family history of diabetes mellitus Sister Family history of diabetes mellitus Brother Family history of diabetes mellitus Family hx of colon cancer Other No family history of adverse response to anesthesia Social History Smoking Status: Former smoker Tobacco Type: Cigarettes Cigarettes Per Day: 1 ppd; Second Hand Exposure: No; Hx Alcohol Use: No Hx Substance Use: No Preferred Language: Samoan Communication Ability: Impaired Visual Impairment: Limited Hearing Ability: Normal Hand Sizer Required: No Beliefs That Will Affect Care: None Current Living Situation: Personal Care Facility Current Living Situation Comment: [facility] How many Children do You have: 4 Feels Safe at Home: Yes caffeine: No during the past year weight has: remained stable Assistive Devices: Glasses, Oxygen - Continuous and Wheelchair Review of Systems Review of Systems: As per HPI. Physical Exam Constitutional: WD/WN, vitals as above Not in any acute distress, falling asleep at times during conversation however able to maintain conversation well. Eyes: PERRL, conjunctivae normal, anicteric sclerae Respiratory: Mild bibasilar crackles, clear elsewhere. 2+ pitting edema at the bilateral legs up to the knees. Cardiovascular: regular rate, irregularly irregular rhythm. Gastrointestinal (Abdomen): normal bowel sounds, soft, nontender, no hepatosplenomegaly Skin: chronic wounds to the bilateral lower extremities. Psychiatric: A+Ox3, euthymic affect Results & Data Results & Data ([facility]) Vital Signs (Past 12 Hours) Vital Signs Temp Pulse Pulse Pulse Resp BP BP 04/20/22 08:00 04/20/22 07:21 36.5 C 97 H 20 92/64 L 04/20/22 01:05 94 H 04/20/22 01:46 04/20/22 01:46 36.4 C L 67 20 113/72 04/20/22 01:25 36.4 C L 67 20 113/72 04/20/22 01:25 04/20/22 00:21 94 H 24 99/68 L 04/20/22 00:00 93 H 20 90/58 L 04/19/22 23:30 102 H 21 98/67 L 04/19/22 23:01 103 H 23 95/62 L 04/19/22 21:45 92 H 22 98/63 L Pulse Ox Pulse Ox O2 Del Method O2 Del Method O2 Flow Rate O2 Flow Rate 04/20/22 08:00 Nasal Cannula 2 04/20/22 07:21 99 Nasal Cannula 2 04/20/22 01:05 04/20/22 01:46 Nasal Cannula 2 04/20/22 01:46 95 Nasal Cannula 2 04/20/22 01:25 95 Nasal Cannula 2 04/20/22 01:25 95 Nasal Cannula 2 04/20/22 00:21 98 Nasal Cannula 2 04/20/22 00:00 98 Nasal Cannula 2 04/19/22 23:30 99 Nasal Cannula 2 04/19/22 23:01 96 Nasal Cannula 2 04/19/22 21:45 96 Nasal Cannula 2 Resident Activity Tracking Resident Involvement: Resident Care Provided Care Provided: Adult Hospital Medicine
[2022-04-20] MEDS ORDERED: BUMETANIDE 1 MG TAB PO SCH (09:00)
[2022-04-20] MEDS ORDERED: DOXYCYCLINE HYCLATE 100 MG CAP PO SCH (09:00)
[2022-04-20] MEDS ORDERED: POTASSIUM CHLORIDE CRTAB 20 MEQ TABCR PO STA (09:02)
[2022-04-20] MEDS ORDERED: FUROSEMIDE INJ 20 MG/2 ML VIAL IV ONE (09:02)
[2022-04-20] MEDS ORDERED: AZTREONAM 2,000 MG in DEXTROSE 5% 100 ML IV SCH (10:00)
--- NOTE | 2022-04-20 10:22 | Billing Data ---
Date of Service April 20, 2022 Coding Level of Care Code 29574 Initial Inpt Care Lvl 3
--- NOTE | 2022-04-20 14:19 | Ultrasound Report ---
ULTRASOUND BILATERAL LOWER EXTREMITY VENOUS CLINICAL HISTORY: Lower extremity edema. Leg wounds. COMPARISON STUDY: No priors. TECHNIQUE: Real-time, grayscale, and color Doppler sonography of the deep veins of the right and left lower extremity was performed from the inguinal crease to the calf. Compression and augmentation wer e utilized. FINDINGS: There is no sonographic evidence of deep venous thrombosis identified in the right or left lower extremity. The common femoral, superficial femoral, and popliteal veins are patent and normally compressible bilaterally. The greater saphenous vein and the profunda femoris vein at the junction w ith the common femoral vein are clear in both legs. The visualized calf veins are patent bilaterally. IMPRESSION: There is no sonographic evidence of deep venous thrombosis identified in the right or lef t lower extremity. ACT 112: Negative or not required by law. Electronically signed by: Cesar Santos M.D. 04/20/2022 2:18 PM
--- NOTE | 2022-04-20 14:52 | Hospitalist Progress Note ---
Date of Service April 20, 2022 Assessment & Plan (1) Respiratory failure: Plan: Acute respiratory failure with hypoxia, hypercapnia Likely multifactorial: Chronic diastolic heart failure, pulmonary hypertension, COPD, possible OHS/MU, chronic pain medications likely contributing as well. --CXR:Cardiomegaly with no active disease in the chest. --Hypercapnia on ABG -- Continue home diuretics Given history of COPD, titrate oxygen to keep saturations 88 to 93% Needs outpatient sleep study Will obtain nocturnal oximetry study Pulmonology consulted Monitor volume status Currently saturating well on 2 L supplemental oxygen Will need 2 step prior to discharge Minimize narcotic use Recurrent RLE cellulitis H/O chronic LE wounds Underlying PVD --Leg X ray:Diffuse soft tissue swelling without evidence of focal erosion to suggest osteomyelitis. No evidence of hardware fracture or perihardware loosening. --Venous Doppler:There is no sonographic evidence of deep venous thrombosis identified in the right or left lower extremity. --H/O Enterobacter (cephalosporin and Bactrim resistant) on previous RLE wound CS --Wound care consulted -- Continue doxycycline, Azactam Chronic diastolic heart failure Last EF 55 to 60%, TTE 2019 Continue Bumex Monitor volume status Afib on Eliquis, metoprolol H/O Nonobstructive CAD Continue home medications Hypothyroidism Continue levothyroxine Prediabetes HbA1C: 6.4 Past tobacco abuse DVT Px: Eliquis Code Status DNI/DNR Admission and Anticipated Discharge Date Admission Date: April 19, 2022 Subjective Patient is seen and examined at bedside Offers no complaints Feels sleepy Denies any chest pain, vomiting, dizziness, nausea, abdominal pain Saturating well on 2 L supplemental oxygen Review of Systems Review of Systems: All systems reviewed & are unremarkable except as noted in Subjective Physical Exam Physical Exam: Physical Exam: Vitals signs as noted above General Appearance:Obese, no apparent distress, drowsy Head: normocephalic, Atraumatic Eyes: normal inspection, EOMI Neck: supple, Trachea midline Respiratory/Chest: Decreased breath sounds, CTA, No accessory muscle use Cardiovascular: Irregularly irregular, No murmur Abdomen/GI:Soft, Non tender, Bowel sounds present Extremities/Musculoskeletal:normal inspection, 2+ B/L Edema, +B/L Leg wounds, mild Erythema, +Leg wounds Neurologic/Psych:AAOX3, grossly no focal neurological deficits Skin: normal color, warm Results & Data Results & Data ([facility]) Vital Signs (Past 12 Hours) Vital Signs Temp Pulse Resp BP Pulse Ox O2 Del Method O2 Flow Rate 04/20/22 11:15 36.4 C L 87 20 97/57 L 98 Nasal Cannula 2 04/20/22 08:00 Nasal Cannula 2 04/20/22 07:21 36.5 C 97 H 20 92/64 L 99 Nasal Cannula 2 Laboratory Results Short CBC 04/19/22 04/20/22 Range/Units 21:14 05:50 WBC 9.31 8.30 (4.8-10.8) K/ul Hgb 10.5 L 9.6 L (12.0-16.0) g/dl Hct 32.7 L 31.6 L (34.1-44.9) % Plt Count 330 282 (130-400) K/uL BMP 04/19/22 04/20/22 21:14 05:50 Sodium 135 L 138 Potassium 3.7 3.6 Chloride 98 98 Carbon Dioxide 31 34 H BUN 27 H 27 H Creatinine 1.19 1.17 Glucose 136 H 123 H Calcium 9.3 9.3 Liver Function 04/19/22 Range/Units 21:14 Total Bilirubin 1.0 (0.2-1.0) mg/dl AST 11 L (13-39) U/L ALT 10 (7-52) U/L Alkaline Phosphatase 92 (34-104) U/L Albumin 2.8 L (3.4-5.0) gm/dl Urine 04/20/22 Range/Units 05:40 Urine Color Yellow Urine Appearance Clear (Clear) Urine pH 5.0 (4.5-7.5) Ur Specific D Hanis 1.012 (1.000-1.030) Urine Protein Negative (Negative) Urine Glucose (UA) Negative (Negative)
[2022-04-20 16:26] LABS: A calco-baum cmplx NotReported Not Detected (NotDetected); Bact fragilis Not Reported Not Detected (NotDetected); C auris Not Reported Not Detected (NotDetected); Calbicans Not Reported Not Detected (NotDetected); Candida glabrata Not Reported Not Detected (NotDetected); Candida krusei Not Reported Not Detected (NotDetected); Cneoformans/gatti Not Reported Not Detected (NotDetected); Cparapsilosis Not Reported Not Detected (NotDetected); Ctropicalis Not Reported Not Detected (NotDetected); E cloacae compx Not Reported Not Detected (NotDetected); Efaecalis Not Reported Not Detected (NotDetected); Efaecium Not Reported Not Detected (NotDetected); Enterobacterales Not Reported Not Detected (NotDetected); Escherichia coli Not Reported Not Detected (NotDetected); H influenzae Not Reported Not Detected (NotDetected); K aerogenes Not Reported Not Detected (NotDetected); Koxytoca Not Reported Not Detected (NotDetected); Kpneumoniae grp Not Reported Not Detected (NotDetected); Lmonocyt Not Reported Not Detected (NotDetected); N meningitidis Not Reported Not Detected (NotDetected); P aeruginosa Not Reported Not Detected (NotDetected); Proteus spp Not Reported Not Detected (NotDetected); Salmonella spp Not Reported Not Detected (NotDetected); Smarcescens Not Reported Not Detected (NotDetected); Staph lugdunensis Not Reported Not Detected (NotDetected); Staph spp. Not Reported Not Detected (NotDetected); Staphaureus Not Reported Not Detected (NotDetected); Staphepi Not Reported Not Detected (NotDetected); Stenmaltophilia Not Reported Not Detected (NotDetected); Strep agal(GrpB) Not Reported Not Detected (NotDetected); Strep pneum Not Reported Not Detected (NotDetected); Strep pyog (GrpA) Not Reported Not Detected (NotDetected); Strep spp Not Reported DETECTED (NotDetected)
[2022-04-20 16:32] LABS: Streptococcus spp DETECTED (NotDetected)
--- NOTE | 2022-04-20 16:42 | Electrocardiogram Report ---
Test Reason : Blood Pressure : / mmHG Vent. Rate : 134 BPM Atrial Rate : 163 BPM P-R Int : 000 ms QRS Dur : 074 ms QT Int : 322 ms P-R-T Axes : 000 -10 -14 degrees QTc Int : 480 ms Poor data quality, interpretation may be adversely affected Probable Atrial fibrillation with rapid ventricular response Cannot rule out Anterior infarct , age undetermined Abnormal ECG When compared with ECG of 28-MAR-2022 08:39, Inverted T waves have replaced nonspecific T wave abnormality in Inferior leads T wave inversion now evident in Lateral leads Confirmed by Du Cordon ([id number]) on 04/20/2022 4:41:56 PM Referred By: [facility] Confirmed By:Du Cordon
[2022-04-20] MEDS: ACETAMINOPHEN 500 MG TAB PO PRN (19:57)
[2022-04-20] MEDS: MONTELUKAST SODIUM 10 MG TABLET PO SCH (19:57)
[2022-04-20] MEDS ORDERED: SODIUM CHLORIDE 0.9% 500 ML IV SCH (22:45)
[2022-04-20] MEDS ORDERED: SODIUM CHLORIDE 0.9% 1000ML 1,000 ML IV SCH (23:00)
[2022-04-21] MEDS ORDERED: ALBUMIN 5% 250 ML IV ONE ×2 (00:07→00:27)
[2022-04-21] MEDS ORDERED: AZTREONAM 2,000 MG in DEXTROSE 5% 100 ML IV SCH (01:00)
[2022-04-21] MEDS ORDERED: VANCOMYCIN CONSULT ACTIVE PRN (01:10)
[2022-04-21] MEDS ORDERED: SODIUM CHLORIDE 0.9% 1000ML 1,000 ML IV SCH (01:30)
[2022-04-21] MEDS ORDERED: NOREPINEPHRINE/D5W 4 MG/250 ML IV ONE (01:57)
[2022-04-21] MEDS ORDERED: STAT IV Infusion **Titration per Protocol STA (02:06)
[2022-04-21 02:14] LABS: Basophils # (auto) 0.01 K/uL (0-0.2); Basophils % (auto) 0.1 %; Eosinophils # (auto) 0.24 K/uL (0-0.50); Eosinophils % (auto) 3.4 %; Hematocrit (blood only) 27.4 % (34.1-44.9); Hemoglobin 8.4 g/dl (12.0-16.0); Immature Granulocytes # (auto) 0.05 K/uL (0.00-0.02); Immature Granulocytes % (auto) 0.7 %; Lymphocytes # (auto) 0.38 K/uL (1.2-3.4); Lymphocytes % (auto) 5.5 %; Mean Corpuscular Hemoglobin 31.5 pg (25.0-34.0); Mean Corpuscular Hgb Conc 30.7 g/dL (32.0-36.0); Mean Corpuscular Volume 102.6 fL (80.0-100.0); Mean Platelet Volume 9.3 fL (9.4-12.3); Monocytes % (auto) 5.7 %; Neutrophils # (auto) 5.89 K/uL (1.4-6.5); Neutrophils % (auto) 84.6 %; Platelet Count 246 K/uL (130-400); RDW Coefficient of Variation 14.6 % (11.5-14.5); RDW Standard Deviation 54.9 fL (36.4-46.3); Red Blood Count 2.67 M/uL (3.93-5.22); White Blood Count 6.97 K/ul (4.8-10.8)
[2022-04-21] MEDS ORDERED: NORMOSOL-R 1,000 ML IV SCH (02:15)
[2022-04-21] MEDS ORDERED: VANCOMYCIN HCL 1,750 MG in SODIUM CHLORIDE 0.9% 500 ML IV ONE (02:30)
[2022-04-21] MEDS: NOREPINEPHRINE/D5W 4 MG/250 ML PLCT IV SCH ×2 (02:52→18:02)
[2022-04-21] MEDS ORDERED: HYDROCORTISONE SOD 100 MG in SYRINGE 0 ML IV STA (02:56)
[2022-04-21] MEDS ORDERED: CEFEPIME 2,000 MG in SYRINGE 0 ML IV SCH (03:00)
[2022-04-21] MEDS ORDERED: traZODone HCL 50 MG TAB PO ONE (03:09)
[2022-04-21 03:27] LABS: Albumin Globulin Ratio 1.1 (0.9-2); Albumin Level 2.9 gm/dl (3.4-5.0); BUN Creatinine Ratio 23.7 (10-20); Bilirubin,Total 0.5 mg/dl (0.2-1.0); Calcium 8.7 mg/dl (8.5-10.1); Creatinine Clr Calc Pharmacy 40.2 ml/min; Est GFR (African American) 50.8 ml/min; Est GFR (Non-African American) 43.8 ml/min; Globulin 2.6 gm/dl (2.5-4.0); Magnesium 1.7 mg/dl (1.7-2.4); Phosphorus 2.1 mg/dl (2.5-4.9); Potassium 3.8 mmol/L (3.5-5.1); Total Protein 5.5 gm/dl (6.0-8.3)
[2022-04-21] MEDS ORDERED: POTASSIUM CHLORIDE CRTAB 20 MEQ TABCR PO STA (03:35)
--- NOTE | 2022-04-21 03:42 | Critical Care Progress Note ---
Date of Service April 21, 2022 Assessment & Plan (1) Hypotension: Plan: Reason Critically Ill: 86-year-old female presents to the ICU following hypotension with systolic blood pressure in the 60s despite fluid bolus, now requiring vasopressor support. Neuro - [facility] ICU: Negative Cardiac - Hypotensionlikely septic versus adrenal insufficiency. See ID treatment below. Starting hydrocortisone as random cortisol was 1. Patient did receive 1 L crystalloid bolus and albumin but remained hypotensive with systolic blood pressure in the 60s, however no evidence of ischemia on lab work with negative lactate, normal creatinine and LFTs. She was previously started on Levophed and is currently running low-dose peripherally. Hold on central line for now and continue to wean vasopressors but maintain maps greater than 65. Patient does have history of heart failure but last echo within normal ejection fraction with moderate hypertrophy. Troponin is negative and she is currently in sinus tachycardia with rates in the low 100s. We will continue to monitor on telemetry. She does have a history of PAF and is anticoagulated with Eliquis. This was placed on hold due to possible procedure. Will monitor for now in ICU and attempt to wean vasopressors. Respiratory - Hypoxiamost likely secondary to CHF with diastolic dysfunction. Patient seen by pulmonary earlier today. We will hold on further diuresis for now as patient is currently hypotensive. Started on broad-spectrum antibiotics, see below. Continuous monitoring on pulse ox. Currently maintaining oxygen saturation on 2 L nasal cannula, wean as tolerated. Lungs clear to auscultation GI - N.p.o. for now RENAL/LYTES - Creatinine within normal limits, monitor routine BMP and replete electrolytes as indicated. Careful with maintenance IV fluids considering heart failure - Foleystrict I's and O's ENDO - No history of diabetes, ICU hyperglycemic protocol Hypothyroidismcontinue Synthroid HEME - Anemiahemoglobin 8.4 with normal baseline 10.5. No indication for transfusion at this time. Hold anticoagulation for now ID - Sepsis?No leukocytosis, fevers and procalcitonin negative from yesterday although patient did have 1 of 4 cultures grew gram-positive cocci in chains. Considering hypotension will start on broad-spectrum antibiotics with vancomycin and Zosyn. She does have multiple wounds with cellulitis of this on her lower extremities. Blood cultures repeated and UA and sputum culture, will follow up. LINES/IV ACCESS - Peripheral IVs for now. Did discuss with patient possible need for central line if requiring more than low-dose Levophed. We will hold off for now DVT PROPHYLAXIS - SCDs, systemically anticoagulated on Eliquis. Will hold Eliquis for now I have personally spent 65 minutes of critical care time in the direct management of this patient. This is a life/limb threatening event. This includes time spent evaluating patient, direct bedside care, chart review, placing orders, interpretation of diagnostic studies, discussion with consultants, patient, and family members, as well as other required patient management activities. This time is exclusive of all separately billable procedures, and teaching time and separate from and in addition to any other critical care service time. Thank you for allowing us to participate in the care of this patient. Please refer to my attending physician's documentation for any further recommendations. (2) Venous insufficiency (chronic) (peripheral): (3) Cor pulmonale (chronic): (4) Hypoxia: (5) Pedal edema: (6) Cellulitis: (7) DVT prophylaxis: (8) Sepsis: (9) Atrial fibrillation, permanent: Admission and Anticipated Discharge Date Admission Date: April 19, 2022 Subjective 86 year old female w/ PmHx PAD w/ chronic wounds to LE, atrial fibrillation on Eliquis, diastolic heart failure, hypothyroidism, hypertension, anxiety, dyslipidemia presenting to [facility] for low O2 saturations during the night prior to admission. Patient was maintaining oxygen saturation on 2 L nasal cannula and undergoing treatment for heart failure with diuresis. I was notified this evening that the patient was hypotensive with systolic blood pressure in the 60s. She had received 1 L crystalloid bolus and albumin prior to this. I spoke with the patient with her son and daughters who are on the phone and although she is DNR/DNI she was agreeable to treatment with vasopressors and central line if needed. Although hypotensive she is currently asymptomatic and reports no dizziness or syncopal events and is alert and oriented. She denies any headache, sore throat, fevers, chest pain, palpitations, abdominal pain, nausea vomiting or diarrhea. She does report a chronic cough which is sometimes productive. She also reports swelling in her lower extremities bilaterally. Patient has been transferred to ICU and currently running low-dose Levophed peripherally. We will continue medical management in ICU for now. Review of Systems Review of Systems: All systems reviewed & are unremarkable except as noted in HPI & below Physical Exam Constitutional: + frail appearing, cooperative and comfortable; no acute dist ress Eyes: PERRL, conjunctivae normal, anicteric sclerae ENMT: external ear and nose normal, oropharynx normal Neck: trachea midline, no thyromegaly Respiratory: normal respiratory effort, lungs clear to auscultation Cardiovascular: RRR, no murmur, no edema Heart Sounds: normal S1 and normal S2 Extremities: normal capillary refill and + edema (Bilateral lower extremity edema +2) Gastrointestinal (Abdomen): normal bowel sounds, soft, nontender, no hepatosplenomegaly Musculoskeletal: no cyanosis or clubbing, extremities motor strength 5/5 Skin: Bilateral lower extremity cellulitis Neurologic: PERRL, EOMI, accommodation nl, no face palsy, no dysarthria Psychiatric: A+Ox3, euthymic affect Genitourinary: Dwelling Jensen catheter present Results & Data Results & Data ([facility]) Vital Signs (Past 12 Hours) Vital Signs Temp Pulse Pulse Pulse Resp BP BP 04/21/22 03:30 37.5 C 101 H 20 04/21/22 03:15 37.6 C H 101 H 26 H 04/21/22 03:15 97/72 L 04/21/22 03:01 102/70 04/21/22 03:01 37.5 C 98 H 23 04/21/22 03:00 37.5 C 100 H 18 04/21/22 02:45 37.5 C 94 H 26 H 04/21/22 02:45 98/71 L 04/21/22 02:32 37.3 C 103 H 22 04/21/22 02:32 87/61 L 04/21/22 02:30 37.3 C 103 H 18 04/21/22 03:22 04/21/22 03:18 04/20/22 22:17 93 H 04/21/22 01:15 68/38 L 04/21/22 01:21 74/51 L 04/21/22 01:42 88/56 L 04/21/22 00:24 96/57 L 04/21/22 01:00 100 H 04/21/22 00:23 101 H 04/20/22 23:48 04/20/22 23:57 78/47 L 04/20/22 23:00 36.7 C 60 20 69/45 L 04/20/22 22:56 96 H 04/20/22 22:47 87 04/20/22 22:37 04/20/22 22:19 92 H 04/20/22 19:34 04/20/22 19:54 36.6 C 84 17 BP Pulse Ox Pulse Ox Pulse Ox O2 Del Method O2 Del Method O2 Del Method 04/21/22 03:30 98 04/21/22 03:15 99 04/21/22 03:15 04/21/22 03:01 04/21/22 03:01 98 04/21/22 03:00 95 04/21/22 02:45 04/21/22 02:45 04/21/22 02:32 72 L 04/21/22 02:32 04/21/22 02:30 84 L 04/21/22 03:22 Nasal Cannula 04/21/22 03:18 98 Nasal Cannula 04/20/22 22:17 04/21/22 01:15 04/21/22 01:21 04/21/22 01:42 90 Room Air 04/21/22 00:24 04/21/22 01:00 93 Room Air 04/21/22 00:23 92 Room Air 04/20/22 23:48 67/37 L 04/20/22 23:57 04/20/22 23:00 69/45 L 93 Room Air 04/20/22 22:56 83/53 L 90 Room Air 04/20/22 22:47 71/50 L 90 Room Air 04/20/22 22:37 60/38 L 90 Room Air 04/20/22 22:19 95 Room Air 04/20/22 19:34 Nasal Cannula 04/20/22 19:54 91/61 L O2 Flow Rate O2 Flow Rate 04/21/22 03:30 04/21/22 03:15 04/21/22 03:15 04/21/22 03:01 04/21/22 03:01 04/21/22 03:00 04/21/22 02:45 04/21/22 02:45 04/21/22 02:32 04/21/22 02:32 04/21/22 02:30 04/21/22 03:22 2 04/21/22 03:18 2 04/20/22 22:17 04/21/22 01:15 04/21/22 01:21 04/21/22 01:42 04/21/22 00:24 04/21/22 01:00 04/21/22 00:23 04/20/22 23:48 04/20/22 23:57 04/20/22 23:00 04/20/22 22:56 04/20/22 22:47 04/20/22 22:37 04/20/22 22:19 04/20/22 19:34 2 04/20/22 19:54 Coding Level of Care Code Critical Care 1st 30-74 mins Diagnoses Hypotension I95.9 Venous insufficiency (chronic) (peripheral) I87.2 Cor pulmonale (chronic) I27.81 Hypoxia R09.02 Pedal edema R60.0 Cellulitis L03.115 Laterality: right Site of cellulitis: extremity Site of cellulitis of extremity: lower extremity DVT prophylaxis Z29.9 Sepsis A41.9 Atrial fibrillation, permanent I48.21 (1) Cellulitis Laterality: right Site of cellulitis: extremity Site of cellulitis of extremity: lower extremity Qualified Code(s): L03.115 - Cellulitis of right lower limb
--- NOTE | 2022-04-21 03:47 | Pharmacy Report ---
Pharmacy PK ABX Note - Date of Service April 21, 2022 - Assessment and Plan Assessment 86 year old F receiving Vancomycin/Cefepime for treatment of bacteremia. Pertinent microbiologic data includes: Blood culture 1/2 growing GPC. Plan Vancomycin * Loading dose: 1750 mg IV x 1 * Maintenance dose: 1250 mg IV every 24 hours * Regimen is predicted to achieve target AUC/RAFAL of 400-600 mg/L.hr Pharmacy will continue to follow and will adjust dose/frequency as necessary. Thank you. Pharmacy has transitioned to AUC monitoring for vancomycin. AUC/RAFAL is the preferred PK/PD target and is associated with decreased risk of nephrotoxicity compared to traditional trough targets.
[2022-04-21 03:49] LABS: Appearance Urine Clear (Clear); Bilirubin Urine Negative (Negative); Blood Urine Negative (Negative); Color Urine Yellow; Glucose Urine UA Negative (Negative); Ketones Urine Negative (Negative); Leukocyte Esterase Urine Negative (Negative); Nitrite Urine Negative (Negative); Protein Urine Negative (Negative); Specific Gravity Urine 1.014 (1.000-1.030); Urobilinogen Urine Negative (Negative); pH Urine 5.5 (4.5-7.5)
[2022-04-21] MEDS: MAGNESIUM SULFATE / D5W 1 GM/100 ML BAG IV SCH ×2 (03:59→05:44)
[2022-04-21] MEDS: LEVOTHYROXINE SODIUM 112 MCG TABLET PO SCH (06:09)
--- NOTE | 2022-04-21 07:39 | Communication Note ---
Date of Service: April 21, 2022 Last night patient Blood pressure SBP was dropping into 60's.Patient asymptomatic. Alert and oriented. Gave one litre NS fluid bolus and seems coming up and gave one dose of albumin 5% infusion. But again sbp dropping into 60's. One of the blood cx was growing gm positive cocci. Started on iv abx iv vanco and azactum and transferred to ICU. Notified daughter.
[2022-04-21] MEDS ORDERED: SODIUM PHOSPHATE 3 MMOL/1 ML INFUSION IV ONE (07:57)
[2022-04-21] MEDS ORDERED: SODIUM PHOSPHATE 15 MMOL in SODIUM CHLORIDE 0.9% 250 ML IV ONE (08:15)
--- NOTE | 2022-04-21 08:23 | Critical Care Progress Note ---
Date of Service April 21, 2022 Assessment & Plan (1) Hypotension: Plan: Catherine is an 86 y/o F PmHx PAD w/ chronic wounds to LE, atrial fibrillation on Eliquis, diastolic heart failure, hypothyroidism, hypertension, anxiety, dyslipidemia admitted to icu for hypotension requiring pressor medication. Neuro [facility] ICU: Negative Sedation/Analgesia: None Cardiac Hypotension: -Soft pressures during admission, night of 04/20 pressures to 60's/30's. -Given 1.5L saline bolus, 500ml albumin bolus however hypotension persisted. -Patient started on levophed 0.05mcg/kg/min peripherally to maintain MAPs above 65. -Echo 03/2022 EF 65-70%, elevated R ventricular systolic pressure, mild-mod tricuspid and mitral regurge. -Sepsis workup grossly negative - WBC, procal, lactate, CMP, troponin WNL -Random cortisol 1.03, given 100mg hydrocortisone. -Continue to wean off levophed while maintaining pressures. Respiratory Hypoxemia: -CXR without acute abnormalities. BNP 772. -Most likely contribution from CHF exacerbation. GI [] Renal/Electrolytes [] [] Endo [ICU hyperglycemia protocol] Heme [] ID [] Lines/IV Access [] DVT Prophylaxis [] Dispo: [] (2) Venous insufficiency (chronic) (peripheral): (3) Sepsis: (4) Hypoxia: (5) Atrial fibrillation, permanent: (6) Cor pulmonale (chronic): Admission and Anticipated Discharge Date Admission Date: April 19, 2022 Subjective Patient seen at the bedside this morning feeling as she usually does. She says that she didn't have any dizziness, lightheadedness last night and not having any this morning. She says that her blood pressures usually run 100's-120 systolic. She states she has not had any shortness of breath or palpitations and doing well off her oxygen in the room. Yesterday she endorses having a lot of urination, she states she had a lot of gas last night but no bowel movement. She feels cramping in the lower abdomen and says it feels like she has to go but gas is coming out. Denies any fevers, chills, nausea, vomiting. Tolerating diet and eating well. Review of Systems Review of Systems: As per HPI. Physical Exam Constitutional: WD/WN, vitals as above Sitting comfortably in bed with NC off face. Eyes: PERRL, conjunctivae normal, anicteric sclerae Respiratory: Mild crackles at the bilateral lung bases however clear to auscultation elsewhere. Cardiovascular: tachycardic, irregularly irregular, no murmurs. 2+ pitting edema up to the knee. Gastrointestinal (Abdomen): normal bowel sounds, soft, nontender, no hepat osplenomegaly Skin: bilateral lower extremity chronic wounds. Psychiatric: A+Ox3, euthymic affect Results & Data Results & Data ([facility]) Vital Signs (Past 12 Hours) Vital Signs Temp Pulse Pulse Pulse Resp BP BP 04/21/22 06:30 37.4 C 101 H 04/21/22 06:30 103/69 04/21/22 06:20 37.4 C 95 H 04/21/22 06:15 93/73 L 04/21/22 06:15 37.4 C 99 H 04/21/22 06:10 37.4 C 105 H 04/21/22 06:00 37.4 C 105 H 24 04/21/22 06:00 94/66 L 04/21/22 05:50 37.4 C 105 H 15 04/21/22 05:45 37.4 C 101 H 21 04/21/22 05:45 100/72 04/21/22 05:40 37.3 C 98 H 26 H 04/21/22 05:30 37.3 C 106 H 17 04/21/22 05:30 92/68 L 04/21/22 05:20 37.3 C 103 H 19 04/21/22 05:15 98/60 L 04/21/22 05:15 37.3 C 100 H 25 H 04/21/22 05:10 37.3 C 97 H 24 04/21/22 05:00 37.3 C 103 H 19 04/21/22 05:00 79/43 L 04/21/22 04:50 37.3 C 100 H 17 04/21/22 04:45 37.3 C 102 H 23 04/21/22 04:45 91/61 L 04/21/22 04:40 37.3 C 96 H 17 04/21/22 04:30 37.3 C 98 H 23 04/21/22 04:30 90/63 L 04/21/22 04:20 37.4 C 96 H 21 04/21/22 04:15 37.4 C 93 H 21 04/21/22 04:15 80/58 L 04/21/22 04:10 37.5 C 100 H 20 04/21/22 04:00 37.5 C 109 H 17 04/21/22 04:00 84/67 L 04/21/22 03:50 37.5 C 99 H 21 04/21/22 03:45 85/57 L 04/21/22 03:45 37.5 C 102 H 20 04/21/22 03:40 37.5 C 108 H 28 H 04/21/22 03:30 104/77 04/21/22 03:30 37.5 C 101 H 20 04/21/22 03:15 37.6 C H 101 H 26 H 04/21/22 03:15 97/72 L 04/21/22 03:01 102/70 04/21/22 03:01 37.5 C 98 H 23 04/21/22 03:00 37.5 C 100 H 18 04/21/22 02:45 37.5 C 94 H 26 H 04/21/22 02:45 98/71 L 04/21/22 02:32 37.3 C 103 H 22 04/21/22 02:32 87/61 L 04/21/22 02:30 37.3 C 103 H 18 04/21/22 03:22 04/21/22 03:18 04/20/22 22:17 93 H 04/21/22 01:15 68/38 L 04/21/22 01:21 74/51 L 04/21/22 01:42 88/56 L 04/21/22 00:24 96/57 L 04/21/22 01:00 100 H 04/21/22 00:23 101 H 04/20/22 23:48 04/20/22 23:57 78/47 L 04/20/22 23:00 36.7 C 60 20 69/45 L 04/20/22 22:56 96 H 04/20/22 22:47 87 04/20/22 22:37 04/20/22 22:19 92 H BP Pulse Ox Pulse Ox Pulse Ox O2 Del Method O2 Del Method O2 Del Method 04/21/22 06:30 90 04/21/22 06:30 04/21/22 06:20 89 L 04/21/22 06:15 04/21/22 06:15 89 L 04/21/22 06:10 81 L 04/21/22 06:00 87 L 04/21/22 06:00 04/21/22 05:50 86 L 04/21/22 05:45 86 L 04/21/22 05:45 04/21/22 05:40 89 L 04/21/22 05:30 91 04/21/22 05:30 04/21/22 05:20 87 L 04/21/22 05:15 04/21/22 05:15 90 04/21/22 05:10 90 04/21/22 05:00 88 L 04/21/22 05:00 04/21/22 04:50 92 04/21/22 04:45 94 04/21/22 04:45 04/21/22 04:40 95 04/21/22 04:30 93 04/21/22 04:30 04/21/22 04:20 94 04/21/22 04:15 87 L 04/21/22 04:15 04/21/22 04:10 90 04/21/22 04:00 80 L 04/21/22 04:00 04/21/22 03:50 82 L 04/21/22 03:45 04/21/22 03:45 91 04/21/22 03:40 92 04/21/22 03:30 04/21/22 03:30 98 04/21/22 03:15 99 04/21/22 03:15 04/21/22 03:01 04/21/22 03:01 98 04/21/22 03:00 95 04/21/22 02:45 04/21/22 02:45 04/21/22 02:32 72 L 04/21/22 02:32 04/21/22 02:30 84 L 04/21/22 03:22 Nasal Cannula 04/21/22 03:18 98 Nasal Cannula 04/20/22 22:17 04/21/22 01:15 04/21/22 01:21 04/21/22 01:42 90 Room Air 04/21/22 00:24 04/21/22 01:00 93 Room Air 04/21/22 00:23 92 Room Air 04/20/22 23:48 67/37 L 04/20/22 23:57 04/20/22 23:00 69/45 L 93 Room Air 04/20/22 22:56 83/53 L 90 Room Air 04/20/22 22:47 71/50 L 90 Room Air 04/20/22 22:37 60/38 L 90 Room Air 04/20/22 22:19 95 Room Air O2 Flow Rate O2 Flow Rate 04/21/22 06:30 04/21/22 06:30 04/21/22 06:20 04/21/22 06:15 04/21/22 06:15 04/21/22 06:10 04/21/22 06:00 04/21/22 06:00 04/21/22 05:50 04/21/22 05:45 04/21/22 05:45 04/21/22 05:40 04/21/22 05:30 04/21/22 05:30 04/21/22 05:20 04/21/22 05:15 04/21/22 05:15 04/21/22 05:10 04/21/22 05:00 04/21/22 05:00 04/21/22 04:50 04/21/22 04:45 04/21/22 04:45 04/21/22 04:40 04/21/22 04:30 04/21/22 04:30 04/21/22 04:20 04/21/22 04:15 04/21/22 04:15 04/21/22 04:10 04/21/22 04:00 04/21/22 04:00 04/21/22 03:50 04/21/22 03:45 04/21/22 03:45 04/21/22 03:40 04/21/22 03:30 04/21/22 03:30 04/21/22 03:15 04/21/22 03:15 04/21/22 03:01 04/21/22 03:01 04/21/22 03:00 04/21/22 02:45 04/21/22 02:45 04/21/22 02:32 04/21/22 02:32 04/21/22 02:30 04/21/22 03:22 2 11/10/22 03:18 2 04/20/22 22:17 04/21/22 01:15 04/21/22 01:21 04/21/22 01:42 04/21/22 00:24 04/21/22 01:00 04/21/22 00:23 04/20/22 23:48 04/20/22 23:57 04/20/22 23:00 04/20/22 22:56 04/20/22 22:47 04/20/22 22:37 04/20/22 22:19
[2022-04-21] MEDS: POLYETHYLENE (MIRALAX) 17 GM PACK PO SCH (08:24)
[2022-04-21] MEDS: ARTIFICIAL TEARS OP SCH ×3 (08:24→21:07)
[2022-04-21] MEDS: CEROVITE ADV FORMULA TAB PO SCH (08:25)
[2022-04-21] MEDS: DOCUSATE SODIUM/SENNA 50/8.6MG TAB PO SCH ×2 (08:26→16:33)
[2022-04-21] MEDS: EZETIMIBE 10 MG TABLET PO SCH (08:26)
[2022-04-21] MEDS: PANTOprazole 40 MG TAB PO SCH ×2 (08:27→21:09)
[2022-04-21] MEDS: FLUTICASONE/VILANTEROL 200/25MCG 14 PUFFS/INHALER INH SCH (08:27)
[2022-04-21] MEDS: ADVANCED PROBIOTIC 1250 MG CAPSULE PO SCH (08:28)
--- NOTE | 2022-04-21 08:46 | Palliative Care Consultation ---
Date of Consultation April 21, 2022 Assessment & Plan (1) Pain: Chronic low back pain with acute pain related to cellulitis. She is on very low dose oxycodone at home which is now on hold due to hypotension. She does have order for tylenol. She complains of only mild pain at this time. (2) Palliative care encounter: I met with Mrs. Blanchard and her daughter, Sylvia, at bedside. We talked extensively about her illness, how she is coping and what her goals would be for her care moving forward. She tells me that she has four children who are all co POA for medical decision making. Sylvia notes that there have been some differences of opinion at times. We reviewed that as long as Catherine is capable of making decisions, she has the last word and that decision making if she is not capable would be based on what she would say if she were able. She tells me that her of cancer some years ago and that she wanted him to have treatment, which he did for her, though he personally didn't want to. She would to some extent agree to treatment for the sake of her family as well. I encouraged her to designate one POA based on the person who would be best able to follow through with her issues and encouraged family to discuss this together. I asked her if there were limits to what she would want for her care. She tells me that she has a living will but can't remember what it says. She is clear that she would not want CPR or intubation. She was unsure if she even wanted pressors last night but ultimately decided to do it. She is also clear that she would not want amputation or surgical intervention. She notes that the most important thing in her life is her family and she enjoys doing puzzles and activities with her family. Sylvia notes that her sister in law, Gisell, has been talking with hospice about providing hospice care for Catherine at [facility]. She asked about hospice, and the differences between hospice and palliative care, which we discussed. She asked if her mother was appropriate for hospice. I explained that if Catherine's preference is to remain at [facility] rather than return to the hospital and have overall focus of care on comfort and symptom management, hospice would be a very good support for her. Catherine has said that she doesn't think that she would want to come back to the hospital but also asked if she could come back if she wanted to. I reassured her that she always has that option. We talked about what her expectations for care would be about coming to the hospital. She feels that ultimately, her decisions about care are based on "whether there's light at the end of the tunnel". If there are treatable problems that would allow her to recover to the point that she is now, she would consider that. History of Present Illness Reason for Consultation: goals of care Requesting Physician: Dr. Pride Attending Physician: Vicente Marquez MD History of Present Illness 86 yo lady with diastolic heart failure, valvular heart disease, afib, cad, pulmonary hypertension, PVD and chronic cellulitis. She has had repeated hospitalizations for her cellulitis and had been discharged to [facility] on cephalexin and doxycycline. She was readmitted with hypoxic, hypercapnic respiratory failure and hypotension. She is DNR/DNI. She had an episode of asymptomatic hypotension with systolic in the 60s and at that time agreed to IV pressors. She had fluid bolus, albumin and hydrocortisone with BP now running in the low 100s to 90s. Diuresis has been held due to her hypotension. She tells me that her daughter in law has been talking with hospice about her going on hospice at [facility]. We were consulted to assist with goals of care. Allergies Allergy/AdvReac Type Severity Reaction Status Date / Time latex Allergy Intermediate Rash, Verified 04/19/22 21:46 itching povidone-iodine Allergy Intermediate Itching Verified 04/19/22 21:46 [From Betadine] soap [From Betadine] Allergy Intermediate Itching Verified 04/19/22 21:46 aspirin AdvReac Mild Dizziness Verified 04/19/22 21:46 Home Medications Medication Instructions Recorded Confirmed Type vit C 250 mg-vit E 90 mg-zinc 40 2 tab PO QAM 05/01/20 04/19/22 History mg-copper 1 [id number] capsule (PreserVision AREDS-2) budesonide-formoterol HFA 160 2 puff inhalation BID PRN 09/15/20 04/19/22 History mcg-4.5 mcg/actuation aerosol Shortness Of Breath Or Wheezing inhaler (Symbicort) pantoprazole 40 mg tablet,delayed 40 mg PO QAM GERD 05/14/21 04/19/22 History release (Protonix) montelukast 10 mg tablet 10 mg PO QPM 08/20/21 04/19/22 History ezetimibe 10 mg tablet (Zetia) 10 mg PO QAM #90 tabs 11/24/21 04/19/22 Rx ascorbic acid (vitamin C) 500 mg 500 mg PO QAM #20 tabs 01/02/22 04/19/22 Rx tablet (Vitamin C) acetaminophen 500 mg tablet 500 mg PO Q6H PRN Pain 03/28/22 04/19/22 History bumetanide 1 mg tablet 1 mg PO DAILY 03/28/22 04/19/22 History carboxymethylcellulose sodium 0.5 1 drp ophthalmic (eye) TID 03/28/22 04/19/22 History % eye drops (Refresh Tears) cholecalciferol (vitamin D3) 50 50 mcg PO DAILY 03/28/22 04/19/22 History mcg (2,000 unit) capsule (Vitamin D3) levothyroxine 112 mcg tablet 112 mcg PO DAILYBB 03/28/22 04/19/22 History melatonin 3 mg tablet 3 mg PO QDD 03/28/22 04/19/22 History metoprolol succinate 50 mg 50 mg PO BID 03/28/22 04/19/22 History tablet,extended release 24 hr oxycodone 5 mg tablet 2.5 mg PO QAM 03/28/22 04/19/22 History polyethylene glycol 3350 17 17 g PO DAILY 03/28/22 04/19/22 History gram/dose oral powder (Miralax) sennosides 8.6 mg-docusate sodium 2 tab-cap PO BID17 03/28/22 04/19/22 History 50 mg tablet (Senna-S) L.acidop,casei,lactis,rham-B.lact,jessy 2 cap PO DAILY #30 caps 04/05/22 04/19/22 Rx 625 mg (10 billion cell) capsule (Advanced Probiotic) apixaban 5 mg tablet (Eliquis) 5 mg PO BID17 04/19/22 04/19/22 History bismuth subsalicylate 262 mg/15 mL 524 mg PO Q6H PRN UPSET STOMACH 04/19/22 04/19/22 History oral suspension (Tennyson Bismuth) food supplemt, lactose-reduced 1 ea PO QAM 04/19/22 04/19/22 History ondansetron HCl 4 mg tablet 4 mg PO Q4H PRN NAUSEA/VOMITING 04/19/22 04/19/22 History oxycodone 5 mg tablet 2.5 mg PO Q8H PRN Pain 04/19/22 04/19/22 History Patient History Medical History Acute diverticulitis Anxiety and depression Aortic regurgitation Asthma inhaler prn Atrial fibrillation with rapid ventricular response Atrial fibrillation, permanent on eliquis and follows with Dr. Colón Chronic diastolic CHF (congestive heart failure) Cor pulmonale (chronic) Coronary artery disease Diverticulitis Dyslipidemia Esophageal stricture H/O fall 08/2020 Hearing deficit History of COVID-19 diagnosed 05/18/22 @ [place]--asymptomatic, tested prior to procedure--no issues now Hypotension Hypothyroid Leukocytosis Macular degeneration On anticoagulant therapy eliquis daily Osteoarthritis Pulmonary hypertension Spinal stenosis Valvular heart disease Venous insufficiency (chronic) (peripheral) Surgical History History of bilateral cataract extraction History of cardiac cath ?2015 @ [facility]--no stents History of colonoscopy with polypectomy History of dilatation and curettage History of esophagogastroduodenoscopy (EGD) History of left hip replacement History of left shoulder replacement History of parathyroidectomy ELEVATED CALCIUM LEVELS? (2 REMOVED) History of right hip replacement History of right shoulder replacement History of tonsillectomy and adenoidectomy History of tooth extraction History of total left knee replacement (TKR) x2 History of total right knee replacement (TKR) x2 History of wisdom tooth extraction S/P cholecystectomy S/P dilatation of esophageal stricture Family History Mother Cancer uterine Thyroid disease Father Cancer esophageal Family history of esophageal cancer Sister Family history of diabetes mellitus Sister Family history of diabetes mellitus Brother Family history of diabetes mellitus Family hx of colon cancer Other No family history of adverse response to anesthesia Social History Smoking Status: Former smoker Tobacco Type: Cigarettes Cigarettes Per Day: 1 ppd; Second Hand Exposure: No; Hx Alcohol Use: No Hx Substance Use: No Preferred Language: Burkinan Communication Ability: Impaired Visual Impairment: Limited Hearing Ability: Normal 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 Required: No Beliefs That Will Affect Care: None Current Living Situation: Personal Care Facility Current Living Situation Comment: [facility] How many Children do You have: 4 Feels Safe at Home: Yes caffeine: No during the past year weight has: remained stable Assistive Devices: Glasses, Oxygen - Continuous and Wheelchair Review of Systems Review of Systems: ESAS Pain 1/3, history of chronic back pain Dyspnea 0/3 Anxiety 0/3 Fatigue 1/3 Nausea 0/3 Drowsiness 0/3 PPS30% Physical Exam Constitutional: + frail appearing; no acute distress ENMT: Mouth: oral mucous membranes not dry Respiratory: normal respiratory effort; no labored breathing Cardiovascular: Rate/Rhythm: + irregularly irregular Musculoskeletal: Extremities: + muscle atrophy Skin: vascular skin changes on LEs with dressing intact Neurologic: Speech / Cognition: normal cognition Psychiatric: Orientation: oriented to time Affect: euthymic affect Genitourinary: Jensen catheter Results & Data ([facility]) Vital Signs (Past 12 Hours) Vital Signs Temp Pulse Pulse Pulse Resp BP BP 04/21/22 06:30 99.3 F 101 H 04/21/22 06:30 103/69 04/21/22 06:20 99.3 F 95 H 04/21/22 06:15 93/73 L 04/21/22 06:15 99.3 F 99 H 04/21/22 06:10 99.3 F 105 H 04/21/22 06:00 99.3 F 105 H 24 04/21/22 06:00 94/66 L 04/21/22 05:50 99.3 F 105 H 15 04/21/22 05:45 99.3 F 101 H 21 04/21/22 05:45 100/72 04/21/22 05:40 99.1 F 98 H 26 H 04/21/22 05:30 99.1 F 106 H 17 04/21/22 05:30 92/68 L 04/21/22 05:20 99.1 F 103 H 19 04/21/22 05:15 98/60 L 04/21/22 05:15 99.1 F 100 H 25 H 04/21/22 05:10 99.1 F 97 H 24 04/21/22 05:00 99.1 F 103 H 19 04/21/22 05:00 79/43 L 04/21/22 04:50 99.1 F 100 H 17 04/21/22 04:45 99.1 F 102 H 23 04/21/22 04:45 91/61 L 04/21/22 04:40 99.1 F 96 H 17 04/21/22 04:30 99.1 F 98 H 23 04/21/22 04:30 90/63 L 04/21/22 04:20 99.3 F 96 H 21 04/21/22 04:15 99.3 F 93 H 21 04/21/22 04:15 80/58 L 04/21/22 04:10 99.5 F 100 H 20 04/21/22 04:00 99.5 F 109 H 04/21/22 04:00 84/67 L 04/21/22 03:50 99.5 F 99 H 21 04/21/22 03:45 85/57 L 04/21/22 03:45 99.5 F 102 H 20 04/21/22 03:40 99.5 F 108 H 28 H 04/21/22 03:30 104/77 04/21/22 03:30 99.5 F 101 H 20 04/21/22 03:15 99.7 F H 101 H 26 H 04/21/22 03:15 97/72 L 04/21/22 03:01 102/70 04/21/22 03:01 99.5 F 98 H 23 04/21/22 03:00 99.5 F 100 H 18 04/21/22 02:45 99.5 F 94 H 26 H 04/21/22 02:45 98/71 L 04/21/22 02:32 99.1 F 103 H 22 04/21/22 02:32 87/61 L 04/21/22 02:30 99.1 F 103 H 18 04/21/22 03:22 04/21/22 03:18 04/20/22 22:17 93 H 04/21/22 01:15 68/38 L 04/21/22 01:21 74/51 L 04/21/22 01:42 88/56 L 04/21/22 00:24 96/57 L 04/21/22 01:00 100 H 04/21/22 00:23 101 H 04/20/22 23:48 04/20/22 23:57 78/47 L 04/20/22 23:00 98.1 F 60 20 69/45 L 04/20/22 22:56 96 H 04/20/22 22:47 87 04/20/22 22:37 04/20/22 22:19 92 H BP Pulse Ox Pulse Ox Pulse Ox O2 Del Method O2 Del Method O2 Del Method 04/21/22 06:30 90 04/21/22 06:30 04/21/22 06:20 89 L 04/21/22 06:15 04/21/22 06:15 89 L 04/21/22 06:10 81 L 04/21/22 06:00 87 L 04/21/22 06:00 04/21/22 05:50 86 L 04/21/22 05:45 86 L 04/21/22 05:45 04/21/22 05:40 89 L 04/21/22 05:30 91 04/21/22 05:30 04/21/22 05:20 87 L 04/21/22 05:15 04/21/22 05:15 90 04/21/22 05:10 90 04/21/22 05:00 88 L 04/21/22 05:00 04/21/22 04:50 92 04/21/22 04:45 94 04/21/22 04:45 04/21/22 04:40 95 04/21/22 04:30 93 04/21/22 04:30 04/21/22 04:20 94 04/21/22 04:15 87 L 04/21/22 04:15 04/21/22 04:10 90 04/21/22 04:00 80 L 04/21/22 04:00 04/21/22 03:50 82 L 04/21/22 03:45 04/21/22 03:45 91 04/21/22 03:40 92 04/21/22 03:30 04/21/22 03:30 98 04/21/22 03:15 99 04/21/22 03:15 04/21/22 03:01 04/21/22 03:01 98 04/21/22 03:00 95 04/21/22 02:45 04/21/22 02:45 04/21/22 02:32 72 L 04/21/22 02:32 04/21/22 02:30 84 L 04/21/22 03:22 Nasal Cannula 04/21/22 03:18 98 Nasal Cannula 04/20/22 22:17 04/21/22 01:15 04/21/22 01:21 04/21/22 01:42 90 Room Air 04/21/22 00:24 04/21/22 01:00 93 Room Air 04/21/22 00:23 92 Room Air 04/20/22 23:48 67/37 L 04/20/22 23:57 04/20/22 23:00 69/45 L 93 Room Air 04/20/22 22:56 83/53 L 90 Room Air 04/20/22 22:47 71/50 L 90 Room Air 04/20/22 22:37 60/38 L 90 Room Air 04/20/22 22:19 95 Room Air O2 Flow Rate O2 Flow Rate 04/21/22 06:30 04/21/22 06:30 04/21/22 06:20 04/21/22 06:15 04/21/22 06:15 04/21/22 06:10 04/21/22 06:00 04/21/22 06:00 04/21/22 05:50 04/21/22 05:45 04/21/22 05:45 04/21/22 05:40 04/21/22 05:30 04/21/22 05:30 04/21/22 05:20 04/21/22 05:15 04/21/22 05:15 04/21/22 05:10 04/21/22 05:00 04/21/22 05:00 04/21/22 04:50 04/21/22 04:45 04/21/22 04:45 04/21/22 04:40 04/21/22 04:30 04/21/22 04:30 04/21/22 04:20 04/21/22 04:15 04/21/22 04:15 04/21/22 04:10 04/21/22 04:00 04/21/22 04:00 04/21/22 03:50 04/21/22 03:45 04/21/22 03:45 04/21/22 03:40 04/21/22 03:30 04/21/22 03:30 04/21/22 03:15 04/21/22 03:15 04/21/22 03:01 04/21/22 03:01 04/21/22 03:00 04/21/22 02:45 04/21/22 02:45 04/21/22 02:32 04/21/22 02:32 04/21/22 02:30 04/21/22 03:22 2 04/21/22 03:18 2 04/20/22 22:17 04/21/22 01:15 04/21/22 01:21 04/21/22 01:42 04/21/22 00:24 04/21/22 01:00 04/21/22 00:23 04/20/22 23:48 04/20/22 23:57 04/20/22 23:00 04/20/22 22:56 04/20/22 22:47 04/20/22 22:37 04/20/22 22:19 PG Care Time/CCT Total # of Minutes Spent Total Time Spent: 120 Total Time Spent with Patient: Total time spent is greater than 50% in coordination of care (as documented) at patient's floor/unit and/or counseling patient:goals of care, hospice, symptom management, surrogate decision making, patient and family education and support. Coding Level of Care Code 60819 Initial Inpt Care Lvl 3 Diagnoses Pain R52 Palliative care encounter Z51.5
[2022-04-21] MEDS: HYDROCORTISONE SOD 50 MG in SYRINGE 0 ML IV SCH ×2 (10:39→21:10)
[2022-04-21] MEDS: MIDODRINE HCL 2.5 MG TAB PO SCH ×3 (10:50→16:32)
[2022-04-21] MEDS ORDERED: PIPERACILLIN/TAZOBACTAM 3.375 GM in DEXTROSE 5% 100 ML IV ONE (11:00)
--- NOTE | 2022-04-21 11:22 | Hospitalist Progress Note ---
Date of Service April 21, 2022 Assessment & Plan (1) Respiratory failure: Plan: Acute respiratory failure with hypoxia, hypercapnia Likely multifactorial: Chronic diastolic heart failure, pulmonary hypertension, COPD, possible OHS/MU, chronic pain medications likely contributing as well. --CXR:Cardiomegaly with no active disease in the chest. --Hypercapnia on ABG -- Continue home diuretics Given history of COPD, titrate oxygen to keep saturations 88 to 92% Needs outpatient sleep study Nocturnal oximetry study as able Appreciate Pulmonology Input Monitor volume status Will need 2 step prior to discharge Minimize narcotic use Currently saturating well on room air Hypotension DD: Septic Shock Vs Adrenal Insufficiency Possible Source LE cellulitis Rule out Bacteremia --Wound Culture: Gram-negative --Blood culture 06/15: Gram-positive cocci in chains Continue Zosyn for now Also on IV hydrocortisone, midodrine Appreciate grain spouter help Recurrent RLE cellulitis H/O chronic LE wounds Underlying PVD --Leg X ray:Diffuse soft tissue swelling without evidence of focal erosion to suggest osteomyelitis. No evidence of hardware fracture or perihardware loosening. --Venous Doppler:There is no sonographic evidence of deep venous thrombosis identified in the right or left lower extremity. --H/O Enterobacter (cephalosporin and Bactrim resistant) on previous RLE wound CS --Wound care consulted -- Management as above Hypophosphatemia Replete electrolytes as needed Chronic diastolic heart failure Last EF 55 to 60%, TTE 2019 Bumex held Monitor volume status Afib on Eliquis, metoprolol Eliquis held H/O Nonobstructive CAD Continue home medications Hypothyroidism Continue levothyroxine Prediabetes HbA1C: 6.4 Past tobacco abuse DVT Px: SCDs Eliquis-held Code Status DNI/DNR Admission and Anticipated Discharge Date Admission Date: April 19, 2022 Subjective Patient is seen and examined at bedside Patient was hypotensive overnight and was moved to ICU Currently on Pressor Reports Leg tenderness More alert, awake today Denies any chest pain, dyspnea, dizziness, nausea, abdominal pain Saturating well on room air Review of Systems Review of Systems: All systems reviewed & are unremarkable except as noted in Subjective Physical Exam Physical Exam: Physical Exam: Vitals signs as noted above General Appearance:Obese, no apparent distress, drowsy Head: normocephalic, Atraumatic Eyes: normal inspection, EOMI Neck: supple, Trachea midline Respiratory/Chest: Decreased breath sounds, CTA, No accessory muscle use Cardiovascular: Irregularly irregular, No murmur Abdomen/GI:Soft, Non tender, Bowel sounds present Extremities/Musculoskeletal:normal inspection, 2+ B/L Edema, +B/L Leg wounds, mild Erythema, +Leg wounds Neurologic/Psych:AAOX3, grossly no focal neurological deficits Skin: normal color, warm Results & Data Results & Data ([facility]) Vital Signs (Past 12 Hours) Vital Signs Temp Pulse Pulse Resp BP BP BP 04/21/22 11:15 94 H 04/21/22 10:00 37.1 C 94 H 20 04/21/22 09:58 37.1 C 95 H 16 04/21/22 09:58 92/56 L 04/21/22 09:30 37.1 C 93 H 21 04/21/22 09:29 102/66 04/21/22 09:29 37.1 C 94 H 20 04/21/22 09:00 37.3 C 99 H 17 04/21/22 09:00 104/66 04/21/22 08:40 96/79 L 04/21/22 08:40 37.3 C 103 H 19 04/21/22 08:30 37.3 C 98 H 18 04/21/22 08:00 37.3 C 105 H 04/21/22 08:00 83/55 L 04/21/22 07:45 89/61 L 04/21/22 07:45 37.3 C 107 H 04/21/22 07:30 37.3 C 97 H 04/21/22 07:30 96/63 L 04/21/22 07:15 37.3 C 104 H 04/21/22 07:15 97/65 L 04/21/22 07:00 37.3 C 94 H 04/21/22 07:00 100/69 04/21/22 06:45 97/63 L 04/21/22 06:45 37.3 C 102 H 04/21/22 08:00 04/21/22 06:30 37.4 C 101 H 04/21/22 06:30 103/69 04/21/22 06:20 37.4 C 95 H 04/21/22 06:15 93/73 L 04/21/22 06:15 37.4 C 99 H 04/21/22 06:10 37.4 C 105 H 04/21/22 06:00 37.4 C 105 H 24 04/21/22 06:00 94/66 L 04/21/22 05:50 37.4 C 105 H 15 04/21/22 05:45 37.4 C 101 H 21 04/21/22 05:45 100/72 04/21/22 05:40 37.3 C 98 H 26 H 04/21/22 05:30 37.3 C 106 H 17 04/21/22 05:30 92/68 L 04/21/22 05:20 37.3 C 103 H 19 04/21/22 05:15 98/60 L 04/21/22 05:15 37.3 C 100 H 25 H 04/21/22 05:10 37.3 C 97 H 24 04/21/22 05:00 37.3 C 103 H 19 04/21/22 05:00 79/43 L 04/21/22 04:50 37.3 C 100 H 04/21/22 04:45 37.3 C 102 H 23 04/21/22 04:45 91/61 L 04/21/22 04:40 37.3 C 96 H 04/21/22 04:30 37.3 C 98 H 23 04/21/22 04:30 90/63 L 04/21/22 04:20 37.4 C 96 H 04/21/22 04:15 37.4 C 93 H 04/21/22 04:15 80/58 L 04/21/22 04:10 37.5 C 100 H 04/21/22 04:00 37.5 C 109 H 04/21/22 04:00 84/67 L 04/21/22 03:50 37.5 C 99 H 04/21/22 03:45 85/57 L 04/21/22 03:45 37.5 C 102 H 04/21/22 03:40 37.5 C 108 H 28 H 04/21/22 03:30 104/77 04/21/22 03:30 37.5 C 101 H 04/21/22 03:15 37.6 C H 101 H 26 H 04/21/22 03:15 97/72 L 04/21/22 03:01 102/70 04/21/22 03:01 37.5 C 98 H 23 04/21/22 03:00 37.5 C 100 H 18 04/21/22 02:45 37.5 C 94 H 26 H 04/21/22 02:45 98/71 L 04/21/22 02:32 37.3 C 103 H 22 04/21/22 02:32 87/61 L 04/21/22 02:30 37.3 C 103 H 18 04/21/22 03:22 04/21/22 03:18 04/21/22 01:15 68/38 L 04/21/22 01:21 74/51 L 04/21/22 01:42 88/56 L 04/21/22 00:24 96/57 L 04/21/22 01:00 100 H 04/21/22 00:23 101 H 04/20/22 23:48 67/37 L 04/20/22 23:57 78/47 L Pulse Ox Pulse Ox Pulse Ox O2 Del Method O2 Del Method O2 Del Method O2 Flow Rate 04/21/22 11:15 04/21/22 10:00 99 04/21/22 09:58 92 04/21/22 09:58 04/21/22 09:30 98 04/21/22 09:29 04/21/22 09:29 94 04/21/22 09:00 90 04/21/22 09:00 04/21/22 08:40 04/21/22 08:40 92 04/21/22 08:30 90 04/21/22 08:00 95 04/21/22 08:00 04/21/22 07:45 04/21/22 07:45 96 04/21/22 07:30 91 04/21/22 07:30 04/21/22 07:15 92 04/21/22 07:15 04/21/22 07:00 95 04/21/22 07:00 04/21/22 06:45 04/21/22 06:45 90 04/21/22 08:00 Room Air 04/21/22 06:30 90 04/21/22 06:30 04/21/22 06:20 89 L 04/21/22 06:15 04/21/22 06:15 89 L 04/21/22 06:10 81 L 04/21/22 06:00 87 L 04/21/22 06:00 04/21/22 05:50 86 L 04/21/22 05:45 86 L 04/21/22 05:45 04/21/22 05:40 89 L 04/21/22 05:30 91 04/21/22 05:30 04/21/22 05:20 87 L 04/21/22 05:15 04/21/22 05:15 90 04/21/22 05:10 90 04/21/22 05:00 88 L 04/21/22 05:00 04/21/22 04:50 92 04/21/22 04:45 94 04/21/22 04:45 04/21/22 04:40 95 04/21/22 04:30 93 04/21/22 04:30 04/21/22 04:20 94 04/21/22 04:15 87 L 04/21/22 04:15 04/21/22 04:10 90 04/21/22 04:00 80 L 04/21/22 04:00 04/21/22 03:50 82 L 04/21/22 03:45 04/21/22 03:45 91 04/21/22 03:40 92 04/21/22 03:30 04/21/22 03:30 98 04/21/22 03:15 99 04/21/22 03:15 04/21/22 03:01 04/21/22 03:01 98 04/21/22 03:00 95 04/21/22 02:45 04/21/22 02:45 04/21/22 02:32 72 L 04/21/22 02:32 04/21/22 02:30 84 L 04/21/22 03:22 Nasal Cannula 2 04/21/22 03:18 98 Nasal Cannula 04/21/22 01:15 04/21/22 01:21 04/21/22 01:42 90 Room Air 04/21/22 00:24 04/21/22 01:00 93 Room Air 04/21/22 00:23 92 Room Air 04/20/22 23:48 04/20/22 23:57 O2 Flow Rate 04/21/22 11:15 04/21/22 10:00 04/21/22 09:58 04/21/22 09:58 04/21/22 09:30 04/21/22 09:29 04/21/22 09:29 04/21/22 09:00 04/21/22 09:00 04/21/22 08:40 04/21/22 08:40 04/21/22 08:30 04/21/22 08:00 04/21/22 08:00 04/21/22 07:45 04/21/22 07:45 04/21/22 07:30 04/21/22 07:30 04/21/22 07:15 04/21/22 07:15 04/21/22 07:00 04/21/22 07:00 04/21/22 06:45 04/21/22 06:45 04/21/22 08:00 04/21/22 06:30 04/21/22 06:30 04/21/22 06:20 04/21/22 06:15 04/21/22 06:15 04/21/22 06:10 04/21/22 06:00 04/21/22 06:00 04/21/22 05:50 04/21/22 05:45 04/21/22 05:45 04/21/22 05:40 04/21/22 05:30 04/21/22 05:30 04/21/22 05:20 04/21/22 05:15 04/21/22 05:15 04/21/22 05:10 04/21/22 05:00 04/21/22 05:00 04/21/22 04:50 04/21/22 04:45 04/21/22 04:45 04/21/22 04:40 04/21/22 04:30 04/21/22 04:30 04/21/22 04:20 04/21/22 04:15 04/21/22 04:15 04/21/22 04:10 04/21/22 04:00 04/21/22 04:00 04/21/22 03:50 04/21/22 03:45 04/21/22 03:45 04/21/22 03:40 04/21/22 03:30 04/21/22 03:30 04/21/22 03:15 04/21/22 03:15 04/21/22 03:01 04/21/22 03:01 04/21/22 03:00 04/21/22 02:45 04/21/22 02:45 04/21/22 02:32 04/21/22 02:32 04/21/22 02:30 04/21/22 03:22 04/21/22 03:18 2 04/21/22 01:15 04/21/22 01:21 04/21/22 01:42 04/21/22 00:24 04/21/22 01:00 04/21/22 00:23 04/20/22 23:48 04/20/22 23:57 Laboratory Results Short CBC 04/21/22 Range/Units 01:59 WBC 6.97 (4.8-10.8) K/ul Hgb 8.4 L (12.0-16.0) g/dl Hct 27.4 L (34.1-44.9) % Plt Count 246 (130-400) K/uL BMP 04/21/22 01:59 Sodium 137 Potassium 3.8 Chloride 102 Carbon Dioxide 30 BUN 27 H Creatinine 1.14 Glucose 127 H Calcium 8.7 Liver Function 04/21/22 Range/Units 01:59 Total Bilirubin 0.5 D (0.2-1.0) mg/dl AST 8 L (13-39) U/L ALT 8 (7-52) U/L Alkaline Phosphatase 75 (34-104) U/L Albumin 2.9 L (3.4-5.0) gm/dl Urine 04/21/22 Range/Units 03:30 Urine Color Yellow Urine Appearance Clear (Clear) Urine pH 5.5 (4.5-7.5) Ur Specific [place] 1.014 (1.000-1.030) Urine Protein Negative (Negative) Urine Glucose (UA) Negative (Negative)
[2022-04-21] MEDS ORDERED: MIDODRINE HCL 2.5 MG TAB PO SCH (12:00)
[2022-04-21] MEDS: PIPERACILLIN/TAZOBACTAM 3.375 GM in DEXTROSE 5% 100 ML IV SCH (16:31)
[2022-04-21] MEDS ORDERED: SODIUM CHLORIDE 0.65% NA SOLN 45 ML (OCEAN) PRN (19:28)
[2022-04-21] MEDS: MONTELUKAST SODIUM 10 MG TABLET PO SCH (21:10)
[2022-04-21] MEDS: oxyCODONE HCL IR 5 MG TAB (IMMEDIATE RELEASE) PO PRN (21:20)
[2022-04-21] MEDS ORDERED: VANCOMYCIN HCL 1,250 MG in SODIUM CHLORIDE 0.9% 250 ML IV SCH (22:00)
[2022-04-22] MEDS ORDERED: Nursing to Pharmacy Communication SCH (03:45)
[2022-04-22] MEDS: PIPERACILLIN/TAZOBACTAM 3.375 GM in DEXTROSE 5% 100 ML IV SCH ×3 (03:54→21:06)
[2022-04-22] MEDS: HYDROCORTISONE SOD 50 MG in SYRINGE 0 ML IV SCH ×3 (03:55→21:07)
[2022-04-22] MEDS: LEVOTHYROXINE SODIUM 112 MCG TABLET PO SCH (05:50)
[2022-04-22 08:17] LABS: Hematocrit (blood only) 28.6 % (34.1-44.9); Mean Corpuscular Hemoglobin 31.3 pg (25.0-34.0); Mean Corpuscular Hgb Conc 31.5 g/dL (32.0-36.0); Mean Corpuscular Volume 99.3 fL (80.0-100.0); Mean Platelet Volume 9.4 fL (9.4-12.3); Platelet Count 291 K/uL (130-400); RDW Coefficient of Variation 14.5 % (11.5-14.5); RDW Standard Deviation 51.8 fL (36.4-46.3); Red Blood Count 2.88 M/uL (3.93-5.22)
[2022-04-22] MEDS: oxyCODONE HCL IR 5 MG TAB (IMMEDIATE RELEASE) PO PRN ×2 (08:25→21:06)
[2022-04-22] MEDS: MIDODRINE HCL 2.5 MG TAB PO SCH ×3 (08:28→17:33)
[2022-04-22] MEDS: PANTOprazole 40 MG TAB PO SCH ×2 (08:29→21:07)
[2022-04-22] MEDS: CEROVITE ADV FORMULA TAB PO SCH (08:29)
[2022-04-22] MEDS: EZETIMIBE 10 MG TABLET PO SCH (08:29)
[2022-04-22] MEDS: ADVANCED PROBIOTIC 1250 MG CAPSULE PO SCH (08:29)
[2022-04-22] MEDS: FLUTICASONE/VILANTEROL 200/25MCG 14 PUFFS/INHALER INH SCH (08:30)
[2022-04-22] MEDS: ARTIFICIAL TEARS OP SCH ×3 (08:34→21:07)
[2022-04-22] MEDS: POLYETHYLENE (MIRALAX) 17 GM PACK PO SCH (09:14)
[2022-04-22] MEDS: DOCUSATE SODIUM/SENNA 50/8.6MG TAB PO SCH ×2 (09:14→17:33)
[2022-04-22] MEDS: APIXABAN 5 MG TABLET PO SCH ×2 (09:14→17:33)
[2022-04-22 09:56] LABS: BUN Creatinine Ratio 25.3 (10-20); Calcium 8.9 mg/dl (8.5-10.1); Creatinine Clr Calc Pharmacy 49.2 ml/min; Est GFR (African American) 66.7 ml/min; Est GFR (Non-African American) 57.5 ml/min; Magnesium 2.1 mg/dl (1.7-2.4); Phosphorus 3.2 mg/dl (2.5-4.9)
--- NOTE | 2022-04-22 16:56 | Hospitalist Progress Note ---
Date of Service April 22, 2022 Assessment & Plan (1) Respiratory failure: Plan: Acute respiratory failure with hypoxia, hypercapnia Likely multifactorial: Chronic diastolic heart failure, pulmonary hypertension, COPD, possible OHS/MU, chronic pain medications likely contributing as well. --CXR:Cardiomegaly with no active disease in the chest. --Hypercapnia on ABG -- Continue home diuretics Given history of COPD, titrate oxygen to keep saturations 88 to 92% Needs outpatient sleep study Nocturnal oximetry study: Qualifies for supplemental oxygen Appreciate Pulmonology Input Monitor volume status Will need 2 step prior to discharge Minimize narcotic use Currently saturating well on room air Hypotension DD: Septic Shock Vs Adrenal Insufficiency Possible Source LE cellulitis Rule out Bacteremia --Wound Culture: Pseudomonas, Klebsiella --Blood culture 06/15: Alpha strep --Repeat blood culture pending Continue Zosyn for now Also on IV hydrocortisone, midodrine Appreciate entomology professor help Titrate off hydrocortisone as able Recurrent RLE cellulitis H/O chronic LE wounds Underlying PVD --Leg X ray:Diffuse soft tissue swelling without evidence of focal erosion to suggest osteomyelitis. No evidence of hardware fracture or perihardware loosening. --Venous Doppler:There is no sonographic evidence of deep venous thrombosis identified in the right or left lower extremity. --H/O Enterobacter (cephalosporin and Bactrim resistant) on previous RLE wound CS --Wound care consulted -- Management as above Hypophosphatemia Replete electrolytes as needed Chronic diastolic heart failure Last EF 55 to 60%, TTE 2019 Bumex held Monitor volume status Afib on Eliquis, metoprolol Eliquis held H/O Nonobstructive CAD Continue home medications Hypothyroidism Continue levothyroxine Prediabetes HbA1C: 6.4 Past tobacco abuse DVT Px: SCDs Eliquis-held Code Status DNI/DNR Admission and Anticipated Discharge Date Admission Date: April 19, 2022 Subjective Patient is seen and examined at bedside Feels better today Neck pain improved Had nocturnal oximetry study Overnight Denies any chest pain, dyspnea, dizziness, nausea, abdominal pain Saturating well on room air No other complaints Review of Systems Review of Systems: All systems reviewed & are unremarkable except as noted in Subjective Physical Exam Physical Exam: Physical Exam: Vitals signs as noted above General Appearance:Obese, no apparent distress, drowsy Head: normocephalic, Atraumatic Eyes: normal inspection, EOMI Neck: supple, Trachea midline Respiratory/Chest: Decreased breath sounds, CTA, No accessory muscle use Cardiovascular: Irregularly irregular, No murmur Abdomen/GI:Soft, Non tender, Bowel sounds present Extremities/Musculoskeletal:normal inspection, 2+ B/L Edema, +B/L Leg wounds, mild Erythema, +Leg wounds Neurologic/Psych:AAOX3, grossly no focal neurological deficits Skin: normal color, warm Results & Data Results & Data ([facility]) Vital Signs (Past 12 Hours) Vital Signs Temp Pulse Pulse Pulse Resp BP Pulse Ox 04/22/22 15:49 95 H 04/22/22 15:27 36.4 C L 89 17 107/70 93 04/22/22 11:20 36.6 C 94 H 16 92/60 L 97 04/22/22 08:48 04/22/22 07:37 36.4 C L 82 17 99/60 L 96 04/22/22 05:00 61 Pulse Ox O2 Del Method O2 Del Method O2 Flow Rate O2 Flow Rate 04/22/22 15:49 04/22/22 15:27 Room Air 04/22/22 11:20 Nasal Cannula 1 04/22/22 08:48 Nasal Cannula 2 04/22/22 07:37 Nasal Cannula 2 04/22/22 05:00 97 Nasal Cannula 2 Laboratory Results Short CBC 04/22/22 Range/Units 07:46 WBC 8.00 (4.8-10.8) K/ul Hgb 9.0 L (12.0-16.0) g/dl Hct 28.6 L (34.1-44.9) % Plt Count 291 (130-400) K/uL BMP 04/22/22 07:46 Sodium 140 Potassium 4.0 Chloride 106 Carbon Dioxide 30 BUN 23 Creatinine 0.91 Glucose 153 H Calcium 8.9
[2022-04-22] MEDS: MONTELUKAST SODIUM 10 MG TABLET PO SCH (21:07)
[2022-04-23] MEDS: HYDROCORTISONE SOD 50 MG in SYRINGE 0 ML IV SCH ×2 (03:02→11:20)
[2022-04-23] MEDS: PIPERACILLIN/TAZOBACTAM 3.375 GM in DEXTROSE 5% 100 ML IV SCH (03:04)
[2022-04-23] MEDS: LEVOTHYROXINE SODIUM 112 MCG TABLET PO SCH (05:48)
[2022-04-23 06:31] LABS: BUN Creatinine Ratio 27.5 (10-20); Calcium 9.4 mg/dl (8.5-10.1); Creatinine Clr Calc Pharmacy 49.6 ml/min; Est GFR (African American) 66.7 ml/min; Est GFR (Non-African American) 57.5 ml/min; Magnesium 2.1 mg/dl (1.7-2.4); Phosphorus 2.8 mg/dl (2.5-4.9); Potassium 4.3 mmol/L (3.5-5.1)
[2022-04-23 06:37] LABS: Hematocrit (blood only) 28.9 % (34.1-44.9); Mean Corpuscular Hemoglobin 31.7 pg (25.0-34.0); Mean Corpuscular Hgb Conc 31.1 g/dL (32.0-36.0); Mean Corpuscular Volume 101.8 fL (80.0-100.0); Mean Platelet Volume 9.5 fL (9.4-12.3); Platelet Count 306 K/uL (130-400); RDW Coefficient of Variation 14.6 % (11.5-14.5); RDW Standard Deviation 54.1 fL (36.4-46.3); Red Blood Count 2.84 M/uL (3.93-5.22); White Blood Count 9.57 K/ul (4.8-10.8)
[2022-04-23] MEDS: EZETIMIBE 10 MG TABLET PO SCH (08:04)
[2022-04-23] MEDS: CEROVITE ADV FORMULA TAB PO SCH (08:04)
[2022-04-23] MEDS: PANTOprazole 40 MG TAB PO SCH ×2 (08:04→20:20)
[2022-04-23] MEDS: ADVANCED PROBIOTIC 1250 MG CAPSULE PO SCH (08:04)
[2022-04-23] MEDS: FLUTICASONE/VILANTEROL 200/25MCG 14 PUFFS/INHALER INH SCH (08:04)
[2022-04-23] MEDS: APIXABAN 5 MG TABLET PO SCH ×2 (08:04→17:37)
[2022-04-23] MEDS: MIDODRINE HCL 2.5 MG TAB PO SCH ×3 (08:04→17:38)
[2022-04-23] MEDS: POLYETHYLENE (MIRALAX) 17 GM PACK PO SCH (08:05)
[2022-04-23] MEDS: DOCUSATE SODIUM/SENNA 50/8.6MG TAB PO SCH ×2 (08:05→17:38)
[2022-04-23] MEDS: ARTIFICIAL TEARS OP SCH ×3 (08:05→20:19)
[2022-04-23] MEDS: CIPROFLOXACIN / D5W 400 MG/200 ML BAG IV SCH ×2 (08:24→20:19)
[2022-04-23] MEDS: guaiFENesin 600 MG TABCR PO PRN (11:27)
--- NOTE | 2022-04-23 12:18 | Hospitalist Progress Note ---
Date of Service April 23, 2022 Assessment & Plan (1) Cellulitis: Plan: - likely in the setting of PVD and PAD - continue statin, ezitimde, apixaban - continue abx - changed to cefazolin and cipro given wound cultures with Klebsiella and pseudomonas - seems to be improving - will likely have recurring cellulitis given vascular disease - palliative care discussion ongoing about hospice vs DNH with family - continue abx (2) Hypotension: Plan: - In the setting of sepsis vs PVD/PAD - patient started on midodrine and stress dose steroids on admission for septic shock - continue midodrine for now - wean as tolerated - sepsis resolved - will taper stress dose steroids over next couple of days - monitor (3) Venous insufficiency (chronic) (peripheral): Plan: - chronic lower extremity swelling with chronic wounds - likely source of cellulitis as well as history of PAD - on apixaban - continue to elevate LEs when at rest - encourage ambulation as tolerated (4) Atrial fibrillation, permanent: Plan: - rate controlled currently - continue apixaban for now - holding BB for low BPs - telemetry monitoring (5) Peripheral arterial disease: Plan: - seen on CTAs of LEs in the recent past with areas of complete occlusion - has seen vascular surgery in past and no further interventions at this time - continue medical therapy with apixaban, statin (6) Coronary artery disease: Plan: - continue apixaban, statin - holding BB in setting of low BPs - restart BB as tolerated (7) Dyslipidemia: Plan: - continue statin, ezetimibe (8) Hypothyroid: Plan: - continue levothyroxine (9) Chronic diastolic CHF (congestive heart failure): Plan: - noted - not on BP medications at this time due to low BP - monitor, restart as tolerated (10) COPD (chronic obstructive pulmonary disease): Plan: - unclear history - has been on Symbicort in the past but tolerating off for now - no wheezing on exam - monitor Plan DVT ppx: apixaban Code Status: DNR/DNI Dispo: telemetry Juan Churchill MD [facility] Medicine Admission and Anticipated Discharge Date Admission Date: April 19, 2022 Subjective Patient with HFpEF (EF 65% 2021), a fib on eliquis, pHTN, CAD, PVD, HLD, asthma, chronic LE wounds, hypothyroidism presented with recurrent cellulitis of LEs on IV antibiotics, improving. Discussion with Palliative care for possible hospice on discharge. Patient reports not complaints this morning. Denies chest pain, shortness of breath, n/v/d, abdominal pain, fevers or chills. Reports good appetite. Review of Systems Review of Systems: As per HPI, all other systems reviewed and negative Physical Exam Physical Exam: Physical Exam: General Appearance:Obese, no apparent distress, Awake and alert Head: normocephalic, Atraumatic Eyes: normal inspection, EOMI Neck: supple, Trachea midline Respiratory/Chest: Decreased breath sounds, CTA, No accessory muscle use Cardiovascular: Irregularly irregular, No murmur Abdomen/GI:Soft, Non tender, Bowel sounds present Extremities/Musculoskeletal:normal inspection, 2+ B/L Edema to mid shins, +B/L Leg wounds, mild Erythema, +Leg wounds Neurologic/Psych:AAOX3, grossly no focal neurological deficits Skin: normal color, warm Results & Data Results & Data ([facility]) Vital Signs (Past 12 Hours) Vital Signs Temp Pulse Pulse Resp BP Pulse Ox O2 Del Method 04/23/22 11:27 36.8 C 94 H 18 106/69 94 Room Air 04/23/22 09:46 89 04/23/22 09:46 Room Air, Nasal Cannula 04/23/22 07:31 36.8 C 101 H 18 109/72 96 Nasal Cannula 04/23/22 03:00 04/23/22 03:27 36.8 C 94 H 16 113/74 97 Nasal Cannula O2 Del Method O2 Flow Rate O2 Flow Rate 04/23/22 11:27 04/23/22 09:46 04/23/22 09:46 04/23/22 07:31 2 04/23/22 03:00 Nasal Cannula 2 04/23/22 03:27 2.0 Diagnostic Findings Laboratory Results WBC 9.57 K/ul (4.8-10.8) 04/23/22 05:46 RBC 2.84 M/uL (3.93-5.22) L 04/23/22 05:46 Hgb 9.0 g/dl (12.0-16.0) L 04/23/22 05:46 Hct 28.9 % (34.1-44.9) L 04/23/22 05:46 MCV 101.8 fL (80.0-100.0) H 04/23/22 05:46 MCH 31.7 pg (25.0-34.0) 04/23/22 05:46 MCHC 31.1 g/dL (32.0-36.0) L 04/23/22 05:46 RDW Std Deviation 54.1 fL (36.4-46.3) H 04/23/22 05:46 RDW Coeff of Marielle 14.6 % (11.5-14.5) H 04/23/22 05:46 Plt Count 306 K/uL (130-400) 04/23/22 05:46 MPV 9.5 fL (9.4-12.3) 04/23/22 05:46 Immature Gran % (Auto) 0.7 % 04/21/22 01:59 Neut % (Auto) 84.6 % 04/21/22 01:59 Lymph % (Auto) 5.5 % 04/21/22 01:59 [place] % (Auto) 5.7 % 04/21/22 01:59 Eos % (Auto) 3.4 % 04/21/22 01:59 Baso % (Auto) 0.1 % 04/21/22 01:59 Neut # (Auto) 5.89 K/uL (1.4-6.5) 04/21/22 01:59 Lymph # (Auto) 0.38 K/uL (1.2-3.4) L 04/21/22 01:59 [place] # (Auto) 0.40 K/uL (0.24-0.82) 04/21/22 01:59 Eos # (Auto) 0.24 K/uL (0-0.50) 04/21/22 01:59 Baso # (Auto) 0.01 K/uL (0-0.2) 04/21/22 01:59 Immature Gran # (Auto) 0.05 K/uL (0.00-0.02) H 04/21/22 01:59 PT 14.3 Seconds (9.0-12.0) H 04/19/22 21:14 INR 1.4 (0.9-1.1) H 04/19/22 21:14 APTT 34.9 Seconds (21.0-31.0) H 04/19/22 21:14 PTT Ratio 1.3 04/19/22 21:14 ABG pH 7.41 (7.35-7.45) 04/19/22 21:14 ABG pCO2 51 mmHg (35-46) H 04/19/22 21:14 ABG pO2 95 mmHg (80-95) 04/19/22 21:14 ABG HCO3 32 mmol/L (19-24) H 04/19/22 21:14 ABG O2 Saturation 97.7 % (90-95) H 04/19/22 21:14 ABG Base Excess 6.3 mEq/L (-9-1.8) H 04/19/22 21:14 Nadir Test POS (Pos) 04/19/22 21:14 Oxygen Given 1 L 04/19/22 21:14 Sodium 138 mmol/L (136-145) 04/23/22 05:46 Potassium 4.3 mmol/L (3.5-5.1) 04/23/22 05:46 Chloride 104 mmol/L (98-107) 04/23/22 05:46 Carbon Dioxide 29 mmol/L (21-32) 04/23/22 05:46 Anion Gap 5 (3-11) 04/23/22 05:46 BUN 25 mg/dl (6-23) H 04/23/22 05:46 Creatinine 0.91 mg/dl (0.6-1.2) 04/23/22 05:46 Est Cr Clr Drug Dosing 49.6 ml/min 04/23/22 05:46 Est GFR ( Amer) 66.7 ml/min 04/23/22 05:46 Est GFR (Non-Af Amer) 57.5 ml/min 04/23/22 05:46 BUN/Creatinine Ratio 27.5 (10-20) H 04/23/22 05:46 Glucose 158 mg/dl (70-99(Fasting)) H 04/23/22 05:46 POC Glucose 179 mg/dl (70-99) H 04/21/22 07:41 Lactate 1.7 mmol/L (0.4-2.0) 04/21/22 01:59 Calcium 9.4 mg/dl (8.5-10.1) 04/23/22 05:46 Phosphorus 2.8 mg/dl (2.5-4.9) 04/23/22 05:46 Magnesium 2.1 mg/dl (1.7-2.4) 04/23/22 05:46 Total Bilirubin 0.5 mg/dl (0.2-1.0) D 04/21/22 01:59 AST 8 U/L (13-39) L 04/21/22 01:59 ALT 8 U/L (7-52) 04/21/22 01:59 Alkaline Phosphatase 75 U/L (34-104) 04/21/22 01:59 Ammonia 33.0 umol/L (18-72) 04/19/22 21:14 Troponin I High Sens 7.0 pg/ml (0-14) 04/21/22 01:59 B-Natriuretic Peptide 772 pg/ml (0-100) H 04/19/22 21:16 Total Protein 5.5 gm/dl (6.0-8.3) L 04/21/22 01:59 Albumin 2.9 gm/dl (3.4-5.0) L 04/21/22 01:59 Globulin 2.6 gm/dl (2.5-4.0) 04/21/22 01:59 Albumin/Globulin Ratio 1.1 (0.9-2) 04/21/22 01:59 Procalcitonin 0.16 ng/ml (0-0.5) 04/20/22 10:23 TSH 3.363 uIu/ml (0.300-4.500) 04/19/22 21:14 Random Cortisol 1.03 mcg/dl 04/21/22 01:59 Urine Color Yellow 04/21/22 03:30 Urine Appearance Clear (Clear) 04/21/22 03:30 Urine pH 5.5 (4.5-7.5) 04/21/22 03:30 Ur Specific [place] 1.014 (1.000-1.030) 04/21/22 03:30 Urine Protein Negative (Negative) 04/21/22 03:30 Urine Glucose (UA) Negative (Negative) 04/21/22 03:30 Urine Ketones Negative (Negative) 04/21/22 03:30 Urine Blood Negative (Negative) 04/21/22 03:30 Urine Nitrite Negative (Negative) 04/21/22 03:30 Urine Bilirubin Negative (Negative) 04/21/22 03:30 Urine Urobilinogen Negative (Negative) 04/21/22 03:30 Ur Leukocyte Esterase Negative (Negative) 04/21/22 03:30 Urine WBC (Auto) 1-5 /hpf (0-5) 04/20/22 05:40 Urine RBC (Auto) 0-4 /hpf (0-4) 04/20/22 05:40 U Hyaline Cast (Auto) 1-5 /lpf (0-5) 04/20/22 05:40 U Epithel Cells (Auto) 20-30 /lpf (0-5) H 04/20/22 05:40 Urine Bacteria (Auto) Negative (Negative) 04/20/22 05:40 SARS-CoV-2 (PCR) NEGATIVE (Negative) 04/19/22 20:49 Influenza Type A (PCR) Negative (Neg) 04/19/22 20:49 Influenza Type B (PCR) Negative (Neg) 04/19/22 20:49 RSV (RT-PCR) Negative (Neg) 04/19/22 20:49 Streptococcus sp PCR DETECTED (NotDetected) A 04/19/22 21:14 Bld Cult ID Panel PCR See PCR Comment (NotDetected) 04/19/22 21:14 Impressions Chest X-Ray 04/19/22 20:23 SINGLE VIEW CHEST CLINICAL HISTORY: Generalized weakness. FINDINGS: An AP, portable, upright chest radiograph is compared to study dated 03/28/2022. The heart is enlarged noting atherosclerotic calcification of the th oracic aorta. The pulmonary vasculature is noncongested. Chronic interstitial thickening is similar to previous. There is bibasilar scarring/atelectasis. The lungs and pleural spaces are otherwise clear. No pneumothorax is seen. The skeletal structures are osteopenic. The bony thorax is grossly intact. Bilateral shoulder arthroplasties are in place. IMPRESSION: Cardiomegaly with no active disease in the chest. ACT 112: Negative or not required by law. Electronically signed by: Cesar Santos M.D. 04/19/2022 8:40 PM Tibia/Fibula X-Ray 04/19/22 23:39 XR tibia fibula RT 2V CLINICAL HISTORY: recurrent infection, ro osteomyelitis TECHNIQUE: 2 radiographic views of the right leg were obtained. Comparison: Comparison is made to CTA lower extremity 03/07/2022 FINDINGS: There is no evidence of an acute fracture. Orthopedic hardware is seen spanning the knee without evidence of hardware fracture. Radiodensity in the mid tibial shaft is nonspecific but unchanged from prior exam. Diffuse soft tissue swelling is seen in the lower extremity. Vascular calcifications are seen. IMPRESSION: Diffuse soft tissue swelling without evidence of focal erosion to suggest osteomyelitis. No evidence of hardware fracture or perihardware loosening. ACT 112: Negative or not required by law. Electronically signed by: Sammy Davis M.D. 04/20/2022 8:24 AM Venous Doppler Study 04/20/22 10:53 ULTRASOUND BILATERAL LOWER EXTREMITY VENOUS CLINICAL HISTORY: Lower extremity edema. Leg wounds. COMPARISON STUDY: No priors. TECHNIQUE: Real-time, grayscale, and color Doppler sonography of the deep veins of the right and left lower extremity was performed from the inguinal crease to the calf. Compression and augmentation were utilized. FINDINGS: There is no sonographic evidence of deep venous thrombosis identified in the right or left lower extremity. The common femoral, superficial femoral, and popliteal veins are patent and normally compressible bilaterally. The greater saphenous vein and the profunda femoris vein at the junction with the common femoral vein are clear in both legs. The visualized calf veins are patent bilaterally. IMPRESSION: There is no sonographic evidence of deep venous thrombosis identified in the right or left lower extremity. ACT 112: Negative or not required by law. Electronically signed by: Cesar Santos M.D. 04/20/2022 2:18 PM Medications Administered Current Inpatient Medications Acetaminophen (Acetaminophen 500 Mg Tab) 500 mg PO Q6H PRN PRN Reason: Pain Stop: 05/20/22 01:24 Last Admin: 04/20/22 19:57 Dose: 500 mg Apixaban (Apixaban 5 Mg Tablet) 5 mg PO BID17 STIVEN Stop: 05/20/22 01:24 Last Admin: 04/23/22 08:04 Dose: 5 mg Artificial Tears (Artificial Tears) 1 drops OP TID STIVEN Stop: 05/20/22 08:59 Last Admin: 04/23/22 08:05 Dose: 1 drops Ezetimibe (Ezetimibe 10 Mg Tablet) 10 mg PO QAM STIVEN Stop: 05/20/22 08:59 Last Admin: 04/23/22 08:04 Dose: 10 mg Fluticasone/Vilanterol (Fluticasone/Vilanterol 200/25mcg 14 Puffs/Inhaler) 1 puffs INH DAILY STIVEN Stop: 05/20/22 08:59 Last Admin: 04/23/22 08:04 Dose: 1 puffs Guaifenesin (Guaifenesin 600 Mg Tabcr) 600 mg PO Q12 PRN PRN Reason: cough Stop: 05/23/22 08:59 Last Admin: 04/23/22 11:27 Dose: 600 mg Promethazine HCl 12.5 mg/ (Sodium Chloride) 50.5 mls @ 202 mls/hr IV Q6H PRN PRN Reason: Nausea And Vomiting Stop: 05/20/22 01:24 Hydrocortisone Sodium (Succinate 50 mg/ Syringe) 1 mls @ 4 mls/min IV Q8H [facility] Stop: 05/21/22 10:59 Last Admin: 04/23/22 11:20 Dose: 4 mls/min Ciprofloxacin (Cipro / D5w) 400 mg in 200 mls @ 100 mls/hr IV Q12H STIVEN; Protocol Stop: 04/30/22 07:44 Last Infusion: 04/23/22 10:38 Dose: Infused Cefazolin Sodium (Ancef 1000mg) 1,000 mg in 7.5 mls @ 2.5 mls/min IV Q8H [facility] Stop: 04/30/22 12:29 Lactobacillus Acidophilus (Advanced Probiotic 1250 Mg Capsule) 2 cap PO DAILY STIVEN Stop: 05/20/22 08:59 Last Admin: 04/23/22 08:04 Dose: 2 cap Levothyroxine Sodium (Levothyroxine Sodium 112 Mcg Tablet) 112 mcg PO DAILYBB [facility] Stop: 05/20/22 06:29 Last Admin: 04/23/22 05:48 Dose: 112 mcg Melatonin (Melatonin 3 Mg Tab) 3 mg PO HS PRN PRN Reason: Insomnia Stop: 05/20/22 01:24 Last Admin: 04/20/22 19:57 Dose: 3 mg Midodrine (Midodrine Hcl 2.5 Mg Tab) 5 mg PO TID@0800,1200,1700 [facility] Stop: 05/21/22 10:44 Last Admin: 04/23/22 11:20 Dose: 5 mg Montelukast Sodium (Montelukast Sodium 10 Mg Tablet) 10 mg PO QPM STIVEN Stop: 05/20/22 20:59 Last Admin: 04/22/22 21:07 Dose: 10 mg Multivitamins/Minerals (Cerovite Adv Formula Tab) 1 tab PO QAM STIVEN Stop: 05/20/22 08:59 Last Admin: 04/23/22 08:04 Dose: 1 tab Oxycodone HCl (Oxycodone Hcl Ir 5 Mg Tab (Immediate Release)) 2.5 mg PO Q8H PRN PRN Reason: Pain Stop: 05/04/22 01:24 Last Admin: 04/22/22 21:06 Dose: 2.5 mg Pantoprazole Sodium (Pantoprazole 40 Mg Tab) 40 mg PO BID STIVEN Stop: 05/20/22 08:59 Last Admin: 04/23/22 08:04 Dose: 40 mg Polyethylene Glycol (Polyethylene (Miralax) 17 Gm Pack) 17 gm PO DAILY STIVEN Stop: 05/20/22 08:59 Last Admin: 04/23/22 08:05 Dose: Not Given Senna/Docusate Sodium (Docusate Sodium/Senna 50/8.6mg Tab) 2 tab PO BID17 STIVEN Stop: 05/20/22 08:59 Last Admin: 04/23/22 08:05 Dose: Not Given Sodium Chloride (Sodium Chloride 0.65% Na Soln 45 Ml ([place])) 1 sprays NA PRN PRN PRN Reason: Dryness Stop: 05/21/22 19:27 Last Admin: 04/21/22 21:05 Dose: 1 sprays (1) Cellulitis Laterality: right Site of cellulitis: extremity Site of cellulitis of extremity: lower extremity Qualified Code(s): L03.115 - Cellulitis of right lower limb
[2022-04-23] MEDS: ceFAZolin 1000MG 1,000 MG/7.5 ML SYR IV SCH ×2 (13:46→20:23)
[2022-04-23] MEDS: HYDROCORTISONE SOD 25 MG in SYRINGE 0 ML IV SCH (20:18)
[2022-04-23] MEDS: MONTELUKAST SODIUM 10 MG TABLET PO SCH (20:19)
[2022-04-23] MEDS: oxyCODONE HCL IR 5 MG TAB (IMMEDIATE RELEASE) PO PRN (20:23)
[2022-04-24] MEDS: HYDROCORTISONE SOD 25 MG in SYRINGE 0 ML IV SCH ×3 (02:46→18:48)
[2022-04-24] MEDS: ceFAZolin 1000MG 1,000 MG/7.5 ML SYR IV SCH ×3 (03:42→20:26)
[2022-04-24] MEDS: LEVOTHYROXINE SODIUM 112 MCG TABLET PO SCH (06:05)
[2022-04-24] MEDS: CIPROFLOXACIN / D5W 400 MG/200 ML BAG IV SCH ×2 (07:40→18:48)
[2022-04-24] MEDS: MIDODRINE HCL 2.5 MG TAB PO SCH ×3 (07:46→18:50)
[2022-04-24] MEDS: ARTIFICIAL TEARS OP SCH ×3 (08:00→20:26)
[2022-04-24] MEDS: APIXABAN 5 MG TABLET PO SCH (08:00)
[2022-04-24] MEDS: FLUTICASONE/VILANTEROL 200/25MCG 14 PUFFS/INHALER INH SCH (08:01)
[2022-04-24] MEDS: ADVANCED PROBIOTIC 1250 MG CAPSULE PO SCH (08:01)
[2022-04-24] MEDS: CEROVITE ADV FORMULA TAB PO SCH (08:01)
[2022-04-24] MEDS: ATORVASTATIN 40 MG TAB PO SCH (08:01)
[2022-04-24] MEDS: EZETIMIBE 10 MG TABLET PO SCH (08:02)
[2022-04-24] MEDS: DOCUSATE SODIUM/SENNA 50/8.6MG TAB PO SCH ×2 (08:02→18:52)
[2022-04-24] MEDS: PANTOprazole 40 MG TAB PO SCH ×2 (08:02→20:26)
[2022-04-24] MEDS: POLYETHYLENE (MIRALAX) 17 GM PACK PO SCH (08:05)
[2022-04-24] MEDS: METOPROLOL SUCC 25MG EXT REL TAB PO SCH (10:54)
[2022-04-24] MEDS: guaiFENesin 600 MG TABCR PO PRN (10:55)
--- NOTE | 2022-04-24 12:44 | Hospitalist Progress Note ---
Date of Service April 24, 2022 Assessment & Plan (1) Cellulitis: Plan: - likely in the setting of PVD and PAD - continue statin, ezitimde, apixaban - continue abx - changed to cefazolin and cipro given wound cultures with Klebsiella and pseudomonas - seems to be improving - will likely have recurring cellulitis given vascular disease - palliative care discussion ongoing about hospice vs DNH with family - continue abx - treat for 10 days total - can switch to PO on discharge (2) Hemoptysis: Plan: - had one episode of hemoptysis 04/24/2022 - given cough medicine - saline nebs - on eliquis - will consider holding tonight if has further episodes - vitals stable - will monitor CBC for now - consider pulm consult but patient is leaning toward hospice and so not clear what utility bronch or other intervention may be - will get CXR for now (3) Hypotension: Plan: - In the setting of sepsis vs PVD/PAD - patient started on midodrine and stress dose steroids on admission for septic shock - continue midodrine for now - wean as tolerated - sepsis resolved - will taper stress dose steroids over next couple of days - monitor (4) Venous insufficiency (chronic) (peripheral): Plan: - chronic lower extremity swelling with chronic wounds - likely source of cellulitis as well as history of PAD - on apixaban - continue to elevate LEs when at rest - encourage ambulation as tolerated (5) Atrial fibrillation, permanent: Plan: - rate controlled currently - continue apixaban for now - holding BB for low BPs - telemetry monitoring (6) Peripheral arterial disease: Plan: - seen on CTAs of LEs in the recent past with areas of complete occlusion - has seen vascular surgery in past and no further interventions at this time - continue medical therapy with apixaban, statin (7) Coronary artery disease: Plan: - continue apixaban, statin - holding BB in setting of low BPs - restart BB as tolerated - restarted metoprolol today 04/24/2022 (8) Dyslipidemia: Plan: - continue statin, ezetimibe (9) Hypothyroid: Plan: - continue levothyroxine (10) Chronic diastolic CHF (congestive heart failure): Plan: - noted - not on BP medications at this time due to low BP - monitor, restart as tolerated (11) COPD (chronic obstructive pulmonary disease): Plan: - unclear history - has been on Symbicort in the past but tolerating off for now - no wheezing on exam - monitor Plan DVT ppx: apixaban Code Status: DNR/DNI Dispo: telemetry Juan Churchill MD [facility] Medicine Admission and Anticipated Discharge Date Admission Date: April 19, 2022 Subjective Patient with HFpEF (EF 65% 2021), a fib on Eliquis, pHTN, CAD, PVD, HLD, asthma, chronic LE wounds, hypothyroidism presented with recurrent cellulitis of LEs on IV antibiotics, improving. Discussion with Palliative care for possible hospice on discharge. Patient reports no complaints this morning. Denies chest pain, shortness of breath, n/v/d, abdominal pain, fevers or chills. Reports good appetite. Patient expressing "what am I doing this for?" When asked more, she states she is not sure what the point of everything is. When discussed about enjoying her day and her time, discussions with her family, she expressed gratitude and satisfaction with simple things in life. Review of Systems Review of Systems: As per HPI, all other systems reviewed and negative Physical Exam Physical Exam: Physical Exam: General Appearance:Obese, no apparent distress, Awake and alert Head: normocephalic, Atraumatic Eyes: normal inspection, EOMI Neck: supple, Trachea midline Respiratory/Chest: Decreased breath sounds, CTA, No accessory muscle use Cardiovascular: Irregularly irregular, No murmur Abdomen/GI:Soft, Non tender, Bowel sounds present Extremities/Musculoskeletal:normal inspection, 1+ B/L Edema to mid shins, +B/L Leg wounds, mild Erythema, +Leg wounds Neurologic/Psych:AAOX3, grossly no focal neurological deficits Skin: normal color, warm Results & Data Results & Data ([facility]) Vital Signs (Past 12 Hours) Vital Signs Temp Pulse Resp BP BP Pulse Ox O2 Del Method 04/24/22 10:52 36.9 C 100 H 20 122/81 94 Room Air 04/24/22 07:49 Room Air 04/24/22 07:17 36.8 C 118 H 18 122/81 97 Nasal Cannula 04/24/22 03:00 36.8 C 105 H 18 120/85 98 Room Air O2 Flow Rate 04/24/22 10:52 04/24/22 07:49 04/24/22 07:17 2 04/24/22 03:00 Diagnostic Findings Laboratory Results WBC 9.57 K/ul (4.8-10.8) 04/23/22 05:46 RBC 2.84 M/uL (3.93-5.22) L 04/23/22 05:46 Hgb 9.0 g/dl (12.0-16.0) L 04/23/22 05:46 Hct 28.9 % (34.1-44.9) L 04/23/22 05:46 MCV 101.8 fL (80.0-100.0) H 04/23/22 05:46 MCH 31.7 pg (25.0-34.0) 04/23/22 05:46 MCHC 31.1 g/dL (32.0-36.0) L 04/23/22 05:46 RDW Std Deviation 54.1 fL (36.4-46.3) H 04/23/22 05:46 RDW Coeff of Marielle 14.6 % (11.5-14.5) H 04/23/22 05:46 Plt Count 306 K/uL (130-400) 04/23/22 05:46 MPV 9.5 fL (9.4-12.3) 04/23/22 05:46 Immature Gran % (Auto) 0.7 % 04/21/22 01:59 Neut % (Auto) 84.6 % 04/21/22 01:59 Lymph % (Auto) 5.5 % 04/21/22 01:59 [place] % (Auto) 5.7 % 04/21/22 01:59 Eos % (Auto) 3.4 % 04/21/22 01:59 Baso % (Auto) 0.1 % 04/21/22 01:59 Neut # (Auto) 5.89 K/uL (1.4-6.5) 04/21/22 01:59 Lymph # (Auto) 0.38 K/uL (1.2-3.4) L 04/21/22 01:59 [place] # (Auto) 0.40 K/uL (0.24-0.82) 04/21/22 01:59 Eos # (Auto) 0.24 K/uL (0-0.50) 04/21/22 01:59 Baso # (Auto) 0.01 K/uL (0-0.2) 04/21/22 01:59 Immature Gran # (Auto) 0.05 K/uL (0.00-0.02) H 04/21/22 01:59 PT 14.3 Seconds (9.0-12.0) H 04/19/22 21:14 INR 1.4 (0.9-1.1) H 04/19/22 21:14 APTT 34.9 Seconds (21.0-31.0) H 04/19/22 21:14 PTT Ratio 1.3 04/19/22 21:14 ABG pH 7.41 (7.35-7.45) 04/19/22 21:14 ABG pCO2 51 mmHg (35-46) H 04/19/22 21:14 ABG pO2 95 mmHg (80-95) 04/19/22 21:14 ABG HCO3 32 mmol/L (19-24) H 04/19/22 21:14 ABG O2 Saturation 97.7 % (90-95) H 04/19/22 21:14 ABG Base Excess 6.3 mEq/L (-9-1.8) H 04/19/22 21:14 Nadir Test POS (Pos) 04/19/22 21:14 Oxygen Given 1 L 04/19/22 21:14 Sodium 138 mmol/L (136-145) 04/23/22 05:46 Potassium 4.3 mmol/L (3.5-5.1) 04/23/22 05:46 Chloride 104 mmol/L (98-107) 04/23/22 05:46 Carbon Dioxide 29 mmol/L (21-32) 04/23/22 05:46 Anion Gap 5 (3-11) 04/23/22 05:46 BUN 25 mg/dl (6-23) H 04/23/22 05:46 Creatinine 0.91 mg/dl (0.6-1.2) 04/23/22 05:46 Est Cr Clr Drug Dosing 49.6 ml/min 04/23/22 05:46 Est GFR ( Amer) 66.7 ml/min 04/23/22 05:46 Est GFR (Non-Af Amer) 57.5 ml/min 04/23/22 05:46 BUN/Creatinine Ratio 27.5 (10-20) H 04/23/22 05:46 Glucose 158 mg/dl (70-99(Fasting)) H 04/23/22 05:46 POC Glucose 179 mg/dl (70-99) H 04/21/22 07:41 Lactate 1.7 mmol/L (0.4-2.0) 04/21/22 01:59 Calcium 9.4 mg/dl (8.5-10.1) 04/23/22 05:46 Phosphorus 2.8 mg/dl (2.5-4.9) 04/23/22 05:46 Magnesium 2.1 mg/dl (1.7-2.4) 04/23/22 05:46 Total Bilirubin 0.5 mg/dl (0.2-1.0) D 04/21/22 01:59 AST 8 U/L (13-39) L 04/21/22 01:59 ALT 8 U/L (7-52) 04/21/22 01:59 Alkaline Phosphatase 75 U/L (34-104) 04/21/22 01:59 Ammonia 33.0 umol/L (18-72) 04/19/22 21:14 Troponin I High Sens 7.0 pg/ml (0-14) 04/21/22 01:59 B-Natriuretic Peptide 772 pg/ml (0-100) H 04/19/22 21:16 Total Protein 5.5 gm/dl (6.0-8.3) L 04/21/22 01:59 Albumin 2.9 gm/dl (3.4-5.0) L 04/21/22 01:59 Globulin 2.6 gm/dl (2.5-4.0) 04/21/22 01:59 Albumin/Globulin Ratio 1.1 (0.9-2) 04/21/22 01:59 Procalcitonin 0.16 ng/ml (0-0.5) 04/20/22 10:23 TSH 3.363 uIu/ml (0.300-4.500) 04/19/22 21:14 Random Cortisol 1.03 mcg/dl 04/21/22 01:59 Urine Color Yellow 04/21/22 03:30 Urine Appearance Clear (Clear) 04/21/22 03:30 Urine pH 5.5 (4.5-7.5) 04/21/22 03:30 Ur Specific [place] 1.014 (1.000-1.030) 04/21/22 03:30 Urine Protein Negative (Negative) 04/21/22 03:30 Urine Glucose (UA) Negative (Negative) 04/21/22 03:30 Urine Ketones Negative (Negative) 04/21/22 03:30 Urine Blood Negative (Negative) 04/21/22 03:30 Urine Nitrite Negative (Negative) 04/21/22 03:30 Urine Bilirubin Negative (Negative) 04/21/22 03:30 Urine Urobilinogen Negative (Negative) 04/21/22 03:30 Ur Leukocyte Esterase Negative (Negative) 04/21/22 03:30 Urine WBC (Auto) 1-5 /hpf (0-5) 04/20/22 05:40 Urine RBC (Auto) 0-4 /hpf (0-4) 04/20/22 05:40 U Hyaline Cast (Auto) 1-5 /lpf (0-5) 04/20/22 05:40 U Epithel Cells (Auto) 20-30 /lpf (0-5) H 04/20/22 05:40 Urine Bacteria (Auto) Negative (Negative) 04/20/22 05:40 SARS-CoV-2 (PCR) NEGATIVE (Negative) 04/19/22 20:49 Influenza Type A (PCR) Negative (Neg) 04/19/22 20:49 Influenza Type B (PCR) Negative (Neg) 04/19/22 20:49 RSV (RT-PCR) Negative (Neg) 04/19/22 20:49 Streptococcus sp PCR DETECTED (NotDetected) A 04/19/22 21:14 Bld Cult ID Panel PCR See PCR Comment (NotDetected) 04/19/22 21:14 Impressions Chest X-Ray 04/19/22 20:23 SINGLE VIEW CHEST CLINICAL HISTORY: Generalized weakness. FINDINGS: An AP, portable, upright chest radiograph is compared to study dated 03/28/2022. The heart is enlarged noting atherosclerotic calcification of the thoracic aorta. The pulmonary vasculature is noncongested. Chronic interstitial thickening is similar to previous. There is bibasilar scarring/atelectasis. The lungs and pleural spaces are otherwise clear. No pneumothorax is seen. The skeletal structures are osteopenic. The bony thorax is grossly intact. Bilateral shoulder arthroplasties are in place. IMPRESSION: Cardiomegaly with no active disease in the chest. ACT 112: Negative or not required by law. Electronically signed by: Cesar Santos M.D. 04/19/2022 8:40 PM Tibia/Fibula X-Ray 04/19/22 23:39 XR tibia fibula RT 2V CLINICAL HISTORY: recurrent infection, ro osteomyelitis TECHNIQUE: 2 radiographic views of the right leg were obtained. Comparison: Comparison is made to CTA lower extremity 03/07/2022 FINDINGS: There is no evidence of an acute fracture. Orthopedic hardware is seen spanning the knee without evidence of hardware fracture. Radiodensity in the mid tibial shaft is nonspecific but unchanged from prior exam. Diffuse soft tissue swelling is seen in the lower extremity. Vascular calcifications are seen. IMPRESSION: Diffuse soft tissue swelling without evidence of focal erosion to suggest osteomyelitis. No evidence of hardware fracture or perihardware loosening. ACT 112: Negative or not required by law. Electronically signed by: Sammy Davis M.D. 04/20/2022 8:24 AM Venous Doppler Study 04/20/22 10:53 ULTRASOUND BILATERAL LOWER EXTREMITY VENOUS CLINICAL HISTORY: Lower extremity edema. Leg wounds. COMPARISON STUDY: No priors. TECHNIQUE: Real-time, grayscale, and color Doppler sonography of the deep veins of the right and left lower extremity was performed from the inguinal crease to the calf. Compression and augmentation were utilized. FINDINGS: There is no sonographic evidence of deep venous thrombosis identified in the right or left lower extremity. The common femoral, superficial femoral, and popliteal veins are patent and normally compressible bilaterally. The greater saphenous vein and the profunda femoris vein at the junction with the common femoral vein are clear in both legs. The visualized calf veins are patent bilaterally. IMPRESSION: There is no sonographic evidence of deep venous thrombosis identified in the right or left lower extremity. ACT 112: Negative or not required by law. Electronically signed by: Cesar Santos M.D. 04/20/2022 2:18 PM Medications Administered Current Inpatient Medications Acetaminophen (Acetaminophen 500 Mg Tab) 500 mg PO Q6H PRN PRN Reason: Pain Stop: 05/20/22 01:24 Last Admin: 04/20/22 19:57 Dose: 500 mg Apixaban (Apixaban 5 Mg Tablet) 5 mg PO [id number] [facility] Stop: 05/20/22 01:24 Last Admin: 04/24/22 08:00 Dose: 5 mg Artificial Tears (Artificial Tears) 1 drops OP TID [facility] Stop: 05/20/22 08:59 Last Admin: 04/24/22 08:00 Dose: 1 drops Atorvastatin Calcium (Atorvastatin 40 Mg Tab) 40 mg PO QAM [facility] Stop: 05/24/22 08:59 Last Admin: 04/24/22 08:01 Dose: 40 mg Ezetimibe (Ezetimibe 10 Mg Tablet) 10 mg PO QAM [facility] Stop: 05/20/22 08:59 Last Admin: 04/24/22 08:02 Dose: 10 mg Fluticasone/Vilanterol (Fluticasone/Vilanterol 200/25mcg 14 Puffs/Inhaler) 1 puffs INH DAILY [facility] Stop: 05/20/22 08:59 Last Admin: 04/24/22 08:01 Dose: 1 puffs Guaifenesin (Guaifenesin 600 Mg Tabcr) 600 mg PO Q12 PRN PRN Reason: cough Stop: 05/23/22 08:59 Last Admin: 04/24/22 10:55 Dose: 600 mg Promethazine HCl 12.5 mg/ (Sodium Chloride) 50.5 mls @ 202 mls/hr IV Q6H PRN PRN Reason: Nausea And Vomiting Stop: 05/20/22 01:24 Ciprofloxacin (Cipro / D5w) 400 mg in 200 mls @ 100 mls/hr IV Q12H [facility]; Protocol Stop: 04/30/22 07:44 Last Infusion: 04/24/22 10:10 Dose: Infused Cefazolin Sodium (Ancef 1000mg) 1,000 mg in 7.5 mls @ 2.5 mls/min IV Q8H [facility] Stop: 04/30/22 12:29 Last Admin: 04/24/22 12:20 Dose: 2.5 mls/min Hydrocortisone Sodium (Succinate 25 mg/ Syringe) 0.5 mls @ 4 mls/min IV Q8H [facility] Stop: 05/23/22 18:59 Last Admin: 04/24/22 10:54 Dose: 4 mls/min Lactobacillus Acidophilus (Advanced Probiotic 1250 Mg Capsule) 2 cap PO DAILY [facility] Stop: 05/20/22 08:59 Last Admin: 04/24/22 08:01 Dose: 2 cap Levothyroxine Sodium (Levothyroxine Sodium 112 Mcg Tablet) 112 mcg PO DAILYBB [facility] Stop: 05/20/22 06:29 Last Admin: 04/24/22 06:05 Dose: 112 mcg Melatonin (Melatonin 3 Mg Tab) 3 mg PO HS PRN PRN Reason: Insomnia Stop: 05/20/22 01:24 Last Admin: 04/20/22 19:57 Dose: 3 mg Metoprolol Succinate (Metoprolol Succ 25mg Ext Rel Tab) 25 mg PO QAM [facility] Stop: 05/24/22 10:29 Last Admin: 04/24/22 10:54 Dose: 25 mg Midodrine (Midodrine Hcl 2.5 Mg Tab) 5 mg PO TID@0800,1200,1700 [facility] Stop: 05/21/22 10:44 Last Admin: 04/24/22 10:55 Dose: 5 mg Montelukast Sodium (Montelukast Sodium 10 Mg Tablet) 10 mg PO QPM [facility] Stop: 05/20/22 20:59 Last Admin: 04/23/22 20:19 Dose: 10 mg Multivitamins/Minerals (Cerovite Adv Formula Tab) 1 tab PO QAM [facility] Stop: 05/20/22 08:59 Last Admin: 04/24/22 08:01 Dose: 1 tab Oxycodone HCl (Oxycodone Hcl Ir 5 Mg Tab (Immediate Release)) 2.5 mg PO Q8H PRN PRN Reason: Pain Stop: 05/04/22 01:24 Last Admin: 04/23/22 20:23 Dose: 2.5 mg Pantoprazole Sodium (Pantoprazole 40 Mg Tab) 40 mg PO BID [facility] Stop: 05/20/22 08:59 Last Admin: 04/24/22 08:02 Dose: 40 mg Polyethylene Glycol (Polyethylene (Miralax) 17 Gm Pack) 17 gm PO DAILY [facility] Stop: 05/20/22 08:59 Last Admin: 04/24/22 08:05 Dose: 17 gm Senna/Docusate Sodium (Docusate Sodium/Senna 50/8.6mg Tab) 2 tab PO BID17 STIVEN Stop: 05/20/22 08:59 Last Admin: 04/24/22 08:02 Dose: 2 tab Sodium Chloride (Sodium Chloride 0.65% Na Soln 45 Ml ([place])) 1 sprays NA PRN PRN PRN Reason: Dryness Stop: 05/21/22 19:27 Last Admin: 04/21/22 21:05 Dose: 1 sprays (1) Cellulitis Laterality: right Site of cellulitis: extremity Site of cellulitis of extremity: lower extremity Qualified Code(s): L03.115 - Cellulitis of right lower limb
[2022-04-24] MEDS ORDERED: SODIUM CHLORIDE 0.9% NEBU SOLN 3 ML NEB PRN (12:51)
[2022-04-24 13:20] LABS: Hematocrit (blood only) 30.9 % (34.1-44.9); Hemoglobin 9.6 g/dl (12.0-16.0); Mean Corpuscular Hemoglobin 31.5 pg (25.0-34.0); Mean Corpuscular Hgb Conc 31.1 g/dL (32.0-36.0); Mean Corpuscular Volume 101.3 fL (80.0-100.0); Platelet Count 328 K/uL (130-400); RDW Coefficient of Variation 14.6 % (11.5-14.5); RDW Standard Deviation 53.1 fL (36.4-46.3); Red Blood Count 3.05 M/uL (3.93-5.22); White Blood Count 12.76 K/ul (4.8-10.8)
[2022-04-24] MEDS ORDERED: TXA 10% Non-IV Routes 100 MG/ML VIAL NEB ONE ×2 (13:33→16:16)
[2022-04-24] MEDS ORDERED: TXA 10% Non-IV Routes 100 MG/ML VIAL ONE (13:33)
[2022-04-24] MEDS: guaiFENesin/DEXTROM SYRUP 200MG/20MG 10ML UDC PO PRN ×2 (13:53→21:15)
[2022-04-24] MEDS ORDERED: SODIUM CHLORIDE 0.9% 250 ML IV PRN (16:07)
[2022-04-24] MEDS ORDERED: TETRACAINE 4% SOLN TOP ONE (16:23)
--- NOTE | 2022-04-24 16:33 | Communication Note ---
Date of Service: April 24, 2022 I was called to a rapid response due to severe epistaxis. When I came to the room, the patient was panicked and had large blood clots and bright red blood coming from her mouth. Patient was screaming out that she could not breathe. Patient was encouraged to that her oxygen saturation was adequate and other vitals are stable. When redirected, the patient was more calm. I was able to visualize clot in the posterior oropharynx. ER was at bedside and placed a left Rhino Rocket that was infiltrated with phenylephrine spray. They were unable to pass a Rhino Rocket in the right due to nasal septal deviation. A nasal clip was placed to achieve hemostasis. Patient's hemodynamics were stable aside for rapid atrial fibrillation. Oxygenation was adequate on room air with sats in the mid 90s. I requested the glide scope and intubation box be ready at bedside in case the patient had airway compromise. I suggested that the hospitalist order PCC and 1 unit of packed RBCs given the amount of hemorrhage seen and given the fact the patient is on Eliquis. I also ordered for a 500 cc bolus of normal saline. Patient was taken urgently to PACU for preparation to go to the OR and presumptive cautery by Dr. Kwan. Coding Level of Care Code Critical Care 1st 30-74 mins Time Spent (min) 32
--- NOTE | 2022-04-24 16:37 | Procedure Note ---
Procedure Note Date of Service April 24, 2022 Note To the patient's bedside by the hospitalist due to a severe nosebleed. Upon arrival the patient is a bedside with the hospitalist as well as respiratory therapy and nursing staff. Fair amount of bloody tissues across her chest and a bdomen and she sitting up with blood trickling from the right nares. A 4 and half centimeter rapid Rhino was present the left nare. Reportedly the patient developed nosebleed earlier. The hospitalist placed a 4 and half centimeter left-sided rapid Rhino. After an hour and there was cessation and control he removed it. The bleeding started again profusely. He replaced it but to continue with significant bleeding from the left although now mainly from the right. Patient states he feels blood trickling down her throat. She is saturating about 90% on room air but still has a bit of a choking sensation. She is on Eliquis. Nebulized TXA was being administered. Left anterior nose packing utilizing rapid Rhino performed by myself at bedside in room 219 Utilizing our ENT cart 7.5 cm rapid Rhino was placed in the left nare after removal of the 4.5 cm one was removed. Some Afrin was placed in both nares. Nasal clips applied. Appeared to have some decrease of the bleeding with this b ut the patient still feels a small trickle of blood down her throat and that she is having some choking sensation. Patient has some discomfort obviously with the placement of the rapid Rhino was expected. Unable to place a rapid Rhino in the right nare as there is immediate resistance and question possible septal deviation or other anatomical abnormality precluding placement. At this point as the patient still endorsing feeling some bleeding and bit of a choking sensation, both myself as well as the ICU attending who had come to bedside during this time advised the hospitalist to contact ENT for additional assistance. Patient was stable breathing on room air but still in discomfort and feeling some bleeding. Was not hypotensive. ENT advised to take the patient to the OR for further care. Left in the care of the hospitalist and ICU attending. Coding
--- NOTE | 2022-04-24 16:48 | Anesthesiology Consultation ---
Date of Service April 24, 2022 Assessment & Plan (1) Encounter for pre-operative examination: Chart Review Chart Review: Acceptable Risk for Surgery Consults Requested none ASA [id number] Proposed Anesthesia Anesthesia Type: MAC Risk / Benefits Reviewed With: PT / POA / Parent / Guardian, Accepts Plan and Informed Consent Obtained History Surgery Operation Date: 04/24/22 16:20 Proposed Procedures p Nasal Bleed Control - Kaycee Kwan MD Height/Weight Height: 5 ft 6 in Weight: 85 kg Allergies Allergy/AdvReac Type Severity Reaction Status Date / Time latex Allergy Intermediate Rash, Verified 04/19/22 21:46 itching povidone-iodine Allergy Intermediate Itching Verified 04/19/22 21:46 [From Betadine] soap [From Betadine] Allergy Intermediate Itching Verified 04/19/22 21:46 aspirin AdvReac Mild Dizziness Verified 04/19/22 21:46 Medications Home Medications Medication Instructions Recorded Confirmed Last Taken vit C 250 mg-vit E 90 mg-zinc 40 2 tab PO QAM 05/01/20 04/19/22 04/19/22 mg-copper 1 zu-flmvmg-vomnzm capsule (PreserVision AREDS-2) budesonide-formoterol HFA 160 2 puff inhalation BID PRN 09/15/20 04/19/22 Unknown mcg-4.5 mcg/actuation aerosol Shortness Of Breath Or Wheezing inhaler (Symbicort) pantoprazole 40 mg tablet,delayed 40 mg PO QAM GERD 05/14/21 04/19/22 04/19/22 release (Protonix) montelukast 10 mg tablet 10 mg PO QPM 08/20/21 04/19/22 04/19/22 ezetimibe 10 mg tablet (Zetia) 10 mg PO QAM #90 tabs 11/24/21 04/19/22 04/19/22 ascorbic acid (vitamin C) 500 mg 500 mg PO QAM #20 tabs 01/02/22 04/19/22 04/19/22 tablet (Vitamin C) acetaminophen 500 mg tablet 500 mg PO Q6H PRN Pain 03/28/22 04/19/22 Unknown bumetanide 1 mg tablet 1 mg PO DAILY 03/28/22 04/19/22 04/19/22 carboxymethylcellulose sodium 0.5 1 drp ophthalmic (eye) TID 03/28/22 04/19/22 04/19/22 % eye drops (Refresh Tears) cholecalciferol (vitamin D3) 50 50 mcg PO DAILY 03/28/22 04/19/22 04/19/22 mcg (2,000 unit) capsule (Vitamin D3) levothyroxine 112 mcg tablet 112 mcg PO DAILYBB 03/28/22 04/19/22 04/19/22 melatonin 3 mg tablet 3 mg PO QDD 03/28/22 04/19/22 04/19/22 metoprolol succinate 50 mg 50 mg PO BID 03/28/22 04/19/22 04/19/22 tablet,extended release 24 hr oxycodone 5 mg tablet 2.5 mg PO QAM 03/28/22 04/19/22 04/19/22 polyethylene glycol 3350 17 17 g PO DAILY 03/28/22 04/19/22 04/19/22 gram/dose oral powder (Miralax) sennosides 8.6 mg-docusate sodium 2 tab-cap PO BID17 03/28/22 04/19/22 04/19/22 50 mg tablet (Senna-S) L.acidop,casei,lactis,rham-B.lact,jessy 2 cap PO DAILY #30 caps 04/05/22 04/19/22 04/19/22 625 mg (10 billion cell) capsule (Advanced Probiotic) apixaban 5 mg tablet (Eliquis) 5 mg PO BID17 04/19/22 04/19/22 04/19/22 bismuth subsalicylate 262 mg/15 mL 524 mg PO Q6H PRN UPSET STOMACH 04/19/2201/31 Unknown oral suspension ([place] Bismuth) food supplemt, lactose-reduced 1 ea PO QAM 04/19/22 04/19/22 04/19/22 ondansetron HCl 4 mg tablet 4 mg PO Q4H PRN NAUSEA/VOMITING 04/19/22 04/19/22 Unknown oxycodone 5 mg tablet 2.5 mg PO Q8H PRN Pain 04/19/22 04/19/22 Unknown Active Medications Generic Name Dose Route Start Last Admin Trade Name Freq PRN Reason Stop Dose Admin Acetaminophen 500 mg 04/20/22 01:25 04/20/22 19:57 Acetaminophen 500 Mg Tab PO 05/20/22 01:24 500 mg Q6H PRN Administration Pain Apixaban 5 mg 04/20/22 01:25 04/24/22 08:00 Apixaban 5 Mg Tablet PO 05/20/22 01:24 5 mg BID17 STIVEN Administration Artificial Tears 1 drops 04/20/22 09:00 04/24/22 13:55 Artificial Tears OP 05/20/22 08:59 1 drops TID STIVEN Administration Atorvastatin Calcium 40 mg 04/24/22 09:00 04/24/22 08:01 Atorvastatin 40 Mg Tab PO 05/24/22 08:59 40 mg QAM STIVEN Administration Ezetimibe 10 mg 04/20/22 09:00 04/24/22 08:02 Ezetimibe 10 Mg Tablet PO 05/20/22 08:59 10 mg QAM STIVEN Administration Fluticasone/Vilanterol 1 puffs 04/20/22 09:00 04/24/22 08:01 Fluticasone/Vilanterol 200/25mcg 14 Puffs/Inhaler INH 05/20/22 08:59 1 puffs DAILY STIVEN Administration Guaifenesin 600 mg 04/23/22 08:08 04/24/22 10:55 Guaifenesin 600 Mg Tabcr PO 05/23/22 08:59 600 mg Q12 PRN Administration cough Guaifenesin/Dextromethorphan 10 ml 04/24/22 12:46 04/24/22 13:53 Guaifenesin/Dextrom Syrup 200mg/20mg 10ml Udc PO 04/26/22 12:45 10 ml Q6H PRN Administration Cough Ciprofloxacin 400 mg in 200 mls @ 100 mls/hr 04/23/22 07:45 04/24/22 10:10 Cipro / D5w IV 04/30/22 07:44 Infused Q12H STIVEN Infusion Protocol Cefazolin Sodium 1,000 mg in 7.5 mls @ 2.5 mls/min 04/23/22 12:30 04/24/22 12:20 Ancef 1000mg IV 04/30/22 12:29 2.5 mls/min Q8H STIVEN Administration Hydrocortisone Sodium 0.5 mls @ 4 mls/min 04/23/22 19:00 04/24/22 10:54 Succinate 25 mg/ Syringe IV 05/23/22 18:59 4 mls/min Q8H STIVEN Administration Lactobacillus Acidophilus 2 cap 04/20/22 09:00 04/24/22 08:01 Advanced Probiotic 1250 Mg Capsule PO 05/20/22 08:59 2 cap DAILY STIVEN Administration Levothyroxine Sodium 112 mcg 04/20/22 06:30 04/24/22 06:05 Levothyroxine Sodium 112 Mcg Tablet PO 05/20/22 06:29 112 mcg DAILYBB STIVEN Administration Melatonin 3 mg 04/20/22 01:25 04/20/22 19:57 Melatonin 3 Mg Tab PO 05/20/22 01:24 3 mg HS PRN Administration Insomnia Metoprolol Succinate 25 mg 04/24/22 10:30 04/24/22 10:54 Metoprolol Succ 25mg Ext Rel Tab PO 05/24/22 10:29 25 mg QAM STIVEN Administration Midodrine 5 mg 04/21/22 10:45 04/24/22 10:55 Midodrine Hcl 2.5 Mg Tab PO 05/21/22 10:44 5 mg TID@0800,1200,1700 STIVEN Administration Montelukast Sodium 10 mg 04/20/22 21:00 04/23/22 20:19 Montelukast Sodium 10 Mg Tablet PO 05/20/22 20:59 10 mg QPM STIVEN Administration Multivitamins/Minerals 1 tab 04/20/22 09:00 04/24/22 08:01 Cerovite Adv Formula Tab PO 05/20/22 08:59 1 tab QAM STIVEN Administration Oxycodone HCl 2.5 mg 04/20/22 01:25 04/23/22 20:23 Oxycodone Hcl Ir 5 Mg Tab (Immediate Release) PO 05/04/22 01:24 2.5 mg Q8H PRN Administration Pain Pantoprazole Sodium 40 mg 04/21/22 21:00 04/24/22 08:02 Pantoprazole 40 Mg Tab PO 05/20/22 08:59 40 mg BID STIVEN Administration Polyethylene Glycol 17 gm 04/20/22 09:00 04/24/22 08:05 Polyethylene (Miralax) 17 Gm Pack PO 05/20/22 08:59 17 gm DAILY STIVEN Administration Senna/Docusate Sodium 2 tab 04/20/22 09:00 04/24/22 08:02 Docusate Sodium/Senna 50/8.6mg Tab PO 05/20/22 08:59 2 tab BID17 STIVEN Administration Sodium Chloride 1 sprays 04/21/22 19:28 04/21/22 21:05 Sodium Chloride 0.65% Na Soln 45 Ml (Terry) NA 05/21/22 19:27 1 sprays PRN PRN Administration Dryness Sodium Chloride 3 ml 04/24/22 12:51 04/24/22 13:16 Sodium Chloride 0.9% Nebu Soln 3 Ml NEB 05/24/22 12:50 3 ml Q6H PRN Administration congestion NPO Date Last Intake of Fluids: 04/24/22 Time Last Intake of Fluids: 13:00 Date Last Intake of Solids: 04/24/22 Time Last Intake of Solids: 13:00 Past Medical History Medical History Acute diverticulitis Anxiety and depression Aortic regurgitation Asthma inhaler prn Atrial fibrillation with rapid ventricular response Atrial fibrillation, permanent on eliquis and follows with Dr. Colón Chronic diastolic CHF (congestive heart failure) Cor pulmonale (chronic) Coronary artery disease Diverticulitis Dyslipidemia Esophageal stricture H/O fall 08/2020 Hearing deficit History of COVID-19 diagnosed 05/18/22 @ [place]--asymptomatic, tested prior to procedure--no issues now Hypotension Hypothyroid Leukocytosis Macular degeneration On anticoagulant therapy eliquis daily Osteoarthritis Pulmonary hypertension Spinal stenosis Valvular heart disease Venous insufficiency (chronic) (peripheral) Exercise / Class Metabolic Activity II 4-5 Yardwork/Stairs/Walk up hill Past Family History Family History Mother Cancer uterine Thyroid disease Father Cancer esophageal Family history of esophageal cancer Sister Family history of diabetes mellitus Sister Family history of diabetes mellitus Brother Family history of diabetes mellitus Family hx of colon cancer Other No family history of adverse response to anesthesia Past Surgical History Surgical History History of bilateral cataract extraction History of cardiac cath ?2015 @ [facility]--no stents History of colonoscopy with polypectomy History of dilatation and curettage History of esophagogastroduodenoscopy (EGD) History of left hip replacement History of left shoulder replacement History of parathyroidectomy ELEVATED CALCIUM LEVELS? (2 REMOVED) History of right hip replacement History of right shoulder replacement History of tonsillectomy and adenoidectomy History of tooth extraction History of total left knee replacement (TKR) x2 History of total right knee replacement (TKR) x2 History of wisdom tooth extraction S/P cholecystectomy S/P dilatation of esophageal stricture Past Anesthesia History No Hx of Anesthesia Complications and No Family Hx of Anesthesia Complications History of PONV No Hx of PONV and No Hx of Motion Sickness Social History Smoking Status: Former smoker tobacco type: cigarettes Smoking cigarettes per day: 1 ppd Hx Alcohol Use: No Alcohol type: wine alcohol intake frequency: holidays/special occasions only Hx Substance Use: No substance use type: does not use Physical Exam Vital Signs Last Vital Signs Temp 97.9 F 04/24/22 15:34 Pulse 113 H 04/24/22 15:34 Resp 18 04/24/22 15:34 BP 132/85 04/24/22 15:34 Pulse Ox 93 04/24/22 15:34 O2 Del Method 04/24/22 15:34 O2 Flow Rate 2 04/24/22 07:17 ENMT Mouth: no dentition abnormality Thyromental Distance: > or= 3.5 Finger Breadths Mallampati Class: II Neck normal visual inspection Respiratory normal respiratory effort Auscultation: + rhonchi Cardiovascular Rate/Rhythm: + tachycardic; + abnormal rhythm Testing Laboratory Results 04/24/22 13:06 04/23/22 05:46 PT 14.3 Seconds (9.0-12.0) H 04/19/22 21:14 INR 1.4 (0.9-1.1) H 04/19/22 21:14 APTT 34.9 Seconds (21.0-31.0) H 04/19/22 21:14 Urine Color Yellow 04/21/22 03:30 Urine Appearance Clear (Clear) 04/21/22 03:30 Urine pH 5.5 (4.5-7.5) 04/21/22 03:30 Ur Specific [place] 1.014 (1.000-1.030) 04/21/22 03:30 Urine Protein Negative (Negative) 04/21/22 03:30 Urine Glucose (UA) Negative (Negative) 04/21/22 03:30 Urine Ketones Negative (Negative) 04/21/22 03:30 Urine Nitrite Negative (Negative) 04/21/22 03:30 Ur Leukocyte Esterase Negative (Negative) 04/21/22 03:30 Urine WBC (Auto) 1-5 /hpf (0-5) 04/20/22 05:40 Urine RBC (Auto) 0-4 /hpf (0-4) 04/20/22 05:40 U Hyaline Cast (Auto) 1-5 /lpf (0-5) 04/20/22 05:40 U Epithel Cells (Auto) 20-30 /lpf (0-5) H 04/20/22 05:40 Urine Bacteria (Auto) Negative (Negative) 04/20/22 05:40 04/21/22 01:59 Aerobic Blood Culture - Preliminary Blood No growth in Aerobic bottle after 48 hours. Anaerobic Blood Culture - Preliminary No growth in Anaerobic bottle after 48 hours. 04/21/22 01:59 Aerobic Blood Culture - Preliminary Blood No growth in Aerobic bottle after 48 hours. Anaerobic Blood Culture - Final 04/20/22 02:25 Gram Stain - Final Leg,Right Wound Culture - Final Pseudomonas aeruginosa Klebsiella pneumoniae 04/19/22 21:14 Aerobic Blood Culture - Preliminary Blood Alpha strep not S.pne/enteroco Alpha strep not S.pne/enteroco#2 Anaerobic Blood Culture - Preliminary No growth in Anaerobic bottle after 48 hours. 04/19/22 21:17 Aerobic Blood Culture - Preliminary Blood No growth in Aerobic bottle after 48 hours. Anaerobic Blood Culture - Final Electrocardiogram Date: 04/24/22 Poor data quality, interpretation may be adversely affected Probable Atrial fibrillation with rapid ventricular response, rate 134 bpm Cannot rule out Anterior infarct , age undetermined Abnormal ECG When compared with ECG of 28-MAR-2022 08:39, Inverted T waves have replaced nonspecific T wave abnormality in Inferior leads T wave inversion now evident in Lateral leads Confirmed by Du Cordon ([id number]) on 04/20/2022 4:41:56 PM Echocardiogram Date: 03/18/22 LV systolic function is normal Mod concentric LVH RV systolic function is borderline reduced LA/RA is mod dilated Mild to mod MR/TR RVSP is elevated at 40-50mmHg IVC is mildly dilated
[2022-04-24] MEDS ORDERED: fentaNYL citrate 100 MCG/2 ML VIAL IV PRN (16:51)
[2022-04-24] MEDS ORDERED: ONDANSETRON INJ 2 MG/ML 2 ML VIAL IV PRN (16:51)
[2022-04-24] MEDS ORDERED: ATROPINE SULFATE 0.1 MG/ML 10ML SYR IV PRN (16:51)
[2022-04-24] MEDS ORDERED: ePHEDrine sulfate 50 MG/ML AMP IV PRN (16:51)
--- NOTE | 2022-04-24 16:52 | ENT Consultation ---
Date of Consultation April 24, 2022 Assessment & Plan (1) Epistaxis: endo cautery/packing (2) COPD (chronic obstructive pulmonary disease): (3) Hypotension: (4) Cor pulmonale (chronic): (5) Respiratory failure: (6) Hypoxia: History of Present Illness Reason for Consultation: Epistaxis Attending Physician: Juan Churchill MD History of Present Illness 86-year-old lady with respiratory failure, pulmonary hypertension, permanent atrial fibrillation, on Eliquis, developed epistaxis, failed TXA, failed epi stat packing, continues to bleed. Allergies Allergy/AdvReac Type Severity Reaction Status Date / Time latex Allergy Intermediate Rash, Verified 04/19/22 21:46 itching povidone-iodine Allergy Intermediate Itching Verified 04/19/22 21:46 [From Betadine] soap [From Betadine] Allergy Intermediate Itching Verified 04/19/22 21:46 aspirin AdvReac Mild Dizziness Verified 04/19/22 21:46 Home Medications Medication Instructions Recorded Confirmed Type vit C 250 mg-vit E 90 mg-zinc 40 2 tab PO QAM 05/01/20 04/19/22 History mg-copper 1 [id number]-tfmcid capsule (PreserVision AREDS-2) budesonide-formoterol HFA 160 2 puff inhalation BID PRN 09/15/20 04/19/22 Hist ory mcg-4.5 mcg/actuation aerosol Shortness Of Breath Or Wheezing inhaler (Symbicort) pantoprazole 40 mg tablet,delayed 40 mg PO QAM GERD 05/14/21 04/19/22 History release (Protonix) montelukast 10 mg tablet 10 mg PO QPM 08/20/21 04/19/22 History ezetimibe 10 mg tablet (Zetia) 10 mg PO QAM #90 tabs 11/24/21 04/19/22 Rx ascorbic acid (vitamin C) 500 mg 500 mg PO QAM #20 tabs 01/02/22 04/19/22 Rx tablet (Vitamin C) acetaminophen 500 mg tablet 500 mg PO Q6H PRN Pain 03/28/22 04/19/22 History bumetanide 1 mg tablet 1 mg PO DAILY 03/28/22 04/19/22 History carboxymethylcellulose sodium 0.5 1 drp ophthalmic (eye) TID 03/28/22 04/19/22 History % eye drops (Refresh Tears) cholecalciferol (vitamin D3) 50 50 mcg PO DAILY 03/28/22 04/19/22 History mcg (2,000 unit) capsule (Vitamin D3) levothyroxine 112 mcg tablet 112 mcg PO DAILYBB 03/28/22 04/19/22 History melatonin 3 mg tablet 3 mg PO QDD 03/28/22 04/19/22 History metoprolol succinate 50 mg 50 mg PO BID 03/28/22 04/19/22 History tablet,extended release 24 hr oxycodone 5 mg tablet 2.5 mg PO QAM 03/28/22 04/19/22 History polyethylene glycol 3350 17 17 g PO DAILY 03/28/22 04/19/22 History gram/dose oral powder (Miralax) sennosides 8.6 mg-docusate sodium 2 tab-cap PO BID17 03/28/22 04/19/22 History 50 mg tablet (Senna-S) L.acidop,casei,lactis,rham-B.lact,jessy 2 cap PO DAILY #30 caps 04/05/22 04/19/22 Rx 625 mg (10 billion cell) capsule (Advanced Probiotic) apixaban 5 mg tablet (Eliquis) 5 mg PO BID17 04/19/22 04/19/22 History bismuth subsalicylate 262 mg/15 mL 524 mg PO Q6H PRN UPSET STOMACH 04/19/22 04/19/22 History oral suspension ([place] Bismuth) food supplemt, lactose-reduced 1 ea PO QAM 04/19/22 04/19/22 History ondansetron HCl 4 mg tablet 4 mg PO Q4H PRN NAUSEA/VOMITING 04/19/22 04/19/22 History oxycodone 5 mg tablet 2.5 mg PO Q8H PRN Pain 04/19/22 04/19/22 History Patient History Medical History Acute diverticulitis Anxiety and depression Aortic regurgitation Asthma inhaler prn Atrial fibrillation with rapid ventricular response Atrial fibrillation, permanent on eliquis and follows with Dr. Colón Chronic diastolic CHF (congestive heart failure) Cor pulmonale (chronic) Coronary artery disease Diverticulitis Dyslipidemia Esophageal stricture H/O fall 08/2020 Hearing deficit History of COVID-19 diagnosed 05/18/22 @ [place]--asymptomatic, tested prior to procedure--no issues now Hypotension Hypothyroid Leukocytosis Macular degeneration On anticoagulant therapy eliquis daily Osteoarthritis Pulmonary hypertension Spinal stenosis Valvular heart disease Venous insufficiency (chronic) (peripheral) Surgical History History of bilateral cataract extraction History of cardiac cath ?2015 @ [facility]--no stents History of colonoscopy with polypectomy History of dilatation and curettage History of esophagogastroduodenoscopy (EGD) History of left hip replacement History of left shoulder replacement History of parathyroidectomy ELEVATED CALCIUM LEVELS? (2 REMOVED) History of right hip replacement History of right shoulder replacement History of tonsillectomy and adenoidectomy History of tooth extraction History of total left knee replacement (TKR) x2 History of total right knee replacement (TKR) x2 History of wisdom tooth extraction S/P cholecystectomy S/P dilatation of esophageal stricture Family History Mother Cancer uterine Thyroid disease Father Cancer esophageal Family history of esophageal cancer Sister Family history of diabetes mellitus Sister Family history of diabetes mellitus Brother Family history of diabetes mellitus Family hx of colon cancer Other No family history of adverse response to anesthesia Social History Smoking Status: Former smoker Tobacco Type: Cigarettes Cigarettes Per Day: 1 ppd; Second Hand Exposure: No; Hx Alcohol Use: No Hx Substance Use: No Preferred Language: [place]ese Communication Ability: Impaired Visual Impairment: Limited Hearing Ability: Normal Thread Checker Required: No Beliefs That Will Affect Care: None Current Living Situation: Personal Care Facility Current Living Situation Comment: [facility] How many Children do You have: 4 Feels Safe at Home: Yes caffeine: No during the past year weight has: remained stable Assistive Devices: Glasses, Oxygen - Continuous and Wheelchair Physical Exam Constitutional: WD/WN, vitals as above Eyes: PERRL, conjunctivae normal, anicteric sclerae ENMT: external ear and nose normal, oropharynx normal Nose: + epistaxis (Bright red blood, epistatic in place with bleeding into the posterior phary) Neck: trachea midline, no thyromegaly Results & Data ([facility]) Vital Signs (Past 12 Hours) Vital Signs Temp Pulse Resp BP BP Pulse Ox O2 Del Method 04/24/22 15:34 36.6 C 113 H 18 132/85 93 Room Air 04/24/22 13:16 102 H 18 96 Room Air 04/24/22 10:52 36.9 C 100 H 20 122/81 94 Room Air 04/24/22 07:49 Room Air 04/24/22 07:17 36.8 C 118 H 18 122/81 97 Nasal Cannula O2 Flow Rate 04/24/22 15:34 04/24/22 13:16 04/24/22 10:52 04/24/22 07:49 04/24/22 07:17 2
[2022-04-24] MEDS ORDERED: MIDAZOLAM HCL 1 MG/ML 2ML VIAL ONE (16:56)
[2022-04-24] MEDS ORDERED: OXYMETAZOLINE 0.05% 30 ML BTL ONE (16:57)
[2022-04-24] MEDS ORDERED: GELATIN SPONGE SZ 100 ONE (16:59)
[2022-04-24] MEDS ORDERED: LIDOCAINE 2%/EPINEPHRINE 1:100,000 20ML INFIL ONE (17:01)
[2022-04-24] MEDS ORDERED: FLOSEAL HEMOSTATIC MATRIX 10ML TOP ONE (17:21)
--- NOTE | 2022-04-24 17:28 | Communication Note ---
Date of Service: April 24, 2022 Attempted to remove rhinorocket around 1600. Patient started having recurrence of epistaxis and rhinorocket reinserted, other nare started bleeding. Patient spitting up decent amount of blood and unable to control bleeding. Called additional physicians for assistance and unable to stop bleeding. TXA neb and rhinorocket not effective. Patient stabilized, PCC and pRBC ordered. ENT consulted and patient to OR for cauterization. Family updated at bedside.
--- NOTE | 2022-04-24 17:36 | Operative Report ---
PG Post Operative Report Pre & Post Diagnosis Operation Date: 04/24/22 16:20 Pre-Op Diagnosis: Epistaxis Post-Op Diagnosis: Epistaxis I identified the patient and participated in the time-out.: Yes Procedure Operation Date: 04/24/22 16:20 Actual Procedures p Nasal Bleed Control, endoscopic cautery and posterior packing- Kaycee Kwan MD Surgeon Kaycee Kwan MD Oxygen Equipment Technician None Estimated Blood Loss 30 Findings Consistent with Post-Op Diagnosis Arterial bleed left septum. Large septal perforation. Deviation right Specimens None Anesthesia Type General Complications None Description of Procedure 86-year-old lady, brought to the operating room, properly identified, prepped and draped in the usual sterile manner. The patient was sedated. Packing in the left nares was deflated and removed. Topical anesthesia was obtained using cottonoids with tetracaine mixed with Afrin. Injection of 2% Xylocaine with 1 20,000 strength epinephrine was also used. Large septal deviation, 2 cm. Septal deviation right. Arterial spurter left side of septum. This was identified and cauterized using suction cautery with good control of bleeding. Large clot removed from the nasopharynx. Packing started posteriorly with layered strips of Gelfoam at the posterior choanae. Right-sided septum was also packed with a strip of Gelfoam posteriorly to the septal perforation. 10 cc of Floseal was placed along the bleeding site and along the septal perforation. Anteriorly 1 strip of Gelfoam was packed on each side to hold the Floseal in place. Drip pad was placed. She tolerated procedure well, taken recovery area in satisfactory condition. I attest to the content of the Intraoperative Record and any orders documented therein. Any exceptions are noted below.
--- NOTE | 2022-04-24 18:16 | Anesthesiology Progress Note ---
Date of Service April 24, 2022 Anesthesia Post Procedure Vital Signs Vital Signs: Temp Pulse Pulse Pulse Resp BP BP 04/24/22 18:00 108 H 16 112/76 04/24/22 17:50 97.3 F L 114 H 15 130/81 04/24/22 17:40 118 H 22 116/76 04/24/22 17:34 96.8 F L 113 H 19 108/75 04/24/22 15:34 97.9 F 113 H 18 132/85 04/24/22 13:16 102 H 18 04/24/22 10:52 98.4 F 100 H 20 122/81 04/24/22 07:49 04/24/22 07:17 98.2 F 118 H 18 122/81 04/24/22 03:00 98.2 F 105 H 18 120/85 04/23/22 22:57 98.6 F 78 16 126/70 04/23/22 22:56 90 04/23/22 19:49 04/23/22 19:25 97.7 F 98 H 18 130/81 Pulse Ox O2 Del Method O2 Flow Rate 04/24/22 18:00 92 Room Air 04/24/22 17:50 93 Room Air 04/24/22 17:40 93 Room Air 04/24/22 17:34 92 Room Air 04/24/22 15:34 93 Room Air 04/24/22 13:16 96 Room Air 04/24/22 10:52 94 Room Air 04/24/22 07:49 Room Air 04/24/22 07:17 97 Nasal Cannula 2 04/24/22 03:00 98 Room Air 04/23/22 22:57 98 Room Air 04/23/22 22:56 04/23/22 19:49 Room Air 04/23/22 19:25 91 Room Air Pain Intensity Bilateral Foot: Pain Intensity: 7 Transfer of Care Handoff Completed per policy Notes Mental Status: alert / awake / arousable and participated in evaluation Patient Amnestic to Procedure: Yes Nausea / Vomiting: adequately controlled Pain: adequately controlled Airway Patency, RR, SpO2: stable & adequate BP & HR: stable & adequate Hydration State: stable & adequate Anesthetic Complications: no major complications apparent and Pt Satisfied with anesthetic care
[2022-04-24 18:40] LABS: INR 1.2 (0.9-1.1); Partial Thromboplastin Ratio 0.9; Partial Thromboplastin Time 23.9 Seconds (21.0-31.0); Prothrombin Time 12.5 Seconds (9.0-12.0)
[2022-04-24 20:05] LABS: Basophils # (auto) 0.02 K/uL (0-0.2); Basophils % (auto) 0.1 %; Eosinophils # (auto) 0.03 K/uL (0-0.50); Eosinophils % (auto) 0.2 %; Hematocrit (blood only) 27.8 % (34.1-44.9); Hemoglobin 8.8 g/dl (12.0-16.0); Immature Granulocytes # (auto) 0.22 K/uL (0.00-0.02); Immature Granulocytes % (auto) 1.6 %; Lymphocytes # (auto) 0.52 K/uL (1.2-3.4); Lymphocytes % (auto) 3.9 %; Mean Corpuscular Hemoglobin 32.2 pg (25.0-34.0); Mean Corpuscular Hgb Conc 31.7 g/dL (32.0-36.0); Mean Corpuscular Volume 101.8 fL (80.0-100.0); Mean Platelet Volume 9.3 fL (9.4-12.3); Monocytes % (auto) 6.7 %; Neutrophils # (auto) 11.68 K/uL (1.4-6.5); Neutrophils % (auto) 87.5 %; Platelet Count 312 K/uL (130-400); RDW Coefficient of Variation 14.7 % (11.5-14.5); RDW Standard Deviation 52.6 fL (36.4-46.3); Red Blood Count 2.73 M/uL (3.93-5.22); White Blood Count 13.37 K/ul (4.8-10.8)
[2022-04-24] MEDS: oxyCODONE HCL IR 5 MG TAB (IMMEDIATE RELEASE) PO PRN (22:23)
--- NOTE | 2022-04-24 22:28 | XRay Report ---
SINGLE VIEW CHEST CLINICAL HISTORY: Dyspnea. FINDINGS: 2 AP, portable, upright chest radiographs are compared to study dated 04/19/2022. The heart is enlarged noting atherosclerotic calcification of the thoracic aorta. The pulmonary vasculature is noncongested. Chronic interstitial thickening is similar to previous. There is bibasilar scarring/ate lectasis. The lungs and pleural spaces are otherwise clear. No pneumothorax is seen. The skeletal str uctures are osteopenic. The bony thorax is grossly intact. Bilateral shoulder arthroplasties are in p lace. IMPRESSION: Cardiomegaly with no acute cardiopulmonary abnormality identified. ACT 112: Negative or not required by law. Electronically signed by: Cesar Santos M.D. 04/24/2022 10:27 PM
[2022-04-25 00:50] LABS: Fibrinogen 361 mg/dl (184-400)
[2022-04-25] MEDS: guaiFENesin/DEXTROM SYRUP 200MG/20MG 10ML UDC PO PRN ×2 (03:17→08:20)
[2022-04-25] MEDS: HYDROCORTISONE SOD 25 MG in SYRINGE 0 ML IV SCH (03:18)
[2022-04-25] MEDS: ceFAZolin 1000MG 1,000 MG/7.5 ML SYR IV SCH ×2 (03:19→13:00)
[2022-04-25] MEDS: LEVOTHYROXINE SODIUM 112 MCG TABLET PO SCH (05:32)
[2022-04-25] MEDS: CIPROFLOXACIN / D5W 400 MG/200 ML BAG IV SCH (07:51)
[2022-04-25] MEDS: MIDODRINE HCL 2.5 MG TAB PO SCH ×3 (07:51→15:18)
[2022-04-25] MEDS: FLUTICASONE/VILANTEROL 200/25MCG 14 PUFFS/INHALER INH SCH (07:59)
[2022-04-25] MEDS: ARTIFICIAL TEARS OP SCH ×2 (07:59→12:56)
[2022-04-25] MEDS: CEROVITE ADV FORMULA TAB PO SCH (08:00)
[2022-04-25] MEDS: PANTOprazole 40 MG TAB PO SCH (08:00)
[2022-04-25] MEDS: ADVANCED PROBIOTIC 1250 MG CAPSULE PO SCH (08:00)
[2022-04-25] MEDS: DOCUSATE SODIUM/SENNA 50/8.6MG TAB PO SCH ×2 (08:00→15:18)
[2022-04-25] MEDS: ATORVASTATIN 40 MG TAB PO SCH (08:01)
[2022-04-25] MEDS: EZETIMIBE 10 MG TABLET PO SCH (08:01)
[2022-04-25] MEDS: POLYETHYLENE (MIRALAX) 17 GM PACK PO SCH (08:01)
[2022-04-25] MEDS: METOPROLOL SUCC 25MG EXT REL TAB PO SCH (08:01)
[2022-04-25] MEDS: oxyCODONE HCL IR 5 MG TAB (IMMEDIATE RELEASE) PO PRN (08:20)
[2022-04-25 08:32] LABS: Hemoglobin 9.3 g/dl (12.0-16.0); Mean Corpuscular Hemoglobin 31.7 pg (25.0-34.0); Mean Corpuscular Volume 102.4 fL (80.0-100.0); Mean Platelet Volume 9.4 fL (9.4-12.3); Nucleated RBC # (auto) 0.03 K/uL (0-0); Nucleated RBC % (auto) 0.2 %; Platelet Count 355 K/uL (130-400); RDW Coefficient of Variation 14.9 % (11.5-14.5); Red Blood Count 2.93 M/uL (3.93-5.22)
--- NOTE | 2022-04-25 08:49 | Cardiology Consultation ---
Date of Consultation April 25, 2022 Assessment & Plan (1) Epistaxis: (2) Atrial fibrillation, permanent: (3) Anticoagulant long-term use: (4) Coronary artery disease: (5) Chronic diastolic CHF (congestive heart failure): Plan 1. Epistaxis: With her severe epistaxis I agree with holding her anticoagulation, her last dose was about 24 hours ago so the effect should be resolving today. I would continue to hold for the time being. 2. Permanent atrial fibrillation: She has permanent atrial fibrillation and should be on long-term anticoagulation if possible. Her heart rate is not very well controlled this admission, she is currently on metoprolol succinate 25 mg daily which I believe is her only rate controlling medication. As an outpatient she was on metoprolol succinate 50 mg twice daily and her heart rate was better controlled. She is no longer hypotensive and I would recommend increasing her beta-violette to help control heart rate and blood pressure. 3. Anticoagulation: Over the long run she should be maintained on anticoagulation if possible. If not a possibility would be a watchman device although I would prefer not to do that. I do not see a role for changing to a different anticoagulant, when possible I would restart Eliquis 5 mg twice a day. I would not reduce the dose as would not be effective. 4. Coronary disease: She has known nonobstructive coronary artery disease, I would not pursue further. 5. Congestive heart failure: She has longstanding diastolic congestive heart failure. Based on her BNP she may have been slightly fluid overloaded on presentation however her chest x-ray did not show congestive heart failure and her weights have been relatively stable for several months. I would continue her current outpatient regimen when she goes home. History of Present Illness Reason for Consultation: Severe epistaxis on anticoagulation Attending Physician: Juan Churchill MD History of Present Illness This is an 86-year-old woman who has known nonobstructive coronary artery disease identified at catheterization May 11, 2017 in [place] as well as permanent atrial fibrillation and diastolic congestive heart failure. She also has severe lower extremity PAD with nonhealing os ulcers and is followed by wound care. She is also followed in our heart failure clinic with Darlin Bullock. An echocardiogram done March 18, 2022 shows normal left ventricular systolic function with moderate concentric left ventricular hypertrophy, moderate mitral regurgitation and elevated right ventricular systolic pressure with a mildly dilated inferior vena cava. She resides at [place], she presented to the emergency room on April 19, 2022 with low oxygen saturation, hypercapnia and somnolence. She was in atrial fibrillation with rapid ventricular response. She developed hypotension requiring pressors several days after admission. Her presentation was felt to be related to chronic diastolic heart failure (although her chest x-ray did not show heart failure on presentation her BNP was somewhat elevated at 772), pulmonary hypertension, COPD, possible obstructive sleep apnea and chronic pain medications as well as sepsis. She did improve from these issues. She has been maintained on Eliquis for her atrial fibrillation but developed a severe nosebleed around April 24, 2022. This was treated with nose packing as well as nasal clips, however there appeared to be persistent bleeding and she went to the OR on April 24, 2022 for endoscopic cautery and posterior nasal packing. Eliquis was placed on hold, last administered April 24, 2022 at 8 AM. Due to her weight and her kidney function she has been on 5 mg twice a day which is the appropriate dose. Her hemoglobin was somewhat reduced on presentation, around 10.5, and dropped to as low was 8.8 on April 24 although this morning was 9.3. At the time of my evaluation she did not recall having a nosebleed, she had no complaints of pain or nasal drainage. No other complaints. Allergies Allergy/AdvReac Type Severity Reaction Status Date / Time latex Allergy Intermediate Rash, Verified 04/19/22 21:46 itching povidone-iodine Allergy Intermediate Itching Verified 04/19/22 21:46 [From Betadine] soap [From Betadine] Allergy Intermediate Itching Verified 04/19/22 21:46 aspirin AdvReac Mild Dizziness Verified 04/19/22 21:46 Home Medications Medication Instructions Recorded Confirmed Type vit C 250 mg-vit E 90 mg-zinc 40 2 tab PO QAM 05/01/20 04/19/22 History mg-copper 1 [id number]-ioikpq capsule (PreserVision AREDS-2) budesonide-formoterol HFA 160 2 puff inhalation BID PRN 09/15/20 04/19/22 History mcg-4.5 mcg/actuation aerosol Shortness Of Breath Or Wheezing inhaler (Symbicort) pantoprazole 40 mg tablet,delayed 40 mg PO QAM GERD 05/14/21 04/19/22 History release (Protonix) montelukast 10 mg tablet 10 mg PO QPM 08/20/21 04/19/22 History ezetimibe 10 mg tablet (Zetia) 10 mg PO QAM #90 tabs 11/24/21 04/19/22 Rx ascorbic acid (vitamin C) 500 mg 500 mg PO QAM #20 tabs 01/02/22 04/19/22 Rx tablet (Vitamin C) acetaminophen 500 mg tablet 500 mg PO Q6H PRN Pain 03/28/22 04/19/22 History bumetanide 1 mg tablet 1 mg PO DAILY 03/28/22 04/19/22 History carboxymethylcellulose sodium 0.5 1 drp ophthalmic (eye) TID 03/28/22 04/19/22 History % eye drops (Refresh Tears) cholecalciferol (vitamin D3) 50 50 mcg PO DAILY 03/28/22 04/19/22 History mcg (2,000 unit) capsule (Vitamin D3) levothyroxine 112 mcg tablet 112 mcg PO DAILYBB 03/28/22 04/19/22 History melatonin 3 mg tablet 3 mg PO QDD 03/28/22 04/19/22 History metoprolol succinate 50 mg 50 mg PO BID 03/28/22 04/19/22 History tablet,extended release 24 hr polyethylene glycol 3350 17 17 g PO DAILY 03/28/22 04/19/22 History gram/dose oral powder (Miralax) sennosides 8.6 mg-docusate sodium 2 tab-cap PO BID17 03/28/22 04/19/22 History 50 mg tablet (Senna-S) L.acidop,casei,lactis,rham-B.lact,jessy 2 cap PO DAILY #30 caps 04/05/22 04/19/22 Rx 625 mg (10 billion cell) capsule (Advanced Probiotic) bismuth subsalicylate 262 mg/15 mL 524 mg PO Q6H PRN UPSET STOMACH 04/19/22 04/19/22 History oral suspension ([place] Bismuth) food supplemt, lactose-reduced 1 ea PO QAM 04/19/22 04/19/22 History ondansetron HCl 4 mg tablet 4 mg PO Q4H PRN NAUSEA/VOMITING 04/19/22 04/19/22 History oxycodone 5 mg tablet 2.5 mg PO Q8H PRN Pain 04/19/22 04/19/22 History cephalexin 500 mg capsule 500 mg PO QID 6 days #24 caps 04/25/22 Rx dextromethorphan-guaifenesin 5 10 ml PO Q6H PRN cough #118 mL 04/25/22 Rx mg-100 mg/5 mL oral liquid (Robitussin Cough-Chest Congestion DM) midodrine 2.5 mg tablet 5 mg PO TID@0800,1200,1700 PRN SBP 04/25/22 Rx < 100 #14 tabs prednisone 5 mg tablet 5 mg PO DAILY #6 tabs 04/25/22 Rx Patient History Medical History Acute diverticulitis Anxiety and depression Aortic regurgitation Asthma inhaler prn Atrial fibrillation with rapid ventricular response Atrial fibrillation, permanent on eliquis and follows with Dr. Colón Chronic diastolic CHF (congestive heart failure) Cor pulmonale (chronic) Coronary artery disease Diverticulitis Dyslipidemia Esophageal stricture H/O fall 08/2020 Hearing deficit History of COVID-19 diagnosed 05/18/22 @ [place]--asymptomatic, tested prior to procedure--no issues now Hypotension Hypothyroid Leukocytosis Macular degeneration On anticoagulant therapy eliquis daily Osteoarthritis Pulmonary hypertension Spinal stenosis Valvular heart disease Venous insufficiency (chronic) (peripheral) Surgical History History of bilateral cataract extraction History of cardiac cath ?2015 @ [facility] [place]--no stents History of colonoscopy with polypectomy History of dilatation and curettage History of esophagogastroduodenoscopy (EGD) History of left hip replacement History of left shoulder replacement History of parathyroidectomy ELEVATED CALCIUM LEVELS? (2 REMOVED) History of right hip replacement History of right shoulder replacement History of tonsillectomy and adenoidectomy History of tooth extraction History of total left knee replacement (TKR) x2 History of total right knee replacement (TKR) x2 History of wisdom tooth extraction S/P cholecystectomy S/P dilatation of esophageal stricture Family History Mother Cancer uterine Thyroid disease Father Cancer esophageal Family history of esophageal cancer Sister Family history of diabetes mellitus Sister Family history of diabetes mellitus Brother Family history of diabetes mellitus Family hx of colon cancer Other No family history of adverse response to anesthesia Social History Smoking Status: Former smoker Tobacco Type: Cigarettes Cigarettes Per Day: 1 ppd; Second Hand Exposure: No; Hx Alcohol Use: No Hx Substance Use: No Preferred Language: Urdu Communication Ability: Impaired Visual Impairment: Limited Hearing Ability: Normal Salon Professional Required: No Beliefs That Will Affect Care: None Current Living Situation: Personal Care Facility Current Living Situation Comment: [facility] How many Children do You have: 4 Feels Safe at Home: Yes caffeine: No during the past year weight has: remained stable Assistive Devices: Glasses, Oxygen - Continuous and Wheelchair Review of Systems Review of Systems: Unobtainable due to cognitive status Physical Exam Physical Exam: Constitutional: Alert, cooperative and in no distress. She does not appear to be a good historian. HEENT: Unremarkable Neck: No jugular venous distention, carotid pulses are irregular but otherwise normal and equal bilaterally without bruits. Pulmonary: Wheezing on auscultation bilaterally. Cardiac: Irregular rhythm with a grade 2/6 holosystolic murmur at the apex, no gallop or rub. Abdomen: Soft, nontender with normal bowel sounds. Extremities: No edema. Neurologic: No focal findings. Gait was not tested. Skin: Multiple ecchymosis over her arms and chest. Results & Data ([facility]) Vital Signs (Past 12 Hours) Vital Signs Temp Pulse Pulse Resp BP Pulse Ox O2 Del Method 04/25/22 07:24 36.4 C L 106 H 19 141/88 H 94 Room Air 04/25/22 03:02 36.5 C 103 H 18 129/87 94 Room Air 04/24/22 23:07 118 H 04/24/22 23:02 36.5 C 125 H 20 155/92 H 95 Room Air 04/24/22 22:02 36.5 C 108 H 18 129/85 95 Room Air Laboratory Results Coagulation 04/24/22 Range/Units 16:20 PT 12.5 H (9.0-12.0) Seconds APTT 23.9 (21.0-31.0) Seconds CBC 04/24/22 04/24/22 04/25/22 Range/Units 13:06 19:57 07:48 WBC 12.76 H 13.37 H 13.70 H (4.8-10.8) K/ul RBC 3.05 L 2.73 L 2.93 L (3.93-5.22) M/uL Hgb 9.6 L 8.8 L 9.3 L (12.0-16.0) g/dl Hct 30.9 L 27.8 L 30.0 L (34.1-44.9) % Plt Count 328 312 355 (130-400) K/uL Neut # (Auto) 11.68 H (1.4-6.5) K/uL Lymph # (Auto) 0.52 L (1.2-3.4) K/uL [place] # (Auto) 0.90 H (0.24-0.82) K/uL Eos # (Auto) 0.03 (0-0.50) K/uL Baso # (Auto) 0.02 (0-0.2) K/uL Intake and Output 04/24/22 04/25/22 04/25/22 22:59 06:59 14:59 Intake Total 550 / 1510 400 / 1510 11.667 / 11.667 Output Total 480 / 1730 300 / 1730 Balance 70 / -220 100 / -220 11.667 / 11.667 Intake: IV 200 / 400 11.667 / 11.667 Ciprofloxacin / D5w 400 mg In 200 / 400 11.667 / 11.667 200 ml @ 100 mls/hr IV Q12H [facility] Rx#:[id number] IV Perioperative 150 / 150 Oral 200 / 960 400 / 960 Output: Estimated Blood Loss 30 / 30 Urine Amount (Catheter) 450 / 1700 300 / 1700 Jensen/Indwelling 450 / 1700 300 / 1700 Other: Weight 85 kg 85.2 kg Weight Measurement Method Built in [facility] Diagnostic Findings Telemetry: Atrial fibrillation with a heart rate from 90 to 110 bpm. PG Care Time/CCT Total # of Minutes Spent Total Time Spent with Patient: Total time spent is greater than 50% in coordination of care (as documented) at patient's floor/unit and/or counseling patient: Coding Level of Care Code 85197 Initial Inpt Care Lvl 3 Diagnoses Epistaxis R04.0 Atrial fibrillation, permanent I48.21 Anticoagulant long-term use Z79.01 Coronary artery disease I25.10 Chronic diastolic CHF (congestive heart failure) I50.32
[2022-04-25 09:09] LABS: BUN Creatinine Ratio 45.1 (10-20); Creatinine Clr Calc Pharmacy 63.7 ml/min; Est GFR (Non-African American) 77.7 ml/min; Phosphorus 2.2 mg/dl (2.5-4.9); Potassium 4.6 mmol/L (3.5-5.1)
[2022-04-25] MEDS ORDERED: METOPROLOL SUCC 25MG EXT REL TAB PO STA (11:00)
--- NOTE | 2022-04-25 11:44 | Hospitalist Progress Note ---
Date of Service April 25, 2022 Assessment & Plan (1) Epistaxis requiring cauterization: Plan: - had severe epistaxis 04/24/2022 in the setting of apixaban use that was not amenable to rhinorocket - ENT consulted and patient is now s/p cauterization 04/24/2022 - packing in place - continue per ENT - s/p 1 unit PRBC - hgb stable - vitals stable - holding apixaban for now - cardiology consulted and would like AC to continue if possible - will follow up with ENT on when safe to restart and will continue with discussion with family about risks and benefits given severe bleeding event - will continue to monitor (2) Cellulitis: Plan: - likely in the setting of PVD and PAD - continue statin, ezitimde, apixaban - continue abx - changed to cefazolin and cipro given wound cultures with Klebsiella and pseudomonas - seems to be improving - will likely have recurring cellulitis given vascular disease - palliative care discussion ongoing about hospice vs DNH with family - continue abx - treat for 10 days total - can switch to PO on discharge (3) Venous insufficiency (chronic) (peripheral): Plan: - chronic lower extremity swelling with chronic wounds - likely source of cellulitis as well as history of PAD - on apixaban - continue to elevate LEs when at rest - encourage ambulation as tolerated (4) Atrial fibrillation, permanent: Plan: - rate controlled currently - holding apixaban due to severe epistaxis as above - will follow up with ENT about restarting - metoprolol tartrate 50mg BID restarted - telemetry monitoring (5) Peripheral arterial disease: Plan: - seen on CTAs of LEs in the recent past with areas of complete occlusion - has seen vascular surgery in past and no further interventions at this time - continue medical therapy with statin - holding apixaban as above (6) Coronary artery disease: Plan: - continue statin - continue BB - holding apixaban as above (7) Dyslipidemia: Plan: - continue statin, ezetimibe (8) Hypothyroid: Plan: - continue levothyroxine (9) Chronic diastolic CHF (congestive heart failure): Plan: - noted - not on BP medications at this time due to low BP - monitor, restart as tolerated (10) COPD (chronic obstructive pulmonary disease): Plan: - unclear history - has been on Symbicort in the past but tolerating off for now - no wheezing on exam - monitor Plan DVT ppx: apixaban - holding as above Code Status: DNR/DNI Dispo: telemetry Juan Churchill MD [facility] Medicine Admission and Anticipated Discharge Date Admission Date: April 19, 2022 Subjective Patient with HFpEF (EF 65% 2021), a fib on Eliquis, pHTN, CAD, PVD, HLD, asthma, chronic LE wounds, hypothyroidism presented with recurrent cellulitis of LEs on IV antibiotics, improving. Discussion with Palliative care for possible hospice on discharge. Patient had episode of severe epistaxis 04/24/2022 that required OR arterial cautery with ENT. Apixaban stopped and Cardiology consulted who recommends continue Eliquis if possible at full dose 5mg BID. Patient reports feeling better today but would like to have packing removed, informed her that surgeon will determine this. Otherwise, she reports not change. Denies chest pain, shortness of breath, n/v/d, abdominal pain, dysuria. Review of Systems Review of Systems: As per HPI, all other systems reviewed and negative Physical Exam Physical Exam: General Appearance:Obese, no apparent distress, Awake and alert Head: normocephalic, Atraumatic - nasal packing in place Eyes: normal inspection, EOMI Neck: supple, Trachea midline Respiratory/Chest: Decreased breath sounds, CTA, No accessory muscle use Cardiovascular: Irregularly irregular, No murmur Abdomen/GI:Soft, Non tender, Bowel sounds present Extremities/Musculoskeletal:normal inspection, 1+ B/L Edema to mid shins, +B/L Leg wounds, mild Erythema, +Leg wounds Neurologic/Psych:AAOX3, grossly no focal neurological deficits Skin: normal color, warm Results & Data Results & Data ([facility]) Vital Signs (Past 12 Hours) Vital Signs Temp Pulse Resp BP Pulse Ox O2 Del Method 04/25/22 11:06 36.6 C 109 H 18 121/78 89 L Room Air 04/25/22 08:00 Room Air 04/25/22 07:24 36.4 C L 106 H 19 141/88 H 94 Room Air 04/25/22 03:02 36.5 C 103 H 18 129/87 94 Room Air Diagnostic Findings Laboratory Results WBC 13.70 K/ul (4.8-10.8) H 04/25/22 07:48 RBC 2.93 M/uL (3.93-5.22) L 04/25/22 07:48 Hgb 9.3 g/dl (12.0-16.0) L 04/25/22 07:48 Hct 30.0 % (34.1-44.9) L 04/25/22 07:48 MCV 102.4 fL (80.0-100.0) H 04/25/22 07:48 MCH 31.7 pg (25.0-34.0) 04/25/22 07:48 MCHC 31.0 g/dL (32.0-36.0) L 04/25/22 07:48 RDW Std Deviation 55.0 fL (36.4-46.3) H 04/25/22 07:48 RDW Coeff of Marielle 14.9 % (11.5-14.5) H 04/25/22 07:48 Plt Count 355 K/uL (130-400) 04/25/22 07:48 MPV 9.4 fL (9.4-12.3) 04/25/22 07:48 Immature Gran % (Auto) 1.6 % 04/24/22 19:57 Neut % (Auto) 87.5 % 04/24/22 19:57 Lymph % (Auto) 3.9 % 04/24/22 19:57 Crook % (Auto) 6.7 % 04/24/22 19:57 Eos % (Auto) 0.2 % 04/24/22 19:57 Baso % (Auto) 0.1 % 04/24/22 19:57 Neut # (Auto) 11.68 K/uL (1.4-6.5) H 04/24/22 19:57 Lymph # (Auto) 0.52 K/uL (1.2-3.4) L 04/24/22 19:57 Crook # (Auto) 0.90 K/uL (0.24-0.82) H 04/24/22 19:57 Eos # (Auto) 0.03 K/uL (0-0.50) 04/24/22 19:57 Baso # (Auto) 0.02 K/uL (0-0.2) 04/24/22 19:57 Immature Gran # (Auto) 0.22 K/uL (0.00-0.02) H 04/24/22 19:57 Absolute Nucleated RBC 0.03 K/uL (0-0) H 04/25/22 07:48 Nucleated RBC % (auto) 0.2 % 04/25/22 07:48 PT 12.5 Seconds (9.0-12.0) H 04/24/22 16:20 INR 1.2 (0.9-1.1) H 04/24/22 16:20 APTT 23.9 Seconds (21.0-31.0) 04/24/22 16:20 PTT Ratio 0.9 04/24/22 16:20 Fibrinogen 361 mg/dl (184-400) 04/24/22 16:20 Heparin Anti-Xa, LM Wt 1.33 IU/ML (< 0.10) 04/24/22 16:20 ABG pH 7.41 (7.35-7.45) 04/19/22 21:14 ABG pCO2 51 mmHg (35-46) H 04/19/22 21:14 ABG pO2 95 mmHg (80-95) 04/19/22 21:14 ABG HCO3 32 mmol/L (19-24) H 04/19/22 21:14 ABG O2 Saturation 97.7 % (90-95) H 04/19/22 21:14 ABG Base Excess 6.3 mEq/L (-9-1.8) H 04/19/22 21:14 Nadir Test POS (Pos) 04/19/22 21:14 Oxygen Given 1 L 04/19/22 21:14 Sodium 135 mmol/L (136-145) L 04/25/22 07:48 Potassium 4.6 mmol/L (3.5-5.1) 04/25/22 07:48 Chloride 101 mmol/L (98-107) 04/25/22 07:48 Carbon Dioxide 30 mmol/L (21-32) 04/25/22 07:48 Anion Gap 4 (3-11) 04/25/22 07:48 BUN 32 mg/dl (6-23) H 04/25/22 07:48 Creatinine 0.71 mg/dl (0.6-1.2) 04/25/22 07:48 Est Cr Clr Drug Dosing 63.7 ml/min 04/25/22 07:48 Est GFR ( Amer) 90.0 ml/min 04/25/22 07:48 Est GFR (Non-Af Amer) 77.7 ml/min 04/25/22 07:48 BUN/Creatinine Ratio 45.1 (10-20) H 04/25/22 07:48 Glucose 149 mg/dl (70-99(Fasting)) H 04/25/22 07:48 POC Glucose 179 mg/dl (70-99) H 04/21/22 07:41 Lactate 1.7 mmol/L (0.4-2.0) 04/21/22 01:59 Calcium 10.0 mg/dl (8.5-10.1) 04/25/22 07:48 Phosphorus 2.2 mg/dl (2.5-4.9) L 04/25/22 07:48 Magnesium 2.0 mg/dl (1.7-2.4) 04/25/22 07:48 Total Bilirubin 0.5 mg/dl (0.2-1.0) D 04/21/22 01:59 AST 8 U/L (13-39) L 04/21/22 01:59 ALT 8 U/L (7-52) 04/21/22 01:59 Alkaline Phosphatase 75 U/L (34-104) 04/21/22 01:59 Ammonia 33.0 umol/L (18-72) 04/19/22 21:14 Troponin I High Sens 7.0 pg/ml (0-14) 04/21/22 01:59 B-Natriuretic Peptide 772 pg/ml (0-100) H 04/19/22 21:16 Total Protein 5.5 gm/dl (6.0-8.3) L 04/21/22 01:59 Albumin 2.9 gm/dl (3.4-5.0) L 04/21/22 01:59 Globulin 2.6 gm/dl (2.5-4.0) 04/21/22 01:59 Albumin/Globulin Ratio 1.1 (0.9-2) 04/21/22 01:59 Procalcitonin 0.16 ng/ml (0-0.5) 04/20/22 10:23 TSH 3.363 uIu/ml (0.300-4.500) 04/19/22 21:14 Random Cortisol 1.03 mcg/dl 04/21/22 01:59 Urine Color Yellow 04/21/22 03:30 Urine Appearance Clear (Clear) 04/21/22 03:30 Urine pH 5.5 (4.5-7.5) 04/21/22 03:30 Ur Specific [place] 1.014 (1.000-1.030) 04/21/22 03:30 Urine Protein Negative (Negative) 04/21/22 03:30 Urine Glucose (UA) Negative (Negative) 04/21/22 03:30 Urine Ketones Negative (Negative) 04/21/22 03:30 Urine Blood Negative (Negative) 04/21/22 03:30 Urine Nitrite Negative (Negative) 04/21/22 03:30 Urine Bilirubin Negative (Negative) 04/21/22 03:30 Urine Urobilinogen Negative (Negative) 04/21/22 03:30 Ur Leukocyte Esterase Negative (Negative) 04/21/22 03:30 Urine WBC (Auto) 1-5 /hpf (0-5) 04/20/22 05:40 Urine RBC (Auto) 0-4 /hpf (0-4) 04/20/22 05:40 U Hyaline Cast (Auto) 1-5 /lpf (0-5) 04/20/22 05:40 U Epithel Cells (Auto) 20-30 /lpf (0-5) H 04/20/22 05:40 Urine Bacteria (Auto) Negative (Negative) 04/20/22 05:40 SARS-CoV-2 (PCR) NEGATIVE (Negative) 04/19/22 20:49 Influenza Type A (PCR) Negative (Neg) 04/19/22 20:49 Influenza Type B (PCR) Negative (Neg) 04/19/22 20:49 RSV (RT-PCR) Negative (Neg) 04/19/22 20:49 Streptococcus sp PCR DETECTED (NotDetected) A 04/19/22 21:14 Bld Cult ID Panel PCR See PCR Comment (NotDetected) 04/19/22 21:14 Blood Type O Positive 04/24/22 16:20 Blood Type Recheck O Positive 04/24/22 16:53 Antibody Screen NEGATIVE 04/24/22 16:20 Crossmatch See Detail 04/24/22 16:20 Impressions Tibia/Fibula X-Ray 04/19/22 23:39 XR tibia fibula RT 2V CLINICAL HISTORY: recurrent infection, ro osteomyelitis TECHNIQUE: 2 radiographic views of the right leg were obtained. Comparison: Comparison is made to CTA lower extremity 03/07/2022 FINDINGS: There is no evidence of an acute fracture. Orthopedic hardware is seen spanning the knee without evidence of hardware fracture. Radiodensity in the mid tibial shaft is nonspecific but unchanged from prior exam. Diffuse soft tissue swelling is seen in the lower extremity. Vascular calcifications are seen. IMPRESSION: Diffuse soft tissue swelling without evidence of focal erosion to suggest osteomyelitis. No evidence of hardware fracture or perihardware loosening. ACT 112: Negative or not required by law. Electronically signed by: Sammy Davis M.D. 04/20/2022 8:24 AM Venous Doppler Study 04/20/22 10:53 ULTRASOUND BILATERAL LOWER EXTREMITY VENOUS CLINICAL HISTORY: Lower extremity edema. Leg wounds. COMPARISON STUDY: No priors. TECHNIQUE: Real-time, grayscale, and color Doppler sonography of the deep veins of the right and left lower extremity was performed from the inguinal crease to the calf. Compression and augmentation were utilized. FINDINGS: There is no sonographic evidence of deep venous thrombosis identified in the right or left lower extremity. The common femoral, superficial femoral, and popliteal veins are patent and normally compressible bilaterally. The greater saphenous vein and the profunda femoris vein at the junction with the common femoral vein are clear in both legs. The visualized calf veins are patent bilaterally. IMPRESSION: There is no sonographic evidence of deep venous thrombosis identified in the right or left lower extremity. ACT 112: Negative or not required by law. Electronically signed by: Cesar Santos M.D. 04/20/2022 2:18 PM Chest X-Ray 04/24/22 12:51 SINGLE VIEW CHEST CLINICAL HISTORY: Dyspnea. FINDINGS: 2 AP, portable, upright chest radiographs are compared to study dated 04/19/2022. The heart is enlarged noting atherosclerotic calcification of the thoracic aorta. The pulmonary vasculature is noncongested. Chronic interstitial thickening is similar to previous. There is bibasilar scarring/atelectasis. The lungs and pleural spaces are otherwise clear. No pneumothorax is seen. The skeletal structures are osteopenic. The bony thorax is grossly intact. Bilateral shoulder arthroplasties are in place. IMPRESSION: Cardiomegaly with no acute cardiopulmonary abnormality identified. ACT 112: Negative or not required by law. Electronically signed by: Cesar Santos M.D. 04/24/2022 10:27 PM Medications Administered Current Inpatient Medications Acetaminophen (Acetaminophen 500 Mg Tab) 500 mg PO Q6H PRN PRN Reason: Pain Stop: 05/20/22 01:24 Last Admin: 04/20/22 19:57 Dose: 500 mg Apixaban (Apixaban 5 Mg Tablet) 5 mg PO BID17 [facility] Stop: 05/20/22 01:24 Last Admin: 04/24/22 08:00 Dose: 5 mg Artificial Tears (Artificial Tears) 1 drops OP TID STIVEN Stop: 05/20/22 08:59 Last Admin: 04/25/22 07:59 Dose: 1 drops Atorvastatin Calcium (Atorvastatin 40 Mg Tab) 40 mg PO QAM [facility] Stop: 05/24/22 08:59 Last Admin: 04/25/22 08:01 Dose: 40 mg Ezetimibe (Ezetimibe 10 Mg Tablet) 10 mg PO QAM [facility] Stop: 05/20/22 08:59 Last Admin: 04/25/22 08:01 Dose: 10 mg Fluticasone/Vilanterol (Fluticasone/Vilanterol 200/25mcg 14 Puffs/Inhaler) 1 puffs INH DAILY STIVEN Stop: 05/20/22 08:59 Last Admin: 04/25/22 07:59 Dose: 1 puffs Guaifenesin (Guaifenesin 600 Mg Tabcr) 600 mg PO Q12 PRN PRN Reason: cough Stop: 05/23/22 08:59 Last Admin: 04/24/22 10:55 Dose: 600 mg Guaifenesin/Dextromethorphan (Guaifenesin/Dextrom Syrup 200mg/20mg 10ml Udc) 10 ml PO Q6H PRN PRN Reason: Cough Stop: 04/26/22 12:45 Last Admin: 04/25/22 08:20 Dose: 10 ml Promethazine HCl 12.5 mg/ (Sodium Chloride) 50.5 mls @ 202 mls/hr IV Q6H PRN PRN Reason: Nausea And Vomiting Stop: 05/20/22 01:24 Ciprofloxacin (Cipro / D5w) 400 mg in 200 mls @ 100 mls/hr IV Q12H STIVEN; Protocol Stop: 04/30/22 07:44 Last Infusion: 04/25/22 07:58 Dose: 0 mls/hr Cefazolin Sodium (Ancef 1000mg) 1,000 mg in 7.5 mls @ 2.5 mls/min IV Q8H STIVEN Stop: 04/30/22 12:29 Last Admin: 04/25/22 03:19 Dose: 2.5 mls/min Hydrocortisone Sodium (Succinate 25 mg/ Syringe) 0.5 mls @ 4 mls/min IV Q12H STIVEN Stop: 05/25/22 15:59 Lactobacillus Acidophilus (Advanced Probiotic 1250 Mg Capsule) 2 cap PO DAILY STIVEN Stop: 05/20/22 08:59 Last Admin: 04/25/22 08:00 Dose: 2 cap Levothyroxine Sodium (Levothyroxine Sodium 112 Mcg Tablet) 112 mcg PO DAILYBB STIVEN Stop: 05/20/22 06:29 Last Admin: 04/25/22 05:32 Dose: 112 mcg Melatonin (Melatonin 3 Mg Tab) 3 mg PO HS PRN PRN Reason: Insomnia Stop: 05/20/22 01:24 Last Admin: 04/20/22 19:57 Dose: 3 mg Metoprolol Succinate (Metoprolol Succ 50mg Ext Rel Tab) 50 mg PO BID STIVEN Stop: 05/25/22 20:59 Midodrine (Midodrine Hcl 2.5 Mg Tab) 5 mg PO TID@0800,1200,1700 STIVEN Stop: 05/21/22 10:44 Last Admin: 04/25/22 07:51 Dose: 5 mg Multivitamins/Minerals (Cerovite Adv Formula Tab) 1 tab PO QAM STIVEN Stop: 05/20/22 08:59 Last Admin: 04/25/22 08:00 Dose: 1 tab Oxycodone HCl (Oxycodone Hcl Ir 5 Mg Tab (Immediate Release)) 2.5 mg PO Q8H PRN PRN Reason: Pain Stop: 05/04/22 01:24 Last Admin: 04/25/22 08:20 Dose: 2.5 mg Pantoprazole Sodium (Pantoprazole 40 Mg Tab) 40 mg PO BID STIVEN Stop: 05/20/22 08:59 Last Admin: 04/25/22 08:00 Dose: 40 mg Polyethylene Glycol (Polyethylene (Miralax) 17 Gm Pack) 17 gm PO DAILY STIVEN Stop: 05/20/22 08:59 Last Admin: 04/25/22 08:01 Dose: 17 gm Senna/Docusate Sodium (Docusate Sodium/Senna 50/8.6mg Tab) 2 tab PO BID17 [facility]IV[facility] Stop: 05/20/22 08:59 Last Admin: 04/25/22 08:00 Dose: 2 tab Sodium Chloride (Sodium Chloride 0.9% Nebu Soln 3 Ml) 3 ml NEB Q6H PRN PRN Reason: congestion Stop: 05/24/22 12:50 Last Admin: 04/24/22 13:16 Dose: 3 ml (1) Cellulitis Laterality: right Site of cellulitis: extremity Site of cellulitis of extremity: lower extremity Qualified Code(s): L03.115 - Cellulitis of right lower limb
[2022-04-25] MEDS: ACETAMINOPHEN 500 MG TAB PO PRN (12:54)
[2022-04-25] MEDS ORDERED: HYDROCORTISONE SOD 25 MG in SYRINGE 0 ML IV SCH (16:00)
--- NOTE | 2022-04-25 16:16 | Discharge Summary ---
Date of Service April 25, 2022 Admission HPI Per Admitting Provider History obtained from patient and records. Medical history significant for chronic diastolic heart failure (EF 65 to 70%, TTE 2021), valvular heart disease (moderate MR/TR ), A. fib on Eliquis, pulmonary hypertension, nonobstructive CAD, PVD, hyperlipidemia, asthma, chronic leg wounds, primary hyperparathyroidism status post surgery, hypothyroidism, history diverticulitis, sacroiliitis, chronic pain on narcotics, chronic anemia (baseline hemoglobin of 10 ), past tobacco abuse. 2 confinements last month for recurrent left leg cellulitis. Patient discharged on cephalexin and doxycycline course following last admission. Patient noted to be sleepy the last 3 days as per report. O2 sats noted to be 70s. Patient does not wear oxygen. Patient thinks she probably snores. No prior sleep studies. Patient denies chest pain, unusual shortness of breath, unusual cough symptoms. No headache symptoms. Patient brought to the ER for evaluation. Right leg noted to be more swollen than usual. IV cefepime administered at the ER. 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 Admission Exam Per Admitting Provider GENERAL: Slightly uncomfortable, obese, episodic lethargy during encounter SKIN: Pallor , warm HEENT: Pale palpebral conjunctivae, no ptosis, dry buccal mucosa, nasal cannula in place NECK : Supple, no tenderness CHEST : Decreased breath sounds, no tenderness HEART : irregular, no obvious murmurs ABDOMEN: Some distention, no tenderness EXTREMITIES : Dressings over both lower extremities, RLE erythema, no overt tenderness NEUROLOGIC : Coherent, chronic lip asymmetry, mild hearing impairment, gait and stance not assessed Principal Diagnosis LE cellulitis, severe epistaxis Discharge Exam General Appearance:Obese, no apparent distress, Awake and alert Head: normocephalic, Atraumatic - nasal packing and bandage removed - no blood noted in nares Eyes: normal inspection, EOMI Neck: supple, Trachea midline Respiratory/Chest: Decreased breath sounds, CTA, No accessory muscle use Cardiovascular: Irregularly irregular, No murmur Abdomen/GI:Soft, Non tender, Bowel sounds present Extremities/Musculoskeletal:normal inspection, 1+ B/L Edema to mid shins, +B/L Leg wounds, no Erythema, +Leg wounds Neurologic/Psych:AAOX3, grossly no focal neurological deficits Skin: normal color, warm Discharge Data Allergies Allergy/AdvReac Type Severity Reaction Status Date / Time latex Allergy Intermediate Rash, Verified 04/19/22 21:46 itching povidone-iodine Allergy Intermediate Itching Verified 04/19/22 21:46 [From Betadine] soap [From Betadine] Allergy Intermediate Itching Verified 04/19/22 21:46 aspirin AdvReac Mild Dizziness Verified 04/19/22 21:46 Consultations 04/19/22 22:19 ED Decision to Admit Stat 04/19/22 23:35 Consult Pulmonology Routine 04/21/22 02:13 Consult Irrigation Equipment Remover Routine 04/21/22 08:29 Consult Palliative Care Routine 04/24/22 17:28 Consult Otolaryngology (Head and Neck) Routine 04/25/22 07:08 Consult Cardiology Routine Procedures Performed Operation Date: 04/24/22 16:20 Actual Procedures p Nasal Bleed Control - Kaycee Kwan MD Ordered Studies 04/20/22 10:53 US venous doppler LE Routine Hospital Course (1) Hospice care: - patient and family had discussion with palliative last week and plan is to discharge to [facility] with hospice services - patient will continue treatment of chronic diseases but is DNH with the understanding that she can reverse this decision if she desires - discharge to [facility] with hospice 04/25/2022 (2) Epistaxis requiring cauterization: - had severe epistaxis 04/24/2022 in the setting of apixaban use that was not amenable to rhinorocket - ENT consulted and patient is now s/p cauterization 04/24/2022 - packing in place - continue per ENT - s/p 1 unit PRBC - hgb stable - vitals stable - holding apixaban for now - will hold indefinitely after discussing risks and benefits with patient who was AAOx3 and understood the risks and benefits of stopping the medication vs taking it - cardiology consulted and would like AC to continue if possible - packing and dressing removed from earlier in the morning - no blood in nares noted - will continue to monitor (3) Cellulitis: - likely in the setting of PVD and PAD - continue statin, ezitimde, apixaban - continue abx - changed to cefazolin and cipro given wound cultures with Klebsiella and pseudomonas - seems to be improving - will likely have recurring cellulitis given vascular disease - palliative care discussion ongoing about hospice vs DNH with family - being discharged to [facility] with hospice - continue abx - treat for 10 days total - can switch to PO on discharge - changed to cephalexin PO until 04/30/2022 (4) Venous insufficiency (chronic) (peripheral): - chronic lower extremity swelling with chronic wounds - likely source of cellulitis as well as history of PAD - on apixaban - continue to elevate LEs when at rest - encourage ambulation as tolerated (5) Atrial fibrillation, permanent: - rate controlled currently - holding apixaban due to severe epistaxis as above - will follow up with ENT about restarting - metoprolol tartrate 50mg BID restarted - telemetry monitoring (6) Peripheral arterial disease: - seen on CTAs of LEs in the recent past with areas of complete occlusion - has seen vascular surgery in past and no further interventions at this time - continue medical therapy with statin - holding apixaban as above (7) Coronary artery disease: - continue statin - continue BB - holding apixaban as above (8) Dyslipidemia: - continue statin, ezetimibe (9) Hypothyroid: - continue levothyroxine (10) Chronic diastolic CHF (congestive heart failure): - noted - not on BP medications at this time due to low BP - monitor, restart as tolerated (11) COPD (chronic obstructive pulmonary disease): - unclear history - has been on Symbicort in the past but tolerating off for now - no wheezing on exam - monitor Plan DVT ppx: apixaban - holding as above Code Status: DNR/DNI Dispo: telemetry Juan Churchill MD [facility] Total Time Total Time Spent Total Time Spent (In Minutes): 25 Total Time Includes: Examination of the Patient, Discharge Planning, Medication Reconciliation and Communication With Other Providers Discharge Plan Discharge Items Patient Disposition: Personal [facility] Reason For Visit: RESP FAILURE, RECURRENT CELLULITIS Discharge Diagnosis: cellulitis, severe epistaxis Condition on Discharge: Fair Activity: As commented below Activity Comment: as tolerated Non-emergency contact: Primary Care Provider Call non-emergency contact if: you have any medication questions and your symptoms worsen Follow-up/Referrals: [facility]EN[facility] [Primary Care Provider] - Diet: Regular Addtl Attending Provider Instructions: You were admitted for low blood pressure and cellulitis. You were started on antibiotics with improvement. You had a complication in the hospital of severe nose bleed likely related to your blood thinner, Eliquis, requiring surgical intervention with ENT doctors. The intervention was successful and the bleeding stopped. You elected to discontinue your Eliquis for now and to return to [facility] with continued treatment of your cellulitis and to transition to hospice care at the facility, per discussions with Palliative care here at [facility]. You will finish your antibiotic course there as well as 2 days of steroid taper to finish steroid course. Pending Studies at Discharge: No Stand-Alone Forms: My [employer], Smoking Cessation Skilled Items Patient informed of condition?: Yes DNR: Yes Discharge Level of Care: Other Communicable Disease: No Discharge Prognosis: Stable Lines: None Urinary Catheter: Yes Medications and DC Order Prescriptions: New midodrine 2.5 mg Tablet 5 mg PO TID@0800,1200,1700 PRN (Reason: SBP < 100) Qty: 14 0RF Robitussin Cough-Chest Mark DM 5-100 mg/5 mL Liquid 10 ml PO Q6H PRN (Reason: cough) Qty: 118 0RF cephalexin 500 mg capsule 500 mg PO QID 6 Days Qty: 24 0RF prednisone 5 mg tablet 5 mg PO DAILY Qty: 6 0RF Rx Instructions: take 10mg for 2 days, then 5mg for 2 days then stop Continued ezetimibe [Zetia] 10 mg tablet 10 mg PO QAM Qty: 90 3RF PreserVision AREDS-2 [id number] Capsule 2 tab PO QAM pantoprazole [Protonix] 40 mg tablet,delayed release (DR/EC) 40 mg PO QAM budesonide-formoterol [Symbicort] 160-4.5 mcg/actuation HFA aerosol inhaler 2 puff INHALATION BID PRN (Reason: Shortness Of Breath Or Wheezing) montelukast 10 mg tablet 10 mg PO QPM ascorbic acid (vitamin C) [Vitamin C] 500 mg Tablet 500 mg PO QAM Qty: 20 0RF metoprolol succinate 50 mg tablet extended release 24 hr 50 mg PO BID bumetanide 1 mg tablet 1 mg PO DAILY levothyroxine 112 mcg tablet 112 mcg PO DAILYBB sennosides-docusate sodium [Senna-S] 8.6-50 mg Tablet 2 tab-cap PO BID17 melatonin 3 mg Tablet 3 mg PO QDD carboxymethylcellulose sodium [Refresh Tears] 0.5 % Drops 1 drp OPHTHALMIC (EYE) TID polyethylene glycol 3350 [Miralax] 17 gram/dose Powder 17 g PO DAILY cholecalciferol (vitamin D3) [Vitamin D3] 50 mcg (2,000 unit) Capsule 50 mcg PO DAILY acetaminophen 500 mg Tablet 500 mg PO Q6H MDD 3 GRAMS/24 HOURS PRN (Reason: Pain) Advanced Probiotic 625 mg (10 billion cell) Capsule 2 cap PO DAILY Qty: 30 0RF ondansetron HCl 4 mg Tablet 4 mg PO Q4H PRN (Reason: NAUSEA/VOMITING) bismuth subsalicylate [[place] Bismuth] 262 mg/15 mL Suspension 524 mg PO Q6H PRN (Reason: UPSET STOMACH) oxycodone 5 mg Tablet 2.5 mg PO Q8H PRN (Reason: Pain) food supplemt, lactose-reduced Liquid 1 ea PO QAM Rx Instructions: CHOCOLATE Discontinued oxycodone 5 mg tablet 2.5 mg PO QAM Eliquis 5 mg tablet 5 mg PO BID17 Discharge Orders: Discharge Order (Routine); Ordered 04/25/22 Ordered By: Juan Churchill Admission Data Admit Date/Time: 04/19/22 23:33 Attending Provider: Juan Churchill Admit Provider: Daniele Gonzales Primary Care Provider: [facility] Other Providers: Daniele Gonzales ; Cesar Sharif ; Macros Whittaker ; Hernando Guadalupe ; Bernabe Caro ; Megan Holley ; Babar Steel ; Afshan Monahan ; Kaycee Kwan ; Adeel Yang Other Interventions: Discharge Summary Assessment (RN) Last Done: 04/25/22 15:00
[2022-04-25] MEDS ORDERED: METOPROLOL SUCC 50MG EXT REL TAB PO SCH (21:00)
--- NOTE | 2022-04-30 10:17 | Coding Query ---
SEPSIS To promote full compliance with coding requirements relating to patient care, physician participation is requested in all cases of electrocardiograph repairer uncertainty. Please assist us with the question(s) below: In responding to this query, please exercise your independent professional judgement. The fact that a question is asked does not imply that any particular answer is desired or expected. We appreciate your clarification on this issue. T The medical record reflects the following clinical findings: Pt adm with RLE cellulitis & severe epistaxis. 04/13 documented hypoxia in setting of Sepsis versis PVD. Pt started on Midodrine and stress dose for Septic Shock. Please check below the diagnosis that was treated and if present on admission. thanks for your help. 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[employer] ____ ( )Bacteremia (Nonspecific laboratory finding of bacteria in the blood) Specify Organism ( ) Present on Admission ( ) Not present on admission (x) Unable to clinically determine ( ) Septicemia (Systemic disease associated with the presence of pathogenic microorganisms in the blood): Specify Organism ( ) Present on Admission ( ) Not present on admission (x) Unable to clinically determine ( ) Sepsis Specify Organism Specify Associated Condition/Diagnosis ( x) Present on Admission ( ) Not present on admission ( ) Unable to clinically determine ( ) Severe Sepsis (Sepsis associated with acute organ dysfunction) Specify Organism Specify Associated Condition/Diagnosis ( ) Present on Admission ( ) Not present on admission ( x) Unable to clinically determine ( ) Septic Shock (Severe sepsis with acute circulatory failure, unexplained by other causes) ( ) Present on Admission ( ) Not present on admission ( x) Unable to clinically determine ( ) Other, patient has: MTDD
== END 2022-04-25 15:45 | disposition hospice, home (50) | DRG 871 ==
LOC: ED 19:59 → SUATTDRO 23:33 → 2N 23:33 → 1E 04-21 02:11 → 2S 04-21 18:52
DX: I50.32 Chronic diastolic (congestive) heart failure; Z86.16 Personal history of COVID-19; I25.10 Atherosclerotic heart disease of native coronary artery without angina pectoris; Z88.8 Allergy status to other drugs, medicaments and biological substances; L03.115 Cellulitis of right lower limb; I27.20 Pulmonary hypertension, unspecified; R04.0 Epistaxis; D64.9 Anemia, unspecified; A41.9 Sepsis, unspecified organism; J96.01 Acute respiratory failure with hypoxia; I73.9 Peripheral vascular disease, unspecified; R73.03 Prediabetes; J96.02 Acute respiratory failure with hypercapnia; J44.9 Chronic obstructive pulmonary disease, unspecified; I08.1 Rheumatic disorders of both mitral and tricuspid valves; Z79.01 Long term (current) use of anticoagulants; Z79.890 Hormone replacement therapy; Z96.611 Presence of right artificial shoulder joint; B96.5 Pseudomonas (aeruginosa) (mallei) (pseudomallei) as the cause of diseases classified elsewhere; Z51.5 Encounter for palliative care; G47.33 Obstructive sleep apnea (adult) (pediatric); Z91.040 Latex allergy status; I27.81 Cor pulmonale (chronic); Z87.891 Personal history of nicotine dependence; T45.515A Adverse effect of anticoagulants, initial encounter; Z79.899 Other long term (current) drug therapy; I87.2 Venous insufficiency (chronic) (peripheral); Z96.642 Presence of left artificial hip joint; E03.9 Hypothyroidism, unspecified; E78.5 Hyperlipidemia, unspecified; I48.21 Permanent atrial fibrillation; E83.39 Other disorders of phosphorus metabolism; Z66 Do not resuscitate; Z83.3 Family history of diabetes mellitus; R65.21 Severe sepsis with septic shock; L03.116 Cellulitis of left lower limb; Y92.019 Unspecified place in single-family (private) house as the place of occurrence of the external cause; B96.1 Klebsiella pneumoniae [K. pneumoniae] as the cause of diseases classified elsewhere